=== PATIENT | male | born 1935 | race African-American/Black ===

== ENCOUNTER 2018-12-17 15:20 | Inpatient (IN) | payer MEDICARE, OTHER ==
[2018-12-17 16:21] LABS: Basophils % (Auto) 0.5 % (0.0-1.8); Eosinophils # (Auto) 0.1 K/mm3 (0.0-0.4); Eosinophils % (Auto) 1.6 % (0.0-4.3); Hematocrit 37.9 % (35.5-45.6); Hemoglobin 12.6 gm/dl (11.8-15.2); Lymphocytes # (Auto) 2.3 K/mm3 (1.2-5.4); Lymphocytes % (Auto) 25.6 % (13.4-35.0); Mean Corpuscular HGB Conc 33 % (32-34); Mean Corpuscular Volume 88 fl (84-94); Monocytes # (Auto) 0.6 K/mm3 (0.0-0.8); Monocytes % (Auto) 6.3 % (0.0-7.3); Platelet Count 178 K/mm3 (140-440); Red Cell Distribution Width 17.6 % (13.2-15.2)
[2018-12-17 16:32] LABS: INR 1.04 (0.87-1.13)
--- NOTE | 2018-12-17 16:41 | XRay Report ---
CHEST 1 VIEW INDICATION / CLINICAL INFORMATION: Syncope. COMPARISON: None available. FINDINGS: SUPPORT DEVICES: None. HEART / MEDIASTINUM: Mild cardiomegaly LUNGS / PLEURA: No significant pulmonary or pleural abnormality. No pneumothorax. ADDITIONAL FINDINGS: No significant additional findings. IMPRESSION: No acute pulmonary or pleural abnormality. Signer Name: Rodrigo Fleming MD FACR Signed: 12/17/2018 4:37 PM Workstation Name: [id number]
[2018-12-17 16:46] LABS: Alanine Aminotransferase 16 units/L (7-56); BUN/Creatinine Ratio 7; Blood Urea Nitrogen 11 mg/dL (9-20); Calcium 9.1 mg/dL (8.4-10.2); Hemolysis Index 0
--- NOTE | 2018-12-17 19:20 | Emergency Department Report ---
ED Syncope HPI - General Chief Complaint: Syncope Stated Complaint: SYNCOPAL EPISODE Time Seen by Provider: 12/17/18 16:05 Source: family Exam Limitations: no limitations - History of Present Illness Initial Comments: Patient lives with son and grandson, he has a pasts h/o tobacco abuse and dementia. His son left house around 9 AM, came back around 2pm and found patient on the floor, he states patient had a history of syncopal episodes back in [place], where he would be less responsive after. He should also have a history of hypertension, not controlled. In ER patient is unresponsive to verbal stimuli, unable to participate in H and P. Son and grandson at bedside, provides the history. last known well time 900am. unable to obtain nih d/t patient's condition. - Related Data Allergies/Adverse Reactions: Allergies No Known Allergies Allergy (Verified 12/17/18 19:43) Home Medications: Ambulatory Orders Unobtainable 12/17/18 ED Review of Systems ROS: Stated complaint: SYNCOPAL EPISODE Other details as noted in HPI Comment: Unobtainable due to pts medical conditions ED Past Medical Hx - Past Medical History Previous Medical History?: Yes Hx Dementia: Yes - Surgical History Past Surgical History?: No - Social History Smoking Status: Unknown if ever smoked Substance Use Type: None - Medications Home Medications: Home Medications Medication Instructions Recorded Confirmed Last Taken Type Unobtainable 12/17/18 12/17/18 Unknown History ED Physical Exam - General Limitations: Altered Mental Status General appearance: lethargic - Head Head exam: Present: atraumatic, normocephalic - Eye Eye exam: Present: normal appearance - ENT ENT exam: Present: normal exam, normal orophraynx - Neck Neck exam: Present: normal inspection - Respiratory Respiratory exam: Present: normal lung sounds bilaterally - Cardiovascular Cardiovascular Exam: Present: regular rate, normal rhythm - GI/Abdominal GI/Abdominal exam: Present: soft - Extremities Exam Extremities exam: Present: other (unable to assess, pt not responsive) - Back Exam Back exam: Present: normal inspection - Neurological Exam Neurological exam: Present: altered ED Course Vital Signs 12/17/18 12/17/18 12/17/18 15:30 15:36 15:46 Temperature 98 F Pulse Rate 94 H 96 H Respiratory 16 26 H Rate Blood Pressure 182/105 182/105 Blood Pressure [Left] O2 Sat by Pulse 72 L 95 Oximetry 07/25/19 07/25/19 07/25/19 16:00 16:16 16:30 Temperature Pulse Rate 92 H Respiratory 19 24 23 Rate Blood Pressure 189/111 163/124 187/115 Blood Pressure [Left] O2 Sat by Pulse Oximetry 12/17/18 12/17/18 12/17/18 16:46 17:00 17:16 Temperature Pulse Rate Respiratory 17 24 25 H Rate Blood Pressure 174/105 159/114 172/113 Blood Pressure [Left] O2 Sat by Pulse Oximetry 12/17/18 12/17/18 12/17/18 17:30 17:45 17:48 Temperature Pulse Rate 95 H 98 H Respiratory 24 19 16 Rate Blood Pressure 186/119 181/122 Blood Pressure 176/119 [Left] O2 Sat by Pulse 98 Oximetry 12/17/18 12/17/18 12/17/18 18:00 18:16 18:30 Temperature Pulse Rate 101 H 96 H 104 H Respiratory 16 25 H 26 H Rate Blood Pressure 176/119 166/141 163/104 Blood Pressure [Left] O2 Sat by Pulse 54 L 97 94 Oximetry 12/17/18 12/17/18 12/17/18 18:46 19:22 19:30 Temperature Pulse Rate 101 H 100 H 101 H Respiratory 25 H 16 23 Rate Blood Pressure 159/118 175/111 Blood Pressure [Left] O2 Sat by Pulse 99 Oximetry 12/17/18 12/17/18 12/17/18 19:45 20:01 20:15 Temperature Pulse Rate 97 H 102 H 82 Respiratory 18 20 18 Rate Blood Pressure 175/105 175/105 165/96 Blood Pressure [Left] O2 Sat by Pulse 82 L 97 Oximetry 12/17/18 12/17/18 12/17/18 20:30 20:34 20:41 Temperature Pulse Rate 75 83 77 Respiratory 22 24 Rate Blood Pressure 152/93 152/93 Blood Pressure [Left] O2 Sat by Pulse 97 98 Oximetry 12/17/18 20:50 Temperature Pulse Rate 71 Respiratory 21 Rate Blood Pressure 165/96 Blood Pressure [Left] O2 Sat by Pulse 98 Oximetry ED Medical Decision Making - Lab Data Result diagrams: 12/17/18 16:10 12/17/18 16:10 - Medical Decision Making subacute vs acute cva m.cerebral a territory - Differential Diagnosis seizures, DTs, hypertensive urgency, syncope, CVA Critical care attestation.: If time is entered above; I have spent that time in minutes in the direct care of this critically ill patient, excluding procedure time. ED Disposition Clinical Impression: Acute CVA (cerebrovascular accident) Is pt being admited?: Yes Does the pt Need Aspirin: No Condition: Stable
[2018-12-17] MEDS ORDERED: MILK OF MAGNESIA PO PRN (19:40)
[2018-12-17] MEDS ORDERED: PHENERGAN PR PRN (19:40)
[2018-12-17] MEDS ORDERED: ZOFRAN IV PRN (19:40)
[2018-12-17] MEDS ORDERED: DULCOLAX PR PRN (19:40)
[2018-12-17] MEDS ORDERED: REGLAN PO PRN (19:40)
[2018-12-17] MEDS ORDERED: NORMODYNE IV ONE (19:42)
[2018-12-17] MEDS ORDERED: ASPIRIN PR ONE ×2 (19:49→20:14)
--- NOTE | 2018-12-17 19:53 | Cat Scan Report ---
Nonenhanced CT scan of the brain: INDICATION: syncope, ams TECHNIQUE: Routine CT head without contrast. Sagittal and coronal reformatted images were obtained. A ll CT scans at this location are performed using CT dose reduction for ALARA by means of automated ex posure control. COMPARISON: None. FINDINGS: BRAIN / INTRACRANIAL CONTENTS: Please note these images were obtained in the fourth slice helical sca nner. I am concerned about acute nonhemorrhagic right middle cerebral artery territory infarction. Hyperden se right middle cerebral artery is seen. Increased CT density is also seen in branches of the right m iddle cerebral artery (do not sign) suggesting thrombosis. Infarction is also seen in the right insul ar cortex, putamen and lateral globus pallidus.. I do not see hemorrhage. Mild mass effect is seen ov er the right lateral ventricle. Focal chronic ischemic lesions are seen in both cerebellar hemispheres and christen. Encephalomalacia is seen in the left temporooccipital external border zone with compensatory enlargement of left occipita l horn and atrium of the left lateral ventricle. CRANIOCERVICAL JUNCTION: No significant abnormality. ORBITS: No significant abnormality of visualized orbits. SINUSES / MASTOIDS: Mucosal disease seen in the left maxillary sinus and left anterior ethmoid air ce lls. ADDITIONAL FINDINGS: None. IMPRESSION: CT findings are consistent with acute/subacute nonhemorrhagic right middle cerebral artery territory infarction. Positive critical imaging result; discussed findings with ER physician at [facility] at 6:46 PM CDT Signer Name: Jaylon Rowley MD Signed: 12/17/2018 7:49 PM Workstation Name: [id number]
--- NOTE | 2018-12-17 21:00 | History and Physical Report ---
History of Present Illness Date of admission: 12/17/18 19:40 Chief complaint: Confused History of present illness: 83 YO Male with HTN, Dementia present to ED for evaluation. Pt is stuporous and unable to provide history. Pt history taken from ED staff, and from EMS, as well as patient son. As per son, the patient was in his usual state of health around 0900hrs. The patient son left at that time, and upon his return home around 1400 hrs the patient was found unresponsive and lying in the floor. EMS was notified and upon arrival the patient was found to have a neurologic deficit and tr ansported to [facility]. Pt seen and evaluated in ED and found to have symptoms consistent with CVA, Encephalopathy. Pt initiated on CVA protocol, and admitted to telemetry. No further history obtainable. Pt is lethargic but has a positive gag reflex and is able to protect his airway. No prior admission for review. Past History Past Medical History: hypertension, other (Dementia) Past Surgical History: No surgical history, Other (reviewed) Social history: single. denies: smoking, alcohol abuse, prescription drug abuse Family history: hypertension Medications and Allergies Allergies Allergy/AdvReac Type Severity Reaction Status Date / Time No Known Allergies Allergy Verified 12/17/18 19:43 Home Medications Medication Instructions Recorded Confirmed Last Taken Type Unobtainable 12/17/18 12/17/18 Unknown History Active Meds: Active Medications Acetaminophen (Tylenol) 650 mg PO Q4H PRN PRN Reason: Pain, Mild (1-3) Aspirin (Aspirin) 325 mg PO QDAY [facility] Atorvastatin Calcium (Lipitor) 40 mg PO QHS [facility] Bisacodyl (Dulcolax) 10 mg AR QDAY PRN PRN Reason: Constipation Famotidine (Pepcid) 10 mg IV BID [facility] Magnesium Hydroxide (Milk Of Magnesia) 30 ml PO Q4H PRN PRN Reason: Constipation Metoclopramide HCl (Reglan) 10 mg PO Q6H PRN PRN Reason: Nausea And Vomiting Ondansetron HCl (Zofran) 4 mg IV Q8H PRN PRN Reason: Nausea And Vomiting Promethazine HCl (Phenergan) 25 mg AR Q6H PRN PRN Reason: Nausea And Vomiting Sodium Chloride (Sodium Chloride Flush Syringe 10 Ml) 10 ml IV PRN PRN PRN Reason: LINE FLUSH Review of Systems ROS unobtainable: due to mental status Exam - Constitutional Vitals: Temp Pulse Resp BP Pulse Ox 98 F 75 22 152/93 97 12/17/18 15:36 12/17/18 20:30 12/17/18 20:30 12/17/18 20:30 12/17/18 20:30 General appearance: Present: mild distress - EENT Eyes: Present: miosis - Neck Neck: Present: supple, normal ROM - Respiratory Respiratory effort: normal Respiratory: bilateral: CTA - Cardiovascular Heart Sounds: Present: S1 & S2. Absent: rub, click - Extremities Extremities: pulses symmetrical, No edema Peripheral Pulses: within normal limits - Abdominal General gastrointestinal: Present: soft, non-tender, non-distended, normal bowel sounds Male genitourinary: Present: normal - Integumentary Integumentary: Present: dry, clammy - Musculoskeletal Musculoskeletal: generalized weakness - Psychiatric Psychiatric: no appropriate mood/affect, no intact judgment & insight, no memory intact - Neurologic Neurologic: focal deficits, moves all extremities, no gait normal Results - Labs CBC & Chem 7: 12/17/18 16:10 12/17/18 16:10 Labs: Abnormal lab results 12/17/18 12/17/18 Range/Units 16:08 16:10 RDW 17.6 H (13.2-15.2) % POC Glucose 110 H (70-105) Assessment and Plan - Patient Problems (1) Acute CVA (cerebrovascular accident) Current Visit: Yes Status: Acute Plan to address problem: CVA Protocol: Admit to telemetry,CT head, neuro checks, MRI Brain, MRA brain, Echo, Carotid Doppler, Antiplatelet therapy, lipid panel, statin, PT/OT/Speech therapy, CAse management for D/C Planning placement. (2) Encephalopathy Current Visit: Yes Status: Acute Plan to address problem: CT head, Neuro checks, seizure precautions, aspiration precautions, IVF resuscitation therapy (3) HTN (hypertension) Current Visit: Yes Status: Acute Qualifiers: Hypertension type: essential hypertension Qualified Code(s): I10 - Essential (primary) hypertension Plan to address problem: Monitor BP q shift, (4) Dementia Current Visit: Yes Status: Acute Qualifiers: Dementia behavioral disturbance: without behavioral disturbance Plan to address problem: supportive care, continue current therapy (5) Debility Current Visit: Yes Status: Acute Plan to address problem: PT consulted (6) DVT prophylaxis Current Visit: Yes Status: Acute Plan to address problem: SCD to BLE while in bed. prophylactic lovenox
[2018-12-17] MEDS: PEPCID IV SCH (22:50)
[2018-12-18] MEDS ORDERED: APRESOLINE IV PRN (05:32)
[2018-12-18] MEDS: PEPCID IV SCH ×2 (09:41→21:47)
[2018-12-18] MEDS: APRESOLINE IV PRN ×2 (09:42→10:34)
--- NOTE | 2018-12-18 09:49 | Consultation ---
History of Present Illness Consult date: 12/18/18 Reason for Consult: stroke Chief complaint: stroke History of present illness: pt stuporous, no family hx taken from chart review and talking to attn pt found down yesterday , suspected stroke on arrival Ct head showed a R MCA stroke subacute no tpa or LVO / MET no a.fib BP remain elevated L face arm leg dense weakness no sz no posturing no fever pt not sustaining arousal, spont move on the R no signs of trauma per chart, LTW was 9 am yesterday coag normal FH: unable to obtained / AMS stupor SH ; unable to obtained / AMS stupor all : NKA ROS: unable to obtained / AMS stupor PMH : HTN dementia Past History Past Medical History: hypertension, other (Dementia) Past Surgical History: No surgical history, Other (reviewed) Social history: single. denies: smoking, alcohol abuse, prescription drug abuse Family history: hypertension Medications and Allergies Allergies Allergy/AdvReac Type Severity Reaction Status Date / Time No Known Allergies Allergy Verified 12/17/18 19:43 Home Medications Medication Instructions Recorded Confirmed Last Taken Type Unobtainable 12/17/18 12/17/18 Unknown History Active Meds: Active Medications Acetaminophen (Tylenol) 650 mg PO Q4H PRN PRN Reason: Pain, Mild (1-3) Aspirin (Aspirin) 325 mg PO [facility]DAY [facility] Atorvastatin Calcium (Lipitor) 40 mg PO QHS [facility] Last Admin: 12/17/18 22:59 Dose: Not Given Documented by: Bisacodyl (Dulcolax) 10 mg MA QDAY PRN PRN Reason: Constipation Enoxaparin Sodium (Lovenox) 30 mg SUB-Q QDAY [facility] Famotidine (Pepcid) 10 mg IV BID [facility] Last Admin: 12/18/18 09:41 Dose: 10 mg Documented by: Hydralazine HCl (Apresoline) 10 mg IV Q6H PRN PRN Reason: Hypertension Last Admin: 12/18/18 09:42 Dose: 10 mg Documented by: Hydrochlorothiazide (Hctz) 25 mg PO QDAY [facility] Magnesium Hydroxide (Milk Of Magnesia) 30 ml PO Q4H PRN PRN Reason: Constipation Metoclopramide HCl (Reglan) 10 mg PO Q6H PRN PRN Reason: Nausea And Vomiting Ondansetron HCl (Zofran) 4 mg IV Q8H PRN PRN Reason: Nausea And Vomiting Promethazine HCl (Phenergan) 25 mg MA Q6H PRN PRN Reason: Nausea And Vomiting Sodium Chloride (Sodium Chloride Flush Syringe 10 Ml) 10 ml IV PRN PRN PRN Reason: LINE FLUSH Physical Examination - Vital Signs Vital Signs: Vital Signs Pulse Ox 72 L 12/17/18 15:30 - Physical Exam Narrative exam: stupor no eye opening to verbal tactile stim no W/d to L to nox stim spont moves R UE LE neck supple non verbal not fsc eyes deviated to right pupils reactive face down on left dense weakness on L UE LE, no movements tone down to all limbs no extra movements, no posturing thin no d/c nose ears no asymm edema pulses good x 4 abd soft no joint effusions - Constitutional General appearance: acutely ill - Respiratory Respiratory: Present: no respiratory distress - Integumentary Integumentary: Present: normal Results - Laboratory Findings CBC and BMP: 12/17/18 16:10 12/17/18 16:10 Abnormal Lab Findings: Abnormal Labs 12/17/18 12/17/18 16:08 16:10 RDW 17.6 H POC Glucose 110 H Assessment and Plan stroke acute isch R MCA, embolic, total ant. circulation infarct, large size suspected, unstable BP diastolic is 115 no a.fib no sz no posturing no fever CT head today to w/u concern for cerebral edema, unclear onset time MA asa NPO permissive HTN , though diastolic bp needs correction family/ discussion , next of kin, pt will likely not perhaps show signs of recovery ECHO a1c, lipids follow for signs of elevated ICP no need for MRI b, will not [employer] exchange architect tele. ST PT OT
[2018-12-18] MEDS ORDERED: LOVENOX SUB-Q SCH (10:00)
[2018-12-18] MEDS: ASPIRIN PO SCH (10:05)
[2018-12-18] MEDS: HCTZ PO SCH (10:05)
[2018-12-18] MEDS ORDERED: ATIVAN IV ONE (11:43)
--- NOTE | 2018-12-18 12:45 | Vascular Lab Report ---
Duplex carotid sonography with spectral analysis Indication: stroke Mild carotid atherosclerotic changes are seen. In the right internal carotid artery no significant velocity elevations are seen to suggest a hemodyn amically-significant stenosis. Peak systolic velocity of the right ICA is 106 cm/s. In the left internal carotid artery no significant velocity elevations are seen to suggest a hemodyna mically-significant stenosis. Peak systolic velocity of the left ICA is 68 cm/s. Right ICA/CCA ratio: 2.01 Left ICA/CCA ratio: 1.01 Vertebral flow is antegrade bilaterally. Impression: No evidence of hemodynamically-significant stenosis by NASCET-type criteria Signer Name: Fuentes Abraham MD Signed: 12/18/2018 12:41 PM Workstation Name: [id number]
--- NOTE | 2018-12-18 13:32 | Progress Note ---
Assessment and Plan Assessment and plan: 83 YO Male with HTN, Dementia present to ED for evaluation. Pt is stuporous and unable to provide history. Pt history taken from ED staff, and from EMS, as well as patient son. As per son, the patient was in his usual state of health around 0900hrs. The patient son left at that time, and upon his return home around 1400 hrs the patient was found unresponsive and lying in the floor. EMS was notified and upon arrival the patient was found to have a neurologic deficit and transported to [facility]. Pt seen and evaluated in ED and found to have symptoms consistent with CVA, Encephalopathy. Pt initiated on CVA protocol, and admitted to telemetry. No further history obtainable. Pt is lethargic but has a positive gag reflex and is able to protect his airway. No prior admission for review. Acute CVA (cerebrovascular accident) * CVA Protocol: Admit to telemetry,CT head, neuro checks, MRI Brain, MRA brain, Echo, Carotid Doppler, Antiplatelet therapy, lipid panel, statin, PT/OT/Speech therapy, CAse management for D/C Planning placement. * Discussed case with Neuro, * Change ASA to Rectal till speech eval * Transfer to [facility] Acute Metabolic Encephalopathy Secondary to CVA * CT head, Neuro checks, seizure precautions, aspiration precautions, IVF resuscitation therapy Left Ventricular Thrombus * Awaiting Repeat CT to determine initiation of Heparin without bolus. Patient in a precarious state, calls to family no response. HTN (hypertension) * maintined permisive hypertension and now will begin gradual correction * Monitor BP q shift, Dementia * supportive care, continue current therapy Debility * PT consulted DVT prophylaxis Current Visit: Yes Status: Acute Plan to address problem: SCD to BLE while in bed. prophylactic lovenox Discussed with patients Nephew, Poor prognosis discussed in detail also discussed finding on ECHO and need for anticoagulation with the associated risk. He is agreable with anticaogulation The high probability of a clinically significant, sudden or life threatening deterioration of the [pulmonary, cardiac, Neurolog] system(s) required my full and direct attention, intervention and personal management. The aggregate critical care time was [35] minutes. This time is in addition to time spent performing reported procedures but includes the following: [x] Data Review and interpretation [x] Patient assessment and monitoring of vital signs [x] Documentation [x] Medication orders and management History Interval history: Patient seen and examined, Remains stuporous Hospitalist Physical - Constitutional Vitals: Temp Pulse Resp BP Pulse Ox 98.3 F 117 H 21 170/115 97 12/18/18 08:27 12/18/18 10:34 12/18/18 10:00 12/18/18 10:34 12/18/18 10:00 General appearance: Present: mild distress Results - Labs CBC & Chem 7: 12/18/18 15:07 12/17/18 16:10 Labs: Laboratory Last Values WBC 9.1 K/mm3 (4.5-11.0) 12/17/18 16:10 RBC 4.30 M/mm3 (3.65-5.03) 12/17/18 16:10 Hgb 12.6 gm/dl (11.8-15.2) 12/17/18 16:10 Hct 37.9 % (35.5-45.6) 12/17/18 16:10 MCV 88 fl (84-94) 12/17/18 16:10 MCH 29 pg (28-32) 12/17/18 16:10 MCHC 33 % (32-34) 12/17/18 16:10 RDW 17.6 % (13.2-15.2) H 12/17/18 16:10 Plt Count 178 K/mm3 (140-440) 12/17/18 16:10 Lymph % (Auto) 25.6 % (13.4-35.0) 12/17/18 16:10 Frederick % (Auto) 6.3 % (0.0-7.3) 12/17/18 16:10 Eos % (Auto) 1.6 % (0.0-4.3) 12/17/18 16:10 Baso % (Auto) 0.5 % (0.0-1.8) 12/17/18 16:10 Lymph # 2.3 K/mm3 (1.2-5.4) 12/17/18 16:10 Frederick # 0.6 K/mm3 (0.0-0.8) 12/17/18 16:10 Eos # 0.1 K/mm3 (0.0-0.4) 12/17/18 16:10 Baso # 0.0 K/mm3 (0.0-0.1) 12/17/18 16:10 Seg Neutrophils % 66.0 % (40.0-70.0) 12/17/18 16:10 Seg Neutrophils # 6.0 K/mm3 (1.8-7.7) 12/17/18 16:10 PT 13.3 Sec. (12.2-14.9) 12/17/18 16:10 INR 1.04 (0.87-1.13) 12/17/18 16:10 Sodium 142 mmol/L (137-145) 12/17/18 16:10 Potassium 3.8 mmol/L (3.6-5.0) 12/17/18 16:10 Chloride 104.3 mmol/L (98-107) 12/17/18 16:10 Carbon Dioxide 23 mmol/L (22-30) 12/17/18 16:10 19 mmol/L 12/17/18 16:10 BUN 11 mg/dL (9-20) 12/17/18 16:10 1.5 mg/dL (0.8-1.5) 12/17/18 16:10 Estimated GFR 45 ml/min 12/17/18 16:10 7 % 12/17/18 16:10 Glucose 100 mg/dL (75-100) 12/17/18 16:10 POC Glucose 110 (70-105) H 12/17/18 16:08 Calcium 9.1 mg/dL (8.4-10.2) 12/17/18 16:10 0.30 mg/dL (0.1-1.2) 12/17/18 16:10 AST 21 units/L (5-40) 12/17/18 16:10 ALT 16 units/L (7-56) 12/17/18 16:10 86 units/L (35-129) 12/17/18 16:10 < 0.010 ng/mL (0.00-0.029) 12/17/18 16:10 8.0 g/dL (6.3-8.2) 12/17/18 16:10 4.0 g/dL (3.9-5) 12/17/18 16:10 1.0 % 12/17/18 16:10 Active Medications - Current Medications Current Medications: Generic Name Dose Route Start Last Admin Trade Name Robinq PRN Reason Stop Dose Admin Acetaminophen 650 mg 12/17/18 19:40 Tylenol PO Q4H PRN Pain, Mild (1-3) Aspirin 325 mg 12/18/18 10:00 12/18/18 10:05 Aspirin PO Not Given QDAY [facility] Atorvastatin Calcium 40 mg 12/17/18 22:00 12/17/18 22:59 Lipitor PO Not Given QHS [facility] Bisacodyl 10 mg 12/17/18 19:40 Dulcolax DC QDAY PRN Constipation Enoxaparin Sodium 30 mg 12/18/18 10:00 12/18/18 09:46 Lovenox SUB-Q 30 mg QDAY [facility] Administration Famotidine 10 mg 12/17/18 22:00 12/18/18 09:41 Pepcid IV 10 mg BID [facility] Administration Hydralazine HCl 10 mg 12/18/18 08:46 12/18/18 10:34 Apresoline IV 10 mg Q6H PRN Administration Hypertension Hydrochlorothiazide 25 mg 12/18/18 10:00 12/18/18 10:05 Hctz PO Not Given QDAY [facility] Magnesium Hydroxide 30 ml 12/17/18 19:40 Milk Of Magnesia PO Q4H PRN Constipation Metoclopramide HCl 10 mg 12/17/18 19:40 Reglan PO Q6H PRN Nausea And Vomiting Ondansetron HCl 4 mg 12/17/18 19:40 Zofran IV Q8H PRN Nausea And Vomiting Promethazine HCl 25 mg 12/17/18 19:40 Phenergan DC Q6H PRN Nausea And Vomiting Sodium Chloride 10 ml 12/17/18 19:40 Sodium Chloride Flush Syringe 10 Ml IV PRN PRN LINE FLUSH
--- NOTE | 2018-12-18 13:58 | Cat Scan Report ---
CT head/brain wo con INDICATION / CLINICAL INFORMATION: 83 years Male; eval for cerebral edema, signs of large stroke. TECHNIQUE: Routine CT head without contrast. All CT scans at this location are performed using CT dos e reduction for ALARA by means of automated exposure control. COMPARISON: 12/17/2018 FINDINGS: BRAIN / INTRACRANIAL CONTENTS: Large MCA territorial infarct seen on the right is better delineated o n current study, when compared with prior. There is significant edema and minimal right to left midli ne shift. No evidence of hemorrhagic transformation. Old, branch MCA territorial infarct seen on the left, predominantly involving the parietal and tempor al regions. Old, bilateral branch PICA infarcts noted as well. Mild to moderate cerebral and cerebellar atrophy. Old lacunar type infarcts seen in the christen, as well as the thalamic regions bilaterally. Similar findings seen in the head of the left caudate. There are [id number] areas of decreased attenuation in the white matter of the cerebral hemisph eres. These are nonspecific findings and may be related to microangiopathy (hypertension, diabetes, a therosclerosis), given the patient's age. It might be difficult to evaluate for small areas of ischem ia without diffusion imaging by MRI. CRANIOCERVICAL JUNCTION: No significant abnormality. ORBITS: No significant abnormality of visualized orbits. SINUSES / MASTOIDS: Mucous retention cyst/polyp seen in the left maxillary antrum. There is partial o pacification of the underdeveloped mastoid air cells bilaterally. Mild mucosal thickening seen in the anterior ethmoids on the left. ADDITIONAL FINDINGS: Atherosclerotic disease is seen in the anterior circulation. IMPRESSION: 1. Normal evolutionary change in large right MCA territorial infarct with no evidence of hemorrhagic transformation. There has been slight increase in the amount of edema, when compared with prior exam. Signer Name: Jonathan Granados MD, III Signed: 12/18/2018 1:54 PM Workstation Name: [id number]
[2018-12-18] MEDS ORDERED: LOPRESSOR IV ONE (14:30)
[2018-12-18 15:25] LABS: Hematocrit 37.6 % (35.5-45.6); Hemoglobin 12.6 gm/dl (11.8-15.2)
--- NOTE | 2018-12-18 15:25 | Magnetic Resonance Report ---
MRA HEAD 12/18/2018 INDICATION / CLINICAL INFORMATION: stroke. Left-sided weakness TECHNIQUE: Routine MRA of the head is performed. 3-D/MIP reformats postprocessed. Significant patient motion artifact is present. COMPARISON: None available. FINDINGS: There is absence of flow signal in the right middle cerebral artery, consistent with complete occlusi on. This corresponds to the territory of acute ischemic injury noted on brain MRI and CT scan. There appears to be some intracranial atherosclerotic irregularity along the course of branches of th e left middle cerebral artery and posterior cerebral arteries. Basilar artery itself is intact. The d istal internal carotid arteries are intact bilaterally. IMPRESSION: Findings consistent with right MCA occlusion and intracranial atherosclerotic change. Signer Name: Hiro Clements MD Signed: 12/18/2018 3:21 PM Workstation Name: [id number]
[2018-12-18 15:36] LABS: INR 1.14 (0.87-1.13); Partial Thromboplastin Time 37.1 Sec. (24.2-36.6)
[2018-12-18] MEDS: HEPARIN/ 0.45% NACL-25,000 UNIT/500 ML 25,000 UNIT/500 ML BAG IV SCH (15:54)
--- NOTE | 2018-12-18 18:27 | Magnetic Resonance Report ---
MR brain wo con INDICATION / CLINICAL INFORMATION: 83 years Male; stroke. TECHNIQUE: Multiplanar, multisequence MR images of the brain were obtained. COMPARISON: CT - 12/18/2018 FINDINGS: BRAIN / INTRACRANIAL CONTENTS: Large area of ischemia in the right MCA territory which appears to be acute in age. The entire MCA territories involved. Focal mass effect is seen with minimal right to left midline melissa ft. Old, branch MCA infarct seen in the left parietal temporal region. Gradient echo T2 imaging demonstrates punctate focus of decreased signal in the posterior putamen on the right. A few punctate foci of decreased signal are seen in the old branch MCA infarct on the left . Findings are presumably related to old microhemorrhages. Otherwise, no acute ischemia, acute hemorrhage, or hydrocephalus. Mild to moderate atrophy. There are moderate, confluent areas of increased signal intensity on FLAIR imaging in the white matte r of the cerebral hemispheres. These are nonspecific findings and may be related to microangiopathy ( hypertension, diabetes, atherosclerosis), given the patient's age. CRANIOCERVICAL JUNCTION: No significant abnormality. VASCULAR FLOW-VOIDS: Isointense T2 signal intensity seen in the right MCA vessels, suggesting slow or no flow. ORBITS: No significant abnormality of visualized orbits. SINUSES / MASTOIDS: There is partial opacification of the mastoids on the left and to lesser degree o n the right. There is also significant mucosal thickening in the anterior ethmoids on the left. Mucou s retention cyst suggested in the left maxillary antrum. There may be a polypoid type lesion or cyst in the posterior nasal airway on the left extending into the nasopharynx. ADDITIONAL FINDINGS: None. IMPRESSION: 1. Large area of ischemia in the right MCA territory, as described above. No signs of hemorrhagic tra nsformation. Signer Name: Jonathan Granados MD, III Signed: 12/18/2018 6:22 PM Workstation Name: [id number]
[2018-12-18] MEDS: SODIUM CHLORIDE FLUSH SYRINGE 10 ML IV PRN (21:47)
[2018-12-19] MEDS ORDERED: SODIUM BICARBONATE FEEDTUBE PRN (08:41)
[2018-12-19] MEDS ORDERED: SIMPLE SYRUP FEEDTUBE PRN ×2 (08:41)
[2018-12-19] MEDS ORDERED: PANCREAZE DR 10,500 UNIT FEEDTUBE PRN (08:41)
--- NOTE | 2018-12-19 10:19 | Progress Note ---
Assessment and Plan Assessment and plan: 83 YO Male with HTN, Dementia present to ED for evaluation. Pt is stuporous and unable to provide history. Pt history taken from ED staff, and from EMS, as well as patient son. As per son, the patient was in his usual state of health around 0900hrs. The patient son left at that time, and upon his return home around 1400 hrs the patient was found unresponsive and lying in the floor. EMS was notified and upon arrival the patient was found to have a neurologic deficit and transported to [facility]. Pt seen and evaluated in ED and found to have symptoms consistent with CVA, Encephalopathy. Pt initiated on CVA protocol, and admitted to telemetry. No further history obtainable. Pt is lethargic but has a positive gag reflex and is able to protect his airway. No prior admission for review. Acute CVA (cerebrovascular accident) * CVA Protocol: Admit to telemetry,CT head, neuro checks, MRI Brain, MRA brain, Echo, Carotid Doppler, Antiplatelet therapy, lipid panel, Statin, PT/OT/Speech therapy, Case management for D/C Planning placement. * Change ASA to Rectal till speech eval * Continue IMCU CARE * DISCUSSED WITH FAMILY Acute Metabolic Encephalopathy Secondary to CVA * CT head, Neuro checks, seizure precautions, aspiration precautions, IVF resuscitation therapy Left Ventricular Thrombus * Family advised, started on heparin drip. will plan repeat CT scan of head in 24 hrs if no change in mental status HTN (hypertension) * maintained permissive hypertension and now will begin gradual correction * Monitor BP q shift, Dementia * supportive care, continue current therapy Debility * PT consulted DVT prophylaxis Current Visit: Yes Status: Acute Plan to address problem: SCD to BLE while in bed. prophylactic lovenox Discussed with patients Nephew, Poor prognosis discussed in detail also discussed finding on ECHO and need for anticoagulation with the associated risk. He is agreeable with anticaogulation Spoke again with family. The high probability of a clinically significant, sudden or life threatening deterioration of the [pulmonary, cardiac, Neurology system(s) required my full and direct attention, intervention and personal management. The aggregate critical care time was [35] minutes. This time is in addition to time spent p erforming reported procedures but includes the following: [x] Data Review and interpretation [x] Patient assessment and monitoring of vital signs [x] Documentation [x] Medication orders and management History Interval history: Patient seen and examined, Remains stuporous, family at bedside Hospitalist Physical - Physical exam Narrative exam: physical exam General appearance: Present: mild distress, stuporous - EENT Eyes: Present: miosis - Neck Neck: Present: supple, normal ROM - Respiratory Respiratory effort: normal Respiratory: bilateral: CTA - Cardiovascular Heart Sounds: Present: S1 & S2. Absent: rub, click - Extremities Extremities: pulses symmetrical, No edema Peripheral Pulses: within normal limits - Abdominal General gastrointestinal: Present: soft, non-tender, non-distended, normal bowel sounds Male genitourinary: Present: normal - Integumentary Integumentary: Present: dry, clammy - Musculoskeletal Musculoskeletal: generalized weakness, flaccid left side - Psychiatric Psychiatric: unable to assess - Neurologic Neurologic: focal deficits, moves right upper extremities, no gait normal - Constitutional Vitals: Temp Pulse Resp BP Pulse Ox 98.1 F 105 H 20 139/97 98 12/19/18 04:00 12/19/18 06:40 12/19/18 06:40 12/19/18 06:40 12/19/18 06:40 General appearance: Present: mild distress Results - Labs CBC & Chem 7: 12/20/18 06:53 12/17/18 16:10 Labs: Laboratory Last Values WBC 9.1 K/mm3 (4.5-11.0) 12/17/18 16:10 RBC 4.30 M/mm3 (3.65-5.03) 12/17/18 16:10 Hgb 12.6 gm/dl (11.8-15.2) 12/18/18 15:07 Hct 37.6 % (35.5-45.6) 12/18/18 15:07 MCV 88 fl (84-94) 12/17/18 16:10 MCH 29 pg (28-32) 12/17/18 16:10 MCHC 33 % (32-34) 12/17/18 16:10 RDW 17.6 % (13.2-15.2) H 12/17/18 16:10 Plt Count 198 K/mm3 (140-440) 12/18/18 15:07 Lymph % (Auto) 25.6 % (13.4-35.0) 12/17/18 16:10 [place] % (Auto) 6.3 % (0.0-7.3) 12/17/18 16:10 Eos % (Auto) 1.6 % (0.0-4.3) 12/17/18 16:10 Baso % (Auto) 0.5 % (0.0-1.8) 12/17/18 16:10 Lymph # 2.3 K/mm3 (1.2-5.4) 12/17/18 16:10 [place] # 0.6 K/mm3 (0.0-0.8) 12/17/18 16:10 Eos # 0.1 K/mm3 (0.0-0.4) 12/17/18 16:10 Baso # 0.0 K/mm3 (0.0-0.1) 12/17/18 16:10 Seg Neutrophils % 66.0 % (40.0-70.0) 12/17/18 16:10 Seg Neutrophils # 6.0 K/mm3 (1.8-7.7) 12/17/18 16:10 PT 14.3 Sec. (12.2-14.9) 12/18/18 15:07 INR 1.14 (0.87-1.13) H 12/18/18 15:07 APTT 37.1 Sec. (24.2-36.6) H 12/18/18 15:07 Heparin Anti-Xa Level 0.15 U.I./ml (0.3-0.7) L 12/19/18 05:55 Sodium 142 mmol/L (137-145) 12/17/18 16:10 Potassium 3.8 mmol/L (3.6-5.0) 12/17/18 16:10 Chloride 104.3 mmol/L (98-107) 12/17/18 16:10 Carbon Dioxide 23 mmol/L (22-30) 12/17/18 16:10 19 mmol/L 12/17/18 16:10 BUN 11 mg/dL (9-20) 12/17/18 16:10 1.5 mg/dL (0.8-1.5) 12/17/18 16:10 Estimated GFR 45 ml/min 12/17/18 16:10 7 % 12/17/18 16:10 Glucose 100 mg/dL (75-100) 12/17/18 16:10 POC Glucose 110 (70-105) H 12/17/18 16:08 Calcium 9.1 mg/dL (8.4-10.2) 12/17/18 16:10 0.30 mg/dL (0.1-1.2) 12/17/18 16:10 AST 21 units/L (5-40) 12/17/18 16:10 ALT 16 units/L (7-56) 12/17/18 16:10 86 units/L (35-129) 12/17/18 16:10 < 0.010 ng/mL (0.00-0.029) 12/17/18 16:10 8.0 g/dL (6.3-8.2) 12/17/18 16:10 4.0 g/dL (3.9-5) 12/17/18 16:10 1.0 % 12/17/18 16:10 Active Medications - Current Medications Current Medications: Generic Name Dose Route Start Last Admin Trade Name Freq PRN Reason Stop Dose Admin Acetaminophen 650 mg 12/17/18 19:40 Tylenol PO Q4H PRN Pain, Mild (1-3) Lipase/Protease/Amylase 1 each 12/19/18 08:[address] 10,500 Unit FEEDTUBE PRN PRN For Clogged Feeding Tube Aspirin 325 mg 12/18/18 10:00 12/18/18 10:05 Aspirin PO Not Given QDAY TRINY Atorvastatin Calcium 40 mg 12/17/18 22:00 12/18/18 21:47 Lipitor PO Not Given QHS TRINY Bisacodyl 10 mg 12/17/18 19:40 Dulcolax [place] QDAY PRN Constipation Famotidine 10 mg 12/17/18 22:00 12/18/18 21:47 Pepcid IV 10 mg BID TRINY Administration Hydralazine HCl 10 mg 12/18/18 08:46 12/18/18 10:34 Apresoline IV 10 mg Q6H PRN Administration Hypertension Hydrochlorothiazide 25 mg 12/18/18 10:00 12/18/18 10:05 Hctz PO Not Given QDAY TRINY Heparin Sodium/Sodium Chloride 25,000 unit in 500 mls @ 16 mls/hr 12/18/18 15:00 12/19/18 07:47 Heparin/ 0.45% Nacl-25,000 Unit/500 Ml IV 750 units/hr TITR TRINY 15 mls/hr Titration Protocol 800 UNITS/HR Magnesium Hydroxide 30 ml 12/17/18 19:40 Milk Of Magnesia PO Q4H PRN Constipation Metoclopramide HCl 10 mg 12/17/18 19:40 Reglan PO Q6H PRN Nausea And Vomiting Ondansetron HCl 4 mg 12/17/18 19:40 Zofran IV Q8H PRN Nausea And Vomiting Promethazine HCl 25 mg 12/17/18 19:40 Phenergan [place] Q6H PRN Nausea And Vomiting Simple Syrup 15 ml 12/19/18 08:41 Simple Syrup FEEDTUBE PRN PRN Hypoglycemia Simple Syrup 30 ml 12/19/18 08:41 Simple Syrup FEEDTUBE PRN PRN Hypoglycemia Sodium Bicarbonate 325 mg 12/19/18 08:41 Sodium Bicarbonate FEEDTUBE PRN PRN For Clogged Feeding Tube Sodium Chloride 10 ml 12/17/18 19:40 12/18/18 21:47 Sodium Chloride Flush Syringe 10 Ml IV 10 ml PRN PRN Administration LINE FLUSH Nutrition/Malnutrition Assess - Dietary Evaluation Nutrition/Malnutrition Findings: Nutrition Notes Start: 12/19/18 08:36 Freq: Status: Active Protocol: Document 12/19/18 08:36 LP (Rec: 12/19/18 08:41 LP [id number]) Nutrition Notes Need for Assessment generated from: MD Order Initial or Follow up Assessment Current Diagnosis Hypertension,Stroke Other Pertinent Diagnosis Dementia, Encephalopathy Current Diet NPO Labs/Tests Reviewed Pertinent Medications Reviewed Height 5 ft 3 in Weight 55.1 kg [place] Body Weight (kg) 56.36 BMI 21.5 Weight Status Appropriate Subjective/Other Information Consult for TF. Pt had CVA and unable to consume meals orally. Pt non-verbal. Burn Absent Trauma Absent #1 Nutrition Diagnosis Inadequate oral intake Etiology CVA As Evidenced by Signs and Symptoms Pt unable to consume meals orally Is patient on ventilator? No Is Patient Ambulatory and/or Out of Bed No REE-([facility]-confined to bed) [phone] Calculation [facility] Additional Notes Protein needs are 55-66g (1-1. 2g/kg) Fluid needs are 1ml/kcal Nutrition Intervention Change Diet Order: TF Nutrition Support: Jevity 1.2 at 50ml/hr Flush with 100ml q4h Kcal 1,440 Protein (gm) 67 Fluid (mL) 968 Goal #1 Meet at least 80% of kcal and protein needs Anticipated Discharge Needs: TF Follow-Up By: 12/21/18 Additional Comments Follow for TF start/tolerance
[2018-12-19] MEDS: PEPCID IV SCH ×2 (10:57→22:01)
[2018-12-19 11:59] LABS: Amphetamine Screen,Urine PRESUMPTIVE NEGATIVE; Benzodiazepines Screen,Urine PRESUMPTIVE NEGATIVE; Cannabinoid Screen,Urine PRESUMPTIVE NEGATIVE; Cocaine Screen,Urine PRESUMPTIVE NEGATIVE; Methadone Screen,Urine PRESUMPTIVE NEGATIVE; Opiate Screen,Urine PRESUMPTIVE NEGATIVE
--- NOTE | 2018-12-19 13:53 | XRay Report ---
ABDOMEN 1 VIEW(S) INDICATION: Feeding tube plcmt COMPARISON: None available. FINDINGS: Dobbhoff feeding tube has its tip in the stomach Bowel gas pattern: Within normal limits. No dilated loops of large or small bowel. Free air: None. Calcified gallstones: None seen. Calcified urinary tract calculi: None seen. Additional Findings: None. Skeletal structures: No acute abnormality. IMPRESSION: 1. No acute findings. Signer Name: Good Vargas MD Signed: 12/19/2018 1:49 PM Workstation Name: [id number]
[2018-12-19] MEDS: HCTZ PO SCH (16:24)
[2018-12-19] MEDS: ASPIRIN PO SCH (16:24)
[2018-12-19] MEDS: APRESOLINE IV PRN (16:41)
[2018-12-19] MEDS: TYLENOL PO PRN (22:01)
[2018-12-19] MEDS: HEPARIN/ 0.45% NACL-25,000 UNIT/500 ML 25,000 UNIT/500 ML BAG IV SCH (22:05)
[2018-12-20 07:41] LABS: Hematocrit 35.3 % (35.5-45.6); Hemoglobin 11.9 gm/dl (11.8-15.2)
--- NOTE | 2018-12-20 08:30 | Progress Note ---
Assessment and Plan Assessment and plan: 83 YO Male with HTN, Dementia present to ED for evaluation. Pt is stuporous and unable to provide history. Pt history taken from ED staff, and from EMS, as well as patient son. As per son, the patient was in his usual state of health around 0900hrs. The patient son left at that time, and upon his return home around 1400 hrs the patient was found unresponsive and lying in the floor. EMS was notified and upon arrival the patient was found to have a neurologic deficit and transported to [facility]. Pt seen and evaluated in ED and found to have symptoms consistent with CVA, Encephalopathy. Pt initiated on CVA protocol, and admitted to telemetry. No further history obtainable. Pt is lethargic but has a positive gag reflex and is able to protect his airway. No prior admission for review. MRI head: Large area of ischemia in the right MCA territory, as described above. No signs of hemorrhagic transformation. CT Head: Normal evolutionary change in large right MCA territorial infarct with no evidence of hemorrhagic transformation. There has been slight increase in the amount of edema, when compared with prior exam. KUB. No acute findings. * Patient visiting family here from [facility], was only planned to be stateside for 10days, disposition will be difficult if patient does not improve, I have spoken to the Nephew extensively about the dire nature of patients condition * Noted Nasal bleed 12/20/18 am, likely started overnight, now appears to have hemostats. Hold Heparin and repeat CT head stat, if no Hemorrhagic conversion will restart Acute CVA (cerebrovascular accident) * CVA Protocol: /Speech therapy, Case management for D/C Planning placement. * Change ASA to Rectal * Repeat CT head stat * Continue IMCU CARE * DISCUSSED WITH FAMILY Acute Metabolic Encephalopathy Secondary to CVA * CT head, Neuro checks, seizure precautions, aspiration precautions, IVF resus citation therapy * No clinical improvement noted Left Hemiplegia * Repeat CT Head Left Ventricular Thrombus * Family advised, started on heparin drip. will plan repeat CT scan of head in 24 hrs if no change in mental status * If no hemorrhagic transformation on repeat imaging, will start coumadin HTN (hypertension) * maintained permissive hypertension and now will begin gradual correction * Monitor BP q shift, Dementia * supportive care, continue current therapy Nasal Bleed * As noted above Nutrition * started on tube feed Debility * PT consulted DVT prophylaxis Current Visit: Yes Status: Acute Plan to address problem: SCD to BLE while in bed. prophylactic lovenox Discussed with patients Nephew, Poor prognosis discussed in detail also discussed finding on ECHO and need for anticoagulation with the associated risk. He is agreeable with anticaogulation Spoke again with family. Poor prognosis The high probability of a clinically significant, sudden or life threatening deterioration of the [pulmonary, cardiac, Neurology system(s) required my full and direct attention, intervention and personal management. The aggregate critical care time was [35] minutes. This time is in addition to time spent performing reported procedures but includes the following: [x] Data Review and interpretation [x] Patient assessment and monitoring of vital signs [x] Documentation [x] Medication orders and management History Interval history: Patient seen and examined, Remains stuporous, Not following commands, continues with spontaneous movement of right upper ext Hospitalist Physical - Physical exam Narrative exam: physical exam General appearance: Present: mild distress, stuporous - EENT Eyes: Present: miosis - Neck Neck: Present: supple, normal ROM - Respiratory Respiratory effort: normal Respiratory: bilateral: CTA - Cardiovascular Heart Sounds: Present: S1 & S2. Absent: rub, click - Extremities Extremities: pulses symmetrical, No edema Peripheral Pulses: within normal limits - Abdominal General gastrointestinal: Present: soft, non-tender, non-distended, normal bowel sounds Male genitourinary: Present: normal - Integumentary Integumentary: Present: dry, clammy - Musculoskeletal Musculoskeletal: generalized weakness, flaccid left side - Psychiatric Psychiatric: unable to assess - Neurologic Neurologic: focal deficits, moves right upper extremities, no gait normal, not following commands - Constitutional Vitals: Temp Pulse Resp BP Pulse Ox 98.7 F 106 H 20 159/90 98 12/20/18 08:00 12/20/18 08:00 12/20/18 08:00 12/20/18 08:00 12/20/18 08:00 General appearance: Present: mild distress Results - Labs CBC & Chem 7: 12/20/18 06:53 12/17/18 16:10 Labs: Laboratory Last Values WBC 9.1 K/mm3 (4.5-11.0) 12/17/18 16:10 RBC 4.30 M/mm3 (3.65-5.03) 12/17/18 16:10 Hgb 11.9 gm/dl (11.8-15.2) 12/20/18 06:53 Hct 35.3 % (35.5-45.6) L 12/20/18 06:53 MCV 88 fl (84-94) 12/17/18 16:10 MCH 29 pg (28-32) 12/17/18 16:10 MCHC 33 % (32-34) 12/17/18 16:10 RDW 17.6 % (13.2-15.2) H 12/17/18 16:10 Plt Count 191 K/mm3 (140-440) 12/20/18 06:53 Lymph % (Auto) 25.6 % (13.4-35.0) 12/17/18 16:10 [place] % (Auto) 6.3 % (0.0-7.3) 12/17/18 16:10 Eos % (Auto) 1.6 % (0.0-4.3) 12/17/18 16:10 Baso % (Auto) 0.5 % (0.0-1.8) 12/17/18 16:10 Lymph # 2.3 K/mm3 (1.2-5.4) 12/17/18 16:10 [place] # 0.6 K/mm3 (0.0-0.8) 12/17/18 16:10 Eos # 0.1 K/mm3 (0.0-0.4) 12/17/18 16:10 Baso # 0.0 K/mm3 (0.0-0.1) 12/17/18 16:10 Seg Neutrophils % 66.0 % (40.0-70.0) 12/17/18 16:10 Seg Neutrophils # 6.0 K/mm3 (1.8-7.7) 12/17/18 16:10 PT 14.3 Sec. (12.2-14.9) 12/18/18 15:07 INR 1.14 (0.87-1.13) H 12/18/18 15:07 APTT 37.1 Sec. (24.2-36.6) H 12/18/18 15:07 Heparin Anti-Xa Level 0.15 U.I./ml (0.3-0.7) L 12/19/18 05:55 Sodium 142 mmol/L (137-145) 12/17/18 16:10 Potassium 3.8 mmol/L (3.6-5.0) 12/17/18 16:10 Chloride 104.3 mmol/L (98-107) 12/17/18 16:10 Carbon Dioxide 23 mmol/L (22-30) 12/17/18 16:10 19 mmol/L 12/17/18 16:10 BUN 11 mg/dL (9-20) 12/17/18 16:10 1.5 mg/dL (0.8-1.5) 12/17/18 16:10 Estimated GFR 45 ml/min 12/17/18 16:10 7 % 12/17/18 16:10 Glucose 100 mg/dL (75-100) 12/17/18 16:10 POC Glucose 110 (70-105) H 12/17/18 16:08 Calcium 9.1 mg/dL (8.4-10.2) 12/17/18 16:10 0.30 mg/dL (0.1-1.2) 12/17/18 16:10 AST 21 units/L (5-40) 12/17/18 16:10 ALT 16 units/L (7-56) 12/17/18 16:10 86 units/L (35-129) 12/17/18 16:10 < 0.010 ng/mL (0.00-0.029) 12/17/18 16:10 8.0 g/dL (6.3-8.2) 12/17/18 16:10 4.0 g/dL (3.9-5) 12/17/18 16:10 1.0 % 12/17/18 16:10 Presumptive negative 12/19/18 Unknown Presumptive negative 12/19/18 Unknown Ur Barbiturates Screen Presumptive negative 12/19/18 Unknown Ur Phencyclidine Scrn Presumptive negative 12/19/18 Unknown Ur Amphetamines Screen Presumptive negative 12/19/18 Unknown U Benzodiazepines Scrn Presumptive negative 12/19/18 Unknown Presumptive negative 12/19/18 Unknown U Marijuana (THC) Screen Presumptive negative 12/19/18 Unknown Disclamer 12/19/18 Unknown Active Medications - Current Medications Current Medications: Generic Name Dose Route Start Last Admin Trade Name Freq PRN Reason Stop Dose Admin Acetaminophen 650 mg 12/17/18 19:40 12/19/18 22:01 Tylenol PO 650 mg Q4H PRN Administration Pain, Mild (1-3) Lipase/Protease/Amylase 1 each 12/19/18 08:41 Pancreblack [place] 10,500 Unit FEEDTUBE PRN PRN For Clogged Feeding Tube Aspirin 325 mg 12/18/18 10:00 12/19/18 16:24 Aspirin PO 325 mg QDAY TRINY Administration Atorvastatin Calcium 40 mg 12/17/18 22:00 12/19/18 22:01 Lipitor PO 40 mg QHS TRINY Administration Bisacodyl 10 mg 12/17/18 19:40 Dulcolax [place] QDAY PRN Constipation Famotidine 10 mg 12/17/18 22:00 12/19/18 22:01 Pepcid IV 10 mg BID TRINY Administration Hydralazine HCl 10 mg 12/18/18 08:46 12/19/18 16:41 Apresoline IV 10 mg Q6H PRN Administration Hypertension Hydrochlorothiazide 25 mg 12/18/18 10:00 12/19/18 16:24 Hctz PO 25 mg QDAY TRINY Administration Heparin Sodium/Sodium Chloride 25,000 unit in 500 mls @ 16 mls/hr 12/18/18 15:00 12/19/18 22:05 Heparin/ 0.45% Nacl-25,000 Unit/500 Ml IV 750 units/hr TITR TRINY 15 mls/hr Administration Protocol 800 UNITS/HR Magnesium Hydroxide 30 ml 12/17/18 19:40 Milk Of Magnesia PO Q4H PRN Constipation Metoclopramide HCl 10 mg 12/17/18 19:40 Reglan PO Q6H PRN Nausea And Vomiting Ondansetron HCl 4 mg 12/17/18 19:40 Zofran IV Q8H PRN Nausea And Vomiting Promethazine HCl 25 mg 12/17/18 19:40 Phenergan [place] Q6H PRN Nausea And Vomiting Simple Syrup 15 ml 12/19/18 08:41 Simple Syrup FEEDTUBE PRN PRN Hypoglycemia Simple Syrup 30 ml 12/19/18 08:41 Simple Syrup FEEDTUBE PRN PRN Hypoglycemia Sodium Bicarbonate 325 mg 12/19/18 08:41 Sodium Bicarbonate FEEDTUBE PRN PRN For Clogged Feeding Tube Sodium Chloride 10 ml 12/17/18 19:40 12/18/18 21:47 Sodium Chloride Flush Syringe 10 Ml IV 10 ml PRN PRN Administration LINE FLUSH Nutrition/Malnutrition Assess - Dietary Evaluation Nutrition/Malnutrition Findings: Nutrition Notes Start: 12/19/18 08:36 Freq: Status: Active Protocol: Document 12/19/18 08:36 LP (Rec: 12/19/18 08:41 LP [id number]) Nutrition Notes Need for Assessment generated from: MD Order Initial or Follow up Assessment Current Diagnosis Hypertension,Stroke Other Pertinent Diagnosis Dementia, Encephalopathy Current Diet NPO Labs/Tests Reviewed Pertinent Medications Reviewed Height 5 ft 3 in Weight 55.1 kg [place] Body Weight (kg) 56.36 BMI 21.5 Weight Status Appropriate Subjective/Other Information Consult for TF. Pt had CVA and unable to consume meals orally. Pt non-verbal. Burn Absent Trauma Absent #1 Nutrition Diagnosis Inadequate oral intake Etiology CVA As Evidenced by Signs and Symptoms Pt unable to consume meals orally Is patient on ventilator? No Is Patient Ambulatory and/or Out of Bed No REE-([facility]-confined to bed) 1376.652 Calculation Used for Recommendations [facility] Additional Notes Protein needs are 55-66g (1-1. 2g/kg) Fluid needs are 1ml/kcal Nutrition Intervention Change Diet Order: TF Nutrition Support: Jevity 1.2 at 50ml/hr Flush with 100ml q4h Kcal 1,440 Protein (gm) 67 Fluid (mL) 968 Goal #1 Meet at least 80% of kcal and protein needs Anticipated Discharge Needs: TF Follow-Up By: 12/21/18 Additional Comments Follow for TF start/tolerance
--- NOTE | 2018-12-20 09:45 | Cat Scan Report ---
CT head/brain wo con INDICATION / CLINICAL INFORMATION: 83 years Male; AMS. TECHNIQUE: Thin cut axial images obtained through the head. Sagittal and coronal reconstructions performed. All CT scans at this location are performed using CT dose reduction for ALARA by means of automated expos ure control. COMPARISON: 12/18/2018. FINDINGS: There is more edema associated with the right MCA territorial infarct when compared with prior exam. Slight right to left midline shift is noted. Patient does not appear to be at risk for herniation at this time. There is no signs of hemorrhagic transformation. Basal cisterns remain well-visualized. Otherwise, no significant interval change from prior exam is appreciated. Multiple old infarcts ident ified, including left parietotemporal region, bilateral PICA territories, bilateral thalamic regions, head of the left caudate. NG tube is noted. Mucous retention cyst/polyp is seen in the left maxillary antrum, along with desiccated secretions. T here are also desiccated secretions in the posterior nasal airway. IMPRESSION: 1. Increased edema associated with the large MCA territorial infarct on the right. More mass effect a nd slight right to left midline shift are present; however, patient does not appear to be at risk for herniation at this time. No signs of hemorrhagic transformation. Signer Name: Jonathan Granados MD, III Signed: 12/20/2018 9:41 AM Workstation Name: [id number]
[2018-12-20] MEDS: ASPIRIN PO SCH (11:19)
[2018-12-20] MEDS: PEPCID PO SCH ×2 (11:19→22:06)
[2018-12-20] MEDS: HCTZ PO SCH (11:19)
[2018-12-20] MEDS: APRESOLINE IV PRN (11:23)
[2018-12-21] MEDS: HCTZ PO SCH (11:19)
[2018-12-21] MEDS: PEPCID PO SCH ×2 (11:19→22:27)
[2018-12-21] MEDS: ASPIRIN PO SCH (11:19)
[2018-12-21] MEDS: HEPARIN/ 0.45% NACL-25,000 UNIT/500 ML 25,000 UNIT/500 ML BAG IV SCH (16:53)
--- NOTE | 2018-12-21 17:11 | Progress Note ---
Assessment and Plan Assessment and plan: 83 YO Male with HTN, Dementia present to ED for evaluation. Pt is stuporous and unable to provide history. Pt history taken from ED staff, and from EMS, as well as patient son. As per son, the patient was in his usual state of health around 0900hrs. The patient son left at that time, and upon his return home around 1400 hrs the patient was found unresponsive and lying in the floor. EMS was notified and upon arrival the patient was found to have a neurologic deficit and transported to [facility]. Pt seen and evaluated in ED and found to have symptoms consistent with CVA, Encephalopathy. Pt initiated on CVA protocol, and admitted to telemetry. No further history obtainable. Pt is lethargic but has a positive gag reflex and is able to protect his airway. No prior admission for review. MRI head: Large area of ischemia in the right MCA territory, as described above. No signs of hemorrhagic transformation. CT Head: Normal evolutionary change in large right MCA territorial infarct with no evidence of hemorrhagic transformation. There has been slight increase in the amount of edema, when compared with prior exam. KUB. No acute findings. \ Repeat CT head - Negative for bleed. * Patient visiting family here from [facility], was only planned to be stateside for 10days, disposition will be difficult if patient does not improve, I have spoken to the Nephew extensively about the dire nature of patients condition * Noted Nasal bleed 12/20/18 am, likely started overnight, now appears to have hemostats. Hold Heparin and repeat CT head stat, if no Hemorrhagic conversion will restart Acute CVA (cerebrovascular accident) * CVA Protocol: /Speech therapy, Case management for D/C Planning placement. * Continue ASA * Continue IMCU CARE * DISCUSSED WITH FAMILY Acute Metabolic Encephalopathy Secondary to CVA * CT head, Neuro checks, seizure precautions, aspiration precautions, IVF resuscitation therapy * No clinical improvement noted Left Hemiplegia * Repeat CT Head- NEGATIVE Left Ventricular Thrombus * Family advised, started on heparin drip. will plan repeat CT scan of head in 24 hrs if no change in mental status * If no hemorrhagic transformation on repeat imaging, will start coumadin HTN (hypertension) * maintained permissive hypertension and now will begin gradual correction * Monitor BP q shift, Dementia * supportive care, continue current therapy Nasal Bleed * As noted above Nutrition * started on tube feed Debility * PT consulted DVT prophylaxis Current Visit: Yes Status: Acute Plan to address problem: SCD to BLE while in bed. prophylactic lovenox Discussed with patients Nephew, Poor prognosis discussed in detail also discussed finding on ECHO and need for anticoagulation with the associated risk. He is agreeable with anticaogulation Spoke again with family. Poor prognosis Consult Hospice History Interval history: Patient seen and examined, Remains stuporous, Not following commands Hospitalist Physical - Physical exam Narrative exam: physical exam General appearance: Present: mild distress, stuporous - EENT Eyes: Present: miosis - Neck Neck: Present: supple, normal ROM - Respiratory Respiratory effort: normal Respiratory: bilateral: CTA - Cardiovascular Heart Sounds: Present: S1 & S2. Absent: rub, click - Extremities Extremities: pulses symmetrical, No edema Peripheral Pulses: within normal limits - Abdominal General gastrointestinal: Present: soft, non-tender, non-distended, normal bowel sounds Male genitourinary: Present: normal - Integumentary Integumentary: Present: dry, clammy - Musculoskeletal Musculoskeletal: generalized weakness, flaccid left side - Psychiatric Psychiatric: unable to assess - Neurologic Neurologic: focal deficits, moves right upper extremities, no gait normal, not following commands - Constitutional Vitals: Temp Pulse Resp BP Pulse Ox 99.2 F 110 H 19 134/92 99 12/21/18 12:00 12/21/18 16:00 12/21/18 16:00 12/21/18 16:00 12/21/18 16:00 General appearance: Present: mild distress Results - Labs CBC & Chem 7: 12/20/18 06:53 12/17/18 16:10 Labs: Laboratory Last Values WBC 9.1 K/mm3 (4.5-11.0) 12/17/18 16:10 RBC 4.30 M/mm3 (3.65-5.03) 12/17/18 16:10 Hgb 11.9 gm/dl (11.8-15.2) 12/20/18 06:53 Hct 35.3 % (35.5-45.6) L 12/20/18 06:53 MCV 88 fl (84-94) 12/17/18 16:10 MCH 29 pg (28-32) 12/17/18 16:10 MCHC 33 % (32-34) 12/17/18 16:10 RDW 17.6 % (13.2-15.2) H 12/17/18 16:10 Plt Count 191 K/mm3 (140-440) 12/20/18 06:53 Lymph % (Auto) 25.6 % (13.4-35.0) 12/17/18 16:10 [place] % (Auto) 6.3 % (0.0-7.3) 12/17/18 16:10 Eos % (Auto) 1.6 % (0.0-4.3) 12/17/18 16:10 Baso % (Auto) 0.5 % (0.0-1.8) 12/17/18 16:10 Lymph # 2.3 K/mm3 (1.2-5.4) 12/17/18 16:10 [place] # 0.6 K/mm3 (0.0-0.8) 12/17/18 16:10 Eos # 0.1 K/mm3 (0.0-0.4) 12/17/18 16:10 Baso # 0.0 K/mm3 (0.0-0.1) 12/17/18 16:10 Seg Neutrophils % 66.0 % (40.0-70.0) 12/17/18 16:10 Seg Neutrophils # 6.0 K/mm3 (1.8-7.7) 12/17/18 16:10 PT 14.3 Sec. (12.2-14.9) 12/18/18 15:07 INR 1.14 (0.87-1.13) H 12/18/18 15:07 APTT 37.1 Sec. (24.2-36.6) H 12/18/18 15:07 Heparin Anti-Xa Level < 0.10 U.I./ml (0.3-0.7) L 12/21/18 09:36 Sodium 142 mmol/L (137-145) 12/17/18 16:10 Potassium 3.8 mmol/L (3.6-5.0) 12/17/18 16:10 Chloride 104.3 mmol/L (98-107) 12/17/18 16:10 Carbon Dioxide 23 mmol/L (22-30) 12/17/18 16:10 19 mmol/L 12/17/18 16:10 BUN 11 mg/dL (9-20) 12/17/18 16:10 1.5 mg/dL (0.8-1.5) 12/17/18 16:10 Estimated GFR 45 ml/min 12/17/18 16:10 7 % 12/17/18 16:10 Glucose 100 mg/dL (75-100) 12/17/18 16:10 POC Glucose 105 (70-105) 12/21/18 12:21 Calcium 9.1 mg/dL (8.4-10.2) 12/17/18 16:10 0.30 mg/dL (0.1-1.2) 12/17/18 16:10 AST 21 units/L (5-40) 12/17/18 16:10 ALT 16 units/L (7-56) 12/17/18 16:10 86 units/L (35-129) 12/17/18 16:10 < 0.010 ng/mL (0.00-0.029) 12/17/18 16:10 8.0 g/dL (6.3-8.2) 12/17/18 16:10 4.0 g/dL (3.9-5) 12/17/18 16:10 1.0 % 12/17/18 16:10 Presumptive negative 12/19/18 Unknown Presumptive negative 12/19/18 Unknown Ur Barbiturates Screen Presumptive negative 12/19/18 Unknown Ur Phencyclidine Scrn Presumptive negative 12/19/18 Unknown Ur Amphetamines Screen Presumptive negative 12/19/18 Unknown U Benzodiazepines Scrn Presumptive negative 12/19/18 Unknown Presumptive negative 12/19/18 Unknown U Marijuana (THC) Screen Presumptive negative 12/19/18 Unknown Disclamer 12/19/18 Unknown Active Medications - Current Medications Current Medications: Generic Name Dose Route Start Last Admin Trade Name Freq PRN Reason Stop Dose Admin Acetaminophen 650 mg 12/17/18 19:40 12/19/18 22:01 Tylenol PO 650 mg Q4H PRN Administration Pain, Mild (1-3) Lipase/Protease/Amylase 1 each 12/19/18 08:41 Pancreaze 10,500 Unit FEEDTUBE PRN PRN For Clogged Feeding Tube Aspirin 325 mg 12/18/18 10:00 12/21/18 11:19 Aspirin PO 325 mg QDAY TRINY Administration Atorvastatin Calcium 40 mg 12/17/18 22:00 12/20/18 22:04 Lipitor PO 40 mg QHS TRINY Administration Bisacodyl 10 mg 12/17/18 19:[address] QDAY PRN Constipation Famotidine 10 mg 12/20/18 10:00 12/21/18 11:19 Pepcid PO 10 mg BID TRINY Administration Hydralazine HCl 10 mg 12/18/18 08:46 12/20/18 11:23 Apresoline IV 10 mg Q6H PRN Administration Hypertension Hydrochlorothiazide 25 mg 12/18/18 10:00 12/21/18 11:19 Hctz PO 25 mg QDAY TRINY Administration Heparin Sodium/Sodium Chloride 25,000 unit in 500 mls @ 16 mls/hr 12/18/18 15:00 12/21/18 16:53 Heparin/ 0.45% Nacl-25,000 Unit/500 Ml IV 850 units/hr TITR TRINY 17 mls/hr Administration Protocol 800 UNITS/HR Magnesium Hydroxide 30 ml 12/17/18 19:40 Milk Of Magnesia PO Q4H PRN Constipation Metoclopramide HCl 10 mg 12/17/18 19:40 Reglan PO Q6H PRN Nausea And Vomiting Ondansetron HCl 4 mg 12/17/18 19:40 Zofran IV Q8H PRN Nausea And Vomiting Promethazine HCl 25 mg 12/17/18 19:[address] Q6H PRN Nausea And Vomiting Simple Syrup 15 ml 12/19/18 08:41 Simple Syrup FEEDTUBE PRN PRN Hypoglycemia Simple Syrup 30 ml 12/19/18 08:41 Simple Syrup FEEDTUBE PRN PRN Hypoglycemia Sodium Bicarbonate 325 mg 12/19/18 08:41 Sodium Bicarbonate FEEDTUBE PRN PRN For Clogged Feeding Tube Sodium Chloride 10 ml 12/17/18 19:40 12/18/18 21:47 Sodium Chloride Flush Syringe 10 Ml IV 10 ml PRN PRN Administration LINE FLUSH Warfarin Sodium 10 mg 12/21/18 17:00 Coumadin PO DAILY@1700 [facility] Protocol Nutrition/Malnutrition Assess - Dietary Evaluation Nutrition/Malnutrition Findings: Nutrition Notes Start: 12/19/18 08:36 Freq: Status: Active Protocol: Document 12/21/18 15:47 BRYAN (Rec: 12/21/18 15:54 NHALL SRW- [email or web address]) Nutrition Notes Initial or Follow up Reassessment Current Diagnosis Hypertension,Stroke Other Pertinent Diagnosis Dementia, metabolic encephalopathy, (L) hemiplegia Current Diet TF - Jevity 1.2 at 50ml/hr Labs/Tests Reviewed Pertinent Medications Coumadin Height 5 ft 3 in Weight 50.4 kg [place] Body Weight (kg) 56.36 BMI 19.6 Weight change and time frame Current wt obtained from bed scale Subjective/Other Information Observed TF infusing at goal rate; pt tolerating per RN report. Percent of energy/protein needs met: 100% energy and pro Burn Absent Trauma Absent #1 Nutrition Diagnosis Inadequate oral intake Diagnosis Progress(for reassessment Continues documentation) Is patient on ventilator? No Is Patient Ambulatory and/or Out of Bed No REE-([place]-confined to bed) 1320.312 Kcal/Kg value to use for calculation 30 Approximate Energy Requirements Using 1512 kcal/Kg Calculation Used for Recommendations Kcal/kg Additional Notes Pro needs 1.2-1.5g/k-76g/ day Fluid needs 1ml/kcal Nutrition Intervention Nutrition Support: Jevity 1.2 at 50ml/hr Flush with 100ml q4h Kcal 1,440 Protein (gm) 67 Carbohydrates (gm) 203 Fat (gm) 47 Fluid (mL) 968 Fiber (gm) 22 Goal #1 TF tolerance Goal #2 TF to meet at least 80% of energy and pro needs Goal #3 Wt maintenance and/or gain Follow-Up By: 12/28/18 Additional Comments F/U: stable TF, wt - Attestation Statement I have reviewed and agreed w/ Malnutrition eval & tx plan: Yes
[2018-12-21 23:03] LABS: INR 1.07 (0.87-1.13)
[2018-12-22 04:52] LABS: Hematocrit 35.1 % (35.5-45.6); Hemoglobin 11.7 gm/dl (11.8-15.2)
--- NOTE | 2018-12-22 08:03 | Progress Note ---
Assessment and Plan Assessment and plan: Patient is a 83 yo man with a history of HTN and Dementia who presented to [facility] ED with AMS and found unresponsive, lying on the floor. He was found to have a acute CVA. He was also found to have Left ventricular heart thrombus. He was started on IV heparin drip followed by Coumadin initiation. He did have nose bleeding on 12/20/18 and heparin IV drip held and repeat CT head done, which did not show a bleed, so heparin iv drip resumed. * MRI head: Large area of ischemia in the right MCA territory, as described above. No signs of hemorrhagic transformation. * CT Head: Normal evolutionary change in large right MCA territorial infarct with no evidence of hemorrhagic transformation. There has been slight increase in the amount of edema, when compared with prior exam. * KUB. No acute findings. * Repeat CT head - Negative for bleed. * 12/17/18 TTE Conclusions: The study quality is technically difficult, global left ventricular systolic function is severely decreased, the estimated EF is 20-25%, abnormal LV diastolic function is observed. A thrombus is visulized in the left ventricular apex, no atrial septal defect is demonstrated by agitated saline contrast. -Massive Acute CVA (cerebrovascular accident) with Left Hemiplegia: supportive care -Acute Metabolic Encephalopathy Secondary to CVA -Left Ventricular Thrombus: on iv heparin drip -HTN (hypertension), maintained permissive hypertension and now will begin gr adual correction -History of Dementia, supportive care, continue current therapy -Nasal Bleed, resolved -Severe MalNutrition, bmi 19, poa, started on NGT feed -Debility, PT consulted -DVT prophylaxis: SCD to BLE while in bed. on iv heparin drip Poor prognosis, expect CODE Blue Full code I called indu Gary at [phone] @ 1249pm, no answer Hospice consulted CCT 34 minutes History Interval history: Patient was seen and examined. Follow-up on current diagnosis of massive CVA. No overnight events reported to me. Imaging, nursing note, chart, labs and old chart reviewed. Hospitalist Physical - Physical exam Narrative exam: Gen: critically ill, stupor HEENT: NCAT, abn EOM, Pupils reactive, OP Clear Neck: supple, no adenopathy, no thyromegaly, no JVD CVS/Heart: Regular tachy, normal S1S2, pulses present bilaterally Chest/Lungs: tachypneic, Symmetrical chest expansion, good air entry bilaterally GI/Abdomen: soft, NTND, good bowel sounds, no guarding or rebound /Bladder: no suprapubic tenderness, no CVA or paraspinal tenderness Extermity/Skin: no c/c/e, no obvious rash MSK: no movement left Neuro: CN 2-12 grossly intact, + focal deficits with LHP, aphasic Psych: confused - Constitutional Vitals: Temp Pulse Resp BP Pulse Ox 98.9 F 131 H 25 H 129/84 96 12/22/18 04:00 12/22/18 07:00 12/22/18 07:00 12/22/18 07:00 12/22/18 07:00 General appearance: Absent: mild distress Results - Labs CBC & Chem 7: 12/22/18 03:37 12/17/18 16:10 Labs: Laboratory Last Values WBC 9.1 K/mm3 (4.5-11.0) 12/17/18 16:10 RBC 4.30 M/mm3 (3.65-5.03) 12/17/18 16:10 Hgb 11.7 gm/dl (11.8-15.2) L 12/22/18 03:37 Hct 35.1 % (35.5-45.6) L 12/22/18 03:37 MCV 88 fl (84-94) 12/17/18 16:10 MCH 29 pg (28-32) 12/17/18 16:10 MCHC 33 % (32-34) 12/17/18 16:10 RDW 17.6 % (13.2-15.2) H 12/17/18 16:10 Plt Count 220 K/mm3 (140-440) 12/22/18 03:37 Lymph % (Auto) 25.6 % (13.4-35.0) 12/17/18 16:10 [place] % (Auto) 6.3 % (0.0-7.3) 12/17/18 16:10 Eos % (Auto) 1.6 % (0.0-4.3) 12/17/18 16:10 Baso % (Auto) 0.5 % (0.0-1.8) 12/17/18 16:10 Lymph # 2.3 K/mm3 (1.2-5.4) 12/17/18 16:10 [place] # 0.6 K/mm3 (0.0-0.8) 12/17/18 16:10 Eos # 0.1 K/mm3 (0.0-0.4) 12/17/18 16:10 Baso # 0.0 K/mm3 (0.0-0.1) 12/17/18 16:10 Seg Neutrophils % 66.0 % (40.0-70.0) 12/17/18 16:10 Seg Neutrophils # 6.0 K/mm3 (1.8-7.7) 12/17/18 16:10 PT 13.6 Sec. (12.2-14.9) 12/21/18 21:53 INR 1.07 (0.87-1.13) 12/21/18 21:53 APTT 37.1 Sec. (24.2-36.6) H 12/18/18 15:07 Heparin Anti-Xa Level < 0.10 U.I./ml (0.3-0.7) L 12/22/18 05:20 Sodium 142 mmol/L (137-145) 12/17/18 16:10 Potassium 3.8 mmol/L (3.6-5.0) 12/17/18 16:10 Chloride 104.3 mmol/L (98-107) 12/17/18 16:10 Carbon Dioxide 23 mmol/L (22-30) 12/17/18 16:10 19 mmol/L 12/17/18 16:10 BUN 11 mg/dL (9-20) 12/17/18 16:10 1.5 mg/dL (0.8-1.5) 12/17/18 16:10 Estimated GFR 45 ml/min 12/17/18 16:10 7 % 12/17/18 16:10 Glucose 100 mg/dL (75-100) 12/17/18 16:10 POC Glucose 132 (70-105) H 12/21/18 23:54 Calcium 9.1 mg/dL (8.4-10.2) 12/17/18 16:10 0.30 mg/dL (0.1-1.2) 12/17/18 16:10 AST 21 units/L (5-40) 12/17/18 16:10 ALT 16 units/L (7-56) 12/17/18 16:10 86 units/L (35-129) 12/17/18 16:10 < 0.010 ng/mL (0.00-0.029) 12/17/18 16:10 8.0 g/dL (6.3-8.2) 12/17/18 16:10 4.0 g/dL (3.9-5) 12/17/18 16:10 1.0 % 12/17/18 16:10 Presumptive negative 12/19/18 Unknown Presumptive negative 12/19/18 Unknown Ur Barbiturates Screen Presumptive negative 12/19/18 Unknown Ur Phencyclidine Scrn Presumptive negative 12/19/18 Unknown Ur Amphetamines Screen Presumptive negative 12/19/18 Unknown U Benzodiazepines Scrn Presumptive negative 12/19/18 Unknown Presumptive negative 12/19/18 Unknown U Marijuana (THC) Screen Presumptive negative 12/19/18 Unknown Disclamer 12/19/18 Unknown Active Medications - Current Medications Current Medications: Generic Name Dose Route Start Last Admin Trade Name Freq PRN Reason Stop Dose Admin Acetaminophen 650 mg 12/17/18 19:40 12/19/18 22:01 Tylenol PO 650 mg Q4H PRN Administration Pain, Mild (1-3) Lipase/Protease/Amylase 1 each 12/19/18 08:41 Pancreaze 10,500 Unit FEEDTUBE PRN PRN For Clogged Feeding Tube Aspirin 325 mg 12/18/18 10:00 12/21/18 11:19 Aspirin PO 325 mg QDAY TRINY Administration Atorvastatin Calcium 40 mg 12/17/18 22:00 12/21/18 22:27 Lipitor PO 40 mg QHS TRINY Administration Bisacodyl 10 mg 12/17/18 19:40 Dulcolax MA QDAY PRN Constipation Famotidine 10 mg 12/20/18 10:00 12/21/18 22:27 Pepcid PO 10 mg BID TRINY Administration Hydralazine HCl 10 mg 12/18/18 08:46 12/20/18 11:23 Apresoline IV 10 mg Q6H PRN Administration Hypertension Hydrochlorothiazide 25 mg 12/18/18 10:00 12/21/18 11:19 Hctz PO 25 mg QDAY TRINY Administration Heparin Sodium/Sodium Chloride 25,000 unit in 500 mls @ 16 mls/hr 12/18/18 15:00 12/22/18 06:16 Heparin/ 0.45% Nacl-25,000 Unit/500 Ml IV 1,050 units/hr TITR TRINY 21 mls/hr Titration Protocol 800 UNITS/HR Magnesium Hydroxide 30 ml 12/17/18 19:40 Milk Of Magnesia PO Q4H PRN Constipation Metoclopramide HCl 10 mg 12/17/18 19:40 Reglan PO Q6H PRN Nausea And Vomiting Ondansetron HCl 4 mg 12/17/18 19:40 Zofran IV Q8H PRN Nausea And Vomiting Promethazine HCl 25 mg 12/17/18 19:40 Phenergan MA Q6H PRN Nausea And Vomiting Simple Syrup 15 ml 12/19/18 08:41 Simple Syrup FEEDTUBE PRN PRN Hypoglycemia Simple Syrup 30 ml 12/19/18 08:41 Simple Syrup FEEDTUBE PRN PRN Hypoglycemia Sodium Bicarbonate 325 mg 12/19/18 08:41 Sodium Bicarbonate FEEDTUBE PRN PRN For Clogged Feeding Tube Sodium Chloride 10 ml 12/17/18 19:40 12/18/18 21:47 Sodium Chloride Flush Syringe 10 Ml IV 10 ml PRN PRN Administration LINE FLUSH Warfarin Sodium 5 mg 12/22/18 17:00 Coumadin PO DAILY@1700 [facility] Protocol Nutrition/Malnutrition Assess - Dietary Evaluation Nutrition/Malnutrition Findings: Nutrition Notes Start: 12/19/18 08:36 Freq: Status: Active Protocol: Document 12/21/18 15:47 BRYAN (Rec: 12/21/18 15:54 NCVERONA SRW- [email or web address]) Nutrition Notes Initial or Follow up Reassessment Current Diagnosis Hypertension,Stroke Other Pertinent Diagnosis Dementia, metabolic encephalopathy, (L) hemiplegia Current Diet TF - Jevity 1.2 at 50ml/hr Labs/Tests Reviewed Pertinent Medications Coumadin Height 5 ft 3 in Weight 50.4 kg [place] Body Weight (kg) 56.36 BMI 19.6 Weight change and time frame Current wt obtained from bed scale Subjective/Other Information Observed TF infusing at goal rate; pt tolerating per RN report. Percent of energy/protein needs met: 100% energy and pro Burn Absent Trauma Absent #1 Nutrition Diagnosis Inadequate oral intake Diagnosis Progress(for reassessment Continues documentation) Is patient on ventilator? No Is Patient Ambulatory and/or Out of Bed No REE-([place]-[facility]-confined to bed) 1320.312 Kcal/Kg value to use for calculation 30 Approximate Energy Requirements Using 1512 kcal/Kg Calculation Used for Recommendations Kcal/kg Additional Notes Pro needs 1.2-1.5g/k-76g/ day Fluid needs 1ml/kcal Nutrition Intervention Nutrition Support: Jevity 1.2 at 50ml/hr Flush with 100ml q4h Kcal 1,440 Protein (gm) 67 Carbohydrates (gm) 203 Fat (gm) 47 Fluid (mL) 968 Fiber (gm) 22 Goal #1 TF tolerance Goal #2 TF to meet at least 80% of energy and pro needs Goal #3 Wt maintenance and/or gain Follow-Up By: 12/28/18 Additional Comments F/U: stable TF, wt
[2018-12-22] MEDS: ASPIRIN PO SCH (10:22)
[2018-12-22] MEDS: PEPCID PO SCH ×2 (10:22→21:49)
[2018-12-22] MEDS: TYLENOL PO PRN ×2 (10:22→21:45)
[2018-12-22] MEDS: HCTZ PO SCH (10:23)
[2018-12-22] MEDS: COUMADIN PO SCH (17:17)
[2018-12-22] MEDS: HEPARIN/ 0.45% NACL-25,000 UNIT/500 ML 25,000 UNIT/500 ML BAG IV SCH (17:17)
[2018-12-23 05:48] LABS: INR 1.13 (0.87-1.13)
[2018-12-23] MEDS: HCTZ PO SCH (10:14)
[2018-12-23] MEDS: PEPCID PO SCH ×2 (10:14→22:16)
[2018-12-23] MEDS: ASPIRIN PO SCH (10:14)
--- NOTE | 2018-12-23 14:33 | Progress Note ---
Assessment and Plan Assessment and plan: Patient is a 83 yo man with a history of HTN and Dementia who presented to [facility] ED with AMS and found unresponsive, lying on the floor. He was found to have a acute CVA. He was also found to have Left ventricular heart thrombus. He was started on IV heparin drip followed by Coumadin initiation. He did have nose bleeding on 12/20/18 and heparin IV drip held and repeat CT head done, which did not show a bleed, so heparin iv drip resumed. * MRI head: Large area of ischemia in the right MCA territory, as described above. No signs of hemorrhagic transformation. * CT Head: Normal evolutionary change in large right MCA territorial infarct with no evidence of hemorrhagic transformation. There has been slight increase in the amount of edema, when compared with prior exam. * KUB. No acute findings. * Repeat CT head - Negative for bleed. * 12/17/18 TTE Conclusions: The study quality is technically difficult, global left ventricular systolic function is severely decreased, the estimated EF is 20-25%, abnormal LV diastolic function is observed. A thrombus is visulized in the left ventricular apex, no atrial septal defect is demonstrated by agitated saline contrast. 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 on iv heparin drip Poor prognosis, Full code I called indu Haydenuong at [phone] @ 1430, no answer, Hospice consulted but [facility]tie did not want Disposition: continue inpatient care, placement pending but trouble verifying his primary insurance as medicare is secondary. Also, we will need to get consent from PEG since nettie doesn't want Hospice. OK Transfer out of [facility] CCT 31 minutes History Interval history: Patient was seen and examined. Follow-up on current diagnosis of massive CVA. No overnight events reported to me. Imaging, nursing note, chart, labs and old chart reviewed. Hospitalist Physical - Physical exam Narrative exam: Gen: critically ill, semi-comatose state unchanged HEENT: NCAT, abn EOM, Pupils reactive, OP with ngt in place Neck: supple, no adenopathy, no thyromegaly, no JVD CVS/Heart: Regular tachy, normal S1S2, pulses present bilaterally Chest/Lungs: tachypneic, Symmetrical chest expansion, good air entry bilaterally GI/Abdomen: soft, NTND, good bowel sounds, no guarding or rebound /Bladder: no suprapubic tenderness, no CVA or paraspinal tenderness Extermity/Skin: no c/c/e, no obvious rash MSK: no movement left Neuro: CN 2-12 grossly intact, + focal deficits with LHP, aphasic Psych: confused - Constitutional Vitals: Temp Pulse Resp BP Pulse Ox 98.9 F 99 H 22 127/78 99 12/23/18 12:00 12/23/18 14:00 12/23/18 14:00 12/23/18 14:00 12/23/18 14:00 General appearance: Absent: mild distress Results - Labs CBC & Chem 7: 12/22/18 03:37 12/17/18 16:10 Labs: Laboratory Last Values WBC 9.1 K/mm3 (4.5-11.0) 12/17/18 16:10 RBC 4.30 M/mm3 (3.65-5.03) 12/17/18 16:10 Hgb 11.7 gm/dl (11.8-15.2) L 12/22/18 03:37 Hct 35.1 % (35.5-45.6) L 12/22/18 03:37 MCV 88 fl (84-94) 12/17/18 16:10 MCH 29 pg (28-32) 12/17/18 16:10 MCHC 33 % (32-34) 12/17/18 16:10 RDW 17.6 % (13.2-15.2) H 12/17/18 16:10 Plt Count 220 K/mm3 (140-440) 12/22/18 03:37 Lymph % (Auto) 25.6 % (13.4-35.0) 12/17/18 16:10 [place] % (Auto) 6.3 % (0.0-7.3) 12/17/18 16:10 Eos % (Auto) 1.6 % (0.0-4.3) 12/17/18 16:10 Baso % (Auto) 0.5 % (0.0-1.8) 12/17/18 16:10 Lymph # 2.3 K/mm3 (1.2-5.4) 12/17/18 16:10 [place] # 0.6 K/mm3 (0.0-0.8) 12/17/18 16:10 Eos # 0.1 K/mm3 (0.0-0.4) 12/17/18 16:10 Baso # 0.0 K/mm3 (0.0-0.1) 12/17/18 16:10 Seg Neutrophils % 66.0 % (40.0-70.0) 12/17/18 16:10 Seg Neutrophils # 6.0 K/mm3 (1.8-7.7) 12/17/18 16:10 PT 14.2 Sec. (12.2-14.9) 12/23/18 05:00 INR 1.13 (0.87-1.13) 12/23/18 05:00 APTT 37.1 Sec. (24.2-36.6) H 12/18/18 15:07 Heparin Anti-Xa Level 0.22 U.I./ml (0.3-0.7) L 12/23/18 05:00 Sodium 142 mmol/L (137-145) 12/17/18 16:10 Potassium 3.8 mmol/L (3.6-5.0) 12/17/18 16:10 Chloride 104.3 mmol/L (98-107) 12/17/18 16:10 Carbon Dioxide 23 mmol/L (22-30) 12/17/18 16:10 19 mmol/L 12/17/18 16:10 BUN 11 mg/dL (9-20) 12/17/18 16:10 1.5 mg/dL (0.8-1.5) 12/17/18 16:10 Estimated GFR 45 ml/min 12/17/18 16:10 7 % 12/17/18 16:10 Glucose 100 mg/dL (75-100) 12/17/18 16:10 POC Glucose 126 (70-105) H 12/23/18 12:02 Calcium 9.1 mg/dL (8.4-10.2) 12/17/18 16:10 0.30 mg/dL (0.1-1.2) 12/17/18 16:10 AST 21 units/L (5-40) 12/17/18 16:10 ALT 16 units/L (7-56) 12/17/18 16:10 86 units/L (35-129) 12/17/18 16:10 < 0.010 ng/mL (0.00-0.029) 12/17/18 16:10 8.0 g/dL (6.3-8.2) 12/17/18 16:10 4.0 g/dL (3.9-5) 12/17/18 16:10 1.0 % 12/17/18 16:10 Presumptive negative 12/19/18 Unknown Presumptive negative 12/19/18 Unknown Ur Barbiturates Screen Presumptive negative 12/19/18 Unknown Ur Phencyclidine Scrn Presumptive negative 12/19/18 Unknown Ur Amphetamines Screen Presumptive negative 12/19/18 Unknown U Benzodiazepines Scrn Presumptive negative 12/19/18 Unknown Presumptive negative 12/19/18 Unknown U Marijuana (THC) Screen Presumptive negative 12/19/18 Unknown Disclamer 12/19/18 Unknown Active Medications - Current Medications Current Medications: Generic Name Dose Route Start Last Admin Trade Name Freq PRN Reason Stop Dose Admin Acetaminophen 650 mg 12/17/18 19:40 12/22/18 21:45 Tylenol PO 650 mg Q4H PRN Administration Pain, Mild (1-3) Lipase/Protease/Amylase 1 each 12/19/18 08:[address] 10,500 Unit FEEDTUBE PRN PRN For Clogged Feeding Tube Aspirin 325 mg 12/18/18 10:00 12/23/18 10:14 Aspirin PO 325 mg QDAY TRINY Administration Atorvastatin Calcium 40 mg 12/17/18 22:00 12/22/18 21:45 Lipitor PO 40 mg QHS TRINY Administration Bisacodyl 10 mg 12/17/18 19:40 Dulcolax [place] QDAY PRN Constipation Famotidine 10 mg 12/20/18 10:00 12/23/18 10:14 Pepcid PO 10 mg BID TRINY Administration Hydralazine HCl 10 mg 12/18/18 08:46 12/20/18 11:23 Apresoline IV 10 mg Q6H PRN Administration Hypertension Hydrochlorothiazide 25 mg 12/18/18 10:00 12/23/18 10:14 Hctz PO 25 mg QDAY TRINY Administration Heparin Sodium/Sodium Chloride 25,000 unit in 500 mls @ 16 mls/hr 12/18/18 15:00 12/22/18 17:17 Heparin/ 0.45% Nacl-25,000 Unit/500 Ml IV 1,150 units/hr TITR TRINY 23 mls/hr Administration Protocol 800 UNITS/HR Magnesium Hydroxide 30 ml 12/17/18 19:40 Milk Of Magnesia PO Q4H PRN Constipation Metoclopramide HCl 10 mg 12/17/18 19:40 Reglan PO Q6H PRN Nausea And Vomiting Ondansetron HCl 4 mg 12/17/18 19:40 Zofran IV Q8H PRN Nausea And Vomiting Promethazine HCl 25 mg 12/17/18 19:40 Phenergan [place] Q6H PRN Nausea And Vomiting Simple Syrup 15 ml 12/19/18 08:41 Simple Syrup FEEDTUBE PRN PRN Hypoglycemia Simple Syrup 30 ml 12/19/18 08:41 Simple Syrup FEEDTUBE PRN PRN Hypoglycemia Sodium Bicarbonate 325 mg 12/19/18 08:41 Sodium Bicarbonate FEEDTUBE PRN PRN For Clogged Feeding Tube Sodium Chloride 10 ml 12/17/18 19:40 12/18/18 21:47 Sodium Chloride Flush Syringe 10 Ml IV 10 ml PRN PRN Administration LINE FLUSH Warfarin Sodium 5 mg 12/22/18 17:00 12/22/18 17:17 Coumadin PO 5 mg DAILY@1700 [facility]END[facility] TO [facility] Administration Protocol Nutrition/Malnutrition Assess - Dietary Evaluation Nutrition/Malnutrition Findings: Nutrition Notes Start: 12/19/18 08:36 Freq: Status: Active Protocol: Document 12/22/18 13:18 RM (Rec: 12/22/18 13:20 RM [id number]) Nutrition Notes Initial or Follow up Brief Note Subjective/Other Information Screened for Coumadin/Vit K diet education. Pt not appropriate for diet education. No family present. Nutrition Intervention Follow-Up By: 12/28/18 Additional Comments Follow for stable TF, wt
[2018-12-23] MEDS: HEPARIN/ 0.45% NACL-25,000 UNIT/500 ML 25,000 UNIT/500 ML BAG IV SCH (18:12)
[2018-12-23] MEDS: COUMADIN PO SCH (18:13)
[2018-12-23] MEDS: APRESOLINE IV PRN (21:06)
[2018-12-24 00:17] LABS: Basophils % (Auto) 0.4 % (0.0-1.8); Eosinophils % (Auto) 0.1 % (0.0-4.3); Hematocrit 32.5 % (35.5-45.6); Hemoglobin 10.7 gm/dl (11.8-15.2); Lymphocytes # (Auto) 1.7 K/mm3 (1.2-5.4); Lymphocytes % (Auto) 15.6 % (13.4-35.0); Mean Corpuscular HGB Conc 33 % (32-34); Mean Corpuscular Volume 87 fl (84-94); Monocytes # (Auto) 1.4 K/mm3 (0.0-0.8); Monocytes % (Auto) 13.1 % (0.0-7.3); Platelet Count 258 K/mm3 (140-440); Red Blood Count 3.73 M/mm3 (3.65-5.03); Red Cell Distribution Width 17.3 % (13.2-15.2)
[2018-12-24 00:56] LABS: Albumin 3.2 g/dL (3.9-5); Calcium 8.8 mg/dL (8.4-10.2)
--- NOTE | 2018-12-24 01:22 | Event Note ---
Date: 12/24/18 Pt is tachycardic with heart rate in the 140s. Stat EKG unrevealing for acute ischemic abnormalities. Cardiology consulted. Cardiac enzymes ordered results are pending.There is significant elevation in BUN and creatinine. Today's BUN/Cr 57/2.2 trending up from 03/26.5. Patient is currently receiving tube feeds with 100 mL free water flush every 4 hours. I suspect pseudo-hyponatremia because patient has anasarca. Decrease rate of free water flush 2 50 mL every 4 hours.
[2018-12-24] MEDS: TYLENOL PO PRN ×3 (05:37→21:57)
[2018-12-24 05:39] LABS: Hematocrit 30.2 % (35.5-45.6); Hemoglobin 10.1 gm/dl (11.8-15.2)
[2018-12-24 05:44] LABS: INR 1.41 (0.87-1.13)
--- NOTE | 2018-12-24 06:02 | Event Note ---
Date: 12/24/18 Pt has temp 102.6; CBC, CXR, UA, BC , and Lactic acid ordered. Will start empirically on Rocephin
[2018-12-24 06:16] LABS: Basophils # (Auto) 0.1 K/mm3 (0.0-0.1); Basophils % (Auto) 0.6 % (0.0-1.8); Hematocrit 28.5 % (35.5-45.6); Hemoglobin 9.5 gm/dl (11.8-15.2); Lymphocytes # (Auto) 1.9 K/mm3 (1.2-5.4); Lymphocytes % (Auto) 15.5 % (13.4-35.0); Mean Corpuscular HGB Conc 34 % (32-34); Mean Corpuscular Volume 85 fl (84-94); Monocytes # (Auto) 1.4 K/mm3 (0.0-0.8); Monocytes % (Auto) 11.3 % (0.0-7.3); Platelet Count 271 K/mm3 (140-440); Red Blood Count 3.35 M/mm3 (3.65-5.03); Red Cell Distribution Width 17.1 % (13.2-15.2)
[2018-12-24 08:37] LABS: Bilirubin,Urine NEG (Negative); Blood,Urine NEG (Negative); Color,Urine Yellow (Yellow); Mucus,Urine FEW /HPF; Urobilinogen,Urine < 2.0 mg/dL (<2.0)
--- NOTE | 2018-12-24 09:04 | XRay Report ---
CHEST 1 VIEW INDICATION: Fever of unknown origin. COMPARISON: 12/17/2018 FINDINGS: Support devices: A feeding tube transverses distal esophagus but its distal tip is cut off the field- of-view Heart: Within normal limits. Lungs/Pleura: The lungs are mildly hyperinflated. Pulmonary markings in the left lower lobe are sligh tly prominent and increased since the previous exam. The remainder of the lungs are clear. No pleural effusion or pneumothorax. Additional findings: None. IMPRESSION: Subtle infiltration in the left lower lobe could represent early pneumonia. Signer Name: Devonte Starr Jr, MD Signed: 12/24/2018 8:59 AM Workstation Name: [id number]
[2018-12-24] MEDS ORDERED: ROCEPHIN/NS 1 GM/50 ML 1 GM/50 ML BAG IV SCH (10:00)
--- NOTE | 2018-12-24 10:30 | Consultation ---
History of Present Illness - Reason for Consult acute renal failure - History of Present Illness 83-year-old [place] male frail, elderly, who presented to emergency department found unresponsive in the setting of a large right sided cerebrovascular accident. Patient was also found to have a large left ventricular thrombus and is currently on heparin drip. He was transferred out of the ICU to the [facility]. He remains essentially unresponsive and semicomatose at this time. Review of labs noted progressively worsening kidney function with creatinine up to 2.2 which is the reason nephrology is being consulted at this time. No family at bedside for further history. History was obtained from review of the charts. He has [place] catheter in place with urine output noted. He is also on tube feeds via the NG tube. No previous documented history of renal disease. Past History Past Medical History: hypertension, other (Dementia) Past Surgical History: No surgical history, Other (reviewed) Social history: single. denies: smoking, alcohol abuse, prescription drug abuse Family history: hypertension Medications and Allergies Allergies Allergy/AdvReac Type Severity Reaction Status Date / Time No Known Allergies Allergy Verified 12/17/18 19:43 Home Medications Medication Instructions Recorded Confirmed Last Taken Type Unobtainable 12/17/18 12/17/18 Unknown History Active Meds: Active Medications Acetaminophen (Tylenol) 650 mg PO Q4H PRN PRN Reason: Pain, Mild (1-3) Last Admin: 12/24/18 05:37 Dose: 650 mg Documented by: Lipase/Protease/Amylase (Pancreblack Dr 10,500 Unit) 1 each FEEDTUBE PRN PRN PRN Reason: For Clogged Feeding Tube Aspirin (Aspirin) 325 mg PO QDAY [facility] Last Admin: 12/23/18 10:14 Dose: 325 mg Documented by: Atorvastatin Calcium (Lipitor) 40 mg PO QHS [facility] Last Admin: 12/23/18 22:16 Dose: 40 mg Documented by: Bisacodyl (Dulcolax) 10 mg [place] QDAY PRN PRN Reason: Constipation Famotidine (Pepcid) 10 mg PO BID [facility] Last Admin: 12/23/18 22:16 Dose: 10 mg Documented by: Hydralazine HCl (Apresoline) 10 mg IV Q6H PRN PRN Reason: Hypertension Last Admin: 12/23/18 21:06 Dose: 10 mg Documented by: Hydrochlorothiazide (Hctz) 25 mg PO QDAY [facility] Last Admin: 12/23/18 10:14 Dose: 25 mg Documented by: Heparin Sodium/Sodium Chloride (Heparin/ 0.45% Nacl-25,000 Unit/500 Ml) 25,000 unit in 500 mls @ 16 mls/hr IV TITR [facility]; Protocol Last Titration: 12/24/18 07:29 Dose: 1,250 units/hr, 25 mls/hr Documented by: Ceftriaxone Sodium (Rocephin/Ns 1 Gm/50 Ml) 1 gm in 50 mls @ 100 mls/hr IV Q24HR [facility]; Protocol Magnesium Hydroxide (Milk Of Magnesia) 30 ml PO Q4H PRN PRN Reason: Constipation Metoclopramide HCl (Reglan) 10 mg PO Q6H PRN PRN Reason: Nausea And Vomiting Ondansetron HCl (Zofran) 4 mg IV Q8H PRN PRN Reason: Nausea And Vomiting Promethazine HCl (Phenergan) 25 mg [place] Q6H PRN PRN Reason: Nausea And Vomiting Simple Syrup (Simple Syrup) 15 ml FEEDTUBE PRN PRN PRN Reason: Hypoglycemia Simple Syrup (Simple Syrup) 30 ml FEEDTUBE PRN PRN PRN Reason: Hypoglycemia Sodium Bicarbonate (Sodium Bicarbonate) 325 mg FEEDTUBE PRN PRN PRN Reason: For Clogged Feeding Tube Sodium Chloride (Sodium Chloride Flush Syringe 10 Ml) 10 ml IV PRN PRN PRN Reason: LINE FLUSH Last Admin: 12/18/18 21:47 Dose: 10 ml Documented by: Warfarin Sodium (Coumadin) 5 mg PO DAILY@1700 TRINY; Protocol Last Admin: 12/23/18 18:13 Dose: 5 mg Documented by: Review of Systems ROS unobtainable: due to mental status Exam - Vital Signs Vital signs: Vital Signs Pulse Ox 72 L 12/17/18 15:30 - General Appearance General appearance: cachectic, chronically ill, frail EENT: ATNC Neck: Present: neck supple, trachea midline Respiratory: Decreased Breath Sounds Heart: regular, S1S2 Gastrointestinal: Present: normal, normoactive bowel sounds Integumentary: no rash Neurologic: other (unresponsive at this time) Musculoskeletal: Present: other (-edema) Results - Lab Results 12/24/18 05:57 12/23/18 23:59 Most recent lab results Calcium 8.8 mg/dL (8.4-10.2) 12/23/18 23:59 - Image Kidney/bladder ultrasound: pending Assessment and Plan - Patient Problems (1) Acute renal failure Current Visit: Yes Status: Acute Plan to address problem: The setting of acute cerebrovascular accident and likely significant prerenal injury. He is also developing fevers and lower blood pressures this morning concerning for possible sepsis. We'll gently fluid hydrate with normal saline at 50 mL an hour. Antibiotics per primary attending. Please ensure the antibiotics dosed appropriately for renal function. We'll obtain renal ult rasound as well as urine electrolytes for further evaluation. Avoid nephrotoxins and maintain map above 65 mmHg (2) Acute CVA (cerebrovascular accident) Current Visit: Yes Status: Acute Plan to address problem: The setting of a large left ventricular thrombus. Patient on heparin drip at this time. Further management per primary attending. (3) Encephalopathy Current Visit: Yes Status: Acute Plan to address problem: No changes in overall encephalopathy since admission. He is essentially unresponsive at this time. He is off all sedation. He has been transferred from the [facility] to the telemetry unit. Overall prognosis remains poor at this time. Hospice consult was noted. Per notes from primary attending it seems that family is not agreeable with hospice at this time. (4) HTN (hypertension) Current Visit: Yes Status: Chronic Qualifiers: Hypertension type: essential hypertension Qualified Code(s): I10 - Essential (primary) hypertension Plan to address problem: We'll monitor on current regimen at this time. Hemodynamically he remains sta ble. (5) Hyperkalemia Current Visit: Yes Status: Acute Plan to address problem: Likely in the setting of acute kidney injury. He is also on heparin drip which does have [id number] effects which could also lead to hyperkalemia. We'll need to closely monitor and treat medically as necessary. He has no acute changes on telemetry.
[2018-12-24] MEDS: ASPIRIN PO SCH (11:12)
[2018-12-24] MEDS: HCTZ PO SCH (11:12)
[2018-12-24] MEDS: PEPCID PO SCH ×2 (11:13→21:56)
[2018-12-24] MEDS: NACL 0.9% 1000 ML 1,000 ML IV SCH (11:45)
[2018-12-24] MEDS ORDERED: NACL 0.9% 1000 ML 1,000 ML IV ONE (12:00)
--- NOTE | 2018-12-24 13:38 | Ultrasound Report ---
ULTRASOUND RENAL INDICATION / CLINICAL INFORMATION: Acute kidney injury. COMPARISON: None available. FINDINGS: RIGHT KIDNEY: Length = 8.2 cm. [normal > 9 cm] - Parenchymal Thickness = 1.4 cm. [normal > 1.5 cm] - Echogenicity: Normal. - Hydronephrosis: None. - Cyst or mass: No significant abnormality. - Stones: None seen. LEFT KIDNEY: Length = 9.3 cm. [normal > 9 cm] - Parenchymal Thickness = 1.4 cm. [normal > 1.5 cm] - Echogenicity: Normal. - Hydronephrosis: None. - Cyst or mass: Tiny cyst at the inferior pole of the left kidney measures 8 mm. - Stones: None seen. URINARY BLADDER: No significant abnormality. FREE FLUID: None. ADDITIONAL FINDINGS: None. IMPRESSION: No significant abnormality. 8 mm left renal cyst. Signer Name: Devonte Starr Jr, MD Signed: 12/24/2018 1:33 PM Workstation Name: [id number]
[2018-12-24] MEDS: HEPARIN/ 0.45% NACL-25,000 UNIT/500 ML 25,000 UNIT/500 ML BAG IV SCH (15:08)
--- NOTE | 2018-12-24 16:00 | Progress Note ---
Assessment and Plan Assessment and plan: Patient is a 83 yo man with a history of HTN and Dementia who presented to [facility] ED with AMS and found unresponsive, lying on the floor. He was found to have a acute CVA. He was also found to have Left ventricular heart thrombus. He was started on IV heparin drip followed by Coumadin initiation. He did have nose bleeding on 12/20/18 and heparin IV drip held and repeat CT head done, which did not show a bleed, so heparin iv drip resumed. * MRI head: Large area of ischemia in the right MCA territory, as described above. No signs of hemorrhagic transformation. * CT Head: Normal evolutionary change in large right MCA territorial infarct with no evidence of hemorrhagic transformation. There has been slight increase in the amount of edema, when compared with prior exam. * KUB. No acute findings. * Repeat CT head - Negative for bleed. * 12/17/18 TTE Conclusions: The study quality is technically difficult, global left ventricular systolic function is severely decreased, the estimated EF is 20-25%, abnormal LV diastolic function is observed. A thrombus is visulized in the left ventricular apex, no atrial septal defect is demonstrated by agitated saline contrast. 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 on iv heparin drip Poor prognosis, expect Code blue Full code I called indu Gary at [phone] @ [id number], no answer, Hospice consulted but nettie did not want Disposition: continue inpatient care, placement pending but trouble verifying his primary insurance as medicare is secondary. Also, we will need to get consent from PEG since nettie doesn't want Hospice. New issues: fevers, tachycardic with hypotension most likely due to Aspiration pneumonitis which i discussed with Nettie Gary and Niece Sherlyn at bedside yes terday. I spoke with his nephrew, He is actively dying and family wants everything. Started iv zosyn and iv levaquin, ordered CXR, stat iv nss fluid bolus hold peg Evaulation, too ill CCT 34 minutes History Interval history: Patient was seen and examined. Follow-up on current diagnosis of massive CVA. +fever overnight, +tachycardia. Imaging, nursing note, chart, labs and old chart reviewed. Hospitalist Physical - Physical exam Narrative exam: Gen: critically ill, semi-comatose state unchanged HEENT: NCAT, abn EOM, Pupils reactive, OP with ngt in place Neck: supple, no adenopathy, no thyromegaly, no JVD CVS/Heart: Regular tachy, normal S1S2, pulses present bilaterally Chest/Lungs: tachypneic, Symmetrical chest expansion, good air entry bilaterally GI/Abdomen: soft, NTND, good bowel sounds, no guarding or rebound /Bladder: no suprapubic tenderness, no CVA or paraspinal tenderness Extermity/Skin: no c/c/e, no obvious rash MSK: no movement left Neuro: CN 2-12 grossly intact, + focal deficits with LHP, aphasic Psych: confused - Constitutional Vitals: Temp Pulse Resp BP Pulse Ox 98.0 F 115 H 20 91/58 95 12/24/18 13:04 12/24/18 13:04 12/24/18 13:04 12/24/18 13:04 12/24/18 13:04 General appearance: Absent: mild distress Results - Labs CBC & Chem 7: 12/24/18 05:57 12/23/18 23:59 Labs: Laboratory Last Values WBC 11.9 K/mm3 (4.5-11.0) H 12/24/18 05:57 RBC 3.35 M/mm3 (3.65-5.03) L 12/24/18 05:57 Hgb 9.5 gm/dl (11.8-15.2) L 12/24/18 05:57 Hct 28.5 % (35.5-45.6) L 12/24/18 05:57 MCV 85 fl (84-94) 12/24/18 05:57 MCH 29 pg (28-32) 12/24/18 05:57 MCHC 34 % (32-34) 12/24/18 05:57 RDW 17.1 % (13.2-15.2) H 12/24/18 05:57 Plt Count 271 K/mm3 (140-440) 12/24/18 05:57 Lymph % (Auto) 15.5 % (13.4-35.0) 12/24/18 05:57 [place] % (Auto) 11.3 % (0.0-7.3) H 12/24/18 05:57 Eos % (Auto) 0.0 % (0.0-4.3) 12/24/18 05:57 Baso % (Auto) 0.6 % (0.0-1.8) 12/24/18 05:57 Lymph # 1.9 K/mm3 (1.2-5.4) 12/24/18 05:57 [place] # 1.4 K/mm3 (0.0-0.8) H 12/24/18 05:57 Eos # 0.0 K/mm3 (0.0-0.4) 12/24/18 05:57 Baso # 0.1 K/mm3 (0.0-0.1) 12/24/18 05:57 Seg Neutrophils % 72.6 % (40.0-70.0) H 12/24/18 05:57 Seg Neutrophils # 8.7 K/mm3 (1.8-7.7) H 12/24/18 05:57 PT 16.9 Sec. (12.2-14.9) H 12/24/18 05:00 INR 1.41 (0.87-1.13) H 12/24/18 05:00 APTT 37.1 Sec. (24.2-36.6) H 12/18/18 15:07 Heparin Anti-Xa Level 0.30 U.I./ml (0.3-0.7) 12/24/18 11:52 Sodium 131 mmol/L (137-145) L 12/23/18 23:59 Potassium 5.1 mmol/L (3.6-5.0) H 12/23/18 23:59 Chloride 95.0 mmol/L (98-107) L 12/23/18 23:59 Carbon Dioxide 20 mmol/L (22-30) L 12/23/18 23:59 21 mmol/L 12/23/18 23:59 BUN 57 mg/dL (9-20) H 12/23/18 23:59 2.2 mg/dL (0.8-1.5) H 12/23/18 23:59 Estimated GFR 29 ml/min 12/23/18 23:59 26 % 12/23/18 23:59 Glucose 116 mg/dL (75-100) H 12/23/18 23:59 POC Glucose 154 (70-105) H 12/24/18 11:54 Lactic Acid 1.40 mmol/L (0.7-2.0) 12/24/18 05:57 Calcium 8.8 mg/dL (8.4-10.2) 12/23/18 23:59 0.30 mg/dL (0.1-1.2) 12/23/18 23:59 AST 67 units/L (5-40) H 12/23/18 23:59 ALT 62 units/L (7-56) H 12/23/18 23:59 163 units/L (35-129) H 12/23/18 23:59 0.098 ng/mL (0.00-0.029) H 12/24/18 09:00 7.8 g/dL (6.3-8.2) 12/23/18 23:59 3.2 g/dL (3.9-5) L 12/23/18 23:59 0.7 % 12/23/18 23:59 Yellow (Yellow) 12/24/18 07:05 Clear (Clear) 12/24/18 07:05 6.0 (5.0-7.0) 12/24/18 07:05 Ur Specific [place] 1.015 (1.003-1.030) 12/24/18 07:05 30 mg/dl mg/dL (Negative) 12/24/18 07:05 Neg mg/dL (Negative) 12/24/18 07:05 Neg mg/dL (Negative) 12/24/18 07:05 Neg (Negative) 12/24/18 07:05 Neg (Negative) 12/24/18 07:05 Neg (Negative) 12/24/18 07:05 < 2.0 mg/dL (<2.0) 12/24/18 07:05 Ur Leukocyte Esterase Neg (Negative) 12/24/18 07:05 1.0 /HPF (0.0-6.0) 12/24/18 07:05 2.0 /HPF (0.0-6.0) 12/24/18 07:05 Few /HPF 12/24/18 07:05 Presumptive negative 12/19/18 Unknown Presumptive negative 12/19/18 Unknown Ur Barbiturates Screen Presumptive negative 12/19/18 Unknown Ur Phencyclidine Scrn Presumptive negative 12/19/18 Unknown Ur Amphetamines Screen Presumptive negative 12/19/18 Unknown U Benzodiazepines Scrn Presumptive negative 12/19/18 Unknown Presumptive negative 12/19/18 Unknown U Marijuana (THC) Screen Presumptive negative 12/19/18 Unknown Disclamer 12/19/18 Unknown Active Medications - Current Medications Current Medications: Generic Name Dose Route Start Last Admin Trade Name Freq PRN Reason Stop Dose Admin Acetaminophen 650 mg 12/17/18 19:40 12/24/18 11:54 Tylenol PO 650 mg Q4H PRN Administration Pain, Mild (1-3) Lipase/Protease/Amylase 1 each 12/19/18 08:[address] 10,500 Unit FEEDTUBE PRN PRN For Clogged Feeding Tube Aspirin 325 mg 12/18/18 10:00 12/24/18 11:12 Aspirin PO 325 mg QDAY TRINY Administration Atorvastatin Calcium 40 mg 12/17/18 22:00 12/23/18 22:16 Lipitor PO 40 mg QHS TRINY Administration Bisacodyl 10 mg 12/17/18 19:40 Dulcolax [place] QDAY PRN Constipation Famotidine 10 mg 12/20/18 10:00 12/24/18 11:13 Pepcid PO 10 mg BID TRINY Administration Hydralazine HCl 10 mg 12/18/18 08:46 12/23/18 21:06 Apresoline IV 10 mg Q6H PRN Administration Hypertension Hydrochlorothiazide 25 mg 12/18/18 10:00 12/24/18 11:12 Hctz PO Not Given QDAY TRINY Heparin Sodium/Sodium Chloride 25,000 unit in 500 mls @ 16 mls/hr 12/18/18 15:00 12/24/18 15:08 Heparin/ 0.45% Nacl-25,000 Unit/500 Ml IV 1,250 units/hr TITR TRINY 25 mls/hr Administration Protocol 800 UNITS/HR Ceftriaxone Sodium 1 gm in 50 mls @ 100 mls/hr 12/24/18 10:00 12/24/18 11:11 Rocephin/Ns 1 Gm/50 Ml IV 100 mls/hr Q24HR TRINY Administration Protocol Sodium Chloride 1,000 mls @ 50 mls/hr 12/24/18 11:00 12/24/18 11:45 Nacl 0.9% 1000 Ml IV 50 mls/hr DIRECT TRINY Administration Piperacillin Sod/Tazobactam Sod 2.25 gm in 50 mls @ 100 mls/hr 12/24/18 17:00 Zosyn/Ns 2.25 Gm/50ml IV Q8H [facility] Protocol Levofloxacin/Dextrose 750 mg in 150 mls @ 100 mls/hr 12/24/18 17:28 Levaquin 750mg/150ml IV 12/24/18 18:57 ONCE ONE Protocol Levofloxacin/Dextrose 500 mg in 100 mls @ 100 mls/hr 12/25/18 10:00 Levaquin 500mg/100ml IV Q48H [facility] Protocol Magnesium Hydroxide 30 ml 12/17/18 19:40 Milk Of Magnesia PO Q4H PRN Constipation Metoclopramide HCl 10 mg 12/17/18 19:40 Reglan PO Q6H PRN Nausea And Vomiting Ondansetron HCl 4 mg 12/17/18 19:40 Zofran IV Q8H PRN Nausea And Vomiting Promethazine HCl 25 mg 12/17/18 19:40 Phenergan OR Q6H PRN Nausea And Vomiting Simple Syrup 15 ml 12/19/18 08:41 Simple Syrup FEEDTUBE PRN PRN Hypoglycemia Simple Syrup 30 ml 12/19/18 08:41 Simple Syrup FEEDTUBE PRN PRN Hypoglycemia Sodium Bicarbonate 325 mg 12/19/18 08:41 Sodium Bicarbonate FEEDTUBE PRN PRN For Clogged Feeding Tube Sodium Chloride 10 ml 12/17/18 19:40 12/18/18 21:47 Sodium Chloride Flush Syringe 10 Ml IV 10 ml PRN PRN Administration LINE FLUSH Warfarin Sodium 5 mg 12/22/18 17:00 12/23/18 18:13 Coumadin PO 5 mg DAILY@1700 [facility] Administration Protocol Nutrition/Malnutrition Assess - Dietary Evaluation Nutrition/Malnutrition Findings: Nutrition Notes Start: 12/19/18 08:36 Freq: Status: Active Protocol: Document 12/22/18 13:18 RM (Rec: 12/22/18 13:20 RM [id number]) Nutrition Notes Initial or Follow up Brief Note Subjective/Other Information Screened for Coumadin/Vit K diet education. Pt not appropriate for diet education. No family present. Nutrition Intervention Follow-Up By: 12/28/18 Additional Comments Follow for stable TF, wt
--- NOTE | 2018-12-24 16:56 | XRay Report ---
CHEST 1 VIEW INDICATION / CLINICAL INFORMATION: pneumonia. COMPARISON: Chest radiograph from 8:45 AM today FINDINGS: SUPPORT DEVICES: A feeding tube courses through the [id number], with the tip not visualized. HEART / MEDIASTINUM: No significant abnormality. LUNGS / PLEURA: Increased left retrocardiac opacity obscures the diaphragm and left heart border. Pat terri and linear opacities at the right lung base also have increased in the interval. The left costoph renic sulcus is obscured. No pneumothorax. ADDITIONAL FINDINGS: No significant additional findings. IMPRESSION: 1. Worsening atelectasis at the lung bases. There may be a small left pleural effusion. Underlying pn eumonia is not excluded. Signer Name: Elvis Desai MD Signed: 12/24/2018 4:52 PM Workstation Name: [id number]
[2018-12-24] MEDS: ZOSYN/NS 2.25 GM/50ML 2.25 GM/50 ML BAG IV SCH (16:58)
[2018-12-24] MEDS: COUMADIN PO SCH (16:58)
[2018-12-24] MEDS ORDERED: LEVAQUIN 750MG/150ML 750 MG/150 ML BAG IV ONE (17:28)
[2018-12-24] MEDS ORDERED: NACL 0.9% 1000 ML 1,000 ML IV SCH (18:00)
[2018-12-25] MEDS: ZOSYN/NS 2.25 GM/50ML 2.25 GM/50 ML BAG IV SCH ×3 (01:48→18:48)
[2018-12-25 05:33] LABS: Hematocrit 24.6 % (35.5-45.6); Hemoglobin 7.9 gm/dl (11.8-15.2); Mean Corpuscular HGB Conc 32 % (32-34); Mean Corpuscular Volume 89 fl (84-94); Platelet Count 235 K/mm3 (140-440); Red Blood Count 2.76 M/mm3 (3.65-5.03)
[2018-12-25 05:43] LABS: INR 2.82 (0.87-1.13)
[2018-12-25 05:53] LABS: Calcium 7.6 mg/dL (8.4-10.2)
--- NOTE | 2018-12-25 06:09 | Progress Note ---
Assessment and Plan Assessment and plan: Patient is a 83 yo man with a history of HTN and Dementia who presented to [facility] ED with AMS and found unresponsive, lying on the floor. He was found to have a acute CVA. He was also found to have Left ventricular heart thrombus. He was started on IV heparin drip followed by Coumadin initiation. He did have nose bleeding on 12/20/18 and heparin IV drip held and repeat CT head done, which did not show a bleed, so heparin iv drip resumed. When I took over care on December 22, Hospice was consulted but nephmuriel decided against Hospice and no other family available. 12/23/18, We met at bedside, along with his daughter Sherlyn, he wants everything done, his goal is to get Mr. Corona back to [place]. We d id discuss the patient risk of Aspiration pneumonia and he agreed for PEG evaluation. Then on 12/24/18, patient became severely tachycardic and hypotensive, which did respond to IVF bolus resuscitations. His fevers, tachycardia and hypotension most likely due to Aspiration pneumonitis which i started on IV zosyn and IV levaqiun and moved him to the ICU on 12/24/18 and he was placed on bipap. * MRI head: Large area of ischemia in the right MCA territory, as described above. No signs of hemorrhagic transformation. * CT Head: Normal evolutionary change in large right MCA territorial infarct with no evidence of hemorrhagic transformation. There has been slight increase in the amount of edema, when compared with prior exam. * KUB. No acute findings. * Repeat CT head - Negative for bleed. * 12/17/18 TTE Conclusions: The study quality is technically difficult, global left ventricular systolic function is severely decreased, the estimated EF is 20-25%, abnormal LV diastolic function is observed. A thrombus is visulized in the left ventricular apex, no atrial septal defect is demonstrated by agitated saline contrast. -Sepsis, repeat pCXR can not exclude underlying bibasilar pneumonia: Started iv zosyn and iv levaquin, ordered CXR, stat iv nss fluid bolus, consulted Pulm/CCM -Acute hypoxic respiratory failure: consulted Pulm/CCM, already on heparin drip for the LV thrombus -Severe tachycardia; consulted Parking Attendant, also d/w Dr. Marks regarding past discussion with Parking Attendant once LV thrombus was found. -Massive Acute CVA (cerebrovascular accident) with Left Hemiplegia and semi- comatose state: supportive care, poor prognosis -Dysphagia: still with NGT -Acute Metabolic Encephalopathy Secondary to CVA -Left Ventricular Thrombus: on iv heparin drip and Coumadin via NGT, monitoring INR closely -HTN (hypertension), now hypotensive -History of Dementia, supportive care, continue current therapy -Nasal Bleed, resolved -Severe Malnutrition suspected, poa, bmi 19, poa, started on NGT feed -Debility, PT consulted -DVT prophylaxis: SCD to BLE while in bed. on iv heparin drip Poor prognosis, expect Code blue Full code Disposition: continue inpatient care, placement pending but trouble verifying his primary insurance as medicare is secondary. CCT 35 minutes History Interval history: Patient was seen and examined. Follow-up on current diagnosis of massive CVA in a comatose state. Moved to ICU on due to hemodynamically unstable, hypotensive, tacycardiac, febrile. Placed on Bipap overnight. Imaging, nursing note, chart, labs and old chart reviewed. Hospitalist Physical - Physical exam Narrative exam: Gen: critically ill, semi-comatose state unchanged, moderate increase accessory muscle, on bipap HEENT: NCAT, abn EOM, Pupils reactive, OP with ngt in place Neck: supple, no adenopathy, no thyromegaly, no JVD CVS/Heart: Regular tachy, normal S1S2, pulses present bilaterally Chest/Lungs: tachypneic, coarse bs b, diminished b, Symmetrical chest expansion, good air entry bilaterally GI/Abdomen: soft, NTND, good bowel sounds, no guarding or rebound /Bladder: no suprapubic tenderness, no CVA or paraspinal tenderness Extermity/Skin: no c/c/e, no obvious rash MSK: no movement left Neuro: CN 2-12 grossly intact, + focal deficits with LHP, aphasic Psych: confused - Constitutional Vitals: Temp Pulse Resp BP Pulse Ox 98.2 F 91 H 17 95/59 100 12/25/18 03:19 12/25/18 05:00 12/25/18 05:00 12/25/18 05:00 12/25/18 05:00 General appearance: Absent: mild distress Results - Labs CBC & Chem 7: 12/25/18 04:57 12/25/18 04:57 Labs: Laboratory Last Values WBC 15.8 K/mm3 (4.5-11.0) H 12/25/18 04:57 RBC 2.76 M/mm3 (3.65-5.03) L 12/25/18 04:57 Hgb 7.9 gm/dl (11.8-15.2) L 12/25/18 04:57 Hct 24.6 % (35.5-45.6) L 12/25/18 04:57 MCV 89 fl (84-94) 12/25/18 04:57 MCH 29 pg (28-32) 12/25/18 04:57 MCHC 32 % (32-34) 12/25/18 04:57 RDW 17.0 % (13.2-15.2) H 12/25/18 04:57 Plt Count 235 K/mm3 (140-440) 12/25/18 04:57 Lymph % (Auto) 15.5 % (13.4-35.0) 12/24/18 05:57 [place] % (Auto) 11.3 % (0.0-7.3) H 12/24/18 05:57 Eos % (Auto) 0.0 % (0.0-4.3) 12/24/18 05:57 Baso % (Auto) 0.6 % (0.0-1.8) 12/24/18 05:57 Lymph # 1.9 K/mm3 (1.2-5.4) 12/24/18 05:57 [place] # 1.4 K/mm3 (0.0-0.8) H 12/24/18 05:57 Eos # 0.0 K/mm3 (0.0-0.4) 12/24/18 05:57 Baso # 0.1 K/mm3 (0.0-0.1) 12/24/18 05:57 Seg Neutrophils % 72.6 % (40.0-70.0) H 12/24/18 05:57 Seg Neutrophils # 8.7 K/mm3 (1.8-7.7) H 12/24/18 05:57 PT 29.2 Sec. (12.2-14.9) H 12/25/18 04:15 INR 2.82 (0.87-1.13) H 12/25/18 04:15 APTT 37.1 Sec. (24.2-36.6) H 12/18/18 15:07 Heparin Anti-Xa Level 0.30 U.I./ml (0.3-0.7) 12/24/18 11:52 POC ABG pH 7.484 (7.35-7.45) H 12/24/18 21:52 POC ABG pO2 63 (80-105) L 12/24/18 21:52 POC ABG HCO3 16.0 (22-26 mml/L) 12/24/18 21:52 POC ABG Total CO2 17 (23-27mmol/L) 12/24/18 21:52 POC ABG O2 Sat 94 12/24/18 21:52 POC ABG Base Excess -7 ((-2) - (+3)mmol/L) 12/24/18 21:52 32 % 12/24/18 21:52 Sodium 133 mmol/L (137-145) L 12/25/18 04:57 Potassium 5.1 mmol/L (3.6-5.0) H 12/25/18 04:57 Chloride 102.2 mmol/L (98-107) 12/25/18 04:57 Carbon Dioxide 15 mmol/L (22-30) L 12/25/18 04:57 21 mmol/L 12/25/18 04:57 BUN 71 mg/dL (9-20) H 12/25/18 04:57 2.6 mg/dL (0.8-1.5) H 12/25/18 04:57 Estimated GFR 24 ml/min 12/25/18 04:57 27 % 12/25/18 04:57 Glucose 92 mg/dL (75-100) 12/25/18 04:57 POC Glucose 149 (70-105) H 12/24/18 17:37 Lactic Acid 1.40 mmol/L (0.7-2.0) 12/24/18 05:57 Calcium 7.6 mg/dL (8.4-10.2) L 12/25/18 04:57 0.30 mg/dL (0.1-1.2) 12/23/18 23:59 AST 67 units/L (5-40) H 12/23/18 23:59 ALT 62 units/L (7-56) H 12/23/18 23:59 163 units/L (35-129) H 12/23/18 23:59 0.098 ng/mL (0.00-0.029) H 12/24/18 09:00 7.8 g/dL (6.3-8.2) 12/23/18 23:59 3.2 g/dL (3.9-5) L 12/23/18 23:59 0.7 % 12/23/18 23:59 Yellow (Yellow) 12/24/18 07:05 Clear (Clear) 12/24/18 07:05 6.0 (5.0-7.0) 12/24/18 07:05 Ur Specific [place] 1.015 (1.003-1.030) 12/24/18 07:05 30 mg/dl mg/dL (Negative) 12/24/18 07:05 Neg mg/dL (Negative) 12/24/18 07:05 Neg mg/dL (Negative) 12/24/18 07:05 Neg (Negative) 12/24/18 07:05 Neg (Negative) 12/24/18 07:05 Neg (Negative) 12/24/18 07:05 < 2.0 mg/dL (<2.0) 12/24/18 07:05 Ur Leukocyte Esterase Neg (Negative) 12/24/18 07:05 1.0 /HPF (0.0-6.0) 12/24/18 07:05 2.0 /HPF (0.0-6.0) 12/24/18 07:05 Few /HPF 12/24/18 07:05 Presumptive negative 12/19/18 Unknown Presumptive negative 12/19/18 Unknown Ur Barbiturates Screen Presumptive negative 12/19/18 Unknown Ur Phencyclidine Scrn Presumptive negative 12/19/18 Unknown Ur Amphetamines Screen Presumptive negative 12/19/18 Unknown U Benzodiazepines Scrn Presumptive negative 12/19/18 Unknown Presumptive negative 12/19/18 Unknown U Marijuana (THC) Screen Presumptive negative 12/19/18 Unknown Disclamer 12/19/18 Unknown Active Medications - Current Medications Current Medications: Generic Name Dose Route Start Last Admin Trade Name Freq PRN Reason Stop Dose Admin Acetaminophen 650 mg 12/17/18 19:40 12/24/18 21:57 Tylenol PO 650 mg Q4H PRN Administration Pain, Mild (1-3) Lipase/Protease/Amylase 1 each 12/19/18 08:41 Pancreazmeghna Benitez 10,500 Unit FEEDTUBE PRN PRN For Clogged Feeding Tube Aspirin 325 mg 12/18/18 10:00 12/24/18 11:12 Aspirin PO 325 mg QDAY TRINY Administration Atorvastatin Calcium 40 mg 12/17/18 22:00 12/24/18 21:57 Lipitor PO 40 mg QHS TRINY Administration Bisacodyl 10 mg 12/17/18 19:40 Dulcolax [place] QDAY PRN Constipation Famotidine 10 mg 12/20/18 10:00 12/24/18 21:56 Pepcid PO 10 mg BID TRINY Administration Hydralazine HCl 10 mg 12/18/18 08:46 12/23/18 21:06 Apresoline IV 10 mg Q6H PRN Administration Hypertension Hydrochlorothiazide 25 mg 12/18/18 10:00 12/24/18 11:12 Hctz PO Not Given QDAY TRINY Heparin Sodium/Sodium Chloride 25,000 unit in 500 mls @ 16 mls/hr 12/18/18 15:00 12/24/18 15:08 Heparin/ 0.45% Nacl-25,000 Unit/500 Ml IV 1,250 units/hr TITR TRINY 25 mls/hr Administration Protocol 800 UNITS/HR Ceftriaxone Sodium 1 gm in 50 mls @ 100 mls/hr 12/24/18 10:00 12/24/18 11:11 Rocephin/Ns 1 Gm/50 Ml IV 100 mls/hr Q24HR TRINY Administration Protocol Sodium Chloride 1,000 mls @ 50 mls/hr 12/24/18 11:00 12/24/18 11:45 Nacl 0.9% 1000 Ml IV 50 mls/hr DIRECT TRINY Administration Piperacillin Sod/Tazobactam Sod 2.25 gm in 50 mls @ 100 mls/hr 12/24/18 17:00 12/25/18 01:48 Zosyn/Ns 2.25 Gm/50ml IV 100 mls/hr Q8H TRINY Administration Protocol Levofloxacin/Dextrose 500 mg in 100 mls @ 100 mls/hr 12/26/18 10:00 Levaquin 500mg/100ml IV Q48H [facility] Protocol Sodium Chloride 1,000 mls @ 100 mls/hr 12/24/18 18:00 Nacl 0.9% 1000 Ml IV DIRECT TRINY Magnesium Hydroxide 30 ml 12/17/18 19:40 Milk Of Magnesia PO Q4H PRN Constipation Metoclopramide HCl 10 mg 12/17/18 19:40 Reglan PO Q6H PRN Nausea And Vomiting Ondansetron HCl 4 mg 12/17/18 19:40 Zofran IV Q8H PRN Nausea And Vomiting Promethazine HCl 25 mg 12/17/18 19:40 Phenergan [place] Q6H PRN Nausea And Vomiting Simple Syrup 15 ml 12/19/18 08:41 Simple Syrup FEEDTUBE PRN PRN Hypoglycemia Simple Syrup 30 ml 12/19/18 08:41 Simple Syrup FEEDTUBE PRN PRN Hypoglycemia Sodium Bicarbonate 325 mg 12/19/18 08:41 Sodium Bicarbonate FEEDTUBE PRN PRN For Clogged Feeding Tube Sodium Chloride 10 ml 12/17/18 19:40 12/18/18 21:47 Sodium Chloride Flush Syringe 10 Ml IV 10 ml PRN PRN Administration LINE FLUSH Warfarin Sodium 5 mg 12/22/18 17:00 12/24/18 16:58 Coumadin PO 5 mg DAILY@1700 [facility] Administration Protocol Nutrition/Malnutrition Assess - Dietary Evaluation Nutrition/Malnutrition Findings: Nutrition Notes Start: 12/19/18 08:36 Freq: Status: Active Protocol: Document 12/22/18 13:18 RM (Rec: 12/22/18 13:20 RM [id number]) Nutrition Notes Initial or Follow up Brief Note Subjective/Other Information Screened for Coumadin/Vit K diet education. Pt not appropriate for diet education. No family present. Nutrition Intervention Follow-Up By: 12/28/18 Additional Comments Follow for stable TF, wt
[2018-12-25] MEDS: NACL 0.9% 1000 ML 1,000 ML IV SCH (07:29)
[2018-12-25] MEDS: PEPCID PO SCH ×2 (09:52→23:28)
[2018-12-25] MEDS: ASPIRIN PO SCH (09:52)
[2018-12-25] MEDS: HCTZ PO SCH (09:53)
--- NOTE | 2018-12-25 10:41 | Consultation ---
History of Present Illness Consult date: 12/25/18 Consult reason: tachycardia, other (LV thrombus) History of present illness: Patient is a frail 83 year old male who is admitted 12/17 with acute CVA. Further evaluation with an echocardiogram revealed a severely decreased left ventricular systolic function, EF is 20-25%. There is a thrombus is visualized in the left ventricular apex. No atrial septal defect is demonstrated by agitated saline contrast. The duration of his cardiomyopathy is uncertain. Patient has been initiated on warfarin with intravenous heparin for bridge. Labs today shows an INR at 2.8. He has leukocytosis, a creatinine of 2.6 and anemia. Patient noted febrile overnight. A cardiac consultation has been requested for abnormal echocardiogram findings. History is unobtainable. Review of records reports a history of Hypertension and Dementia. An ECG is sinus tachycardia, LVH with repolarization abnormalities. Past History Past Medical History: hypertension, other (Dementia) Past Surgical History: No surgical history, Other (reviewed) Social history: single. denies: smoking, alcohol abuse, prescription drug abuse Family history: hypertension Medications and Allergies Allergies Allergy/AdvReac Type Severity Reaction Status Date / Time No Known Allergies Allergy Verified 12/17/18 19:43 Home Medications Medication Instructions Recorded Confirmed Last Taken Type Unobtainable 12/17/18 12/17/18 Unknown History Active Meds: Active Medications Acetaminophen (Tylenol) 650 mg PO Q4H PRN PRN Reason: Pain, Mild (1-3) Last Admin: 12/24/18 21:57 Dose: 650 mg Documented by: Lipase/Protease/Amylase (Pancreaze Dr 10,500 Unit) 1 each FEEDTUBE PRN PRN PRN Reason: For Clogged Feeding Tube Aspirin (Aspirin) 325 mg PO QDAY [facility] Last Admin: 12/25/18 09:52 Dose: 325 mg Documented by: Atorvastatin Calcium (Lipitor) 40 mg PO QHS [facility] Last Admin: 12/24/18 21:57 Dose: 40 mg Documented by: Bisacodyl (Dulcolax) 10 mg [place] QDAY PRN PRN Reason: Constipation Famotidine (Pepcid) 10 mg PO BID [facility] Last Admin: 12/25/18 09:52 Dose: 10 mg Documented by: Hydralazine HCl (Apresoline) 10 mg IV Q6H PRN PRN Reason: Hypertension Last Admin: 12/23/18 21:06 Dose: 10 mg Documented by: Hydrochlorothiazide (Hctz) 25 mg PO QDAY [facility] Last Admin: 12/25/18 09:53 Dose: 25 mg Documented by: Heparin Sodium/Sodium Chloride (Heparin/ 0.45% Nacl-25,000 Unit/500 Ml) 25,000 unit in 500 mls @ 16 mls/hr IV TITR [facility]Y; Protocol Last Admin: 12/24/18 15:08 Dose: 1,250 units/hr, 25 mls/hr Documented by: Sodium Chloride (Nacl 0.9% 1000 Ml) 1,000 mls @ 50 mls/hr IV DIRECT [facility] Last Admin: 12/25/18 07:29 Dose: 50 mls/hr Documented by: Piperacillin Sod/Tazobactam Sod (Zosyn/Ns 2.25 Gm/50ml) 2.25 gm in 50 mls @ 100 mls/hr IV Q8H [facility]; Protocol Last Admin: 12/25/18 09:52 Dose: 100 mls/hr Documented by: Levofloxacin/Dextrose (Levaquin 500mg/100ml) 500 mg in 100 mls @ 100 mls/hr IV Q48H [facility]; Protocol Sodium Chloride (Nacl 0.9% 1000 Ml) 1,000 mls @ 100 mls/hr IV DIRECT [facility] Magnesium Hydroxide (Milk Of Magnesia) 30 ml PO Q4H PRN PRN Reason: Constipation Metoclopramide HCl (Reglan) 10 mg PO Q6H PRN PRN Reason: Nausea And Vomiting Ondansetron HCl (Zofran) 4 mg IV Q8H PRN PRN Reason: Nausea And Vomiting Promethazine HCl (Phenergan) 25 mg [place] Q6H PRN PRN Reason: Nausea And Vomiting Simple Syrup (Simple Syrup) 15 ml FEEDTUBE PRN PRN PRN Reason: Hypoglycemia Simple Syrup (Simple Syrup) 30 ml FEEDTUBE PRN PRN PRN Reason: Hypoglycemia Sodium Bicarbonate (Sodium Bicarbonate) 325 mg FEEDTUBE PRN PRN PRN Reason: For Clogged Feeding Tube Sodium Chloride (Sodium Chloride Flush Syringe 10 Ml) 10 ml IV PRN PRN PRN Reason: LINE FLUSH Last Admin: 12/18/18 21:47 Dose: 10 ml Documented by: Physical Examination Vital Signs Pulse Ox 72 L 12/17/18 15:30 General appearance: no acute distress HEENT: Positive: PERRL Cardiac: Positive: Tachycardia Lungs: Positive: Rhonchi Results 12/25/18 04:57 12/25/18 04:57 Coagulation 12/25/18 Range/Units 04:15 PT 29.2 H (12.2-14.9) Sec. INR 2.82 H (0.87-1.13) CBC 12/25/18 Range/Units 04:57 WBC 15.8 H (4.5-11.0) K/mm3 RBC 2.76 L (3.65-5.03) M/mm3 Hgb 7.9 L (11.8-15.2) gm/dl Hct 24.6 L (35.5-45.6) % Plt Count 235 (140-440) K/mm3 Comprehensive Metabolic Panel 12/25/18 Range/Units 04:57 Sodium 133 L (137-145) mmol/L Potassium 5.1 H (3.6-5.0) mmol/L Chloride 102.2 (98-107) mmol/L Carbon Dioxide 15 L (22-30) mmol/L BUN 71 H (9-20) mg/dL Creatinine 2.6 H (0.8-1.5) mg/dL Glucose 92 (75-100) mg/dL Calcium 7.6 L (8.4-10.2) mg/dL Assessment and Plan Acute CVA initiated on warfarin; INR of 2.8 today Hypertension Dementia LV thrombus Dilated cardiomyopathy, uncertain duration echocardiogram revealed a severely decreased left ventricular systolic function, EF is 20-25%. Acute renal failure Sepsis Reflex sinus tachycardia Conservative cardiac management.
--- NOTE | 2018-12-25 11:07 | Progress Note ---
Assessment and Plan - Patient Problems (1) Acute renal failure Current Visit: Yes Status: Acute Plan to address problem: The setting of acute cerebrovascular accident and likely significant prerenal injury. He is also developing fevers and lower blood pressures this morning concerning for possible sepsis secondary to possibly aspiration pneumonia. Remains on gentle IV fluid hydration. Antibiotics per primary attending. Please ensure the antibiotics dosed appropriately for renal function. Renal ultrasound reviewed without any acute abnormalities. Avoid nephrotoxins and maintain map above 65 mmHg (2) Acute CVA (cerebrovascular accident) Current Visit: Yes Status: Acute Plan to address problem: The setting of a large left ventricular thrombus. Patient on heparin drip at this time. Further management per primary attending. (3) Encephalopathy Current Visit: Yes Status: Acute Plan to address problem: No changes in overall encephalopathy since admission. He is essentially unresponsive at this time. He is off all sedation. He has been transferred from the [facility] to the telemetry unit. Overall prognosis remains poor at this time. Hospice consult was noted. Per notes from primary attending it seems that family is not agreeable with hospice at this time. (4) HTN (hypertension) Current Visit: Yes Status: Chronic Qualifiers: Hypertension type: essential hypertension Qualified Code(s): I10 - Essential (primary) hypertension Plan to address problem: We'll monitor on current regimen at this time. Hemodynamically he remains stable. (5) Hyperkalemia Current Visit: Yes Status: Acute Plan to address problem: Likely in the setting of acute kidney injury. He is also on heparin drip which does have [id number] effects which could also lead to hyperkalemia. We'll need to closely monitor and treat medically as necessary. He has no acute changes on telemetry. Subjective Date of service: 12/25/18 Interval history: Patient was transferred to the ICU in the setting of worsening fevers, hypertension, and questionable sepsis in the setting of aspiration pneumonia. No acute events overnight. He is not on pressure support at this time and is map is above 65 mmHg. He is on IV antibiotics. Overall renal function is stable. Objective - Vital Signs Vital signs: Vital Signs - 12hr 12/24/18 12/24/18 12/25/18 23:14 23:25 00:00 Temperature 97.8 F Pulse Rate 110 H Pulse Rate [ 110 H Apical] Pulse Rate [ 110 H From Monitor] Respiratory 20 Rate Blood Pressure O2 Sat by Pulse 100 Oximetry 12/25/18 12/25/18 12/25/18 00:01 01:01 01:29 Temperature 98.7 F Pulse Rate 111 H 100 H Pulse Rate [ Apical] Pulse Rate [ From Monitor] Respiratory 24 20 Rate Blood Pressure 83/53 83/53 O2 Sat by Pulse 99 100 Oximetry 12/25/18 12/25/18 12/25/18 02:01 02:49 03:00 Temperature Pulse Rate 94 H 93 H 94 H Pulse Rate [ Apical] Pulse Rate [ From Monitor] Respiratory 17 19 17 Rate Blood Pressure 83/53 97/61 103/64 O2 Sat by Pulse 100 100 100 Oximetry 12/25/18 12/25/18 12/25/18 03:19 03:25 04:00 Temperature 98.2 F Pulse Rate 91 H Pulse Rate [ 90 Apical] Pulse Rate [ 90 From Monitor] Respiratory 20 17 Rate Blood Pressure 111/64 O2 Sat by Pulse 100 100 Oximetry 12/25/18 12/25/18 12/25/18 05:00 06:00 07:01 Temperature Pulse Rate 91 H 94 H 98 H Pulse Rate [ Apical] Pulse Rate [ From Monitor] Respiratory 17 19 19 Rate Blood Pressure 95/59 105/59 111/65 O2 Sat by Pulse 100 100 100 Oximetry 12/25/18 12/25/18 12/25/18 08:00 08:52 08:58 Temperature 98.5 F Pulse Rate 102 H 106 H Pulse Rate [ Apical] Pulse Rate [ 102 H From Monitor] Respiratory 15 22 Rate Blood Pressure 115/65 117/67 O2 Sat by Pulse 100 100 95 Oximetry 12/25/18 12/25/18 09:00 10:00 Temperature Pulse Rate 107 H 105 H Pulse Rate [ Apical] Pulse Rate [ From Monitor] Respiratory 28 H 24 Rate Blood Pressure 110/57 96/46 O2 Sat by Pulse 94 96 Oximetry - General Appearance General appearance: cachectic, frail EENT: ATNC, PERRL Neck: no JVD, no thyromegaly Respiratory: Present: Decreased Breath Sounds Cardiology: regular, S1S2 Gastrointestinal: normal, normoactive bowel sounds Integumentary: no rash, warm and dry Neurologic: other (noncommunicative, nonverbal) Musculoskeletal: other (negative edema) - Lab 12/25/18 04:57 12/25/18 04:57 Most recent lab results Calcium 7.6 mg/dL (8.4-10.2) L 12/25/18 04:57 - Allied health notes Allied health notes reviewed: nursing Medications & Allergies - Medications Allergies/Adverse Reactions: Allergies No Known Allergies Allergy (Verified 12/17/18 19:43) Home Medications: Home Medications Medication Instructions Recorded Confirmed Last Taken Type Unobtainable 12/17/18 12/17/18 Unknown History Active Medications: Generic Name Dose Route Start Last Admin Trade Name Freq PRN Reason Stop Dose Admin Acetaminophen 650 mg 12/17/18 19:40 12/24/18 21:57 Tylenol PO 650 mg Q4H PRN Administration Pain, Mild (1-3) Lipase/Protease/Amylase 1 each 12/19/18 08:[address] 10,500 Unit FEEDTUBE PRN PRN For Clogged Feeding Tube Aspirin 325 mg 12/18/18 10:00 12/25/18 09:52 Aspirin PO 325 mg QDAY [facility] Administration Atorvastatin Calcium 40 mg 12/17/18 22:00 12/24/18 21:57 Lipitor PO 40 mg QHS [facility] Administration Bisacodyl 10 mg 12/17/18 19:40 Dulcolax MD QDAY PRN Constipation Famotidine 10 mg 12/20/18 10:00 12/25/18 09:52 Pepcid PO 10 mg BID [facility] Administration Hydralazine HCl 10 mg 12/18/18 08:46 12/23/18 21:06 Apresoline IV 10 mg Q6H PRN Administration Hypertension Hydrochlorothiazide 25 mg 12/18/18 10:00 12/25/18 09:53 Hctz PO 25 mg QDAY [facility] Administration Heparin Sodium/Sodium Chloride 25,000 unit in 500 mls @ 16 mls/hr 12/18/18 15:00 12/24/18 15:08 Heparin/ 0.45% Nacl-25,000 Unit/500 Ml IV 1,250 units/hr TITR [facility] 25 mls/hr Administration Protocol 800 UNITS/HR Sodium Chloride 1,000 mls @ 50 mls/hr 12/24/18 11:00 12/25/18 07:29 Nacl 0.9% 1000 Ml IV 50 mls/hr DIRECT [facility] Administration Piperacillin Sod/Tazobactam Sod 2.25 gm in 50 mls @ 100 mls/hr 12/24/18 17:00 12/25/18 09:52 Zosyn/Ns 2.25 Gm/50ml IV 100 mls/hr Q8H [facility] Administration Protocol Levofloxacin/Dextrose 500 mg in 100 mls @ 100 mls/hr 12/26/18 10:00 Levaquin 500mg/100ml IV Q48H [facility] Protocol Sodium Chloride 1,000 mls @ 100 mls/hr 12/24/18 18:00 Nacl 0.9% 1000 Ml IV DIRECT [facility] Magnesium Hydroxide 30 ml 12/17/18 19:40 Milk Of Magnesia PO Q4H PRN Constipation Metoclopramide HCl 10 mg 12/17/18 19:40 Reglan PO Q6H PRN Nausea And Vomiting Ondansetron HCl 4 mg 12/17/18 19:40 Zofran IV Q8H PRN Nausea And Vomiting Promethazine HCl 25 mg 12/17/18 19:40 Phenergan MD Q6H PRN Nausea And Vomiting Simple Syrup 15 ml 12/19/18 08:41 Simple Syrup FEEDTUBE PRN PRN Hypoglycemia Simple Syrup 30 ml 12/19/18 08:41 Simple Syrup FEEDTUBE PRN PRN Hypoglycemia Sodium Bicarbonate 325 mg 12/19/18 08:41 Sodium Bicarbonate FEEDTUBE PRN PRN For Clogged Feeding Tube Sodium Chloride 10 ml 12/17/18 19:40 12/18/18 21:47 Sodium Chloride Flush Syringe 10 Ml IV 10 ml PRN PRN Administration LINE FLUSH
[2018-12-25] MEDS: HEPARIN/ 0.45% NACL-25,000 UNIT/500 ML 25,000 UNIT/500 ML BAG IV SCH (13:46)
--- NOTE | 2018-12-25 14:23 | Consultation ---
History of Present Illness - Reason for Consult Consult date: 12/25/18 Hypotension Requesting physician: PAMELA MARISCAL - History of Present Illness 83 y/o, admitted several days ago to the hospital, who has progressively gotten worse since admission was transferred to the ICU on yesterday secondary to hypotension, tachycardia and increased work of breathing. Patient was placed on bipap, given tylenol for a fever and has sinced been weaned to nasal cannula and rate is now sinus. BP is stable with MAps in the low 60's which is appropriate given he has systolic heart failure. His mental status per chart and speaking with physicians who have seen him several times is unchanged. Remainder of the review is negative. Past History Past Medical History: hypertension, other (Dementia) Past Surgical History: No surgical history, Other (reviewed) Social history: single. denies: smoking, alcohol abuse, prescription drug abuse Family history: hypertension Medications and Allergies Allergies Allergy/AdvReac Type Severity Reaction Status Date / Time No Known Allergies Allergy Verified 12/17/18 19:43 Home Medications Medication Instructions Recorded Confirmed Last Taken Type Unobtainable 12/17/18 12/17/18 Unknown History Active Meds: Active Medications Acetaminophen (Tylenol) 650 mg PO Q4H PRN PRN Reason: Pain, Mild (1-3) Last Admin: 12/24/18 21:57 Dose: 650 mg Documented by: Lipase/Protease/Amylase (Pancreazmeghna Dr 10,500 Unit) 1 each FEEDTUBE PRN PRN PRN Reason: For Clogged Feeding Tube Aspirin (Aspirin) 325 mg PO QDAY [facility] Last Admin: 12/25/18 09:52 Dose: 325 mg Documented by: Atorvastatin Calcium (Lipitor) 40 mg PO QHS [facility] Last Admin: 12/24/18 21:57 Dose: 40 mg Documented by: Bisacodyl (Dulcolax) 10 mg [place] QDAY PRN PRN Reason: Constipation Famotidine (Pepcid) 10 mg PO BID [facility] Last Admin: 12/25/18 09:52 Dose: 10 mg Documented by: Hydralazine HCl (Apresoline) 10 mg IV Q6H PRN PRN Reason: Hypertension Last Admin: 12/23/18 21:06 Dose: 10 mg Documented by: Hydrochlorothiazide (Hctz) 25 mg PO QDAY [facility] Last Admin: 12/25/18 09:53 Dose: 25 mg Documented by: Heparin Sodium/Sodium Chloride (Heparin/ 0.45% Nacl-25,000 Unit/500 Ml) 25,000 unit in 500 mls @ 16 mls/hr IV TITR [facility]; Protocol Last Admin: 12/25/18 13:46 Dose: 1,250 units/hr, 25 mls/hr Documented by: Sodium Chloride (Nacl 0.9% 1000 Ml) 1,000 mls @ 50 mls/hr IV DIRECT [facility] Last Admin: 12/25/18 07:29 Dose: 50 mls/hr Documented by: Piperacillin Sod/Tazobactam Sod (Zosyn/Ns 2.25 Gm/50ml) 2.25 gm in 50 mls @ 100 mls/hr IV Q8H [facility]; Protocol Last Admin: 12/25/18 09:52 Dose: 100 mls/hr Documented by: Levofloxacin/Dextrose (Levaquin 500mg/100ml) 500 mg in 100 mls @ 100 mls/hr IV Q48H [facility]; Protocol Sodium Chloride (Nacl 0.9% 1000 Ml) 1,000 mls @ 100 mls/hr IV DIRECT [facility] Magnesium Hydroxide (Milk Of Magnesia) 30 ml PO Q4H PRN PRN Reason: Constipation Metoclopramide HCl (Reglan) 10 mg PO Q6H PRN PRN Reason: Nausea And Vomiting Ondansetron HCl (Zofran) 4 mg IV Q8H PRN PRN Reason: Nausea And Vomiting Promethazine HCl (Phenergan) 25 mg [place] Q6H PRN PRN Reason: Nausea And Vomiting Simple Syrup (Simple Syrup) 15 ml FEEDTUBE PRN PRN PRN Reason: Hypoglycemia Simple Syrup (Simple Syrup) 30 ml FEEDTUBE PRN PRN PRN Reason: Hypoglycemia Sodium Bicarbonate (Sodium Bicarbonate) 325 mg FEEDTUBE PRN PRN PRN Reason: For Clogged Feeding Tube Sodium Chloride (Sodium Chloride Flush Syringe 10 Ml) 10 ml IV PRN PRN PRN Reason: LINE FLUSH Last Admin: 12/18/18 21:47 Dose: 10 ml Documented by: Warfarin Sodium (Coumadin) 1 mg PO DAILY@1700 [facility] Review of Systems ROS unobtainable: due to mental status Exam - Constitutional Vitals: Temp Pulse Resp BP Pulse Ox 98.7 F 101 H 16 82/54 95 12/25/18 12:00 12/25/18 13:00 12/25/18 13:00 12/25/18 13:00 12/25/18 13:00 General appearance: Present: no acute distress, other (unresponsive but eyes open) - Neck Neck: Present: supple - Respiratory Respiratory effort: normal Respiratory: bilateral: diminished - Cardiovascular Rhythm: regular - Extremities Extremities: no ischemia, pulses intact - Abdominal General gastrointestinal: Present: soft Male genitourinary: Present: deferred - Rectal Rectal Exam: deferred Results - Labs CBC & Chem 7: 12/25/18 04:57 12/25/18 04:57 Labs: Abnormal lab results 12/24/18 12/24/18 12/25/18 Range/Units 17:37 21:52 04:15 WBC (4.5-11.0) K/mm3 RBC (3.65-5.03) M/mm3 Hgb (11.8-15.2) gm/dl Hct (35.5-45.6) % RDW (13.2-15.2) % PT 29.2 H (12.2-14.9) Sec. INR 2.82 H (0.87-1.13) POC ABG pH 7.484 H (7.35-7.45) POC ABG pO2 63 L (80-105) Sodium (137-145) mmol/L Potassium (3.6-5.0) mmol/L Carbon Dioxide (22-30) mmol/L BUN (9-20) mg/dL Creatinine (0.8-1.5) mg/dL POC Glucose 149 H (70-105) Calcium (8.4-10.2) mg/dL 12/25/18 12/25/18 12/25/18 Range/Units 04:57 04:57 07:56 WBC 15.8 H (4.5-11.0) K/mm3 RBC 2.76 L (3.65-5.03) M/mm3 Hgb 7.9 L (11.8-15.2) gm/dl Hct 24.6 L (35.5-45.6) % RDW 17.0 H (13.2-15.2) % PT (12.2-14.9) Sec. INR (0.87-1.13) POC ABG pH (7.35-7.45) POC ABG pO2 (80-105) Sodium 133 L (137-145) mmol/L Potassium 5.1 H (3.6-5.0) mmol/L Carbon Dioxide 15 L (22-30) mmol/L BUN 71 H (9-20) mg/dL Creatinine 2.6 H (0.8-1.5) mg/dL POC Glucose 113 H (70-105) Calcium 7.6 L (8.4-10.2) mg/dL - Imaging and Cardiology Chest x-ray: image reviewed (Hyperinflation questionable left lower lobe infiltrate vs effusion) Assessment and Plan 83 y/o male with multiple medical issues: CVA, Systolic heart failure, Renal failure, electrolyte imbalance and altered mental state 1. From a critical care standpoint, not providing any services that cannot be done in the IMCU. Discussed with [facility] and they are in agreement as well. Will transfer back to stepdown given his severity of illness. I do agree with the primary team that he should be an AND and family should persue hospice but it appears they are not accepting this. No current family at bedside.
[2018-12-25] MEDS ORDERED: COUMADIN PO SCH (17:00)
--- NOTE | 2018-12-26 00:25 | Progress Note ---
Assessment and Plan Acute CVA initiated on warfarin; INR of 2.8 today Hypertension Dementia LV thrombus Dilated cardiomyopathy, uncertain duration echocardiogram revealed a severely decreased left ventricular systolic function, EF is 20-25%. Acute renal failure Sepsis Reflex sinus tachycardia Conservative cardiac management. Subjective Date of service: 12/26/18 Interval history: No acute events. Resting comfortably. No chest pain or SOB. Objective Vital Signs Temp Pulse Pulse Pulse Resp Resp BP 12/25/18 23:30 110 H 20 12/25/18 23:16 12/25/18 23:11 12/25/18 23:03 97.8 F 12/25/18 23:00 110 H 17 105/68 12/25/18 22:00 109 H 20 121/66 12/25/18 21:00 109 H 16 117/67 12/25/18 20:00 109 H 19 112/66 12/25/18 19:35 97.6 F 12/25/18 19:02 98 H 20 12/25/18 19:01 100 H 14 110/64 12/25/18 18:00 98 H 15 117/61 12/25/18 17:01 20 101/55 12/25/18 16:00 98.4 F 91 H 18 98/57 12/25/18 15:00 95 H 18 97/54 12/25/18 14:00 85 16 105/49 12/25/18 13:00 101 H 16 82/54 12/25/18 12:00 98.7 F 90 92 H 17 96/58 12/25/18 11:00 95 H 17 89/44 12/25/18 10:16 110 H 12/25/18 10:00 105 H 24 96/46 12/25/18 09:00 107 H 28 H 110/57 12/25/18 08:58 12/25/18 08:52 106 H 22 117/67 12/25/18 08:00 98.5 F 102 H 102 H 15 115/65 12/25/18 07:01 98 H 19 111/65 12/25/18 06:00 94 H 19 105/59 12/25/18 05:00 91 H 17 95/59 12/25/18 04:00 91 H 17 111/64 12/25/18 03:25 90 90 20 12/25/18 03:19 98.2 F 12/25/18 03:00 94 H 17 103/64 12/25/18 02:49 93 H 19 97/61 12/25/18 02:01 94 H 17 83/53 12/25/18 01:29 98.7 F 12/25/18 01:01 100 H 20 83/53 Pulse Ox 12/25/18 23:30 94 12/25/18 23:16 100 12/25/18 23:11 98 12/25/18 23:03 12/25/18 23:00 96 12/25/18 22:00 97 12/25/18 21:00 96 12/25/18 20:00 98 12/25/18 19:35 12/25/18 19:02 94 12/25/18 19:01 97 12/25/18 18:00 96 12/25/18 17:01 96 12/25/18 16:00 97 12/25/18 15:00 98 12/25/18 14:00 97 12/25/18 13:00 95 12/25/18 12:00 96 12/25/18 11:00 96 12/25/18 10:16 12/25/18 10:00 96 12/25/18 09:00 94 12/25/18 08:58 95 12/25/18 08:52 100 12/25/18 08:00 100 12/25/18 07:01 100 12/25/18 06:00 100 12/25/18 05:00 100 12/25/18 04:00 100 12/25/18 03:25 100 12/25/18 03:19 12/25/18 03:00 100 12/25/18 02:49 100 12/25/18 02:01 100 12/25/18 01:29 12/25/18 01:01 100 - Physical Examination HEENT: Positive: PERRL Neck: Positive: neck supple, trachea midline - Labs and Meds Coagulation 12/25/18 Range/Units 04:15 PT 29.2 H (12.2-14.9) Sec. INR 2.82 H (0.87-1.13) CBC 12/25/18 Range/Units 04:57 WBC 15.8 H (4.5-11.0) K/mm3 RBC 2.76 L (3.65-5.03) M/mm3 Hgb 7.9 L (11.8-15.2) gm/dl Hct 24.6 L (35.5-45.6) % Plt Count 235 (140-440) K/mm3 Comprehensive Metabolic Panel 12/25/18 Range/Units 04:57 Sodium 133 L (137-145) mmol/L Potassium 5.1 H (3.6-5.0) mmol/L Chloride 102.2 (98-107) mmol/L Carbon Dioxide 15 L (22-30) mmol/L BUN 71 H (9-20) mg/dL Creatinine 2.6 H (0.8-1.5) mg/dL Glucose 92 (75-100) mg/dL Calcium 7.6 L (8.4-10.2) mg/dL - Allied health notes Allied health notes reviewed: nursing
[2018-12-26] MEDS: ZOSYN/NS 2.25 GM/50ML 2.25 GM/50 ML BAG IV SCH ×3 (01:36→18:22)
[2018-12-26 05:07] LABS: Hematocrit 21.4 % (35.5-45.6); Hemoglobin 7.1 gm/dl (11.8-15.2); Mean Corpuscular HGB Conc 33 % (32-34); Mean Corpuscular Volume 86 fl (84-94); Platelet Count 286 K/mm3 (140-440); Red Blood Count 2.49 M/mm3 (3.65-5.03); Red Cell Distribution Width 17.1 % (13.2-15.2)
[2018-12-26] MEDS ORDERED: D50W (25GM) Syringe IV PRN (05:14)
[2018-12-26 05:19] LABS: INR 4.25 (0.87-1.13)
[2018-12-26 05:30] LABS: Calcium 8.3 mg/dL (8.4-10.2)
[2018-12-26] MEDS ORDERED: COUMADIN NO DOSE TODAY PO ONE (08:07)
--- NOTE | 2018-12-26 08:11 | Progress Note ---
Assessment and Plan Assessment and plan: Patient is a 83 yo man with a history of HTN and Dementia who presented to [facility] ED with AMS and found unresponsive, lying on the floor. He was found to have a acute CVA. He was also found to have Left ventricular heart thrombus. He was started on IV heparin drip followed by Coumadin initiation. He did have nose bleeding on 12/20/18 and heparin IV drip held and repeat CT head done, which did not show a bleed, so heparin iv drip resumed. When I took over care on December 22, Hospice was consulted but nephmuriel decided against Hospice and no other family available. 12/23/18, We met at bedside, along with his daughter Sherlyn, he wants everything done, his goal is to get Mr. Corona back to [place]. We d id discuss the patient risk of Aspiration pneumonia and he agreed for PEG evaluation. Then on 12/24/18, patient became severely tachycardic and hypotensive, which did respond to IVF bolus resuscitations. His fevers, tachycardia and hypotension most likely due to Aspiration pneumonitis which i started on IV zosyn and IV levaqiun and moved him to the ICU on 12/24/18 and he was placed on bipap. * MRI head: Large area of ischemia in the right MCA territory, as described above. No signs of hemorrhagic transformation. * CT Head: Normal evolutionary change in large right MCA territorial infarct with no evidence of hemorrhagic transformation. There has been slight increase in the amount of edema, when compared with prior exam. * KUB. No acute findings. * Repeat CT head - Negative for bleed. * 12/17/18 TTE Conclusions: The study quality is technically difficult, global left ventricular systolic function is severely decreased, the estimated EF is 20-25%, abnormal LV diastolic function is observed. A thrombus is visulized in the left ventricular apex, no atrial septal defect is demonstrated by agitated saline contrast. -Sepsis, repeat pCXR can not exclude underlying bibasilar pneumonia: Started iv zosyn and iv levaquin, ordered CXR, stat iv nss fluid bolus, consulted Pulm/CCM -Acute hypoxic respiratory failure: consulted Pulm/CCM, already on heparin drip for the LV thrombus -Severe tachycardia; consulted [facility], also d/w Dr. Marks regarding past discussion with [employer] [facility] once LV thrombus was found. -Massive Acute CVA (cerebrovascular accident) with Left Hemiplegia and semi- comatose state: supportive care, poor prognosis -Dysphagia: still with NGT -Acute Metabolic Encephalopathy Secondary to CVA -Left Ventricular Thrombus: on iv heparin drip and Coumadin via NGT, monitoring INR closely -HTN (hypertension), now hypotensive -History of Dementia, supportive care, continue current therapy -Nasal Bleed, resolved -Severe Malnutrition suspected, poa, bmi 19, poa, started on NGT feed -Debility, PT consulted -DVT prophylaxis: SCD to BLE while in bed. on iv heparin drip Poor prognosis, expect Code blue Full code Disposition: continue inpatient care, placement pending but trouble verifying his primary insurance as medicare is secondary. INR 4.25, hold warfarin, stop iv heparin drip patient had to be put in restraints last night History Interval history: Patient was seen and examined. Follow-up on current diagnosis of massive CVA in a comatose state. Moved to ICU on due to hemodynamically unstable, hypotensive, tacycardiac, febrile. Placed on Bipap overnight. Imaging, nursing note, chart, labs and old chart reviewed. Hospitalist Physical - Physical exam Narrative exam: Gen: critically ill, semi-comatose state unchanged, moderate increase accessory muscle, on bipap HEENT: NCAT, abn EOM, Pupils reactive, OP with ngt in place Neck: supple, no adenopathy, no thyromegaly, no JVD CVS/Heart: Regular tachy, normal S1S2, pulses present bilaterally Chest/Lungs: tachypneic, coarse bs b, diminished b, Symmetrical chest expansion, good air entry bilaterally GI/Abdomen: soft, NTND, good bowel sounds, no guarding or rebound /Bladder: no suprapubic tenderness, no CVA or paraspinal tenderness Extermity/Skin: no c/c/e, no obvious rash MSK: no movement left Neuro: CN 2-12 grossly intact, + focal deficits with LHP, aphasic Psych: confused - Constitutional Vitals: Temp Pulse Resp BP Pulse Ox 98.8 F 111 H 17 131/81 98 12/26/18 03:00 12/26/18 04:30 12/26/18 04:53 12/26/18 04:00 12/26/18 08:05 General appearance: Absent: mild distress Results - Labs CBC & Chem 7: 12/26/18 04:29 12/26/18 04:29 Labs: Laboratory Last Values WBC 17.8 K/mm3 (4.5-11.0) H 12/26/18 04:29 RBC 2.49 M/mm3 (3.65-5.03) L 12/26/18 04:29 Hgb 7.1 gm/dl (11.8-15.2) L 12/26/18 04:29 Hct 21.4 % (35.5-45.6) L 12/26/18 04:29 MCV 86 fl (84-94) 12/26/18 04:29 MCH 29 pg (28-32) 12/26/18 04:29 MCHC 33 % (32-34) 12/26/18 04:29 RDW 17.1 % (13.2-15.2) H 12/26/18 04:29 Plt Count 286 K/mm3 (140-440) 12/26/18 04:29 Lymph % (Auto) 15.5 % (13.4-35.0) 12/24/18 05:57 Thayer % (Auto) 11.3 % (0.0-7.3) H 12/24/18 05:57 Eos % (Auto) 0.0 % (0.0-4.3) 12/24/18 05:57 Baso % (Auto) 0.6 % (0.0-1.8) 12/24/18 05:57 Lymph # 1.9 K/mm3 (1.2-5.4) 12/24/18 05:57 Thayer # 1.4 K/mm3 (0.0-0.8) H 12/24/18 05:57 Eos # 0.0 K/mm3 (0.0-0.4) 12/24/18 05:57 Baso # 0.1 K/mm3 (0.0-0.1) 12/24/18 05:57 Seg Neutrophils % 72.6 % (40.0-70.0) H 12/24/18 05:57 Seg Neutrophils # 8.7 K/mm3 (1.8-7.7) H 12/24/18 05:57 PT 40.3 Sec. (12.2-14.9) H 12/26/18 04:29 INR 4.25 (0.87-1.13) H 12/26/18 04:29 APTT 37.1 Sec. (24.2-36.6) H 12/18/18 15:07 Heparin Anti-Xa Level 1.36 U.I./ml (0.3-0.7) H 12/25/18 23:00 POC ABG pH 7.484 (7.35-7.45) H 12/24/18 21:52 POC ABG pO2 63 (80-105) L 12/24/18 21:52 POC ABG HCO3 16.0 (22-26 mml/L) 12/24/18 21:52 POC ABG Total CO2 17 (23-27mmol/L) 12/24/18 21:52 POC ABG O2 Sat 94 12/24/18 21:52 POC ABG Base Excess -7 ((-2) - (+3)mmol/L) 12/24/18 21:52 32 % 12/24/18 21:52 Sodium 136 mmol/L (137-145) L 12/26/18 04:29 Potassium 4.8 mmol/L (3.6-5.0) 12/26/18 04:29 Chloride 103.8 mmol/L (98-107) 12/26/18 04:29 Carbon Dioxide 16 mmol/L (22-30) L 12/26/18 04:29 21 mmol/L 12/26/18 04:29 BUN 62 mg/dL (9-20) H 12/26/18 04:29 2.2 mg/dL (0.8-1.5) H 12/26/18 04:29 Estimated GFR 29 ml/min 12/26/18 04:29 28 % 12/26/18 04:29 Glucose 86 mg/dL (75-100) 12/26/18 04:29 POC Glucose 96 (70-105) 12/25/18 16:26 Lactic Acid 1.40 mmol/L (0.7-2.0) 12/24/18 05:57 Calcium 8.3 mg/dL (8.4-10.2) L 12/26/18 04:29 0.30 mg/dL (0.1-1.2) 12/23/18 23:59 AST 67 units/L (5-40) H 12/23/18 23:59 ALT 62 units/L (7-56) H 12/23/18 23:59 163 units/L (35-129) H 12/23/18 23:59 0.098 ng/mL (0.00-0.029) H 12/24/18 09:00 7.8 g/dL (6.3-8.2) 12/23/18 23:59 3.2 g/dL (3.9-5) L 12/23/18 23:59 0.7 % 12/23/18 23:59 Yellow (Yellow) 12/24/18 07:05 Clear (Clear) 12/24/18 07:05 6.0 (5.0-7.0) 12/24/18 07:05 Ur Specific [place] 1.015 (1.003-1.030) 12/24/18 07:05 30 mg/dl mg/dL (Negative) 12/24/18 07:05 Neg mg/dL (Negative) 12/24/18 07:05 Neg mg/dL (Negative) 12/24/18 07:05 Neg (Negative) 12/24/18 07:05 Neg (Negative) 12/24/18 07:05 Neg (Negative) 12/24/18 07:05 < 2.0 mg/dL (<2.0) 12/24/18 07:05 Ur Leukocyte Esterase Neg (Negative) 12/24/18 07:05 1.0 /HPF (0.0-6.0) 12/24/18 07:05 2.0 /HPF (0.0-6.0) 12/24/18 07:05 Few /HPF 12/24/18 07:05 Presumptive negative 12/19/18 Unknown Presumptive negative 12/19/18 Unknown Ur Barbiturates Screen Presumptive negative 12/19/18 Unknown Ur Phencyclidine Scrn Presumptive negative 12/19/18 Unknown Ur Amphetamines Screen Presumptive negative 12/19/18 Unknown U Benzodiazepines Scrn Presumptive negative 12/19/18 Unknown Presumptive negative 12/19/18 Unknown U Marijuana (THC) Screen Presumptive negative 12/19/18 Unknown Disclamer 12/19/18 Unknown Active Medications - Current Medications Current Medications: Generic Name Dose Route Start Last Admin Trade Name Freq PRN Reason Stop Dose Admin Acetaminophen 650 mg 12/17/18 19:40 12/24/18 21:57 Tylenol PO 650 mg Q4H PRN Administration Pain, Mild (1-3) Lipase/Protease/Amylase 1 each 12/19/18 08:41 Pancreazmeghna Benitez 10,500 Unit FEEDTUBE PRN PRN For Clogged Feeding Tube Aspirin 325 mg 12/18/18 10:00 12/25/18 09:52 Aspirin PO 325 mg QDAY TRINY Administration Atorvastatin Calcium 40 mg 12/17/18 22:00 12/25/18 23:27 Lipitor PO 40 mg QHS TRINY Administration Bisacodyl 10 mg 12/17/18 19:40 Dulcolax [place] QDAY PRN Constipation Dextrose 50 ml 12/26/18 05:14 D50w (25gm) Syringe IV PRN PRN Hypoglycemia Famotidine 10 mg 12/20/18 10:00 12/25/18 23:28 Pepcid PO 10 mg BID TRINY Administration Hydralazine HCl 10 mg 12/18/18 08:46 12/23/18 21:06 Apresoline IV 10 mg Q6H PRN Administration Hypertension Hydrochlorothiazide 25 mg 12/18/18 10:00 12/25/18 09:53 Hctz PO 25 mg QDAY TRINY Administration Sodium Chloride 1,000 mls @ 50 mls/hr 12/24/18 11:00 12/25/18 07:29 Nacl 0.9% 1000 Ml IV 50 mls/hr DIRECT TRINY Administration Piperacillin Sod/Tazobactam Sod 2.25 gm in 50 mls @ 100 mls/hr 12/24/18 17:00 12/26/18 01:36 Zosyn/Ns 2.25 Gm/50ml IV 100 mls/hr Q8H TRINY Administration Protocol Levofloxacin/Dextrose 500 mg in 100 mls @ 100 mls/hr 12/26/18 10:00 Levaquin 500mg/100ml IV Q48H TRINY Protocol Sodium Chloride 1,000 mls @ 100 mls/hr 12/24/18 18:00 12/25/18 23:28 Nacl 0.9% 1000 Ml IV 100 mls/hr DIRECT TRINY Administration Magnesium Hydroxide 30 ml 12/17/18 19:40 Milk Of Magnesia PO Q4H PRN Constipation Metoclopramide HCl 10 mg 12/17/18 19:40 Reglan PO Q6H PRN Nausea And Vomiting Ondansetron HCl 4 mg 12/17/18 19:40 Zofran IV Q8H PRN Nausea And Vomiting Simple Syrup 15 ml 12/19/18 08:41 Simple Syrup FEEDTUBE PRN PRN Hypoglycemia Simple Syrup 30 ml 12/19/18 08:41 Simple Syrup FEEDTUBE PRN PRN Hypoglycemia Sodium Bicarbonate 325 mg 12/19/18 08:41 Sodium Bicarbonate FEEDTUBE PRN PRN For Clogged Feeding Tube Sodium Chloride 10 ml 12/17/18 19:40 12/18/18 21:47 Sodium Chloride Flush Syringe 10 Ml IV 10 ml PRN PRN Administration LINE FLUSH Nutrition/Malnutrition Assess - Dietary Evaluation Nutrition/Malnutrition Findings: Nutrition Notes Start: 12/19/18 08:36 Freq: Status: Active Protocol: Document 12/22/18 13:18 RM (Rec: 12/22/18 13:20 RM [id number]) Nutrition Notes Initial or Follow up Brief Note Subjective/Other Information Screened for Coumadin/Vit K diet education. Pt not appropriate for diet education. No family present. Nutrition Intervention Follow-Up By: 12/28/18 Additional Comments Follow for stable TF, wt
--- NOTE | 2018-12-26 10:08 | Progress Note ---
Assessment and Plan - Patient Problems (1) Acute renal failure Current Visit: Yes Status: Acute Plan to address problem: The setting of acute cerebrovascular accident and likely significant prerenal injury and likely underlying sepsis secondary to aspiration pneumonia. Remains on gentle IV fluid hydration. Antibiotics per primary attending. Please ensure the antibiotics dosed appropriately for renal function. Renal ultrasound reviewed without any acute abnormalities. Avoid nephrotoxins and maintain map above 65 mmHg (2) Acute CVA (cerebrovascular accident) Current Visit: Yes Status: Acute Plan to address problem: The setting of a large left ventricular thrombus. Patient on heparin drip at this time. Further management per primary attending. (3) Encephalopathy Current Visit: Yes Status: Acute Plan to address problem: No changes in overall encephalopathy since admission. He is essentially unresponsive at this time. He is off all sedation. Overall prognosis remains poor at this time. Hospice consult was noted. Per notes from primary attending it seems that family is not agreeable with hospice at this time. (4) HTN (hypertension) Current Visit: Yes Status: Chronic Qualifiers: Hypertension type: essential hypertension Qualified Code(s): I10 - Essential (primary) hypertension Plan to address problem: We'll monitor on current regimen at this time. Hemodynamically he remains stable. (5) Hyperkalemia Current Visit: Yes Status: Acute Plan to address problem: Likely in the setting of acute kidney injury. He is also on heparin drip which does have [id number] effects which could also lead to hyperkalemia. We'll need to closely monitor and treat medically as necessary. He has no acute changes on telemetry. Subjective Date of service: 12/26/18 Interval history: No acute changes overnight. Renal function remains stable. Objective - Vital Signs Vital signs: Vital Signs - 12hr 12/25/18 12/25/18 12/25/18 23:00 23:03 23:11 Temperature 97.8 F Pulse Rate 110 H Respiratory 17 Rate Respiratory Rate [denies] Blood Pressure 105/68 O2 Sat by Pulse 96 98 Oximetry 12/25/18 12/25/18 12/25/18 23:16 23:20 23:30 Temperature Pulse Rate 102 H 110 H Respiratory Rate Respiratory 20 Rate [denies] Blood Pressure O2 Sat by Pulse 100 100 Oximetry 12/25/18 12/25/18 12/26/18 23:31 23:55 00:00 Temperature Pulse Rate 109 H 102 H 108 H Respiratory 15 20 Rate Respiratory Rate [denies] Blood Pressure 125/76 121/72 O2 Sat by Pulse 100 100 100 Oximetry 12/26/18 12/26/18 12/26/18 01:00 02:01 03:00 Temperature 98.8 F Pulse Rate 102 H 97 H Respiratory 18 17 Rate Respiratory Rate [denies] Blood Pressure 122/71 109/60 O2 Sat by Pulse 100 100 100 Oximetry 12/26/18 12/26/18 12/26/18 03:01 04:00 04:30 Temperature Pulse Rate 108 H 111 H 111 H Respiratory 21 19 Rate Respiratory Rate [denies] Blood Pressure 109/60 131/81 O2 Sat by Pulse 100 100 100 Oximetry 12/26/18 12/26/18 12/26/18 04:53 05:01 06:00 Temperature Pulse Rate 108 H 109 H Respiratory 15 17 Rate Respiratory 17 Rate [denies] Blood Pressure 131/81 103/63 O2 Sat by Pulse 100 99 Oximetry 12/26/18 12/26/18 12/26/18 07:01 08:00 08:05 Temperature Pulse Rate 110 H 112 H Respiratory 19 24 Rate Respiratory Rate [denies] Blood Pressure 103/63 110/68 O2 Sat by Pulse 100 99 98 Oximetry 12/26/18 09:01 Temperature Pulse Rate 112 H Respiratory 23 Rate Respiratory Rate [denies] Blood Pressure 110/68 O2 Sat by Pulse Oximetry - General Appearance General appearance: chronically ill, frail, comatose EENT: ATNC, PERRL Neck: no thyromegaly Respiratory: Present: Decreased Breath Sounds Cardiology: regular, S1S2 Gastrointestinal: normal, normoactive bowel sounds Integumentary: no rash Neurologic: other (comatose, unresponsive off sedation ) Musculoskeletal: other (-edema ) - Lab 12/26/18 04:29 12/26/18 04:29 Most recent lab results Calcium 8.3 mg/dL (8.4-10.2) L 12/26/18 04:29 - Allied health notes Allied health notes reviewed: nursing Medications & Allergies - Medications Allergies/Adverse Reactions: Allergies No Known Allergies Allergy (Verified 12/17/18 19:43) Home Medications: Home Medications Medication Instructions Recorded Confirmed Last Taken Type Unobtainable 12/17/18 12/17/18 Unknown History Active Medications: Generic Name Dose Route Start Last Admin Trade Name Freq PRN Reason Stop Dose Admin Acetaminophen 650 mg 12/17/18 19:40 12/24/18 21:57 Tylenol PO 650 mg Q4H PRN Administration Pain, Mild (1-3) Lipase/Protease/Amylase 1 each 12/19/18 08:41 Pancreazmeghna Benitez 10,500 Unit FEEDTUBE PRN PRN For Clogged Feeding Tube Aspirin 325 mg 12/18/18 10:00 12/25/18 09:52 Aspirin PO 325 mg QDAY TRINY Administration Atorvastatin Calcium 40 mg 12/17/18 22:00 12/25/18 23:27 Lipitor PO 40 mg QHS TRINY Administration Bisacodyl 10 mg 12/17/18 19:40 Dulcolax [place] QDAY PRN Constipation Dextrose 50 ml 12/26/18 05:14 D50w (25gm) Syringe IV PRN PRN Hypoglycemia Famotidine 10 mg 12/20/18 10:00 12/25/18 23:28 Pepcid PO 10 mg BID TRINY Administration Hydralazine HCl 10 mg 12/18/18 08:46 12/23/18 21:06 Apresoline IV 10 mg Q6H PRN Administration Hypertension Hydrochlorothiazide 25 mg 12/18/18 10:00 12/25/18 09:53 Hctz PO 25 mg QDAY TRINY Administration Sodium Chloride 1,000 mls @ 50 mls/hr 12/24/18 11:00 12/25/18 07:29 Nacl 0.9% 1000 Ml IV 50 mls/hr DIRECT TRINY Administration Piperacillin Sod/Tazobactam Sod 2.25 gm in 50 mls @ 100 mls/hr 12/24/18 17:00 12/26/18 01:36 Zosyn/Ns 2.25 Gm/50ml IV 100 mls/hr Q8H TRINY Administration Protocol Levofloxacin/Dextrose 500 mg in 100 mls @ 100 mls/hr 12/26/18 10:00 Levaquin 500mg/100ml IV Q48H TRINY Protocol Sodium Chloride 1,000 mls @ 100 mls/hr 12/24/18 18:00 12/25/18 23:28 Nacl 0.9% 1000 Ml IV 100 mls/hr DIRECT TRINY Administration Magnesium Hydroxide 30 ml 12/17/18 19:40 Milk Of Magnesia PO Q4H PRN Constipation Metoclopramide HCl 10 mg 12/17/18 19:40 Reglan PO Q6H PRN Nausea And Vomiting Ondansetron HCl 4 mg 12/17/18 19:40 Zofran IV Q8H PRN Nausea And Vomiting Simple Syrup 15 ml 12/19/18 08:41 Simple Syrup FEEDTUBE PRN PRN Hypoglycemia Simple Syrup 30 ml 12/19/18 08:41 Simple Syrup FEEDTUBE PRN PRN Hypoglycemia Sodium Bicarbonate 325 mg 12/19/18 08:41 Sodium Bicarbonate FEEDTUBE PRN PRN For Clogged Feeding Tube Sodium Chloride 10 ml 12/17/18 19:40 12/18/18 21:47 Sodium Chloride Flush Syringe 10 Ml IV 10 ml PRN PRN Administration LINE FLUSH
[2018-12-26] MEDS: HCTZ PO SCH (10:47)
[2018-12-26] MEDS: PEPCID PO SCH ×2 (11:12→21:39)
[2018-12-26] MEDS: LEVAQUIN 500MG/100ML 500 MG/100 ML BAG IV SCH (11:12)
[2018-12-26] MEDS: ASPIRIN PO SCH (11:12)
[2018-12-26] MEDS: NACL 0.9% 1000 ML 1,000 ML IV SCH ×2 (11:13→18:24)
--- NOTE | 2018-12-26 11:15 | Progress Note ---
Assessment and Plan 83 y/o male with multiple medical issues: CVA, Systolic heart failure, Renal failure, electrolyte imbalance and altered mental state 1. From a critical care standpoint, not providing any services that cannot be done in the IMCU. Discussed with [facility] and they are in agreement as well. Will transfer back to stepdown given his severity of illness. I do agree with the primary team that he should be an AND and family should persue hospice but it appears they are not accepting this. No current family at bedside. Transfer orders placed for IMCU Subjective Date of service: 12/26/18 Interval history: No IMCU beds available yesterday, hence why he is still in the unit. 2 will becoming available today. Clinically stable, no change. Objective - Constitutional Vitals: Vital Signs - 12hr 12/25/18 12/25/18 12/25/18 23:16 23:20 23:30 Temperature Pulse Rate 102 H 110 H Respiratory Rate Respiratory 20 Rate [denies] Blood Pressure O2 Sat by Pulse 100 100 Oximetry 12/25/18 12/25/18 12/26/18 23:31 23:55 00:00 Temperature Pulse Rate 109 H 102 H 108 H Respiratory 15 20 Rate Respiratory Rate [denies] Blood Pressure 125/76 121/72 O2 Sat by Pulse 100 100 100 Oximetry 12/26/18 12/26/18 12/26/18 01:00 02:01 03:00 Temperature 98.8 F Pulse Rate 102 H 97 H Respiratory 18 17 Rate Respiratory Rate [denies] Blood Pressure 122/71 109/60 O2 Sat by Pulse 100 100 100 Oximetry 12/26/18 12/26/18 12/26/18 03:01 04:00 04:30 Temperature Pulse Rate 108 H 111 H 111 H Respiratory 21 19 Rate Respiratory Rate [denies] Blood Pressure 109/60 131/81 O2 Sat by Pulse 100 100 100 Oximetry 12/26/18 12/26/18 12/26/18 04:53 05:01 06:00 Temperature Pulse Rate 108 H 109 H Respiratory 15 17 Rate Respiratory 17 Rate [denies] Blood Pressure 131/81 103/63 O2 Sat by Pulse 100 99 Oximetry 12/26/18 12/26/18 12/26/18 07:01 08:00 08:05 Temperature Pulse Rate 110 H 112 H Respiratory 19 24 Rate Respiratory Rate [denies] Blood Pressure 103/63 110/68 O2 Sat by Pulse 100 99 98 Oximetry 12/26/18 09:01 Temperature Pulse Rate 112 H Respiratory 23 Rate Respiratory Rate [denies] Blood Pressure 110/68 O2 Sat by Pulse Oximetry General appearance: Present: no acute distress, other (not responsive) - Neck Neck: supple - Respiratory Respiratory effort: normal Respiratory: bilateral: diminished - Cardiovascular Rhythm: regular - Labs CBC & Chem 7: 12/26/18 04:29 12/26/18 04:29 Labs: Abnormal lab results 12/25/18 12/25/18 12/26/18 Range/Units 14:01 23:00 04:29 WBC 17.8 H (4.5-11.0) K/mm3 RBC 2.49 L (3.65-5.03) M/mm3 Hgb 7.1 L (11.8-15.2) gm/dl Hct 21.4 L (35.5-45.6) % RDW 17.1 H (13.2-15.2) % PT (12.2-14.9) Sec. INR (0.87-1.13) Heparin Anti-Xa Level > 2.00 H 1.36 H (0.3-0.7) U.I./ml Sodium (137-145) mmol/L Carbon Dioxide (22-30) mmol/L BUN (9-20) mg/dL Creatinine (0.8-1.5) mg/dL Calcium (8.4-10.2) mg/dL 12/26/18 12/26/18 Range/Units 04:29 04:29 WBC (4.5-11.0) K/mm3 RBC (3.65-5.03) M/mm3 Hgb (11.8-15.2) gm/dl Hct (35.5-45.6) % RDW (13.2-15.2) % PT 40.3 H (12.2-14.9) Sec. INR 4.25 H (0.87-1.13) Heparin Anti-Xa Level (0.3-0.7) U.I./ml Sodium 136 L (137-145) mmol/L Carbon Dioxide 16 L (22-30) mmol/L BUN 62 H (9-20) mg/dL Creatinine 2.2 H (0.8-1.5) mg/dL Calcium 8.3 L (8.4-10.2) mg/dL Medications & Allergies - Medications Allergies/Adverse Reactions: Allergies No Known Allergies Allergy (Verified 12/17/18 19:43) Home Medications: Home Medications Medication Instructions Recorded Confirmed Last Taken Type Unobtainable 12/17/18 12/17/18 Unknown History Active Medications: Generic Name Dose Route Start Last Admin Trade Name Freq PRN Reason Stop Dose Admin Acetaminophen 650 mg 12/17/18 19:40 12/24/18 21:57 Tylenol PO 650 mg Q4H PRN Administration Pain, Mild (1-3) Lipase/Protease/Amylase 1 each 12/19/18 08:[address] 10,500 Unit FEEDTUBE PRN PRN For Clogged Feeding Tube Aspirin 325 mg 12/18/18 10:00 12/26/18 11:12 Aspirin PO 325 mg QDAY TRINY Administration Atorvastatin Calcium 40 mg 12/17/18 22:00 12/25/18 23:27 Lipitor PO 40 mg QHS TRINY Administration Bisacodyl 10 mg 12/17/18 19:40 Dulcolax [place] QDAY PRN Constipation Dextrose 50 ml 12/26/18 05:14 D50w (25gm) Syringe IV PRN PRN Hypoglycemia Famotidine 10 mg 12/20/18 10:00 12/26/18 11:12 Pepcid PO 10 mg BID TRINY Administration Hydralazine HCl 10 mg 12/18/18 08:46 12/23/18 21:06 Apresoline IV 10 mg Q6H PRN Administration Hypertension Hydrochlorothiazide 25 mg 12/18/18 10:00 12/26/18 10:47 Hctz PO Not Given QDAY TRINY Sodium Chloride 1,000 mls @ 50 mls/hr 12/24/18 11:00 12/26/18 11:13 Nacl 0.9% 1000 Ml IV 50 mls/hr DIRECT TRINY Administration Piperacillin Sod/Tazobactam Sod 2.25 gm in 50 mls @ 100 mls/hr 12/24/18 17:00 12/26/18 11:12 Zosyn/Ns 2.25 Gm/50ml IV 100 mls/hr Q8H TRINY Administration Protocol Levofloxacin/Dextrose 500 mg in 100 mls @ 100 mls/hr 12/26/18 10:00 12/26/18 11:12 Levaquin 500mg/100ml IV 100 mls/hr Q48H TRINY Administration Protocol Sodium Chloride 1,000 mls @ 100 mls/hr 12/24/18 18:00 12/25/18 23:28 Nacl 0.9% 1000 Ml IV 100 mls/hr DIRECT TRINY Administration Magnesium Hydroxide 30 ml 12/17/18 19:40 Milk Of Magnesia PO Q4H PRN Constipation Metoclopramide HCl 10 mg 12/17/18 19:40 Reglan PO Q6H PRN Nausea And Vomiting Ondansetron HCl 4 mg 12/17/18 19:40 Zofran IV Q8H PRN Nausea And Vomiting Simple Syrup 15 ml 12/19/18 08:41 Simple Syrup FEEDTUBE PRN PRN Hypoglycemia Simple Syrup 30 ml 12/19/18 08:41 Simple Syrup FEEDTUBE PRN PRN Hypoglycemia Sodium Bicarbonate 325 mg 12/19/18 08:41 Sodium Bicarbonate FEEDTUBE PRN PRN For Clogged Feeding Tube Sodium Chloride 10 ml 12/17/18 19:40 12/18/18 21:47 Sodium Chloride Flush Syringe 10 Ml IV 10 ml PRN PRN Administration LINE FLUSH
--- NOTE | 2018-12-26 12:25 | Progress Note ---
Assessment and Plan Assessment and plan: Patient is a 83 yo man with a history of HTN and Dementia who presented to [facility] ED with AMS and found unresponsive, lying on the floor. He was found to have a acute CVA. He was also found to have Left ventricular heart thrombus. He was started on IV heparin drip followed by Coumadin initiation. He did have nose bleeding on 12/20/18 and heparin IV drip held and repeat CT head done, which did not show a bleed, so heparin iv drip resumed. When I took over care on December 22, Hospice was consulted but nephmuriel decided against Hospice and no other family available. 12/23/18, We met at bedside, along with his daughter Sherlyn, he wants everything done, his goal is to get Mr. Corona back to [place]. We d id discuss the patient risk of Aspiration pneumonia and he agreed for PEG evaluation. Then on 12/24/18, patient became severely tachycardic and hypotensive, which did respond to IVF bolus resuscitations. His fevers, tachycardia and hypotension most likely due to Aspiration pneumonitis which i started on IV zosyn and IV levaqiun and moved him to the ICU on 12/24/18 and he was placed on bipap. * MRI head: Large area of ischemia in the right MCA territory, as described above. No signs of hemorrhagic transformation. * CT Head: Normal evolutionary change in large right MCA territorial infarct with no evidence of hemorrhagic transformation. There has been slight increase in the amount of edema, when compared with prior exam. * KUB. No acute findings. * Repeat CT head - Negative for bleed. * 12/17/18 TTE Conclusions: The study quality is technically difficult, global left ventricular systolic function is severely decreased, the estimated EF is 20-25%, abnormal LV diastolic function is observed. A thrombus is visulized in the left ventricular apex, no atrial septal defect is demonstrated by agitated saline contrast. -Sepsis, repeat pCXR can not exclude underlying bibasilar pneumonia: Started iv zosyn and iv levaquin, ordered CXR, stat iv nss fluid bolus, consulted Pulm/CCM -Acute hypoxic respiratory failure: consulted Pulm/CCM, already on heparin drip for the LV thrombus -Severe tachycardia; consulted Appointment Scheduler, also d/w Dr. Marks regarding past discussion with Appointment Scheduler once LV thrombus was found. -Massive Acute CVA (cerebrovascular accident) with Left Hemiplegia and semi- comatose state: supportive care, poor prognosis -Dysphagia: still with NGT -Acute Metabolic Encephalopathy Secondary to CVA -Left Ventricular Thrombus: on iv heparin drip and Coumadin via NGT, monitoring INR closely -HTN (hypertension), now hypotensive -History of Dementia, supportive care, continue current therapy -Nasal Bleed, resolved -Severe Malnutrition suspected, poa, bmi 19, poa, started on NGT feed -Debility, PT consulted -DVT prophylaxis: SCD to BLE while in bed. on iv heparin drip Poor prognosis, expect Code blue Full code Disposition: continue inpatient care, placement pending but trouble verifying his primary insurance as medicare is secondary. INR 4.25, hold warfarin, stop iv heparin drip patient had to be put in restraints last night, to prevent the right hand from removing the lines/ngt History Interval history: Patient was seen and examined. Follow-up on current diagnosis of massive CVA in a comatose state. Moved to ICU on due to hemodynamically unstable, hypotensive, tacycardiac, febrile. Placed on Bipap overnight. Imaging, nursing note, chart, labs and old chart reviewed. Hospitalist Physical - Physical exam Narrative exam: Gen: critically ill, semi-comatose state unchanged, moderate increase accessory muscle, on bipap HEENT: NCAT, abn EOM, Pupils reactive, OP with ngt in place Neck: supple, no adenopathy, no thyromegaly, no JVD CVS/Heart: Regular tachy, normal S1S2, pulses present bilaterally Chest/Lungs: tachypneic, coarse bs b, diminished b, Symmetrical chest expansion, good air entry bilaterally GI/Abdomen: soft, NTND, good bowel sounds, no guarding or rebound /Bladder: no suprapubic tenderness, no CVA or paraspinal tenderness Extermity/Skin: no c/c/e, no obvious rash MSK: no movement left Neuro: CN 2-12 grossly intact, + focal deficits with LHP, aphasic Psych: confused - Constitutional Vitals: Temp Pulse Resp BP Pulse Ox 98.8 F 112 H 23 110/68 98 12/26/18 03:00 12/26/18 09:01 12/26/18 09:01 12/26/18 09:01 12/26/18 08:05 General appearance: Present: no acute distress, other (not responsive) Results - Labs CBC & Chem 7: 12/26/18 04:29 12/26/18 04:29 Labs: Laboratory Last Values WBC 17.8 K/mm3 (4.5-11.0) H 12/26/18 04:29 RBC 2.49 M/mm3 (3.65-5.03) L 12/26/18 04:29 Hgb 7.1 gm/dl (11.8-15.2) L 12/26/18 04:29 Hct 21.4 % (35.5-45.6) L 12/26/18 04:29 MCV 86 fl (84-94) 12/26/18 04:29 MCH 29 pg (28-32) 12/26/18 04:29 MCHC 33 % (32-34) 12/26/18 04:29 RDW 17.1 % (13.2-15.2) H 12/26/18 04:29 Plt Count 286 K/mm3 (140-440) 12/26/18 04:29 Lymph % (Auto) 15.5 % (13.4-35.0) 12/24/18 05:57 [place] % (Auto) 11.3 % (0.0-7.3) H 12/24/18 05:57 Eos % (Auto) 0.0 % (0.0-4.3) 12/24/18 05:57 Baso % (Auto) 0.6 % (0.0-1.8) 12/24/18 05:57 Lymph # 1.9 K/mm3 (1.2-5.4) 12/24/18 05:57 [place] # 1.4 K/mm3 (0.0-0.8) H 12/24/18 05:57 Eos # 0.0 K/mm3 (0.0-0.4) 12/24/18 05:57 Baso # 0.1 K/mm3 (0.0-0.1) 12/24/18 05:57 Seg Neutrophils % 72.6 % (40.0-70.0) H 12/24/18 05:57 Seg Neutrophils # 8.7 K/mm3 (1.8-7.7) H 12/24/18 05:57 PT 40.3 Sec. (12.2-14.9) H 12/26/18 04:29 INR 4.25 (0.87-1.13) H 12/26/18 04:29 APTT 37.1 Sec. (24.2-36.6) H 12/18/18 15:07 Heparin Anti-Xa Level 1.36 U.I./ml (0.3-0.7) H 12/25/18 23:00 POC ABG pH 7.484 (7.35-7.45) H 12/24/18 21:52 POC ABG pO2 63 (80-105) L 12/24/18 21:52 POC ABG HCO3 16.0 (22-26 mml/L) 12/24/18 21:52 POC ABG Total CO2 17 (23-27mmol/L) 12/24/18 21:52 POC ABG O2 Sat 94 12/24/18 21:52 POC ABG Base Excess -7 ((-2) - (+3)mmol/L) 12/24/18 21:52 32 % 12/24/18 21:52 Sodium 136 mmol/L (137-145) L 12/26/18 04:29 Potassium 4.8 mmol/L (3.6-5.0) 12/26/18 04:29 Chloride 103.8 mmol/L (98-107) 12/26/18 04:29 Carbon Dioxide 16 mmol/L (22-30) L 12/26/18 04:29 21 mmol/L 12/26/18 04:29 BUN 62 mg/dL (9-20) H 12/26/18 04:29 2.2 mg/dL (0.8-1.5) H 12/26/18 04:29 Estimated GFR 29 ml/min 12/26/18 04:29 28 % 12/26/18 04:29 Glucose 86 mg/dL (75-100) 12/26/18 04:29 POC Glucose 101 (70-105) 12/26/18 11:42 Lactic Acid 1.40 mmol/L (0.7-2.0) 12/24/18 05:57 Calcium 8.3 mg/dL (8.4-10.2) L 12/26/18 04:29 0.30 mg/dL (0.1-1.2) 12/23/18 23:59 AST 67 units/L (5-40) H 12/23/18 23:59 ALT 62 units/L (7-56) H 12/23/18 23:59 163 units/L (35-129) H 12/23/18 23:59 0.098 ng/mL (0.00-0.029) H 12/24/18 09:00 7.8 g/dL (6.3-8.2) 12/23/18 23:59 3.2 g/dL (3.9-5) L 12/23/18 23:59 0.7 % 12/23/18 23:59 Yellow (Yellow) 12/24/18 07:05 Clear (Clear) 12/24/18 07:05 6.0 (5.0-7.0) 12/24/18 07:05 Ur Specific [place] 1.015 (1.003-1.030) 12/24/18 07:05 30 mg/dl mg/dL (Negative) 12/24/18 07:05 Neg mg/dL (Negative) 12/24/18 07:05 Neg mg/dL (Negative) 12/24/18 07:05 Neg (Negative) 12/24/18 07:05 Neg (Negative) 12/24/18 07:05 Neg (Negative) 12/24/18 07:05 < 2.0 mg/dL (<2.0) 12/24/18 07:05 Ur Leukocyte Esterase Neg (Negative) 12/24/18 07:05 1.0 /HPF (0.0-6.0) 12/24/18 07:05 2.0 /HPF (0.0-6.0) 12/24/18 07:05 Few /HPF 12/24/18 07:05 Presumptive negative 12/19/18 Unknown Presumptive negative 12/19/18 Unknown Ur Barbiturates Screen Presumptive negative 12/19/18 Unknown Ur Phencyclidine Scrn Presumptive negative 12/19/18 Unknown Ur Amphetamines Screen Presumptive negative 12/19/18 Unknown U Benzodiazepines Scrn Presumptive negative 12/19/18 Unknown Presumptive negative 12/19/18 Unknown U Marijuana (THC) Screen Presumptive negative 12/19/18 Unknown Disclamer 12/19/18 Unknown Active Medications - Current Medications Current Medications: Generic Name Dose Route Start Last Admin Trade Name Freq PRN Reason Stop Dose Admin Acetaminophen 650 mg 12/17/18 19:40 12/24/18 21:57 Tylenol PO 650 mg Q4H PRN Administration Pain, Mild (1-3) Lipase/Protease/Amylase 1 each 12/19/18 08:[address] 10,500 Unit FEEDTUBE PRN PRN For Clogged Feeding Tube Aspirin 325 mg 12/18/18 10:00 12/26/18 11:12 Aspirin PO 325 mg QDAY TRINY Administration Atorvastatin Calcium 40 mg 12/17/18 22:00 12/25/18 23:27 Lipitor PO 40 mg QHS TRINY Administration Bisacodyl 10 mg 12/17/18 19:40 Dulcolax VA QDAY PRN Constipation Dextrose 50 ml 12/26/18 05:14 D50w (25gm) Syringe IV PRN PRN Hypoglycemia Famotidine 10 mg 12/20/18 10:00 12/26/18 11:12 Pepcid PO 10 mg BID TRINY Administration Hydralazine HCl 10 mg 12/18/18 08:46 12/23/18 21:06 Apresoline IV 10 mg Q6H PRN Administration Hypertension Hydrochlorothiazide 25 mg 12/18/18 10:00 12/26/18 10:47 Hctz PO Not Given QDAY TRINY Sodium Chloride 1,000 mls @ 50 mls/hr 12/24/18 11:00 12/26/18 11:13 Nacl 0.9% 1000 Ml IV 50 mls/hr DIRECT TRINY Administration Piperacillin Sod/Tazobactam Sod 2.25 gm in 50 mls @ 100 mls/hr 12/24/18 17:00 12/26/18 11:12 Zosyn/Ns 2.25 Gm/50ml IV 100 mls/hr Q8H TRINY Administration Protocol Levofloxacin/Dextrose 500 mg in 100 mls @ 100 mls/hr 12/26/18 10:00 12/26/18 11:12 Levaquin 500mg/100ml IV 100 mls/hr Q48H TRINY Administration Protocol Sodium Chloride 1,000 mls @ 100 mls/hr 12/24/18 18:00 12/25/18 23:28 Nacl 0.9% 1000 Ml IV 100 mls/hr DIRECT TRINY Administration Magnesium Hydroxide 30 ml 12/17/18 19:40 Milk Of Magnesia PO Q4H PRN Constipation Metoclopramide HCl 10 mg 12/17/18 19:40 Reglan PO Q6H PRN Nausea And Vomiting Ondansetron HCl 4 mg 12/17/18 19:40 Zofran IV Q8H PRN Nausea And Vomiting Simple Syrup 15 ml 12/19/18 08:41 Simple Syrup FEEDTUBE PRN PRN Hypoglycemia Simple Syrup 30 ml 12/19/18 08:41 Simple Syrup FEEDTUBE PRN PRN Hypoglycemia Sodium Bicarbonate 325 mg 12/19/18 08:41 Sodium Bicarbonate FEEDTUBE PRN PRN For Clogged Feeding Tube Sodium Chloride 10 ml 12/17/18 19:40 12/18/18 21:47 Sodium Chloride Flush Syringe 10 Ml IV 10 ml PRN PRN Administration LINE FLUSH Nutrition/Malnutrition Assess - Dietary Evaluation Nutrition/Malnutrition Findings: Nutrition Notes Start: 12/19/18 08:36 Freq: Status: Active Protocol: Document 12/22/18 13:18 RM (Rec: 12/22/18 13:20 RM [id number]) Nutrition Notes Initial or Follow up Brief Note Subjective/Other Information Screened for Coumadin/Vit K diet education. Pt not appropriate for diet education. No family present. Nutrition Intervention Follow-Up By: 12/28/18 Additional Comments Follow for stable TF, wt
--- NOTE | 2018-12-26 22:19 | Progress Note ---
Assessment and Plan Acute CVA on warfarin Hypertension Dementia LV thrombus Dilated cardiomyopathy, uncertain duration echocardiogram revealed a severely decreased left ventricular systolic function, EF is 20-25%. Acute renal failure Sepsis Reflex sinus tachycardia Conservative cardiac management. INR of 5.11 today - hold coumadin Subjective Date of service: 12/27/18 Interval history: No acute events. Resting comfortably. No chest pain or SOB. Objective Vital Signs Temp Pulse Resp Resp BP Pulse Ox 12/26/18 21:00 118 H 22 113/71 100 12/26/18 20:53 100 12/26/18 20:00 117 H 18 130/74 100 12/26/18 19:00 97.9 F 114 H 14 112/68 100 12/26/18 18:00 114 H 17 124/68 100 12/26/18 17:00 117 H 21 120/75 100 12/26/18 16:00 112 H 22 113/77 100 12/26/18 15:00 98.1 F 114 H 28 H 115/62 100 12/26/18 14:00 105 H 20 109/51 100 12/26/18 13:01 184 H 20 114/67 100 12/26/18 12:00 114 H 21 122/70 100 12/26/18 11:00 98.8 F 110 H 22 119/69 100 12/26/18 10:00 108 H 20 122/69 100 12/26/18 09:01 112 H 23 110/68 12/26/18 08:05 98 12/26/18 08:00 110 H 24 110/68 99 12/26/18 07:01 110 H 19 103/63 100 12/26/18 07:00 97.9 F 12/26/18 06:00 109 H 17 103/63 99 12/26/18 05:01 108 H 15 131/81 100 12/26/18 04:53 17 12/26/18 04:30 111 H 100 12/26/18 04:00 111 H 19 131/81 100 12/26/18 03:01 108 H 21 109/60 100 12/26/18 03:00 98.8 F 100 12/26/18 02:01 97 H 17 109/60 100 12/26/18 01:00 102 H 18 122/71 100 12/26/18 00:00 108 H 20 121/72 100 12/25/18 23:55 102 H 100 08/02/19 23:31 109 H 15 125/76 100 12/25/18 23:30 110 H 20 100 12/25/18 23:20 102 H 12/25/18 23:16 100 12/25/18 23:11 98 12/25/18 23:03 97.8 F 12/25/18 23:00 110 H 17 105/68 96 - Physical Examination HEENT: Positive: PERRL Neck: Positive: neck supple, trachea midline - Labs and Meds Coagulation 12/26/18 Range/Units 04:29 PT 40.3 H (12.2-14.9) Sec. INR 4.25 H (0.87-1.13) CBC 12/26/18 Range/Units 04:29 WBC 17.8 H (4.5-11.0) K/mm3 RBC 2.49 L (3.65-5.03) M/mm3 Hgb 7.1 L (11.8-15.2) gm/dl Hct 21.4 L (35.5-45.6) % Plt Count 286 (140-440) K/mm3 Comprehensive Metabolic Panel 12/26/18 Range/Units 04:29 Sodium 136 L (137-145) mmol/L Potassium 4.8 (3.6-5.0) mmol/L Chloride 103.8 (98-107) mmol/L Carbon Dioxide 16 L (22-30) mmol/L BUN 62 H (9-20) mg/dL Creatinine 2.2 H (0.8-1.5) mg/dL Glucose 86 (75-100) mg/dL Calcium 8.3 L (8.4-10.2) mg/dL - Allied health notes Allied health notes reviewed: nursing
[2018-12-27] MEDS: ZOSYN/NS 2.25 GM/50ML 2.25 GM/50 ML BAG IV SCH ×3 (01:07→18:18)
[2018-12-27] MEDS: TYLENOL PO PRN (03:41)
[2018-12-27 05:20] LABS: INR 5.11 (0.87-1.13)
--- NOTE | 2018-12-27 09:02 | Progress Note ---
Assessment and Plan - Patient Problems (1) Acute renal failure Current Visit: Yes Status: Acute Plan to address problem: The setting of acute cerebrovascular accident and likely significant prerenal injury and likely underlying sepsis secondary to aspiration pneumonia. Remains on gentle IV fluid hydration. Antibiotics per primary attending. Please ensure the antibiotics dosed appropriately for renal function. Renal ultrasound reviewed without any acute abnormalities. Avoid nephrotoxins and maintain map above 65 mmHg Overall renal function is stable. (2) Acute CVA (cerebrovascular accident) Current Visit: Yes Status: Acute Plan to address problem: The setting of a large left ventricular thrombus. Patient on heparin drip at this time. Further management per primary attending. (3) Encephalopathy Current Visit: Yes Status: Acute Plan to address problem: No changes in overall encephalopathy since admission. He is essentially unresponsive at this time. He is off all sedation. Overall prognosis remains poor at this time. Hospice consult was noted. Per notes from primary attending it seems that family is not agreeable with hospice at this time. (4) HTN (hypertension) Current Visit: Yes Status: Chronic Qualifiers: Hypertension type: essential hypertension Qualified Code(s): I10 - Essential (primary) hypertension Plan to address problem: We'll monitor on current regimen at this time. Hemodynamically he remains stable. (5) Hyperkalemia Current Visit: Yes Status: Acute Plan to address problem: Likely in the setting of acute kidney injury. He is also on heparin drip which does have [id number] effects which could also lead to hyperkalemia. We'll need to closely monitor and treat medically as necessary. He has no acute changes on telemetry. Subjective Date of service: 12/27/18 Interval history: No acute changes overnight from a renal standpoint. No new renal function labs this am. Objective - Vital Signs Vital signs: Vital Signs - 12hr 12/26/18 12/26/18 12/26/18 22:00 23:00 23:13 Temperature Pulse Rate 121 H 124 H 123 H Respiratory 23 13 17 Rate Blood Pressure 123/68 139/111 123/68 O2 Sat by Pulse 100 99 99 Oximetry 12/27/18 12/27/18 12/27/18 00:00 01:00 01:05 Temperature Pulse Rate 126 H 118 H 119 H Respiratory 18 16 19 Rate Blood Pressure 127/72 113/69 O2 Sat by Pulse 100 100 100 Oximetry 12/27/18 12/27/1819 02:00 03:00 04:00 Temperature 98.0 F Pulse Rate 123 H 131 H 125 H Respiratory 22 17 28 H Rate Blood Pressure 123/68 125/74 115/74 O2 Sat by Pulse 100 100 Oximetry 12/27/18 12/27/18 12/27/18 04:08 05:01 06:00 Temperature Pulse Rate 125 H 125 H 117 H Respiratory 17 23 19 Rate Blood Pressure 104/64 104/68 O2 Sat by Pulse 100 99 100 Oximetry - General Appearance General appearance: cachectic, chronically ill, frail EENT: ATNC, PERRL Neck: no JVD, no thyromegaly Respiratory: Present: Wheezes Cardiology: regular, S1S2 Gastrointestinal: normal Integumentary: no rash Neurologic: other (non-verbal, non-communicative ) Psychiatric: cooperative - Lab 12/26/18 04:29 12/26/18 04:29 Most recent lab results Calcium 8.3 mg/dL (8.4-10.2) L 12/26/18 04:29 - Allied health notes Allied health notes reviewed: nursing Medications & Allergies - Medications Allergies/Adverse Reactions: Allergies No Known Allergies Allergy (Verified 12/17/18 19:43) Home Medications: Home Medications Medication Instructions Recorded Confirmed Last Taken Type Unobtainable 12/17/18 12/17/18 Unknown History Active Medications: Generic Name Dose Route Start Last Admin Trade Name Freq PRN Reason Stop Dose Admin Acetaminophen 650 mg 12/17/18 19:40 12/27/18 03:41 Tylenol PO 650 mg Q4H PRN Administration Pain, Mild (1-3) Lipase/Protease/Amylase 1 each 12/19/18 08:[address] 10,500 Unit FEEDTUBE PRN PRN For Clogged Feeding Tube Aspirin 325 mg 12/18/18 10:00 12/26/18 11:12 Aspirin PO 325 mg QDAY TRINY Administration Atorvastatin Calcium 40 mg 12/17/18 22:00 12/26/18 21:39 Lipitor PO 40 mg QHS TRINY Administration Bisacodyl 10 mg 12/17/18 19:40 Dulcolax OR QDAY PRN Constipation Dextrose 50 ml 12/26/18 05:14 D50w (25gm) Syringe IV PRN PRN Hypoglycemia Famotidine 10 mg 12/20/18 10:00 12/26/18 21:39 Pepcid PO 10 mg BID TRINY Administration Hydralazine HCl 10 mg 12/18/18 08:46 12/23/18 21:06 Apresoline IV 10 mg Q6H PRN Administration Hypertension Hydrochlorothiazide 25 mg 12/18/18 10:00 12/26/18 10:47 Hctz PO Not Given QDAY TRINY Sodium Chloride 1,000 mls @ 50 mls/hr 12/24/18 11:00 12/26/18 18:24 Nacl 0.9% 1000 Ml IV 50 mls/hr DIRECT TRINY Administration Piperacillin Sod/Tazobactam Sod 2.25 gm in 50 mls @ 100 mls/hr 12/24/18 17:00 12/27/18 01:07 Zosyn/Ns 2.25 Gm/50ml IV 100 mls/hr Q8H TRINY Administration Protocol Levofloxacin/Dextrose 500 mg in 100 mls @ 100 mls/hr 12/26/18 10:00 12/26/18 11:12 Levaquin 500mg/100ml IV 100 mls/hr Q48H TRINY Administration Protocol Sodium Chloride 1,000 mls @ 100 mls/hr 12/24/18 18:00 12/25/18 23:28 Nacl 0.9% 1000 Ml IV 100 mls/hr DIRECT TRINY Administration Magnesium Hydroxide 30 ml 12/17/18 19:40 Milk Of Magnesia PO Q4H PRN Constipation Metoclopramide HCl 10 mg 12/17/18 19:40 Reglan PO Q6H PRN Nausea And Vomiting Ondansetron HCl 4 mg 12/17/18 19:40 Zofran IV Q8H PRN Nausea And Vomiting Simple Syrup 15 ml 12/19/18 08:41 Simple Syrup FEEDTUBE PRN PRN Hypoglycemia Simple Syrup 30 ml 12/19/18 08:41 Simple Syrup FEEDTUBE PRN PRN Hypoglycemia Sodium Bicarbonate 325 mg 12/19/18 08:41 Sodium Bicarbonate FEEDTUBE PRN PRN For Clogged Feeding Tube Sodium Chloride 10 ml 12/17/18 19:40 12/18/18 21:47 Sodium Chloride Flush Syringe 10 Ml IV 10 ml PRN PRN Administration LINE FLUSH
[2018-12-27] MEDS: NACL 0.9% 1000 ML 1,000 ML IV SCH (10:36)
[2018-12-27] MEDS: ASPIRIN PO SCH (10:36)
[2018-12-27] MEDS: HCTZ PO SCH (10:37)
[2018-12-27] MEDS: PEPCID PO SCH ×2 (10:37→22:43)
--- NOTE | 2018-12-27 12:40 | Progress Note ---
Assessment and Plan Assessment and plan: Patient is a 83 yo man with a history of HTN and Dementia who presented to [facility] ED with AMS and found unresponsive, lying on the floor. He was found to have a acute CVA. He was also found to have Left ventricular heart thrombus. He was started on IV heparin drip followed by Coumadin initiation. He did have nose bleeding on 12/20/18 and heparin IV drip held and repeat CT head done, which did not show a bleed, so heparin iv drip resumed. When I took over care on December 22, Hospice was consulted but nephmuriel decided against Hospice and no other family available. 12/23/18, We met at bedside, along with his daughter Sherlyn, he wants everything done, his goal is to get Mr. Corona back to [place]. We d id discuss the patient risk of Aspiration pneumonia and he agreed for PEG evaluation. Then on 12/24/18, patient became severely tachycardic and hypotensive, which did respond to IVF bolus resuscitations. His fevers, tachycardia and hypotension most likely due to Aspiration pneumonitis which i started on IV zosyn and IV levaqiun and moved him to the ICU on 12/24/18 and he was placed on bipap. * MRI head: Large area of ischemia in the right MCA territory, as described above. No signs of hemorrhagic transformation. * CT Head: Normal evolutionary change in large right MCA territorial infarct with no evidence of hemorrhagic transformation. There has been slight increase in the amount of edema, when compared with prior exam. * KUB. No acute findings. * Repeat CT head - Negative for bleed. * 12/17/18 TTE Conclusions: The study quality is technically difficult, global left ventricular systolic function is severely decreased, the estimated EF is 20-25%, abnormal LV diastolic function is observed. A thrombus is visulized in the left ventricular apex, no atrial septal defect is demonstrated by agitated saline contrast. -Sepsis, repeat pCXR can not exclude underlying bibasilar pneumonia: Started iv zosyn and iv levaquin, ordered CXR, stat iv nss fluid bolus used, consulted Pulm/CCM -Acute hypoxic respiratory failure: consulted Pulm/CCM, already on heparin drip for the LV thrombus -Supratherapeutic INR with hematoma on left arm: consult Wound care, hold warfarin, stopped iv heparin drip -Severe tachycardia; consulted Corporate Strategy Analyst, also d/w Dr. Marks regarding past discussion with Corporate Strategy Analyst once LV thrombus was found. -Massive Acute CVA (cerebrovascular accident) with Left Hemiplegia and semi- comatose state: supportive care, poor prognosis -Dysphagia: still with NGT, once stable GI evaluation -Acute Metabolic Encephalopathy Secondary to CVA -Left Ventricular Thrombus, supratherapeutic INR, hold Warfarin -HTN (hypertension), now hypotensive resolved -History of Dementia, supportive care, continue current therapy -Nasal Bleed, resolved -Severe Malnutrition suspected, poa, bmi 19, poa, started on NGT feed -Debility, PT consulted -DVT prophylaxis: SCD to BLE while in bed. on iv heparin drip Poor prognosis, expect Code blue Full code Disposition: continue inpatient care, placement pending but trouble verifying his primary insurance as medicare is secondary. LTACH is looking at patient. Patient was put in restraints/mitten, to prevent the right hand from removing the lines/ngt History Interval history: Patient was seen and examined. Follow-up on current diagnosis of massive CVA in a comatose state. Moved to ICU on due to hemodynamically unstable, hypotensive, tacycardiac, febrile. Placed on Bipap overnight. Imaging, nursing note, chart, labs and old chart reviewed. Hospitalist Physical - Physical exam Narrative exam: Gen: critically ill, semi-comatose state unchanged, moderate increase accessory muscle, on bipap HEENT: NCAT, abn EOM, Pupils reactive, OP with ngt in place Neck: supple, no adenopathy, no thyromegaly, no JVD CVS/Heart: Regular tachy, normal S1S2, pulses present bilaterally Chest/Lungs: tachypneic, coarse bs b, diminished b, Symmetrical chest expansion, good air entry bilaterally GI/Abdomen: soft, NTND, good bowel sounds, no guarding or rebound /Bladder: no suprapubic tenderness, no CVA or paraspinal tenderness Extermity/Skin: no c/c/e, no obvious rash MSK: no movement left Neuro: CN 2-12 grossly intact, + focal deficits with LHP, aphasic Psych: confused - Constitutional Vitals: Temp Pulse Resp BP Pulse Ox 98.0 F 115 H 20 123/83 100 12/27/18 12:00 12/27/18 12:00 12/27/18 11:00 12/27/18 11:00 12/27/18 11:00 General appearance: Present: no acute distress, other (not responsive) Results - Labs CBC & Chem 7: 12/26/18 04:29 12/26/18 04:29 Labs: Laboratory Last Values WBC 17.8 K/mm3 (4.5-11.0) H 12/26/18 04:29 RBC 2.49 M/mm3 (3.65-5.03) L 12/26/18 04:29 Hgb 7.1 gm/dl (11.8-15.2) L 12/26/18 04:29 Hct 21.4 % (35.5-45.6) L 12/26/18 04:29 MCV 86 fl (84-94) 12/26/18 04:29 MCH 29 pg (28-32) 12/26/18 04:29 MCHC 33 % (32-34) 12/26/18 04:29 RDW 17.1 % (13.2-15.2) H 12/26/18 04:29 Plt Count 286 K/mm3 (140-440) 12/26/18 04:29 Lymph % (Auto) 15.5 % (13.4-35.0) 12/24/18 05:57 [place] % (Auto) 11.3 % (0.0-7.3) H 12/24/18 05:57 Eos % (Auto) 0.0 % (0.0-4.3) 12/24/18 05:57 Baso % (Auto) 0.6 % (0.0-1.8) 12/24/18 05:57 Lymph # 1.9 K/mm3 (1.2-5.4) 12/24/18 05:57 [place] # 1.4 K/mm3 (0.0-0.8) H 12/24/18 05:57 Eos # 0.0 K/mm3 (0.0-0.4) 12/24/18 05:57 Baso # 0.1 K/mm3 (0.0-0.1) 12/24/18 05:57 Seg Neutrophils % 72.6 % (40.0-70.0) H 12/24/18 05:57 Seg Neutrophils # 8.7 K/mm3 (1.8-7.7) H 12/24/18 05:57 PT 46.6 Sec. (12.2-14.9) H 12/27/18 04:45 INR 5.11 (0.87-1.13) H* 12/27/18 04:45 APTT 37.1 Sec. (24.2-36.6) H 12/18/18 15:07 Heparin Anti-Xa Level 1.36 U.I./ml (0.3-0.7) H 12/25/18 23:00 POC ABG pH 7.484 (7.35-7.45) H 12/24/18 21:52 POC ABG pO2 63 (80-105) L 12/24/18 21:52 POC ABG HCO3 16.0 (22-26 mml/L) 12/24/18 21:52 POC ABG Total CO2 17 (23-27mmol/L) 12/24/18 21:52 POC ABG O2 Sat 94 12/24/18 21:52 POC ABG Base Excess -7 ((-2) - (+3)mmol/L) 12/24/18 21:52 32 % 12/24/18 21:52 Sodium 136 mmol/L (137-145) L 12/26/18 04:29 Potassium 4.8 mmol/L (3.6-5.0) 12/26/18 04:29 Chloride 103.8 mmol/L (98-107) 12/26/18 04:29 Carbon Dioxide 16 mmol/L (22-30) L 12/26/18 04:29 21 mmol/L 12/26/18 04:29 BUN 62 mg/dL (9-20) H 12/26/18 04:29 2.2 mg/dL (0.8-1.5) H 12/26/18 04:29 Estimated GFR 29 ml/min 12/26/18 04:29 28 % 12/26/18 04:29 Glucose 86 mg/dL (75-100) 12/26/18 04:29 POC Glucose 124 (70-105) H 12/27/18 11:57 Lactic Acid 1.40 mmol/L (0.7-2.0) 12/24/18 05:57 Calcium 8.3 mg/dL (8.4-10.2) L 12/26/18 04:29 0.30 mg/dL (0.1-1.2) 12/23/18 23:59 AST 67 units/L (5-40) H 12/23/18 23:59 ALT 62 units/L (7-56) H 12/23/18 23:59 163 units/L (35-129) H 12/23/18 23:59 0.098 ng/mL (0.00-0.029) H 12/24/18 09:00 7.8 g/dL (6.3-8.2) 12/23/18 23:59 3.2 g/dL (3.9-5) L 12/23/18 23:59 0.7 % 12/23/18 23:59 Yellow (Yellow) 12/24/18 07:05 Clear (Clear) 12/24/18 07:05 6.0 (5.0-7.0) 12/24/18 07:05 Ur Specific [place] 1.015 (1.003-1.030) 12/24/18 07:05 30 mg/dl mg/dL (Negative) 12/24/18 07:05 Neg mg/dL (Negative) 12/24/18 07:05 Neg mg/dL (Negative) 12/24/18 07:05 Neg (Negative) 12/24/18 07:05 Neg (Negative) 12/24/18 07:05 Neg (Negative) 12/24/18 07:05 < 2.0 mg/dL (<2.0) 12/24/18 07:05 Ur Leukocyte Esterase Neg (Negative) 12/24/18 07:05 1.0 /HPF (0.0-6.0) 12/24/18 07:05 2.0 /HPF (0.0-6.0) 12/24/18 07:05 Few /HPF 12/24/18 07:05 Presumptive negative 12/19/18 Unknown Presumptive negative 12/19/18 Unknown Ur Barbiturates Screen Presumptive negative 12/19/18 Unknown Ur Phencyclidine Scrn Presumptive negative 12/19/18 Unknown Ur Amphetamines Screen Presumptive negative 12/19/18 Unknown U Benzodiazepines Scrn Presumptive negative 12/19/18 Unknown Presumptive negative 12/19/18 Unknown U Marijuana (THC) Screen Presumptive negative 12/19/18 Unknown Disclamer 12/19/18 Unknown Active Medications - Current Medications Current Medications: Generic Name Dose Route Start Last Admin Trade Name Freq PRN Reason Stop Dose Admin Acetaminophen 650 mg 12/17/18 19:40 12/27/18 03:41 Tylenol PO 650 mg Q4H PRN Administration Pain, Mild (1-3) Lipase/Protease/Amylase 1 each 12/19/18 08:41 Pancreaze 10,500 Unit FEEDTUBE PRN PRN For Clogged Feeding Tube Aspirin 325 mg 12/18/18 10:00 12/27/18 10:36 Aspirin PO 325 mg QDAY TRINY Administration Atorvastatin Calcium 40 mg 12/17/18 22:00 12/26/18 21:39 Lipitor PO 40 mg QHS TRINY Administration Bisacodyl 10 mg 12/17/18 19:40 Dulcolax SD QDAY PRN Constipation Dextrose 50 ml 12/26/18 05:14 D50w (25gm) Syringe IV PRN PRN Hypoglycemia Famotidine 10 mg 12/20/18 10:00 12/27/18 10:37 Pepcid PO 10 mg BID TRINY Administration Hydralazine HCl 10 mg 12/18/18 08:46 12/23/18 21:06 Apresoline IV 10 mg Q6H PRN Administration Hypertension Hydrochlorothiazide 25 mg 12/18/18 10:00 12/27/18 10:37 Hctz PO 25 mg QDAY TRINY Administration Sodium Chloride 1,000 mls @ 50 mls/hr 12/24/18 11:00 12/27/18 10:36 Nacl 0.9% 1000 Ml IV 50 mls/hr DIRECT TRINY Administration Piperacillin Sod/Tazobactam Sod 2.25 gm in 50 mls @ 100 mls/hr 12/24/18 17:00 12/27/18 10:36 Zosyn/Ns 2.25 Gm/50ml IV 100 mls/hr Q8H TRINY Administration Protocol Levofloxacin/Dextrose 500 mg in 100 mls @ 100 mls/hr 12/26/18 10:00 12/26/18 11:12 Levaquin 500mg/100ml IV 100 mls/hr Q48H TRINY Administration Protocol Sodium Chloride 1,000 mls @ 100 mls/hr 12/24/18 18:00 12/25/18 23:28 Nacl 0.9% 1000 Ml IV 100 mls/hr DIRECT TRINY Administration Magnesium Hydroxide 30 ml 12/17/18 19:40 Milk Of Magnesia PO Q4H PRN Constipation Metoclopramide HCl 10 mg 12/17/18 19:40 Reglan PO Q6H PRN Nausea And Vomiting Ondansetron HCl 4 mg 12/17/18 19:40 Zofran IV Q8H PRN Nausea And Vomiting Simple Syrup 15 ml 12/19/18 08:41 Simple Syrup FEEDTUBE PRN PRN Hypoglycemia Simple Syrup 30 ml 12/19/18 08:41 Simple Syrup FEEDTUBE PRN PRN Hypoglycemia Sodium Bicarbonate 325 mg 12/19/18 08:41 Sodium Bicarbonate FEEDTUBE PRN PRN For Clogged Feeding Tube Sodium Chloride 10 ml 12/17/18 19:40 12/18/18 21:47 Sodium Chloride Flush Syringe 10 Ml IV 10 ml PRN PRN Administration LINE FLUSH Nutrition/Malnutrition Assess - Dietary Evaluation Nutrition/Malnutrition Findings: Nutrition Notes Start: 12/19/18 08:36 Freq: Status: Active Protocol: Document 12/22/18 13:18 RM (Rec: 12/22/18 13:20 RM [email or web address]) Nutrition Notes Initial or Follow up Brief Note Subjective/Other Information Screened for Coumadin/Vit K diet education. Pt not appropriate for diet education. No family present. Nutrition Intervention Follow-Up By: 12/28/18 Additional Comments Follow for stable TF, wt
[2018-12-28] MEDS: ZOSYN/NS 2.25 GM/50ML 2.25 GM/50 ML BAG IV SCH ×2 (00:19→09:50)
[2018-12-28 04:39] LABS: INR 3.37 (0.87-1.13)
--- NOTE | 2018-12-28 08:05 | Progress Note ---
Assessment and Plan - Patient Problems (1) Acute renal failure Current Visit: Yes Status: Acute Plan to address problem: The setting of acute cerebrovascular accident and likely significant prerenal injury and likely underlying sepsis secondary to aspiration pneumonia. Remains on gentle IV fluid hydration. Antibiotics per primary attending. Please ensure the antibiotics dosed appropriately for renal function. Renal ultrasound reviewed without any acute abnormalities. Avoid nephrotoxins and maintain map above 65 mmHg Overall renal function is stable. (2) Acute CVA (cerebrovascular accident) Current Visit: Yes Status: Acute Plan to address problem: The setting of a large left ventricular thrombus. Patient on heparin drip at this time. Further management per primary attending. (3) Encephalopathy Current Visit: Yes Status: Acute Plan to address problem: No changes in overall encephalopathy since admission. He is essentially unresponsive at this time. He is off all sedation. Overall prognosis remains poor at this time. Hospice consult was noted. Per notes from primary attending it seems that family is not agreeable with hospice at this time. (4) HTN (hypertension) Current Visit: Yes Status: Chronic Qualifiers: Hypertension type: essential hypertension Qualified Code(s): I10 - Essential (primary) hypertension Plan to address problem: We'll monitor on current regimen at this time. Hemodynamically he remains stable. (5) Hyperkalemia Current Visit: Yes Status: Acute Plan to address problem: Likely in the setting of acute kidney injury. He is also on heparin drip which does have [id number] effects which could also lead to hyperkalemia. We'll need to closely monitor and treat medically as necessary. He has no acute changes on telemetry. Subjective Date of service: 12/28/18 Interval history: No acute changes overnight from a renal standpoint. No new labs to review this morning. Objective - Vital Signs Vital signs: Vital Signs - 12hr 12/27/18 12/27/18 12/27/18 20:33 21:00 22:00 Temperature Pulse Rate 123 H 119 H Pulse Rate [ From Monitor] Respiratory 22 24 Rate Blood Pressure 92/33 105/63 O2 Sat by Pulse 99 100 100 Oximetry 12/27/18 12/27/18 12/28/18 23:00 23:30 00:00 Temperature 101.8 F H Pulse Rate 121 H 125 H Pulse Rate [ 126 H From Monitor] Respiratory 19 17 Rate Blood Pressure 112/71 106/72 O2 Sat by Pulse 98 Oximetry 12/28/18 12/28/18 12/28/18 01:00 02:00 03:01 Temperature Pulse Rate 125 H 123 H 124 H Pulse Rate [ From Monitor] Respiratory 25 H 25 H 21 Rate Blood Pressure 121/67 116/74 116/74 O2 Sat by Pulse Oximetry 12/28/18 12/28/18 12/28/18 03:48 04:00 05:00 Temperature 101.2 F H Pulse Rate 123 H 125 H Pulse Rate [ 119 H From Monitor] Respiratory 18 23 Rate Blood Pressure 116/80 122/69 O2 Sat by Pulse 98 Oximetry 12/28/18 06:00 Temperature Pulse Rate 127 H Pulse Rate [ From Monitor] Respiratory 21 Rate Blood Pressure 126/75 O2 Sat by Pulse Oximetry - General Appearance General appearance: cachectic, chronically ill, frail EENT: ATNC, PERRL Neck: no JVD Respiratory: Present: Clear to Ascultation Cardiology: regular, S1S2 Gastrointestinal: normal Integumentary: warm and dry Neurologic: other (noncommunicative, nonverbal) Musculoskeletal: other (negative edema) - Lab 12/26/18 04:29 12/26/18 04:29 Most recent lab results Calcium 8.3 mg/dL (8.4-10.2) L 12/26/18 04:29 - Imaging Chest x-ray: report reviewed Medications & Allergies - Medications Allergies/Adverse Reactions: Allergies No Known Allergies Allergy (Verified 12/17/18 19:43) Home Medications: Home Medications Medication Instructions Recorded Confirmed Last Taken Type Unobtainable 12/17/18 12/17/18 Unknown History Active Medications: Generic Name Dose Route Start Last Admin Trade Name Freq PRN Reason Stop Dose Admin Acetaminophen 650 mg 12/17/18 19:40 12/27/18 03:41 Tylenol PO 650 mg Q4H PRN Administration Pain, Mild (1-3) Lipase/Protease/Amylase 1 each 12/19/18 08:41 Pancreaze 10,500 Unit FEEDTUBE PRN PRN For Clogged Feeding Tube Aspirin 325 mg 12/18/18 10:00 12/27/18 10:36 Aspirin PO 325 mg QDAY TRINY Administration Atorvastatin Calcium 40 mg 12/17/18 22:00 12/27/18 22:43 Lipitor PO 40 mg QHS TRINY Administration Bisacodyl 10 mg 12/17/18 19:40 Dulcolax AL QDAY PRN Constipation Dextrose 50 ml 12/26/18 05:14 D50w (25gm) Syringe IV PRN PRN Hypoglycemia Famotidine 10 mg 12/20/18 10:00 12/27/18 22:43 Pepcid PO 10 mg BID TRINY Administration Hydralazine HCl 10 mg 12/18/18 08:46 12/23/18 21:06 Apresoline IV 10 mg Q6H PRN Administration Hypertension Hydrochlorothiazide 25 mg 12/18/18 10:00 12/27/18 10:37 Hctz PO 25 mg QDAY TRINY Administration Sodium Chloride 1,000 mls @ 50 mls/hr 12/24/18 11:00 12/27/18 10:36 Nacl 0.9% 1000 Ml IV 50 mls/hr DIRECT TRINY Administration Piperacillin Sod/Tazobactam Sod 2.25 gm in 50 mls @ 100 mls/hr 12/24/18 17:00 12/28/18 00:19 Zosyn/Ns 2.25 Gm/50ml IV 100 mls/hr Q8H TRINY Administration Protocol Levofloxacin/Dextrose 500 mg in 100 mls @ 100 mls/hr 12/26/18 10:00 12/26/18 11:12 Levaquin 500mg/100ml IV 100 mls/hr Q48H TRINY Administration Protocol Sodium Chloride 1,000 mls @ 100 mls/hr 12/24/18 18:00 12/25/18 23:28 Nacl 0.9% 1000 Ml IV 100 mls/hr DIRECT TRINY Administration Magnesium Hydroxide 30 ml 12/17/18 19:40 Milk Of Magnesia PO Q4H PRN Constipation Metoclopramide HCl 10 mg 12/17/18 19:40 Reglan PO Q6H PRN Nausea And Vomiting Ondansetron HCl 4 mg 12/17/18 19:40 Zofran IV Q8H PRN Nausea And Vomiting Simple Syrup 15 ml 12/19/18 08:41 Simple Syrup FEEDTUBE PRN PRN Hypoglycemia Simple Syrup 30 ml 12/19/18 08:41 Simple Syrup FEEDTUBE PRN PRN Hypoglycemia Sodium Bicarbonate 325 mg 12/19/18 08:41 Sodium Bicarbonate FEEDTUBE PRN PRN For Clogged Feeding Tube Sodium Chloride 10 ml 12/17/18 19:40 12/18/18 21:47 Sodium Chloride Flush Syringe 10 Ml IV 10 ml PRN PRN Administration LINE FLUSH
[2018-12-28] MEDS: NACL 0.9% 1000 ML 1,000 ML IV SCH (09:57)
[2018-12-28] MEDS: PEPCID PO SCH ×2 (10:08→22:33)
[2018-12-28] MEDS: ASPIRIN PO SCH (10:08)
[2018-12-28] MEDS: HCTZ PO SCH (10:09)
[2018-12-28] MEDS: LEVAQUIN 500MG/100ML 500 MG/100 ML BAG IV SCH (10:09)
--- NOTE | 2018-12-28 10:26 | Progress Note ---
Assessment and Plan Assessment and plan: Patient is a 83 yo man with a history of HTN and Dementia who presented to [facility] ED with AMS and found unresponsive, lying on the floor. He was found to have a acute CVA. He was also found to have Left ventricular heart thrombus. He was started on IV heparin drip followed by Coumadin initiation. He did have nose bleeding on 12/20/18 and heparin IV drip held and repeat CT head done, which did not show a bleed, so heparin iv drip resumed. When I took over care on December 22, Hospice was consulted but nephmuriel decided against Hospice and no other family available. 12/23/18, We met at bedside, along with his daughter Sherlyn, he wants everything done, his goal is to get Mr. Corona back to [place]. We d id discuss the patient risk of Aspiration pneumonia and he agreed for PEG evaluation. Then on 12/24/18, patient became severely tachycardic and hypotensive, which did respond to IVF bolus resuscitations. His fevers, tachycardia and hypotension most likely due to Aspiration pneumonitis which i started on IV zosyn and IV levaqiun and moved him to the ICU on 12/24/18 and he was placed on bipap. GI consulted was cancelled. * MRI head: Large area of ischemia in the right MCA territory, as described abo ve. No signs of hemorrhagic transformation. * CT Head: Normal evolutionary change in large right MCA territorial infarct with no evidence of hemorrhagic transformation. There has been slight increase in the amount of edema, when compared with prior exam. * KUB. No acute findings. * Repeat CT head - Negative for bleed. * 12/17/18 TTE Conclusions: The study quality is technically difficult, global le ft ventricular systolic function is severely decreased, the estimated EF is 20-25%, abnormal LV diastolic function is observed. A thrombus is visulized in the left ventricular apex, no atrial septal defect is demonstrated by agitated saline contrast. -Massive Acute CVA (cerebrovascular accident) with Left Hemiplegia and semi- comatose state: supportive care, poor prognosis -Dysphagia, still with NGT -Sepsis, repeat pCXR can not exclude underlying bibasilar pneumonia: Started iv zosyn and iv levaquin, ordered CXR, stat iv nss fluid bolus used, consulted Pulm/CCM -Acute hypoxic respiratory failure: consulted Pulm/CCM, already on heparin drip for the LV thrombus -Supratherapeutic INR with hematoma on left arm: consult Wound care, hold warfarin, stopped iv heparin drip -Severe tachycardia; consulted Intelligence Group Supervisor, also d/w Dr. Marks regarding past discussion with Intelligence Group Supervisor once LV thrombus was found. -Dysphagia: still with NGT, once stable GI evaluation -Acute Metabolic Encephalopathy Secondary to CVA -Left Ventricular Thrombus, supratherapeutic INR, hold Warfarin -HTN (hypertension), now hypotensive resolved -History of Dementia, supportive care, continue current therapy -Nasal Bleed, resolved -Severe Malnutrition suspected, poa, bmi 19, poa, started on NGT feed -Debility, PT consulted -DVT prophylaxis: SCD to BLE while in bed. off iv heparin drip Poor prognosis, Full code Disposition: continue inpatient care, placement pending but trouble verifying h is primary insurance as medicare is secondary. [facility] is looking at patient and has accepted but Medicare is saying that patient has another primary insurance and will not pay. So, I met with Abilio and his daughter Sherlyn at nursing with Janis and they should call Medicare to looking into this. Janis called Medicare and they told her that the name of the primary insurance was called Group insurance and they had no other information regarding that insurance. We are not sure if that is a valid health insurance and Medicare is stalling and don't want to pay, our financial office is trying to find the primary Insurance known a "Group Insurance" This weeks: he needs to be GI evaluation for PEG once INR under 2 or he can go to [facility] and they can place the NGT Patient was put in restraints/mitten, to prevent the right hand from removing the lines/ngt History Interval history: Patient was seen and examined. Follow-up on current diagnosis of massive CVA in a comatose state. Moved to ICU on due to hemodynamically unstable, hypotensive, tacycardiac, febrile. Placed on Bipap overnight. Imaging, nursing note, chart, labs and old chart reviewed. Hospitalist Physical - Physical exam Narrative exam: Gen: critically ill, semi-comatose state unchanged, moderate increase accessory muscle, on bipap HEENT: NCAT, abn EOM, Pupils reactive, OP with ngt in place Neck: supple, no adenopathy, no thyromegaly, no JVD CVS/Heart: Regular tachy, normal S1S2, pulses present bilaterally Chest/Lungs: tachypneic, coarse bs b, diminished b, Symmetrical chest expansion, good air entry bilaterally GI/Abdomen: soft, NTND, good bowel sounds, no guarding or rebound /Bladder: no suprapubic tenderness, no CVA or paraspinal tenderness Extermity/Skin: no c/c/e, no obvious rash MSK: no movement left Neuro: CN 2-12 grossly intact, + focal deficits with LHP, aphasic Psych: confused - Constitutional Vitals: Temp Pulse Resp BP Pulse Ox 101.2 F H 127 H 21 126/75 99 12/28/18 03:48 12/28/18 06:00 12/28/18 06:00 12/28/18 06:00 12/28/18 09:11 General appearance: Present: no acute distress, other (not responsive) Results - Labs CBC & Chem 7: 12/26/18 04:29 12/26/18 04:29 Labs: Laboratory Last Values WBC 17.8 K/mm3 (4.5-11.0) H 12/26/18 04:29 RBC 2.49 M/mm3 (3.65-5.03) L 12/26/18 04:29 Hgb 7.1 gm/dl (11.8-15.2) L 12/26/18 04:29 Hct 21.4 % (35.5-45.6) L 12/26/18 04:29 MCV 86 fl (84-94) 12/26/18 04:29 MCH 29 pg (28-32) 12/26/18 04:29 MCHC 33 % (32-34) 12/26/18 04:29 RDW 17.1 % (13.2-15.2) H 12/26/18 04:29 Plt Count 286 K/mm3 (140-440) 12/26/18 04:29 Lymph % (Auto) 15.5 % (13.4-35.0) 12/24/18 05:57 [place] % (Auto) 11.3 % (0.0-7.3) H 12/24/18 05:57 Eos % (Auto) 0.0 % (0.0-4.3) 12/24/18 05:57 Baso % (Auto) 0.6 % (0.0-1.8) 12/24/18 05:57 Lymph # 1.9 K/mm3 (1.2-5.4) 12/24/18 05:57 [place] # 1.4 K/mm3 (0.0-0.8) H 12/24/18 05:57 Eos # 0.0 K/mm3 (0.0-0.4) 12/24/18 05:57 Baso # 0.1 K/mm3 (0.0-0.1) 12/24/18 05:57 Seg Neutrophils % 72.6 % (40.0-70.0) H 12/24/18 05:57 Seg Neutrophils # 8.7 K/mm3 (1.8-7.7) H 12/24/18 05:57 PT 33.6 Sec. (12.2-14.9) H 12/28/18 04:08 INR 3.37 (0.87-1.13) H 12/28/18 04:08 APTT 37.1 Sec. (24.2-36.6) H 12/18/18 15:07 Heparin Anti-Xa Level 1.36 U.I./ml (0.3-0.7) H 12/25/18 23:00 POC ABG pH 7.484 (7.35-7.45) H 12/24/18 21:52 POC ABG pO2 63 (80-105) L 12/24/18 21:52 POC ABG HCO3 16.0 (22-26 mml/L) 12/24/18 21:52 POC ABG Total CO2 17 (23-27mmol/L) 12/24/18 21:52 POC ABG O2 Sat 94 12/24/18 21:52 POC ABG Base Excess -7 ((-2) - (+3)mmol/L) 12/24/18 21:52 32 % 12/24/18 21:52 Sodium 136 mmol/L (137-145) L 12/26/18 04:29 Potassium 4.8 mmol/L (3.6-5.0) 12/26/18 04:29 Chloride 103.8 mmol/L (98-107) 12/26/18 04:29 Carbon Dioxide 16 mmol/L (22-30) L 12/26/18 04:29 21 mmol/L 12/26/18 04:29 BUN 62 mg/dL (9-20) H 12/26/18 04:29 2.2 mg/dL (0.8-1.5) H 12/26/18 04:29 Estimated GFR 29 ml/min 12/26/18 04:29 28 % 12/26/18 04:29 Glucose 86 mg/dL (75-100) 12/26/18 04:29 POC Glucose 128 (70-105) H 12/28/18 05:15 Lactic Acid 1.40 mmol/L (0.7-2.0) 12/24/18 05:57 Calcium 8.3 mg/dL (8.4-10.2) L 12/26/18 04:29 0.30 mg/dL (0.1-1.2) 12/23/18 23:59 AST 67 units/L (5-40) H 12/23/18 23:59 ALT 62 units/L (7-56) H 12/23/18 23:59 163 units/L (35-129) H 12/23/18 23:59 0.098 ng/mL (0.00-0.029) H 12/24/18 09:00 7.8 g/dL (6.3-8.2) 12/23/18 23:59 3.2 g/dL (3.9-5) L 12/23/18 23:59 0.7 % 12/23/18 23:59 Yellow (Yellow) 12/24/18 07:05 Clear (Clear) 12/24/18 07:05 6.0 (5.0-7.0) 12/24/18 07:05 Ur Specific Malcolm 1.015 (1.003-1.030) 12/24/18 07:05 30 mg/dl mg/dL (Negative) 12/24/18 07:05 Neg mg/dL (Negative) 12/24/18 07:05 Neg mg/dL (Negative) 12/24/18 07:05 Neg (Negative) 12/24/18 07:05 Neg (Negative) 12/24/18 07:05 Neg (Negative) 12/24/18 07:05 < 2.0 mg/dL (<2.0) 12/24/18 07:05 Ur Leukocyte Esterase Neg (Negative) 12/24/18 07:05 1.0 /HPF (0.0-6.0) 12/24/18 07:05 2.0 /HPF (0.0-6.0) 12/24/18 07:05 Few /HPF 12/24/18 07:05 Presumptive negative 12/19/18 Unknown Presumptive negative 12/19/18 Unknown Ur Barbiturates Screen Presumptive negative 12/19/18 Unknown Ur Phencyclidine Scrn Presumptive negative 12/19/18 Unknown Ur Amphetamines Screen Presumptive negative 12/19/18 Unknown U Benzodiazepines Scrn Presumptive negative 12/19/18 Unknown Presumptive negative 12/19/18 Unknown U Marijuana (THC) Screen Presumptive negative 12/19/18 Unknown Disclamer 12/19/18 Unknown Active Medications - Current Medications Current Medications: Generic Name Dose Route Start Last Admin Trade Name Freq PRN Reason Stop Dose Admin Acetaminophen 650 mg 12/17/18 19:40 12/27/18 03:41 Tylenol PO 650 mg Q4H PRN Administration Pain, Mild (1-3) Lipase/Protease/Amylase 1 each 12/19/18 08:[address] 10,500 Unit FEEDTUBE PRN PRN For Clogged Feeding Tube Aspirin 325 mg 12/18/18 10:00 12/28/18 10:08 Aspirin PO 325 mg QDAY TRINY Administration Atorvastatin Calcium 40 mg 12/17/18 22:00 12/27/18 22:43 Lipitor PO 40 mg QHS TRINY Administration Bisacodyl 10 mg 12/17/18 19:40 Dulcolax NV QDAY PRN Constipation Dextrose 50 ml 12/26/18 05:14 D50w (25gm) Syringe IV PRN PRN Hypoglycemia Famotidine 10 mg 12/20/18 10:00 12/28/18 10:08 Pepcid PO 10 mg BID TRINY Administration Hydralazine HCl 10 mg 12/18/18 08:46 12/23/18 21:06 Apresoline IV 10 mg Q6H PRN Administration Hypertension Hydrochlorothiazide 25 mg 12/18/18 10:00 12/28/18 10:09 Hctz PO 25 mg QDAY TRINY Administration Sodium Chloride 1,000 mls @ 50 mls/hr 12/24/18 11:00 12/28/18 09:57 Nacl 0.9% 1000 Ml IV 50 mls/hr DIRECT TRINY Administration Piperacillin Sod/Tazobactam Sod 2.25 gm in 50 mls @ 100 mls/hr 12/24/18 17:00 12/28/18 09:50 Zosyn/Ns 2.25 Gm/50ml IV 100 mls/hr Q8H TRINY Administration Protocol Levofloxacin/Dextrose 500 mg in 100 mls @ 100 mls/hr 12/26/18 10:00 12/28/18 10:09 Levaquin 500mg/100ml IV 100 mls/hr Q48H TRINY Administration Protocol Magnesium Hydroxide 30 ml 12/17/18 19:40 Milk Of Magnesia PO Q4H PRN Constipation Metoclopramide HCl 10 mg 12/17/18 19:40 Reglan PO Q6H PRN Nausea And Vomiting Ondansetron HCl 4 mg 12/17/18 19:40 Zofran IV Q8H PRN Nausea And Vomiting Simple Syrup 15 ml 12/19/18 08:41 Simple Syrup FEEDTUBE PRN PRN Hypoglycemia Simple Syrup 30 ml 12/19/18 08:41 Simple Syrup FEEDTUBE PRN PRN Hypoglycemia Sodium Bicarbonate 325 mg 12/19/18 08:41 Sodium Bicarbonate FEEDTUBE PRN PRN For Clogged Feeding Tube Sodium Chloride 10 ml 12/17/18 19:40 12/18/18 21:47 Sodium Chloride Flush Syringe 10 Ml IV 10 ml PRN PRN Administration LINE FLUSH Nutrition/Malnutrition Assess - Dietary Evaluation Nutrition/Malnutrition Findings: Nutrition Notes Start: 12/19/18 08:36 Freq: Status: Active Protocol: Document 12/22/18 13:18 RM (Rec: 12/22/18 13:20 RM [id number]) Nutrition Notes Initial or Follow up Brief Note Subjective/Other Information Screened for Coumadin/Vit K diet education. Pt not appropriate for diet education. No family present. Nutrition Intervention Follow-Up By: 12/28/18 Additional Comments Follow for stable TF, wt
--- NOTE | 2018-12-28 11:36 | Progress Note ---
Assessment and Plan Acute CVA initiated on warfarin Hypertension Dementia LV thrombus Dilated cardiomyopathy, uncertain duration echocardiogram revealed a severely decreased left ventricular systolic function, EF is 20-25%. Acute renal failure Sepsis Reflex sinus tachycardia Conservative cardiac management. Subjective Date of service: 12/28/18 Interval history: No distress noted. Febrile overnight. Sinus tachycardia on telemetry. Objective Vital Signs Temp Pulse Pulse Resp BP Pulse Ox 12/28/18 09:11 99 12/28/18 06:00 127 H 21 126/75 12/28/18 05:00 125 H 23 122/69 12/28/18 04:00 123 H 119 H 18 116/80 98 12/28/18 03:48 101.2 F H 12/28/18 03:01 124 H 21 116/74 12/28/18 02:00 123 H 25 H 116/74 12/28/18 01:00 125 H 25 H 121/67 12/28/18 00:00 125 H 126 H 17 106/72 98 12/27/18 23:30 101.8 F H 12/27/18 23:00 121 H 19 112/71 12/27/18 22:00 119 H 24 105/63 100 12/27/18 21:00 123 H 22 92/33 100 12/27/18 20:33 99 12/27/18 20:01 126 H 17 106/51 100 12/27/18 20:00 101.5 F H 122 H 119 H 20 98 12/27/18 19:01 119 H 22 113/74 100 12/27/18 18:09 119 H 23 113/74 100 12/27/18 18:00 131 H 27 H 119/72 99 12/27/18 17:56 97.9 F 12/27/18 17:00 122 H 20 113/74 99 12/27/18 16:01 122 H 20 119/88 100 12/27/18 16:00 97.9 F 94 H 119 H 24 98 12/27/18 15:00 117 H 28 H 128/80 100 12/27/18 14:00 114 H 18 113/76 100 12/27/18 13:00 119 H 19 117/76 100 12/27/18 12:00 98.0 F 116 H 115 H 21 106/66 99 - Physical Examination General: No Apparent Distress, Cachectic Neck: Positive: trachea midline Cardiac: Positive: Tachycardia Lungs: Positive: Decreased Breath Sounds - Labs and Meds Coagulation 12/28/18 Range/Units 04:08 PT 33.6 H (12.2-14.9) Sec. INR 3.37 H (0.87-1.13) - Allied health notes Allied health notes reviewed: nursing
[2018-12-29] MEDS: TYLENOL PO PRN ×4 (01:23→18:03)
[2018-12-29] MEDS: ZOSYN/NS 2.25 GM/50ML 2.25 GM/50 ML BAG IV SCH ×3 (01:24→18:08)
[2018-12-29 05:19] LABS: INR 2.74 (0.87-1.13)
[2018-12-29] MEDS: NACL 0.9% 1000 ML 1,000 ML IV SCH (06:54)
[2018-12-29] MEDS: ASPIRIN PO SCH (10:29)
[2018-12-29] MEDS: PEPCID PO SCH ×2 (10:29→21:45)
[2018-12-29] MEDS: HCTZ PO SCH (10:30)
[2018-12-29] MEDS ORDERED: COUMADIN PO SCH (17:00)
--- NOTE | 2018-12-29 18:18 | Progress Note ---
Assessment and Plan Assessment and plan: Patient is a 83 yo man with a history of HTN and Dementia who presented to [facility] ED with AMS and found unresponsive, lying on the floor. He was found to have a acute CVA. He was also found to have Left ventricular heart thrombus. He was started on IV heparin drip followed by Coumadin initiation. He did have nose bleeding on 12/20/18 and heparin IV drip held and repeat CT head done, which did not show a bleed, so heparin iv drip resumed. When I took over care on December 22, Hospice was consulted but nephmuriel decided against Hospice and no other family available. 12/23/18, We met at bedside, along with his daughter Sherlyn, he wants everything done, his goal is to get Mr. Corona back to [place]. We d id discuss the patient risk of Aspiration pneumonia and he agreed for PEG evaluation. Then on 12/24/18, patient became severely tachycardic and hypotensive, which did respond to IVF bolus resuscitations. His fevers, tachycardia and hypotension most likely due to Aspiration pneumonitis which i started on IV zosyn and IV levaqiun and moved him to the ICU on 12/24/18 and he was placed on bipap. GI consulted was cancelled. * MRI head: Large area of ischemia in the right MCA territory, as described abo ve. No signs of hemorrhagic transformation. * CT Head: Normal evolutionary change in large right MCA territorial infarct with no evidence of hemorrhagic transformation. There has been slight increase in the amount of edema, when compared with prior exam. * KUB. No acute findings. * Repeat CT head - Negative for bleed. * 12/17/18 TTE Conclusions: The study quality is technically difficult, global le ft ventricular systolic function is severely decreased, the estimated EF is 20-25%, abnormal LV diastolic function is observed. A thrombus is visulized in the left ventricular apex, no atrial septal defect is demonstrated by agitated saline contrast. -Massive Acute CVA (cerebrovascular accident) with Left Hemiplegia and semi- comatose state: supportive care, poor prognosis -Dysphagia, still with NGT -Sepsis, repeat pCXR can not exclude underlying bibasilar pneumonia: Started iv zosyn and iv levaquin, ordered CXR, stat iv nss fluid bolus used, consulted Pulm/CCM -Acute hypoxic respiratory failure: consulted Pulm/CCM, already on heparin drip for the LV thrombus -Supratherapeutic INR with hematoma on left arm: consult Wound care, hold warfarin, stopped iv heparin drip -Severe tachycardia; consulted Sales And Marketing Analyst, also d/w Dr. Marks regarding past discussion with Sales And Marketing Analyst once LV thrombus was found. -Dysphagia: still with NGT, once stable GI evaluation -Acute Metabolic Encephalopathy Secondary to CVA -Left Ventricular Thrombus, supratherapeutic INR, hold Warfarin -HTN (hypertension), now hypotensive resolved -History of Dementia, supportive care, continue current therapy -Nasal Bleed, resolved -Severe Malnutrition suspected, poa, bmi 19, poa, started on NGT feed -Debility, PT consulted -DVT prophylaxis: SCD to BLE while in bed. off iv heparin drip Poor prognosis, Full code Disposition: continue inpatient care, placement pending but trouble verifying h is primary insurance as medicare is secondary. [facility] is looking at patient and has accepted but Medicare is saying that patient has another primary insurance and will not pay. So, I met with Abilio and his daughter Sherlyn at nursing with Janis and they should call Medicare to looking into this. Janis called Medicare and they told her that the name of the primary insurance was called Group insurance and they had no other information regarding that insurance. We are not sure if that is a valid health insurance and Medicare is stalling and don't want to pay, our financial office is trying to find the primary Insurance known a "Group Insurance" This weeks: he needs to be GI evaluation for PEG once INR under 2 or he can go to [facility] and they can place the NGT trying o speak with Medicare to see what can be done. patient does not have anyother insurance Patient was put in restraints/mitten, to prevent the right hand from removing the lines/ngt History Interval history: Patient seen and examined, family at bedside. stable with no new changes. Hospitalist Physical - Physical exam Narrative exam: Gen: critically ill, semi-comatose state unchanged, moderate increase accessory muscle, on bipap HEENT: NCAT, abn EOM, Pupils reactive, OP with ngt in place Neck: supple, no adenopathy, no thyromegaly, no JVD CVS/Heart: Regular tachy, normal S1S2, pulses present bilaterally Chest/Lungs: tachypneic, coarse bs b, diminished b, Symmetrical chest expansion, good air entry bilaterally GI/Abdomen: soft, NTND, good bowel sounds, no guarding or rebound /Bladder: no suprapubic tenderness, no CVA or paraspinal tenderness Extermity/Skin: no c/c/e, no obvious rash MSK: no movement left Neuro: CN 2-12 grossly intact, + focal deficits with LHP, aphasic Psych: confused - Constitutional Vitals: Temp Pulse Resp BP Pulse Ox 98.9 F 110 H 18 96/66 96 12/29/18 16:00 12/29/18 08:00 12/29/18 08:00 12/29/18 07:00 12/29/18 10:31 General appearance: Present: no acute distress, other (not responsive) Results - Labs CBC & Chem 7: 12/26/18 04:29 12/26/18 04:29 Labs: Laboratory Last Values WBC 17.8 K/mm3 (4.5-11.0) H 12/26/18 04:29 RBC 2.49 M/mm3 (3.65-5.03) L 12/26/18 04:29 Hgb 7.1 gm/dl (11.8-15.2) L 12/26/18 04:29 Hct 21.4 % (35.5-45.6) L 12/26/18 04:29 MCV 86 fl (84-94) 12/26/18 04:29 MCH 29 pg (28-32) 12/26/18 04:29 MCHC 33 % (32-34) 12/26/18 04:29 RDW 17.1 % (13.2-15.2) H 12/26/18 04:29 Plt Count 286 K/mm3 (140-440) 12/26/18 04:29 Lymph % (Auto) 15.5 % (13.4-35.0) 12/24/18 05:57 Howell % (Auto) 11.3 % (0.0-7.3) H 12/24/18 05:57 Eos % (Auto) 0.0 % (0.0-4.3) 12/24/18 05:57 Baso % (Auto) 0.6 % (0.0-1.8) 12/24/18 05:57 Lymph # 1.9 K/mm3 (1.2-5.4) 12/24/18 05:57 Howell # 1.4 K/mm3 (0.0-0.8) H 12/24/18 05:57 Eos # 0.0 K/mm3 (0.0-0.4) 12/24/18 05:57 Baso # 0.1 K/mm3 (0.0-0.1) 12/24/18 05:57 Seg Neutrophils % 72.6 % (40.0-70.0) H 12/24/18 05:57 Seg Neutrophils # 8.7 K/mm3 (1.8-7.7) H 12/24/18 05:57 PT 28.5 Sec. (12.2-14.9) H 12/29/18 04:28 INR 2.74 (0.87-1.13) H 12/29/18 04:28 APTT 37.1 Sec. (24.2-36.6) H 12/18/18 15:07 Heparin Anti-Xa Level 1.36 U.I./ml (0.3-0.7) H 12/25/18 23:00 POC ABG pH 7.484 (7.35-7.45) H 12/24/18 21:52 POC ABG pO2 63 (80-105) L 12/24/18 21:52 POC ABG HCO3 16.0 (22-26 mml/L) 12/24/18 21:52 POC ABG Total CO2 17 (23-27mmol/L) 12/24/18 21:52 POC ABG O2 Sat 94 12/24/18 21:52 POC ABG Base Excess -7 ((-2) - (+3)mmol/L) 12/24/18 21:52 32 % 12/24/18 21:52 Sodium 136 mmol/L (137-145) L 12/26/18 04:29 Potassium 4.8 mmol/L (3.6-5.0) 12/26/18 04:29 Chloride 103.8 mmol/L (98-107) 12/26/18 04:29 Carbon Dioxide 16 mmol/L (22-30) L 12/26/18 04:29 21 mmol/L 12/26/18 04:29 BUN 62 mg/dL (9-20) H 12/26/18 04:29 2.2 mg/dL (0.8-1.5) H 12/26/18 04:29 Estimated GFR 29 ml/min 12/26/18 04:29 28 % 12/26/18 04:29 Glucose 86 mg/dL (75-100) 12/26/18 04:29 POC Glucose 134 (70-105) H 12/29/18 11:59 Lactic Acid 1.40 mmol/L (0.7-2.0) 12/24/18 05:57 Calcium 8.3 mg/dL (8.4-10.2) L 12/26/18 04:29 0.30 mg/dL (0.1-1.2) 12/23/18 23:59 AST 67 units/L (5-40) H 12/23/18 23:59 ALT 62 units/L (7-56) H 12/23/18 23:59 163 units/L (35-129) H 12/23/18 23:59 0.098 ng/mL (0.00-0.029) H 12/24/18 09:00 7.8 g/dL (6.3-8.2) 12/23/18 23:59 3.2 g/dL (3.9-5) L 12/23/18 23:59 0.7 % 12/23/18 23:59 Yellow (Yellow) 12/24/18 07:05 Clear (Clear) 12/24/18 07:05 6.0 (5.0-7.0) 12/24/18 07:05 Ur Specific [place] 1.015 (1.003-1.030) 12/24/18 07:05 30 mg/dl mg/dL (Negative) 12/24/18 07:05 Neg mg/dL (Negative) 12/24/18 07:05 Neg mg/dL (Negative) 12/24/18 07:05 Neg (Negative) 12/24/18 07:05 Neg (Negative) 12/24/18 07:05 Neg (Negative) 12/24/18 07:05 < 2.0 mg/dL (<2.0) 12/24/18 07:05 Ur Leukocyte Esterase Neg (Negative) 12/24/18 07:05 1.0 /HPF (0.0-6.0) 12/24/18 07:05 2.0 /HPF (0.0-6.0) 12/24/18 07:05 Few /HPF 12/24/18 07:05 Presumptive negative 12/19/18 Unknown Presumptive negative 12/19/18 Unknown Ur Barbiturates Screen Presumptive negative 12/19/18 Unknown Ur Phencyclidine Scrn Presumptive negative 12/19/18 Unknown Ur Amphetamines Screen Presumptive negative 12/19/18 Unknown U Benzodiazepines Scrn Presumptive negative 12/19/18 Unknown Presumptive negative 12/19/18 Unknown U Marijuana (THC) Screen Presumptive negative 12/19/18 Unknown Disclamer 12/19/18 Unknown Active Medications - Current Medications Current Medications: Generic Name Dose Route Start Last Admin Trade Name Freq PRN Reason Stop Dose Admin Acetaminophen 650 mg 12/17/18 19:40 12/29/18 18:03 Tylenol PO 650 mg Q4H PRN Administration Pain, Mild (1-3) Lipase/Protease/Amylase 1 each 12/19/18 08:[address] 10,500 Unit FEEDTUBE PRN PRN For Clogged Feeding Tube Aspirin 325 mg 12/18/18 10:00 12/29/18 10:29 Aspirin PO 325 mg QDAY TRINY Administration Atorvastatin Calcium 40 mg 12/17/18 22:00 12/28/18 22:33 Lipitor PO 40 mg QHS TRINY Administration Bisacodyl 10 mg 12/17/18 19:40 Dulcolax [place] QDAY PRN Constipation Dextrose 50 ml 12/26/18 05:14 D50w (25gm) Syringe IV PRN PRN Hypoglycemia Famotidine 10 mg 12/20/18 10:00 12/29/18 10:29 Pepcid PO 10 mg BID TRINY Administration Hydralazine HCl 10 mg 12/18/18 08:46 12/23/18 21:06 Apresoline IV 10 mg Q6H PRN Administration Hypertension Hydrochlorothiazide 25 mg 12/18/18 10:00 12/29/18 10:30 Hctz PO 25 mg QDAY TRINY Administration Sodium Chloride 1,000 mls @ 50 mls/hr 12/24/18 11:00 12/29/18 06:54 Nacl 0.9% 1000 Ml IV 50 mls/hr DIRECT TRINY Administration Piperacillin Sod/Tazobactam Sod 2.25 gm in 50 mls @ 100 mls/hr 12/24/18 17:00 12/29/18 18:08 Zosyn/Ns 2.25 Gm/50ml IV 100 mls/hr Q8H TRINY Administration Protocol Levofloxacin/Dextrose 500 mg in 100 mls @ 100 mls/hr 12/26/18 10:00 12/28/18 10:09 Levaquin 500mg/100ml IV 100 mls/hr Q48H TRINY Administration Protocol Magnesium Hydroxide 30 ml 12/17/18 19:40 Milk Of Magnesia PO Q4H PRN Constipation Metoclopramide HCl 10 mg 12/17/18 19:40 Reglan PO Q6H PRN Nausea And Vomiting Ondansetron HCl 4 mg 12/17/18 19:40 Zofran IV Q8H PRN Nausea And Vomiting Simple Syrup 15 ml 12/19/18 08:41 Simple Syrup FEEDTUBE PRN PRN Hypoglycemia Simple Syrup 30 ml 12/19/18 08:41 Simple Syrup FEEDTUBE PRN PRN Hypoglycemia Sodium Bicarbonate 325 mg 12/19/18 08:41 Sodium Bicarbonate FEEDTUBE PRN PRN For Clogged Feeding Tube Sodium Chloride 10 ml 12/17/18 19:40 12/18/18 21:47 Sodium Chloride Flush Syringe 10 Ml IV 10 ml PRN PRN Administration LINE FLUSH Nutrition/Malnutrition Assess - Dietary Evaluation Nutrition/Malnutrition Findings: Nutrition Notes Start: 12/19/18 08:36 Freq: Status: Active Protocol: Document 12/28/18 17:25 OH (Rec: 12/28/18 17:29 OH [id number]) Nutrition Notes Initial or Follow up Brief Note Labs/Tests Reviewed Pertinent Medications Reviewed Height 5 ft 3 in Weight 50.4 kg [place] Body Weight (kg) 56.36 BMI 19.6 Subjective/Other Information Pt lying in bed w/TF insuging @ 50 ml/hr. Per RN no issues w /residual/n-v. Pt. to have a swallow evaluation to determine if advancement of diet appropriate. Percent of energy/protein needs met: 100% energy and pro Burn Absent Trauma Absent Is patient on ventilator? No Is Patient Ambulatory and/or Out of Bed No REE-([facility]-confined to bed) 1320.312 Kcal/Kg value to use for calculation 30 Approximate Energy Requirements Using 1512 kcal/Kg Calculation Used for Recommendations Kcal/kg Additional Notes Pro needs 1.2-1.5g/k-76g/ day Fluid needs 1ml/kcal Nutrition Intervention Nutrition Support: Jevity 1.2 at 50ml/hr Flush with 100ml q4h Kcal 1,440 Protein (gm) 67 Carbohydrates (gm) 203 Fat (gm) 47 Fluid (mL) 968 Fiber (gm) 22 Goal #1 TF TOLERANCE Goal #2 TF to meet at least 80% of energy and pro needs Goal #3 Wt maintenance and/or gain Goal #4 DIET ADVANCEMENT Follow-Up By: 12/31/18 Additional Comments Follow for stable TF, wt
--- NOTE | 2018-12-29 18:36 | Progress Note ---
Assessment and Plan - Patient Problems (1) Acute renal failure Current Visit: Yes Status: Acute Plan to address problem: The setting of acute cerebrovascular accident and likely significant prerenal injury and likely underlying sepsis secondary to aspiration pneumonia. Remains on gentle IV fluid hydration. Antibiotics per primary attending. Please ensure the antibiotics dosed appropriately for renal function. Renal ultrasound reviewed without any acute abnormalities. Avoid nephrotoxins and maintain map above 65 mmHg Overall renal function is stable. (2) Acute CVA (cerebrovascular accident) Current Visit: Yes Status: Acute Plan to address problem: The setting of a large left ventricular thrombus. Patient on heparin drip at this time. Further management per primary attending. (3) Encephalopathy Current Visit: Yes Status: Acute Plan to address problem: No changes in overall encephalopathy since admission. He is essentially unresponsive at this time. He is off all sedation. Overall prognosis remains poor at this time. Hospice consult was noted. Per notes from primary attending it seems that family is not agreeable with hospice at this time. (4) HTN (hypertension) Current Visit: Yes Status: Chronic Qualifiers: Hypertension type: essential hypertension Qualified Code(s): I10 - Essential (primary) hypertension Plan to address problem: We'll monitor on current regimen at this time. Hemodynamically he remains stable. (5) Hyperkalemia Current Visit: Yes Status: Acute Plan to address problem: Likely in the setting of acute kidney injury. He is also on heparin drip which does have [id number]-[id number] effects which could also lead to hyperkalemia. We'll need to closely monitor and treat medically as necessary. He has no acute changes on telemetry. Subjective Date of service: 12/29/18 Interval history: No acute issues from a renal standpoint. Objective - Vital Signs Vital signs: Vital Signs - 12hr 12/29/18 12/29/18 12/29/18 07:00 08:00 09:00 Temperature 98.3 F Pulse Rate 107 H 96 H 107 H Pulse Rate [ 110 H Apical] Pulse Rate [ 110 H From Monitor] Pulse Rate [ 110 H Left Dorsalis Pedis] Pulse Rate [ 110 H Right Dorsalis Pedis] Respiratory 22 15 37 H Rate Blood Pressure 96/66 114/72 124/79 O2 Sat by Pulse 99 100 99 Oximetry 12/29/18 12/29/18 12/29/18 10:00 10:31 10:32 Temperature Pulse Rate 111 H 125 H Pulse Rate [ Apical] Pulse Rate [ From Monitor] Pulse Rate [ Left Dorsalis Pedis] Pulse Rate [ Right Dorsalis Pedis] Respiratory 48 H 17 Rate Blood Pressure 129/79 O2 Sat by Pulse 100 96 100 Oximetry 12/29/18 12/29/18 12/29/18 11:00 12:00 13:00 Temperature 98.6 F Pulse Rate 115 H 114 H 98 H Pulse Rate [ 110 H Apical] Pulse Rate [ 110 H From Monitor] Pulse Rate [ 110 H Left Dorsalis Pedis] Pulse Rate [ 110 H Right Dorsalis Pedis] Respiratory 19 18 17 Rate Blood Pressure 129/79 99/62 90/62 O2 Sat by Pulse 100 99 100 Oximetry 12/29/18 12/29/18 12/29/18 14:00 15:00 16:00 Temperature 98.9 F Pulse Rate 97 H 108 H 113 H Pulse Rate [ Apical] Pulse Rate [ From Monitor] Pulse Rate [ Left Dorsalis Pedis] Pulse Rate [ Right Dorsalis Pedis] Respiratory 30 H 26 H 28 H Rate Blood Pressure 95/61 104/68 121/67 O2 Sat by Pulse 100 100 100 Oximetry 12/29/18 12/29/18 17:00 18:00 Temperature Pulse Rate 119 H 124 H Pulse Rate [ Apical] Pulse Rate [ From Monitor] Pulse Rate [ Left Dorsalis Pedis] Pulse Rate [ Right Dorsalis Pedis] Respiratory 42 H 17 Rate Blood Pressure 127/75 125/75 O2 Sat by Pulse 100 Oximetry - General Appearance General appearance: cachectic, chronically ill EENT: ATNC Neck: no JVD, no thyromegaly Respiratory: Present: Decreased Breath Sounds Cardiology: regular, tachycardia Gastrointestinal: normal, normoactive bowel sounds Integumentary: no rash, warm and dry Neurologic: other (non verbal, non-communicative ) Musculoskeletal: other (-edema ) - Lab 12/26/18 04:29 12/26/18 04:29 Most recent lab results Calcium 8.3 mg/dL (8.4-10.2) L 12/26/18 04:29 - Imaging Chest x-ray: report reviewed - Allied health notes Allied health notes reviewed: nursing Medications & Allergies - Medications Allergies/Adverse Reactions: Allergies No Known Allergies Allergy (Verified 12/17/18 19:43) Home Medications: Home Medications Medication Instructions Recorded Confirmed Last Taken Type Unobtainable 12/17/18 12/17/18 Unknown History Active Medications: Generic Name Dose Route Start Last Admin Trade Name Freq PRN Reason Stop Dose Admin Acetaminophen 650 mg 12/17/18 19:40 12/29/18 18:03 Tylenol PO 650 mg Q4H PRN Administration Pain, Mild (1-3) Lipase/Protease/Amylase 1 each 12/19/18 08:[address] 10,500 Unit FEEDTUBE PRN PRN For Clogged Feeding Tube Aspirin 325 mg 12/18/18 10:00 12/29/18 10:29 Aspirin PO 325 mg QDAY TRINY Administration Atorvastatin Calcium 40 mg 12/17/18 22:00 12/28/18 22:33 Lipitor PO 40 mg QHS TRINY Administration Bisacodyl 10 mg 12/17/18 19:40 Dulcolax DC QDAY PRN Constipation Dextrose 50 ml 12/26/18 05:14 D50w (25gm) Syringe IV PRN PRN Hypoglycemia Famotidine 10 mg 12/20/18 10:00 12/29/18 10:29 Pepcid PO 10 mg BID TRINY Administration Hydralazine HCl 10 mg 12/18/18 08:46 12/23/18 21:06 Apresoline IV 10 mg Q6H PRN Administration Hypertension Hydrochlorothiazide 25 mg 12/18/18 10:00 12/29/18 10:30 Hctz PO 25 mg QDAY TRINY Administration Sodium Chloride 1,000 mls @ 50 mls/hr 12/24/18 11:00 12/29/18 06:54 Nacl 0.9% 1000 Ml IV 50 mls/hr DIRECT TRINY Administration Piperacillin Sod/Tazobactam Sod 2.25 gm in 50 mls @ 100 mls/hr 12/24/18 17:00 12/29/18 18:08 Zosyn/Ns 2.25 Gm/50ml IV 100 mls/hr Q8H TRINY Administration Protocol Levofloxacin/Dextrose 500 mg in 100 mls @ 100 mls/hr 12/26/18 10:00 12/28/18 10:09 Levaquin 500mg/100ml IV 100 mls/hr Q48H TRINY Administration Protocol Magnesium Hydroxide 30 ml 12/17/18 19:40 Milk Of Magnesia PO Q4H PRN Constipation Metoclopramide HCl 10 mg 12/17/18 19:40 Reglan PO Q6H PRN Nausea And Vomiting Ondansetron HCl 4 mg 12/17/18 19:40 Zofran IV Q8H PRN Nausea And Vomiting Simple Syrup 15 ml 12/19/18 08:41 Simple Syrup FEEDTUBE PRN PRN Hypoglycemia Simple Syrup 30 ml 12/19/18 08:41 Simple Syrup FEEDTUBE PRN PRN Hypoglycemia Sodium Bicarbonate 325 mg 12/19/18 08:41 Sodium Bicarbonate FEEDTUBE PRN PRN For Clogged Feeding Tube Sodium Chloride 10 ml 12/17/18 19:40 12/18/18 21:47 Sodium Chloride Flush Syringe 10 Ml IV 10 ml PRN PRN Administration LINE FLUSH
[2018-12-30] MEDS: ZOSYN/NS 2.25 GM/50ML 2.25 GM/50 ML BAG IV SCH ×3 (01:07→18:24)
[2018-12-30] MEDS: TYLENOL PO PRN ×3 (01:57→19:48)
[2018-12-30 05:37] LABS: INR 2.42 (0.87-1.13)
--- NOTE | 2018-12-30 09:39 | Progress Note ---
Assessment and Plan - Patient Problems (1) Acute renal failure Current Visit: Yes Status: Acute Plan to address problem: The setting of acute cerebrovascular accident and likely significant prerenal injury and likely underlying sepsis secondary to aspiration pneumonia. Remains on gentle IV fluid hydration. Antibiotics per primary attending. Please ensure the antibiotics dosed appropriately for renal function. Renal ultrasound reviewed without any acute abnormalities. Avoid nephrotoxins and maintain map above 65 mmHg Overall renal function is stable. (2) Acute CVA (cerebrovascular accident) Current Visit: Yes Status: Acute Plan to address problem: The setting of a large left ventricular thrombus. Patient on heparin drip at this time. Further management per primary attending. (3) Encephalopathy Current Visit: Yes Status: Acute Plan to address problem: No changes in overall encephalopathy since admission. He is essentially unresponsive at this time. He is off all sedation. Overall prognosis remains poor at this time. Hospice consult was noted. Per notes from primary attending it seems that family is not agreeable with hospice at this time. (4) HTN (hypertension) Current Visit: Yes Status: Chronic Qualifiers: Hypertension type: essential hypertension Qualified Code(s): I10 - Essential (primary) hypertension Plan to address problem: We'll monitor on current regimen at this time. Hemodynamically he remains stable. (5) Hyperkalemia Current Visit: Yes Status: Acute Plan to address problem: Likely in the setting of acute kidney injury. He is also on heparin drip which does have [id number]-nxic effects which could also lead to hyperkalemia. We'll need to closely monitor and treat medically as necessary. He has no acute changes on telemetry. Subjective Date of service: 12/30/18 Interval history: No new labs this am. No changes from a renal standpoint. Objective - Vital Signs Vital signs: Vital Signs - 12hr 12/29/18 12/29/18 12/29/18 22:00 23:00 23:44 Temperature Pulse Rate 115 H 112 H 125 H Pulse Rate [ From Monitor] Respiratory 15 23 18 Rate Blood Pressure 119/76 105/70 105/70 O2 Sat by Pulse 100 100 Oximetry 12/30/18 12/30/18 12/30/18 00:00 01:00 02:00 Temperature 97.4 F L Pulse Rate 136 H 138 H 140 H Pulse Rate [ 135 H From Monitor] Respiratory 21 25 H 19 Rate Blood Pressure 128/89 124/89 124/78 O2 Sat by Pulse 99 100 100 Oximetry 12/30/18 12/30/18 12/30/18 03:00 04:00 05:00 Temperature 100.0 F H Pulse Rate 130 H 118 H 112 H Pulse Rate [ 135 H From Monitor] Respiratory 18 17 21 Rate Blood Pressure 124/78 103/70 99/75 O2 Sat by Pulse 100 100 96 Oximetry 12/30/18 12/30/18 06:00 08:52 Temperature Pulse Rate 109 H Pulse Rate [ From Monitor] Respiratory 15 Rate Blood Pressure 99/75 O2 Sat by Pulse 99 100 Oximetry - General Appearance General appearance: cachectic, chronically ill, frail EENT: ATNC Neck: no JVD, no thyromegaly Respiratory: Present: Decreased Breath Sounds Cardiology: regular, S1S2 Gastrointestinal: normal, normoactive bowel sounds Integumentary: no rash, warm and dry Musculoskeletal: other (-edema ) Psychiatric: agitated - Lab 12/26/18 04:29 12/26/18 04:29 Most recent lab results Calcium 8.3 mg/dL (8.4-10.2) L 12/26/18 04:29 - Allied health notes Allied health notes reviewed: nursing Medications & Allergies - Medications Allergies/Adverse Reactions: Allergies No Known Allergies Allergy (Verified 12/17/18 19:43) Home Medications: Home Medications Medication Instructions Recorded Confirmed Last Taken Type Unobtainable 12/17/18 12/17/18 Unknown History Active Medications: Generic Name Dose Route Start Last Admin Trade Name Freq PRN Reason Stop Dose Admin Acetaminophen 650 mg 12/17/18 19:40 12/30/18 05:34 Tylenol PO 650 mg Q4H PRN Administration Pain, Mild (1-3) Lipase/Protease/Amylase 1 each 12/19/18 08:41 Pancreblack Benitez 10,500 Unit FEEDTUBE PRN PRN For Clogged Feeding Tube Aspirin 325 mg 12/18/18 10:00 12/29/18 10:29 Aspirin PO 325 mg QDAY TRINY Administration Atorvastatin Calcium 40 mg 12/17/18 22:00 12/29/18 21:45 Lipitor PO 40 mg QHS TRINY Administration Bisacodyl 10 mg 12/17/18 19:40 Dulcolax [place] QDAY PRN Constipation Dextrose 50 ml 12/26/18 05:14 D50w (25gm) Syringe IV PRN PRN Hypoglycemia Famotidine 10 mg 12/20/18 10:00 12/29/18 21:45 Pepcid PO 10 mg BID TRINY Administration Hydralazine HCl 10 mg 12/18/18 08:46 12/23/18 21:06 Apresoline IV 10 mg Q6H PRN Administration Hypertension Hydrochlorothiazide 25 mg 12/18/18 10:00 12/29/18 10:30 Hctz PO 25 mg QDAY TRINY Administration Sodium Chloride 1,000 mls @ 50 mls/hr 12/24/18 11:00 12/29/18 06:54 Nacl 0.9% 1000 Ml IV 50 mls/hr DIRECT TRINY Administration Piperacillin Sod/Tazobactam Sod 2.25 gm in 50 mls @ 100 mls/hr 12/24/18 17:00 12/30/18 01:07 Zosyn/Ns 2.25 Gm/50ml IV 12/31/18 23:59 100 mls/hr Q8H TRINY Administration Protocol Levofloxacin/Dextrose 500 mg in 100 mls @ 100 mls/hr 12/26/18 10:00 12/28/18 10:09 Levaquin 500mg/100ml IV 12/31/18 23:59 100 mls/hr Q48H TRINY Administration Protocol Magnesium Hydroxide 30 ml 12/17/18 19:40 Milk Of Magnesia PO Q4H PRN Constipation Metoclopramide HCl 10 mg 12/17/18 19:40 Reglan PO Q6H PRN Nausea And Vomiting Ondansetron HCl 4 mg 12/17/18 19:40 Zofran IV Q8H PRN Nausea And Vomiting Simple Syrup 15 ml 12/19/18 08:41 Simple Syrup FEEDTUBE PRN PRN Hypoglycemia Simple Syrup 30 ml 12/19/18 08:41 Simple Syrup FEEDTUBE PRN PRN Hypoglycemia Sodium Bicarbonate 325 mg 12/19/18 08:41 Sodium Bicarbonate FEEDTUBE PRN PRN For Clogged Feeding Tube Sodium Chloride 10 ml 12/17/18 19:40 12/18/18 21:47 Sodium Chloride Flush Syringe 10 Ml IV 10 ml PRN PRN Administration LINE FLUSH
[2018-12-30] MEDS: LEVAQUIN 500MG/100ML 500 MG/100 ML BAG IV SCH (10:02)
[2018-12-30] MEDS: ASPIRIN PO SCH (10:02)
[2018-12-30] MEDS: HCTZ PO SCH (10:02)
[2018-12-30] MEDS: PEPCID PO SCH ×2 (10:02→21:52)
--- NOTE | 2018-12-30 17:55 | Progress Note ---
Assessment and Plan Assessment and plan: Patient is a 83 yo man with a history of HTN and Dementia who presented to [facility] ED with AMS and found unresponsive, lying on the floor. He was found to have a acute CVA. He was also found to have Left ventricular heart thrombus. He was started on IV heparin drip followed by Coumadin initiation. He did have nose bleeding on 12/20/18 and heparin IV drip held and repeat CT head done, which did not show a bleed, so heparin iv drip resumed. When I took over care on December 22, Hospice was consulted but nephmuriel decided against Hospice and no other family available. 12/23/18, We met at bedside, along with his daughter Sherlyn, he wants everything done, his goal is to get Mr. Corona back to [place]. We d id discuss the patient risk of Aspiration pneumonia and he agreed for PEG evaluation. Then on 12/24/18, patient became severely tachycardic and hypotensive, which did respond to IVF bolus resuscitations. His fevers, tachycardia and hypotension most likely due to Aspiration pneumonitis which i started on IV zosyn and IV levaqiun and moved him to the ICU on 12/24/18 and he was placed on bipap. GI consulted was cancelled. * MRI head: Large area of ischemia in the right MCA territory, as described abo ve. No signs of hemorrhagic transformation. * CT Head: Normal evolutionary change in large right MCA territorial infarct with no evidence of hemorrhagic transformation. There has been slight increase in the amount of edema, when compared with prior exam. * KUB. No acute findings. * Repeat CT head - Negative for bleed. * 12/17/18 TTE Conclusions: The study quality is technically difficult, global le ft ventricular systolic function is severely decreased, the estimated EF is 20-25%, abnormal LV diastolic function is observed. A thrombus is visulized in the left ventricular apex, no atrial septal defect is demonstrated by agitated saline contrast. 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 Marks regarding past discussion with Finishing Pan Operator once LV thrombus was found. -Dysphagia: still with NGT, once stable GI evaluation -Acute Metabolic Encephalopathy Secondary to CVA -Left Ventricular Thrombus, supratherapeutic INR, hold Warfarin -HTN (hypertension), now hypotensive resolved -History of Dementia, supportive care, continue current therapy -Nasal Bleed, resolved -Severe Malnutrition suspected, poa, bmi 19, poa, started on NGT feed -Debility, PT consulted -DVT prophylaxis: SCD to BLE while in bed. off iv heparin drip Poor prognosis, Full code Disposition: continue inpatient care, placement pending but trouble verifying h is primary insurance as medicare is secondary. [facility] is looking at patient and has accepted but Medicare is saying that patient has another primary insurance and will not pay. So, I met with Abilio and his daughter Sherlyn at nursing with Janis and they should call Medicare to looking into this. Janis called Medicare and they told her that the name of the primary insurance was called Group insurance and they had no other information regarding that insurance. We are not sure if that is a valid health insurance and Medicare is stalling and don't want to pay, our financial office is trying to find the primary Insurance known a "Group Insurance" This weeks: he needs to be GI evaluation for PEG once INR under 2 or he can go to [facility] and they can place the NGT trying o speak with Medicare to see what can be done. patient does not have anyother insurance Patient was put in restraints/mitten, to prevent the right hand from removing the lines/ngt GI consult for PEG placement History Interval history: Patient seen and examined, awake but not following commands. Hospitalist Physical - Physical exam Narrative exam: Gen: awake but not following commands, opens eyes spontaneously HEENT: NCAT, abn EOM, Pupils reactive, OP with ngt in place Neck: supple, no adenopathy, no thyromegaly, no JVD CVS/Heart: Regular tachy, normal S1S2, pulses present bilaterally Chest/Lungs: coarse bs b, diminished b, Symmetrical chest expansion, good air entry bilaterally GI/Abdomen: soft, NTND, good bowel sounds, no guarding or rebound /Bladder: no suprapubic tenderness, no CVA or paraspinal tenderness Extermity/Skin: no c/c/e, no obvious rash MSK: no movement left Neuro: CN 2-12 grossly intact, + focal deficits with LHP, aphasic Psych: confused - Constitutional Vitals: Temp Pulse Resp BP Pulse Ox 98.4 F 111 H 18 116/67 100 12/30/18 12:00 12/30/18 13:00 12/30/18 13:00 12/30/18 13:00 12/30/18 13:00 General appearance: Present: no acute distress, other (not responsive) Results - Labs CBC & Chem 7: 12/26/18 04:29 12/26/18 04:29 Labs: Laboratory Last Values WBC 17.8 K/mm3 (4.5-11.0) H 12/26/18 04:29 RBC 2.49 M/mm3 (3.65-5.03) L 12/26/18 04:29 Hgb 7.1 gm/dl (11.8-15.2) L 12/26/18 04:29 Hct 21.4 % (35.5-45.6) L 12/26/18 04:29 MCV 86 fl (84-94) 12/26/18 04:29 MCH 29 pg (28-32) 12/26/18 04:29 MCHC 33 % (32-34) 12/26/18 04:29 RDW 17.1 % (13.2-15.2) H 12/26/18 04:29 Plt Count 286 K/mm3 (140-440) 12/26/18 04:29 Lymph % (Auto) 15.5 % (13.4-35.0) 12/24/18 05:57 [place] % (Auto) 11.3 % (0.0-7.3) H 12/24/18 05:57 Eos % (Auto) 0.0 % (0.0-4.3) 12/24/18 05:57 Baso % (Auto) 0.6 % (0.0-1.8) 12/24/18 05:57 Lymph # 1.9 K/mm3 (1.2-5.4) 12/24/18 05:57 [place] # 1.4 K/mm3 (0.0-0.8) H 12/24/18 05:57 Eos # 0.0 K/mm3 (0.0-0.4) 12/24/18 05:57 Baso # 0.1 K/mm3 (0.0-0.1) 12/24/18 05:57 Seg Neutrophils % 72.6 % (40.0-70.0) H 12/24/18 05:57 Seg Neutrophils # 8.7 K/mm3 (1.8-7.7) H 12/24/18 05:57 PT 25.9 Sec. (12.2-14.9) H 12/30/18 04:52 INR 2.42 (0.87-1.13) H 12/30/18 04:52 APTT 37.1 Sec. (24.2-36.6) H 12/18/18 15:07 Heparin Anti-Xa Level 1.36 U.I./ml (0.3-0.7) H 12/25/18 23:00 POC ABG pH 7.484 (7.35-7.45) H 12/24/18 21:52 POC ABG pO2 63 (80-105) L 12/24/18 21:52 POC ABG HCO3 16.0 (22-26 mml/L) 12/24/18 21:52 POC ABG Total CO2 17 (23-27mmol/L) 12/24/18 21:52 POC ABG O2 Sat 94 12/24/18 21:52 POC ABG Base Excess -7 ((-2) - (+3)mmol/L) 12/24/18 21:52 32 % 12/24/18 21:52 Sodium 136 mmol/L (137-145) L 12/26/18 04:29 Potassium 4.8 mmol/L (3.6-5.0) 12/26/18 04:29 Chloride 103.8 mmol/L (98-107) 12/26/18 04:29 Carbon Dioxide 16 mmol/L (22-30) L 12/26/18 04:29 21 mmol/L 12/26/18 04:29 BUN 62 mg/dL (9-20) H 12/26/18 04:29 2.2 mg/dL (0.8-1.5) H 12/26/18 04:29 Estimated GFR 29 ml/min 12/26/18 04:29 28 % 12/26/18 04:29 Glucose 86 mg/dL (75-100) 12/26/18 04:29 POC Glucose 111 (70-105) H 12/30/18 12:07 Lactic Acid 1.40 mmol/L (0.7-2.0) 12/24/18 05:57 Calcium 8.3 mg/dL (8.4-10.2) L 12/26/18 04:29 0.30 mg/dL (0.1-1.2) 12/23/18 23:59 AST 67 units/L (5-40) H 12/23/18 23:59 ALT 62 units/L (7-56) H 12/23/18 23:59 163 units/L (35-129) H 12/23/18 23:59 0.098 ng/mL (0.00-0.029) H 12/24/18 09:00 7.8 g/dL (6.3-8.2) 12/23/18 23:59 3.2 g/dL (3.9-5) L 12/23/18 23:59 0.7 % 12/23/18 23:59 Yellow (Yellow) 12/24/18 07:05 Clear (Clear) 12/24/18 07:05 6.0 (5.0-7.0) 12/24/18 07:05 Ur Specific [place] 1.015 (1.003-1.030) 12/24/18 07:05 30 mg/dl mg/dL (Negative) 12/24/18 07:05 Neg mg/dL (Negative) 12/24/18 07:05 Neg mg/dL (Negative) 12/24/18 07:05 Neg (Negative) 12/24/18 07:05 Neg (Negative) 12/24/18 07:05 Neg (Negative) 12/24/18 07:05 < 2.0 mg/dL (<2.0) 12/24/18 07:05 Ur Leukocyte Esterase Neg (Negative) 12/24/18 07:05 1.0 /HPF (0.0-6.0) 12/24/18 07:05 2.0 /HPF (0.0-6.0) 12/24/18 07:05 Few /HPF 12/24/18 07:05 Presumptive negative 12/19/18 Unknown Presumptive negative 12/19/18 Unknown Ur Barbiturates Screen Presumptive negative 12/19/18 Unknown Ur Phencyclidine Scrn Presumptive negative 12/19/18 Unknown Ur Amphetamines Screen Presumptive negative 12/19/18 Unknown U Benzodiazepines Scrn Presumptive negative 12/19/18 Unknown Presumptive negative 12/19/18 Unknown U Marijuana (THC) Screen Presumptive negative 12/19/18 Unknown Disclamer 12/19/18 Unknown Active Medications - Current Medications Current Medications: Generic Name Dose Route Start Last Admin Trade Name Freq PRN Reason Stop Dose Admin Acetaminophen 650 mg 12/17/18 19:40 12/30/18 05:34 Tylenol PO 650 mg Q4H PRN Administration Pain, Mild (1-3) Lipase/Protease/Amylase 1 each 12/19/18 08:41 Pancreazmeghna Benitez 10,500 Unit FEEDTUBE PRN PRN For Clogged Feeding Tube Aspirin 325 mg 12/18/18 10:00 12/30/18 10:02 Aspirin PO 325 mg QDAY TRINY Administration Atorvastatin Calcium 40 mg 12/17/18 22:00 12/29/18 21:45 Lipitor PO 40 mg QHS TRINY Administration Bisacodyl 10 mg 12/17/18 19:40 Dulcolax [place] QDAY PRN Constipation Dextrose 50 ml 12/26/18 05:14 D50w (25gm) Syringe IV PRN PRN Hypoglycemia Famotidine 10 mg 12/20/18 10:00 12/30/18 10:02 Pepcid PO 10 mg BID TRINY Administration Hydralazine HCl 10 mg 12/18/18 08:46 12/23/18 21:06 Apresoline IV 10 mg Q6H PRN Administration Hypertension Hydrochlorothiazide 25 mg 12/18/18 10:00 12/30/18 10:02 Hctz PO 25 mg QDAY TRINY Administration Sodium Chloride 1,000 mls @ 50 mls/hr 12/24/18 11:00 12/29/18 06:54 Nacl 0.9% 1000 Ml IV 50 mls/hr DIRECT TRINY Administration Piperacillin Sod/Tazobactam Sod 2.25 gm in 50 mls @ 100 mls/hr 12/24/18 17:00 12/30/18 10:01 Zosyn/Ns 2.25 Gm/50ml IV 12/31/18 23:59 100 mls/hr Q8H TRINY Administration Protocol Levofloxacin/Dextrose 500 mg in 100 mls @ 100 mls/hr 12/26/18 10:00 12/30/18 10:02 Levaquin 500mg/100ml IV 12/31/18 23:59 100 mls/hr Q48H TRINY Administration Protocol Magnesium Hydroxide 30 ml 12/17/18 19:40 Milk Of Magnesia PO Q4H PRN Constipation Metoclopramide HCl 10 mg 12/17/18 19:40 Reglan PO Q6H PRN Nausea And Vomiting Ondansetron HCl 4 mg 12/17/18 19:40 Zofran IV Q8H PRN Nausea And Vomiting Simple Syrup 15 ml 12/19/18 08:41 Simple Syrup FEEDTUBE PRN PRN Hypoglycemia Simple Syrup 30 ml 12/19/18 08:41 Simple Syrup FEEDTUBE PRN PRN Hypoglycemia Sodium Bicarbonate 325 mg 12/19/18 08:41 Sodium Bicarbonate FEEDTUBE PRN PRN For Clogged Feeding Tube Sodium Chloride 10 ml 12/17/18 19:40 12/18/18 21:47 Sodium Chloride Flush Syringe 10 Ml IV 10 ml PRN PRN Administration LINE FLUSH Nutrition/Malnutrition Assess - Dietary Evaluation Nutrition/Malnutrition Findings: Nutrition Notes Start: 12/19/18 08:36 Freq: Status: Active Protocol: Document 12/28/18 17:25 OH (Rec: 12/28/18 17:29 OH [id number]) Nutrition Notes Initial or Follow up Brief Note Labs/Tests Reviewed Pertinent Medications Reviewed Height 5 ft 3 in Weight 50.4 kg [place] Body Weight (kg) 56.36 BMI 19.6 Subjective/Other Information Pt lying in bed w/TF insuging @ 50 ml/hr. Per RN no issues w /residual/n-v. Pt. to have a swallow evaluation to determine if advancement of diet appropriate. Percent of energy/protein needs met: 100% energy and pro Burn Absent Trauma Absent Is patient on ventilator? No Is Patient Ambulatory and/or Out of Bed No REE-([facility]-confined to bed) 1320.312 Kcal/Kg value to use for calculation 30 Approximate Energy Requirements Using 1512 kcal/Kg Calculation Used for Recommendations Kcal/kg Additional Notes Pro needs 1.2-1.5g/k-76g/ day Fluid needs 1ml/kcal Nutrition Intervention Nutrition Support: Jevity 1.2 at 50ml/hr Flush with 100ml q4h Kcal 1,440 Protein (gm) 67 Carbohydrates (gm) 203 Fat (gm) 47 Fluid (mL) 968 Fiber (gm) 22 Goal #1 TF TOLERANCE Goal #2 TF to meet at least 80% of energy and pro needs Goal #3 Wt maintenance and/or gain Goal #4 DIET ADVANCEMENT Follow-Up By: 12/31/18 Additional Comments Follow for stable TF, wt
[2018-12-30] MEDS: NACL 0.9% 1000 ML 1,000 ML IV SCH (18:25)
[2018-12-31] MEDS: ZOSYN/NS 2.25 GM/50ML 2.25 GM/50 ML BAG IV SCH ×3 (01:00→18:24)
[2018-12-31 08:33] LABS: INR 12.39 (0.87-1.13)
--- NOTE | 2018-12-31 08:35 | Progress Note ---
Assessment and Plan Assessment and plan: Patient is a 83 yo man with a history of HTN and Dementia who presented to [facility] ED with AMS and found unresponsive, lying on the floor. He was found to have a acute CVA. He was also found to have Left ventricular heart thrombus. He was started on IV heparin drip followed by Coumadin initiation. He did have nose bleeding on 12/20/18 and heparin IV drip held and repeat CT head done, which did not show a bleed, so heparin iv drip resumed. When I took over care on December 22, Hospice was consulted but nephmuriel decided against Hospice and no other family available. 12/23/18, We met at bedside, along with his daughter Sherlyn, he wants everything done, his goal is to get Mr. Corona back to [facility]. We d id discuss the patient risk of Aspiration pneumonia and he agreed for PEG evaluation. Then on 12/24/18, patient became severely tachycardic and hypotensive, which did respond to IVF bolus resuscitations. His fevers, tachycardia and hypotension most likely due to Aspiration pneumonitis which i started on IV zosyn and IV levaqiun and moved him to the ICU on 12/24/18 and he was placed on bipap. GI consulted was cancelled. * MRI head: Large area of ischemia in the right MCA territory, as described abo ve. No signs of hemorrhagic transformation. * CT Head: Normal evolutionary change in large right MCA territorial infarct with no evidence of hemorrhagic transformation. There has been slight increase in the amount of edema, when compared with prior exam. * KUB. No acute findings. * Repeat CT head - Negative for bleed. * 12/17/18 TTE Conclusions: The study quality is technically difficult, global le ft ventricular systolic function is severely decreased, the estimated EF is 20-25%, abnormal LV diastolic function is observed. A thrombus is visulized in the left ventricular apex, no atrial septal defect is demonstrated by agitated saline contrast. 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 -Sepsis, repeat pCXR can not exclude underlying bibasilar pneumonia: Started iv zosyn and iv levaquin, ordered CXR, stat iv nss fluid bolus used, consulted Pulm/CCM -Acute hypoxic respiratory failure: consulted Pulm/CCM, already on heparin drip for the LV thrombus -Supratherapeutic INR with hematoma on left arm: worse this morning despite discontinuation of warfarin. Give Vitamin K and FFP consult Wound care, hold warfarin, stopped iv heparin drip -Severe tachycardia; consulted Photogravure Press Operator, also d/w Dr. Marks regarding past discussion with Photogravure Press Operator once LV thrombus was found. -Dysphagia: still with NGT, once stable GI evaluation -Acute Metabolic Encephalopathy Secondary to CVA -Left Ventricular Thrombus, supratherapeutic INR, hold Warfarin -HTN (hypertension), now hypotensive resolved -History of Dementia, supportive care, continue current therapy -Nasal Bleed, resolved -Severe Malnutrition suspected, poa, bmi 19, poa, started on NGT feed -Debility, PT consulted -DVT prophylaxis: SCD to BLE while in bed. off iv heparin drip Poor prognosis, Full code Disposition: continue inpatient care, placement pending but trouble verifying his primary insurance as medicare is secondary. [facility] is looking at patient and has accepted but Medicare is saying that patient has another primary insurance and will not pay. So, I met with Abilio and his daughter Sherlyn at nursing with Janis and they should call Medicare to looking into this. Janis called Medicare and they told her that the name of the primary insurance was called Group insurance and they had no other information regarding that insurance. We are not sure if that is a valid health insurance and Medicare is stalling and don't want to pay, our financial office is trying to find the primary Insurance known a "Group Insurance" This weeks: he needs to be GI evaluation for PEG once INR under 2 or he can go to [facility] and they can place the NGT trying o speak with Medicare to see what can be done. patient does not have anyother insurance Patient was put in restraints/mitten, to prevent the right hand from removing the lines/ngt History Interval history: Patient seen and examined, awake but not following commands. Hospitalist Physical - Physical exam Narrative exam: Gen: awake but not following commands, opens eyes spontaneously HEENT: NCAT, abn EOM, Pupils reactive, OP with ngt in place Neck: supple, no adenopathy, no thyromegaly, no JVD CVS/Heart: Regular tachy, normal S1S2, pulses present bilaterally Chest/Lungs: coarse bs b, diminished b, Symmetrical chest expansion, good air entry bilaterally GI/Abdomen: soft, NTND, good bowel sounds, no guarding or rebound /Bladder: no suprapubic tenderness, no CVA or paraspinal tenderness Extermity/Skin: no c/c/e, no obvious rash MSK: no movement left Neuro: CN 2-12 grossly intact, + focal deficits with LHP, aphasic Psych: confused - Constitutional Vitals: Temp Pulse Resp BP Pulse Ox 97.7 F 125 H 22 120/71 98 12/31/18 08:00 12/31/18 06:00 12/31/18 06:00 12/31/18 06:00 12/31/18 06:00 General appearance: Present: no acute distress, other (not responsive) Results - Labs CBC & Chem 7: 12/26/18 04:29 01/01/19 05:15 Labs: Laboratory Last Values WBC 17.8 K/mm3 (4.5-11.0) H 12/26/18 04:29 RBC 2.49 M/mm3 (3.65-5.03) L 12/26/18 04:29 Hgb 7.1 gm/dl (11.8-15.2) L 12/26/18 04:29 Hct 21.4 % (35.5-45.6) L 12/26/18 04:29 MCV 86 fl (84-94) 12/26/18 04:29 MCH 29 pg (28-32) 12/26/18 04:29 MCHC 33 % (32-34) 12/26/18 04:29 RDW 17.1 % (13.2-15.2) H 12/26/18 04:29 Plt Count 286 K/mm3 (140-440) 12/26/18 04:29 Lymph % (Auto) 15.5 % (13.4-35.0) 12/24/18 05:57 [place] % (Auto) 11.3 % (0.0-7.3) H 12/24/18 05:57 Eos % (Auto) 0.0 % (0.0-4.3) 12/24/18 05:57 Baso % (Auto) 0.6 % (0.0-1.8) 12/24/18 05:57 Lymph # 1.9 K/mm3 (1.2-5.4) 12/24/18 05:57 [place] # 1.4 K/mm3 (0.0-0.8) H 12/24/18 05:57 Eos # 0.0 K/mm3 (0.0-0.4) 12/24/18 05:57 Baso # 0.1 K/mm3 (0.0-0.1) 12/24/18 05:57 Seg Neutrophils % 72.6 % (40.0-70.0) H 12/24/18 05:57 Seg Neutrophils # 8.7 K/mm3 (1.8-7.7) H 12/24/18 05:57 PT 93.6 Sec. (12.2-14.9) H 12/31/18 07:08 INR 2.42 (0.87-1.13) H 12/30/18 04:52 APTT 37.1 Sec. (24.2-36.6) H 12/18/18 15:07 Heparin Anti-Xa Level 1.36 U.I./ml (0.3-0.7) H 12/25/18 23:00 POC ABG pH 7.484 (7.35-7.45) H 12/24/18 21:52 POC ABG pO2 63 (80-105) L 12/24/18 21:52 POC ABG HCO3 16.0 (22-26 mml/L) 12/24/18 21:52 POC ABG Total CO2 17 (23-27mmol/L) 12/24/18 21:52 POC ABG O2 Sat 94 12/24/18 21:52 POC ABG Base Excess -7 ((-2) - (+3)mmol/L) 12/24/18 21:52 32 % 12/24/18 21:52 Sodium 136 mmol/L (137-145) L 12/26/18 04:29 Potassium 4.8 mmol/L (3.6-5.0) 12/26/18 04:29 Chloride 103.8 mmol/L (98-107) 12/26/18 04:29 Carbon Dioxide 16 mmol/L (22-30) L 12/26/18 04:29 21 mmol/L 12/26/18 04:29 BUN 62 mg/dL (9-20) H 12/26/18 04:29 2.2 mg/dL (0.8-1.5) H 12/26/18 04:29 Estimated GFR 29 ml/min 12/26/18 04:29 28 % 12/26/18 04:29 Glucose 86 mg/dL (75-100) 12/26/18 04:29 POC Glucose 144 (70-105) H 12/31/18 04:42 Lactic Acid 1.40 mmol/L (0.7-2.0) 12/24/18 05:57 Calcium 8.3 mg/dL (8.4-10.2) L 12/26/18 04:29 0.30 mg/dL (0.1-1.2) 12/23/18 23:59 AST 67 units/L (5-40) H 12/23/18 23:59 ALT 62 units/L (7-56) H 12/23/18 23:59 163 units/L (35-129) H 12/23/18 23:59 0.098 ng/mL (0.00-0.029) H 12/24/18 09:00 7.8 g/dL (6.3-8.2) 12/23/18 23:59 3.2 g/dL (3.9-5) L 12/23/18 23:59 0.7 % 12/23/18 23:59 Yellow (Yellow) 12/24/18 07:05 Clear (Clear) 12/24/18 07:05 6.0 (5.0-7.0) 12/24/18 07:05 Ur Specific [place] 1.015 (1.003-1.030) 12/24/18 07:05 30 mg/dl mg/dL (Negative) 12/24/18 07:05 Neg mg/dL (Negative) 12/24/18 07:05 Neg mg/dL (Negative) 12/24/18 07:05 Neg (Negative) 12/24/18 07:05 Neg (Negative) 12/24/18 07:05 Neg (Negative) 12/24/18 07:05 < 2.0 mg/dL (<2.0) 12/24/18 07:05 Ur Leukocyte Esterase Neg (Negative) 12/24/18 07:05 1.0 /HPF (0.0-6.0) 12/24/18 07:05 2.0 /HPF (0.0-6.0) 12/24/18 07:05 Few /HPF 12/24/18 07:05 Presumptive negative 12/19/18 Unknown Presumptive negative 12/19/18 Unknown Ur Barbiturates Screen Presumptive negative 12/19/18 Unknown Ur Phencyclidine Scrn Presumptive negative 12/19/18 Unknown Ur Amphetamines Screen Presumptive negative 12/19/18 Unknown U Benzodiazepines Scrn Presumptive negative 12/19/18 Unknown Presumptive negative 12/19/18 Unknown U Marijuana (THC) Screen Presumptive negative 12/19/18 Unknown Disclamer 12/19/18 Unknown Active Medications - Current Medications Current Medications: Generic Name Dose Route Start Last Admin Trade Name Freq PRN Reason Stop Dose Admin Acetaminophen 650 mg 12/17/18 19:40 12/30/18 19:48 Tylenol PO 650 mg Q4H PRN Administration Pain, Mild (1-3) Lipase/Protease/Amylase 1 each 12/19/18 08:[address] 10,500 Unit FEEDTUBE PRN PRN For Clogged Feeding Tube Aspirin 325 mg 12/18/18 10:00 12/30/18 10:02 Aspirin PO 325 mg QDAY TRINY Administration Atorvastatin Calcium 40 mg 12/17/18 22:00 12/30/18 21:53 Lipitor PO 40 mg QHS TRINY Administration Bisacodyl 10 mg 12/17/18 19:40 Dulcolax [place] QDAY PRN Constipation Dextrose 50 ml 12/26/18 05:14 D50w (25gm) Syringe IV PRN PRN Hypoglycemia Famotidine 10 mg 12/20/18 10:00 12/30/18 21:52 Pepcid PO 10 mg BID TRINY Administration Hydralazine HCl 10 mg 12/18/18 08:46 12/23/18 21:06 Apresoline IV 10 mg Q6H PRN Administration Hypertension Hydrochlorothiazide 25 mg 12/18/18 10:00 12/30/18 10:02 Hctz PO 25 mg QDAY TRINY Administration Sodium Chloride 1,000 mls @ 50 mls/hr 12/24/18 11:00 12/30/18 18:25 Nacl 0.9% 1000 Ml IV 50 mls/hr DIRECT TRINY Administration Piperacillin Sod/Tazobactam Sod 2.25 gm in 50 mls @ 100 mls/hr 12/24/18 17:00 12/31/18 01:00 Zosyn/Ns 2.25 Gm/50ml IV 12/31/18 23:59 100 mls/hr Q8H TRINY Administration Protocol Levofloxacin/Dextrose 500 mg in 100 mls @ 100 mls/hr 12/26/18 10:00 12/30/18 10:02 Levaquin 500mg/100ml IV 12/31/18 23:59 100 mls/hr Q48H TRINY Administration Protocol Magnesium Hydroxide 30 ml 12/17/18 19:40 Milk Of Magnesia PO Q4H PRN Constipation Metoclopramide HCl 10 mg 12/17/18 19:40 Reglan PO Q6H PRN Nausea And Vomiting Ondansetron HCl 4 mg 12/17/18 19:40 Zofran IV Q8H PRN Nausea And Vomiting Simple Syrup 15 ml 12/19/18 08:41 Simple Syrup FEEDTUBE PRN PRN Hypoglycemia Simple Syrup 30 ml 12/19/18 08:41 Simple Syrup FEEDTUBE PRN PRN Hypoglycemia Sodium Bicarbonate 325 mg 12/19/18 08:41 Sodium Bicarbonate FEEDTUBE PRN PRN For Clogged Feeding Tube Sodium Chloride 10 ml 12/17/18 19:40 12/18/18 21:47 Sodium Chloride Flush Syringe 10 Ml IV 10 ml PRN PRN Administration LINE FLUSH Nutrition/Malnutrition Assess - Dietary Evaluation Nutrition/Malnutrition Findings: Nutrition Notes Start: 12/19/18 08:36 Freq: Status: Active Protocol: Document 12/28/18 17:25 OH (Rec: 12/28/18 17:29 OH [id number]) Nutrition Notes Initial or Follow up Brief Note Labs/Tests Reviewed Pertinent Medications Reviewed Height 5 ft 3 in Weight 50.4 kg [place] Body Weight (kg) 56.36 BMI 19.6 Subjective/Other Information Pt lying in bed w/TF insuging @ 50 ml/hr. Per RN no issues w /residual/n-v. Pt. to have a swallow evaluation to determine if advancement of diet appropriate. Percent of energy/protein needs met: 100% energy and pro Burn Absent Trauma Absent Is patient on ventilator? No Is Patient Ambulatory and/or Out of Bed No REE-([place]-confined to bed) 1320.312 Kcal/Kg value to use for calculation 30 Approximate Energy Requirements Using 1512 kcal/Kg Calculation Used for Recommendations Kcal/kg Additional Notes Pro needs 1.2-1.5g/k-76g/ day Fluid needs 1ml/kcal Nutrition Intervention Nutrition Support: Jevity 1.2 at 50ml/hr Flush with 100ml q4h Kcal 1,440 Protein (gm) 67 Carbohydrates (gm) 203 Fat (gm) 47 Fluid (mL) 968 Fiber (gm) 22 Goal #1 TF TOLERANCE Goal #2 TF to meet at least 80% of energy and pro needs Goal #3 Wt maintenance and/or gain Goal #4 DIET ADVANCEMENT Follow-Up By: 12/31/18 Additional Comments Follow for stable TF, wt
[2018-12-31] MEDS: ASPIRIN PO SCH (10:18)
[2018-12-31] MEDS: PEPCID PO SCH ×2 (10:18→22:26)
[2018-12-31] MEDS: HCTZ PO SCH (10:18)
--- NOTE | 2018-12-31 12:03 | Gastroenterology Consultation ---
History of Present Illness - Reason for Consult Consult date: 12/31/18 PEG placement Requesting physician: LARRY PETERSON - History of Present Illness Patient is a 83 y/o male with PMH of HTN and dementia who presented to ED with AMS after being found lying on the floor unresponsive. 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 Current being treated for above and sepsis 2/2 possible bibasilar pneumonia, acute hypoxic respiratory failure, tachycardia, acute metabolic thrombus, and acute metabolic encephalopathy. GI has been consulted for PEG placement due to dysphagia (family refused hospice and wants everything done). This morning patient was resting in bed w/o acute distress but unresponsive. No family at bedside (history obtained via chart review). Upon exam, abdomen benign. No evidence of abd pain or N/V. Tolerating TFs via NGT. Past History Past Medical History: hypertension, other (Dementia) Past Surgical History: No surgical history, Other (reviewed) Social history: single. denies: smoking, alcohol abuse, prescription drug abuse Family history: hypertension Medications and Allergies Allergies Allergy/AdvReac Type Severity Reaction Status Date / Time No Known Allergies Allergy Verified 12/17/18 19:43 Home Medications Medication Instructions Recorded Confirmed Last Taken Type Unobtainable 12/17/18 12/17/18 Unknown History Active Meds: Active Medications Acetaminophen (Tylenol) 650 mg PO Q4H PRN PRN Reason: Pain, Mild (1-3) Last Admin: 12/30/18 19:48 Dose: 650 mg Documented by: Lipase/Protease/Amylase (Pancreninae Dr 10,500 Unit) 1 each FEEDTUBE PRN PRN PRN Reason: For Clogged Feeding Tube Aspirin (Aspirin) 325 mg PO QDAY [facility] Last Admin: 12/31/18 10:18 Dose: 325 mg Documented by: Atorvastatin Calcium (Lipitor) 40 mg PO QHS [facility] Last Admin: 12/30/18 21:53 Dose: 40 mg Documented by: Bisacodyl (Dulcolax) 10 mg [place] QDAY PRN PRN Reason: Constipation Dextrose (D50w (25gm) Syringe) 50 ml IV PRN PRN PRN Reason: Hypoglycemia Famotidine (Pepcid) 10 mg PO BID [facility] Last Admin: 12/31/18 10:18 Dose: 10 mg Documented by: Hydralazine HCl (Apresoline) 10 mg IV Q6H PRN PRN Reason: Hypertension Last Admin: 12/23/18 21:06 Dose: 10 mg Documented by: Hydrochlorothiazide (Hctz) 25 mg PO QDAY [facility] Last Admin: 12/31/18 10:18 Dose: 25 mg Documented by: Sodium Chloride (Nacl 0.9% 1000 Ml) 1,000 mls @ 50 mls/hr IV DIRECT TRINY Last Admin: 12/30/18 18:25 Dose: 50 mls/hr Documented by: Piperacillin Sod/Tazobactam Sod (Zosyn/Ns 2.25 Gm/50ml) 2.25 gm in 50 mls @ 100 mls/hr IV Q8H [facility]; Protocol Stop: 12/31/18 23:59 Last Admin: 12/31/18 10:17 Dose: 100 mls/hr Documented by: Levofloxacin/Dextrose (Levaquin 500mg/100ml) 500 mg in 100 mls @ 100 mls/hr IV Q48H [facility]; Protocol Stop: 12/31/18 23:59 Last Admin: 12/30/18 10:02 Dose: 100 mls/hr Documented by: Magnesium Hydroxide (Milk Of Magnesia) 30 ml PO Q4H PRN PRN Reason: Constipation Metoclopramide HCl (Reglan) 10 mg PO Q6H PRN PRN Reason: Nausea And Vomiting Ondansetron HCl (Zofran) 4 mg IV Q8H PRN PRN Reason: Nausea And Vomiting Simple Syrup (Simple Syrup) 15 ml FEEDTUBE PRN PRN PRN Reason: Hypoglycemia Simple Syrup (Simple Syrup) 30 ml FEEDTUBE PRN PRN PRN Reason: Hypoglycemia Sodium Bicarbonate (Sodium Bicarbonate) 325 mg FEEDTUBE PRN PRN PRN Reason: For Clogged Feeding Tube Sodium Chloride (Sodium Chloride Flush Syringe 10 Ml) 10 ml IV PRN PRN PRN Reason: LINE FLUSH Last Admin: 12/18/18 21:47 Dose: 10 ml Documented by: medications reviewed/updated as required Review of Systems - Review of Systems ROS unobtainable: due to mental status Exam - Constitutional Vital Signs: Temp Pulse Resp BP Pulse Ox 97.7 F 125 H 22 120/71 98 12/31/18 08:00 12/31/18 06:00 12/31/18 06:00 12/31/18 06:00 12/31/18 06:00 General appearance: no acute distress, other (nonresponsive) - EENT ENT: other (+NGT) - Respiratory Respiratory: bilateral: diminished - Cardiovascular Rhythm: other (tachycardia) - Gastrointestinal General gastrointestinal: Present: soft, non-distended, normal bowel sounds - Labs CBC & Chem 7: 12/26/18 04:29 12/26/18 04:29 Lab Results: Laboratory Results - last 24 hr 12/30/18 12/30/18 12/31/18 12:07 18:45 00:56 PT INR POC Glucose 111 H 119 H 156 H 12/31/18 12/31/18 04:42 07:08 PT 93.6 H INR 12.39 H* POC Glucose 144 H Assessment and Plan 1.PEG placement -patient s/p massive CVA now with dysphagia -INR 12.39 today, however was 2.42 yesterday with coumadin on hold?-repeat INR pending to check accuracy -currently tolerating TFs via NGT -will consider EGD/PEG once INR <2 pending cardiac clearance -NPO after MN -continue supportive care -will follow 2.acute CVA with left hemiplegia and semi-comatose state- poor prognosis 3.sepsis (possible bibasilar pneumonia) 4.acute hypoxic respiratory failure 5.acute metabolic encephalopathy 6.left ventricular thrombus 7.tachycardia
[2018-12-31 13:33] LABS: INR 14.01 (0.87-1.13)
--- NOTE | 2018-12-31 13:54 | Progress Note ---
Assessment and Plan - Patient Problems (1) Acute renal failure Current Visit: Yes Status: Acute Plan to address problem: The setting of acute cerebrovascular accident and likely significant prerenal injury and likely underlying sepsis secondary to aspiration pneumonia. Remains on gentle IV fluid hydration. Antibiotics per primary attending. Please ensure the antibiotics dosed appropriately for renal function. Renal ultrasound reviewed without any acute abnormalities. Avoid nephrotoxins and maintain map above 65 mmHg Will order renal labs for tomorrow. (2) Acute CVA (cerebrovascular accident) Current Visit: Yes Status: Acute Plan to address problem: The setting of a large left ventricular thrombus. Patient on heparin drip at this time. Further management per primary attending. (3) Encephalopathy Current Visit: Yes Status: Acute Plan to address problem: No changes in overall encephalopathy since admission. He is essentially unresponsive at this time. He is off all sedation. Overall prognosis remains poor at this time. Hospice consult was noted. Per notes from primary attending it seems that family is not agreeable with hospice at this time. (4) HTN (hypertension) Current Visit: Yes Status: Chronic Qualifiers: Hypertension type: essential hypertension Qualified Code(s): I10 - Essential (primary) hypertension Plan to address problem: We'll monitor on current regimen at this time. Hemodynamically he remains stable. (5) Hyperkalemia Current Visit: Yes Status: Acute Plan to address problem: Likely in the setting of acute kidney injury. He is also on heparin drip which does have ulxc-[id number]-nadn effects which could also lead to hyperkalemia. We'll need to closely monitor and treat medically as necessary. He has no acute changes on telemetry. Subjective Date of service: 12/31/18 Interval history: No acute changes from renal standpoint. GI consulted for PEG tube placement. Objective - Vital Signs Vital signs: Vital Signs - 12hr 12/31/18 12/31/18 12/31/18 02:00 03:00 04:00 Temperature 97 F L Pulse Rate 114 H 124 H 127 H Pulse Rate [ 128 H From Monitor] Respiratory 19 18 18 Rate Blood Pressure 112/67 121/77 131/72 O2 Sat by Pulse 100 99 100 Oximetry 12/31/18 12/31/18 12/31/18 05:00 05:43 06:00 Temperature 97.4 F L Pulse Rate 130 H 125 H Pulse Rate [ From Monitor] Respiratory 19 22 Rate Blood Pressure 123/75 120/71 O2 Sat by Pulse 99 98 Oximetry 12/31/18 12/31/18 12/31/18 07:00 08:00 09:00 Temperature 97.7 F Pulse Rate 129 H 128 H 123 H Pulse Rate [ 117 H From Monitor] Respiratory 20 19 22 Rate Blood Pressure 120/77 123/76 121/70 O2 Sat by Pulse 98 98 98 Oximetry 12/31/18 12/31/18 12/31/18 10:00 11:00 12:00 Temperature 98.2 F Pulse Rate 129 H 128 H 111 H Pulse Rate [ 124 H From Monitor] Respiratory 27 H 26 H 22 Rate Blood Pressure 129/70 122/76 92/55 O2 Sat by Pulse 97 97 97 Oximetry 12/31/18 13:00 Temperature Pulse Rate 118 H Pulse Rate [ From Monitor] Respiratory 19 Rate Blood Pressure 106/65 O2 Sat by Pulse 99 Oximetry - General Appearance General appearance: cachectic, chronically ill, frail EENT: ATNC, PERRL Neck: no JVD, no thyromegaly Respiratory: Present: Decreased Breath Sounds Cardiology: regular, tachycardia, S1S2 Gastrointestinal: normal Integumentary: no rash Neurologic: other (non-verbal,non communicative ) Musculoskeletal: other (-edema ) - Lab 12/26/18 04:29 12/26/18 04:29 Most recent lab results Calcium 8.3 mg/dL (8.4-10.2) L 12/26/18 04:29 - Allied health notes Allied health notes reviewed: nursing Medications & Allergies - Medications Allergies/Adverse Reactions: Allergies No Known Allergies Allergy (Verified 12/17/18 19:43) Home Medications: Home Medications Medication Instructions Recorded Confirmed Last Taken Type Unobtainable 12/17/18 12/17/18 Unknown History Active Medications: Generic Name Dose Route Start Last Admin Trade Name Freq PRN Reason Stop Dose Admin Acetaminophen 650 mg 12/17/18 19:40 12/30/18 19:48 Tylenol PO 650 mg Q4H PRN Administration Pain, Mild (1-3) Lipase/Protease/Amylase 1 each 12/19/18 08:41 Pancreblack Benitez 10,500 Unit FEEDTUBE PRN PRN For Clogged Feeding Tube Aspirin 325 mg 12/18/18 10:00 12/31/18 10:18 Aspirin PO 325 mg QDAY TRINY Administration Atorvastatin Calcium 40 mg 12/17/18 22:00 12/30/18 21:53 Lipitor PO 40 mg QHS TRINY Administration Bisacodyl 10 mg 12/17/18 19:40 Dulcolax [place] QDAY PRN Constipation Dextrose 50 ml 12/26/18 05:14 D50w (25gm) Syringe IV PRN PRN Hypoglycemia Famotidine 10 mg 12/20/18 10:00 12/31/18 10:18 Pepcid PO 10 mg BID TRINY Administration Hydralazine HCl 10 mg 12/18/18 08:46 12/23/18 21:06 Apresoline IV 10 mg Q6H PRN Administration Hypertension Hydrochlorothiazide 25 mg 12/18/18 10:00 12/31/18 10:18 Hctz PO 25 mg QDAY TRINY Administration Sodium Chloride 1,000 mls @ 50 mls/hr 12/24/18 11:00 12/30/18 18:25 Nacl 0.9% 1000 Ml IV 50 mls/hr DIRECT TRINY Administration Piperacillin Sod/Tazobactam Sod 2.25 gm in 50 mls @ 100 mls/hr 12/24/18 17:00 12/31/18 10:17 Zosyn/Ns 2.25 Gm/50ml IV 12/31/18 23:59 100 mls/hr Q8H TRINY Administration Protocol Levofloxacin/Dextrose 500 mg in 100 mls @ 100 mls/hr 12/26/18 10:00 12/30/18 10:02 Levaquin 500mg/100ml IV 12/31/18 23:59 100 mls/hr Q48H TRINY Administration Protocol Magnesium Hydroxide 30 ml 12/17/18 19:40 Milk Of Magnesia PO Q4H PRN Constipation Metoclopramide HCl 10 mg 12/17/18 19:40 Reglan PO Q6H PRN Nausea And Vomiting Ondansetron HCl 4 mg 12/17/18 19:40 Zofran IV Q8H PRN Nausea And Vomiting Simple Syrup 15 ml 12/19/18 08:41 Simple Syrup FEEDTUBE PRN PRN Hypoglycemia Simple Syrup 30 ml 12/19/18 08:41 Simple Syrup FEEDTUBE PRN PRN Hypoglycemia Sodium Bicarbonate 325 mg 12/19/18 08:41 Sodium Bicarbonate FEEDTUBE PRN PRN For Clogged Feeding Tube Sodium Chloride 10 ml 12/17/18 19:40 12/18/18 21:47 Sodium Chloride Flush Syringe 10 Ml IV 10 ml PRN PRN Administration LINE FLUSH
[2018-12-31] MEDS ORDERED: VITAMIN K (ADULT ONLY) SUB-Q ONE ×2 (14:23→17:00)
--- NOTE | 2018-12-31 14:27 | Progress Note ---
Assessment and Plan Acute CVA warfarin held due to supra-therapeutic INR Severe coagulopathy Pre-op cardiac assessment Hypertension Dementia LV thrombus Dilated cardiomyopathy, uncertain duration echocardiogram revealed a severely decreased left ventricular systolic function, EF is 20-25%. Acute renal failure Sepsis Reflex sinus tachycardia Subjective Date of service: 12/31/18 Interval history: Cardiology recalled for risk assessment for PEG placement. Labs today revealed severe coagulopathy, INR 14.01 however was 2.42 yesterday. Warfarin has been on hold since 12/26. Objective Vital Signs Temp Pulse Pulse Resp BP Pulse Ox 12/31/18 13:00 118 H 19 106/65 99 12/31/18 12:00 98.2 F 111 H 124 H 22 92/55 97 12/31/18 11:00 128 H 26 H 122/76 97 12/31/18 10:00 129 H 27 H 129/70 97 12/31/18 09:00 123 H 22 121/70 98 12/31/18 08:00 97.7 F 128 H 117 H 19 123/76 98 12/31/18 07:00 129 H 20 120/77 98 12/31/18 06:00 125 H 22 120/71 98 12/31/18 05:43 97.4 F L 12/31/18 05:00 130 H 19 123/75 99 12/31/18 04:00 97 F L 127 H 128 H 18 131/72 100 12/31/18 03:00 124 H 18 121/77 99 12/31/18 02:00 114 H 19 112/67 100 12/31/18 01:00 103 H 16 116/62 100 12/31/18 00:00 98.0 F 106 H 114 H 19 111/64 100 12/30/18 23:03 115 H 20 96/58 99 12/30/18 23:00 103 H 20 96/58 99 12/30/18 22:00 114 H 23 105/56 98 12/30/18 21:00 117 H 22 95/50 98 12/30/18 20:53 99.5 F 12/30/18 20:00 97.0 F L 132 H 117 H 19 119/81 100 12/30/18 19:00 131 H 28 H 125/83 100 12/30/18 18:00 128 H 23 118/76 100 12/30/18 17:00 124 H 21 109/76 100 12/30/18 16:00 98.6 F 122 H 122 H 19 111/72 100 12/30/18 15:01 120 H 16 117/71 100 - Physical Examination General: No Apparent Distress, Cachectic Neck: Positive: trachea midline Cardiac: Positive: Tachycardia - Labs and Meds Coagulation 12/31/18 12/31/18 Range/Units 07:08 12:55 PT 93.6 H 103.1 H (12.2-14.9) Sec. INR 12.39 H* 14.01 H* (0.87-1.13) - Allied health notes Allied health notes reviewed: nursing
[2018-12-31] MEDS: TYLENOL PO PRN (22:26)
[2019-01-01] MEDS ORDERED: LANOXIN IV NR (01:45)
[2019-01-01 03:20] LABS: INR 1.66 (0.87-1.13)
[2019-01-01 05:57] LABS: Calcium 8.2 mg/dL (8.4-10.2)
--- NOTE | 2019-01-01 07:45 | Progress Note ---
Assessment and Plan - Patient Problems (1) Acute renal failure Current Visit: Yes Status: Acute Plan to address problem: The setting of acute cerebrovascular accident and likely significant prerenal injury and likely underlying sepsis secondary to aspiration pneumonia. Remains on gentle IV fluid hydration. Antibiotics per primary attending. Please ensure the antibiotics dosed appropriately for renal function. Renal ultrasound reviewed without any acute abnormalities. Avoid nephrotoxins and maintain map above 65 mmHg Overall renal function is stable. (2) Acute CVA (cerebrovascular accident) Current Visit: Yes Status: Acute Plan to address problem: The setting of a large left ventricular thrombus. Patient on heparin drip at this time. Further management per primary attending. (3) Encephalopathy Current Visit: Yes Status: Acute Plan to address problem: No changes in overall encephalopathy since admission. He is essentially unresponsive at this time. He is off all sedation. Overall prognosis remains poor at this time. Hospice consult was noted. Per notes from primary attending it seems that family is not agreeable with hospice at this time. (4) HTN (hypertension) Current Visit: Yes Status: Chronic Qualifiers: Hypertension type: essential hypertension Qualified Code(s): I10 - Essential (primary) hypertension Plan to address problem: We'll monitor on current regimen at this time. Hemodynamically he remains stable. (5) Hyperkalemia Current Visit: Yes Status: Acute Plan to address problem: Likely in the setting of acute kidney injury. He is also on heparin drip which does have mkbd-unpcrxsptmo-oryz effects which could also lead to hyperkalemia. We'll need to closely monitor and treat medically as necessary. He has no acute changes on telemetry. Subjective Date of service: 01/01/19 Interval history: No acute issues from renal standpoint. Patient is pending PEG placement. Objective - Vital Signs Vital signs: Vital Signs - 12hr 12/31/18 12/31/18 12/31/18 20:00 21:00 22:00 Temperature 100.3 F H Pulse Rate 129 H 127 H 138 H Pulse Rate [ 128 H From Monitor] Respiratory 22 20 23 Rate Blood Pressure 114/70 104/62 106/70 O2 Sat by Pulse 100 100 Oximetry 12/31/18 12/31/18 12/31/18 23:00 23:31 23:46 Temperature 99.3 F Pulse Rate 140 H 141 H Pulse Rate [ From Monitor] Respiratory 34 H 35 H Rate Blood Pressure 103/67 103/67 O2 Sat by Pulse 98 99 Oximetry 01/01/19 01/01/19 01/01/19 00:00 00:01 01:00 Temperature Pulse Rate 140 H 140 H 137 H Pulse Rate [ 134 H From Monitor] Respiratory 24 27 H 24 Rate Blood Pressure 103/67 106/67 O2 Sat by Pulse 99 97 Oximetry 01/01/19 01/01/19 01/01/19 02:00 02:56 03:00 Temperature Pulse Rate 132 H 127 H 125 H Pulse Rate [ From Monitor] Respiratory 34 H 29 H Rate Blood Pressure 94/64 91/50 O2 Sat by Pulse 97 99 Oximetry 01/01/19 01/01/19 01/01/19 03:37 04:00 05:00 Temperature 97.9 F Pulse Rate 122 H 119 H Pulse Rate [ From Monitor] Respiratory 27 H 22 Rate Blood Pressure 91/50 93/62 O2 Sat by Pulse 99 Oximetry 01/01/19 06:01 Temperature Pulse Rate 129 H Pulse Rate [ From Monitor] Respiratory 22 Rate Blood Pressure 93/62 O2 Sat by Pulse 100 Oximetry - General Appearance General appearance: cachectic, chronically ill, frail EENT: ATNC Neck: no JVD, no thyromegaly Respiratory: Present: Clear to Ascultation Cardiology: regular, S1S2 Gastrointestinal: normal, normoactive bowel sounds Integumentary: warm and dry Musculoskeletal: other (-edema ) - Lab 12/26/18 04:29 01/01/19 05:15 Most recent lab results Calcium 8.2 mg/dL (8.4-10.2) L 01/01/19 05:15 - Allied health notes Allied health notes reviewed: nursing Medications & Allergies - Medications Allergies/Adverse Reactions: Allergies No Known Allergies Allergy (Verified 12/17/18 19:43) Home Medications: Home Medications Medication Instructions Recorded Confirmed Last Taken Type Unobtainable 12/17/18 12/17/18 Unknown History Active Medications: Generic Name Dose Route Start Last Admin Trade Name Freq PRN Reason Stop Dose Admin Acetaminophen 650 mg 12/17/18 19:40 12/31/18 22:26 Tylenol PO 650 mg Q4H PRN Administration Pain, Mild (1-3) Lipase/Protease/Amylase 1 each 12/19/18 08:41 Pancreblack Benitez 10,500 Unit FEEDTUBE PRN PRN For Clogged Feeding Tube Aspirin 325 mg 12/18/18 10:00 12/31/18 10:18 Aspirin PO 325 mg QDAY TRINY Administration Atorvastatin Calcium 40 mg 12/17/18 22:00 12/31/18 22:26 Lipitor PO 40 mg QHS TRINY Administration Bisacodyl 10 mg 12/17/18 19:40 Dulcolax [place] QDAY PRN Constipation Dextrose 50 ml 12/26/18 05:14 D50w (25gm) Syringe IV PRN PRN Hypoglycemia Famotidine 10 mg 12/20/18 10:00 12/31/18 22:26 Pepcid PO 10 mg BID TRINY Administration Hydralazine HCl 10 mg 12/18/18 08:46 12/23/18 21:06 Apresoline IV 10 mg Q6H PRN Administration Hypertension Hydrochlorothiazide 25 mg 12/18/18 10:00 12/31/18 10:18 Hctz PO 25 mg QDAY TRINY Administration Sodium Chloride 1,000 mls @ 50 mls/hr 12/24/18 11:00 12/30/18 18:25 Nacl 0.9% 1000 Ml IV 50 mls/hr DIRECT TRINY Administration Magnesium Hydroxide 30 ml 12/17/18 19:40 Milk Of Magnesia PO Q4H PRN Constipation Metoclopramide HCl 10 mg 12/17/18 19:40 12/31/18 22:26 Reglan PO 10 mg Q6H PRN Administration Nausea And Vomiting Ondansetron HCl 4 mg 12/17/18 19:40 Zofran IV Q8H PRN Nausea And Vomiting Simple Syrup 15 ml 12/19/18 08:41 Simple Syrup FEEDTUBE PRN PRN Hypoglycemia Simple Syrup 30 ml 12/19/18 08:41 Simple Syrup FEEDTUBE PRN PRN Hypoglycemia Sodium Bicarbonate 325 mg 12/19/18 08:41 Sodium Bicarbonate FEEDTUBE PRN PRN For Clogged Feeding Tube Sodium Chloride 10 ml 12/17/18 19:40 12/18/18 21:47 Sodium Chloride Flush Syringe 10 Ml IV 10 ml PRN PRN Administration LINE FLUSH
[2019-01-01] MEDS ORDERED: CARDIZEM IV ONE (09:00)
--- NOTE | 2019-01-01 09:53 | XRay Report ---
CHEST 1 VIEW INDICATION: shortness of breath. COMPARISON: 12/24/2018 FINDINGS: Support devices: A feeding tube transverses the esophagus but its distal tip is cut off the field-of- view. Heart: Within normal limits. Lungs/Pleura: Ill-defined left lower lobe opacity is unchanged since the comparison exam. This could represent infiltrate, atelectasis or both. The remainder the lungs are clear. No large pleural effusi on or pneumothorax. Additional findings: None. IMPRESSION: No change in the ill-defined left lower lobe opacity since 12/24/2018. No new acute process. Signer Name: Devonte Starr Jr, MD Signed: 01/01/2019 9:49 AM Workstation Name: [id number]
[2019-01-01] MEDS: PEPCID PO SCH ×3 (10:11→22:43)
[2019-01-01] MEDS: HCTZ PO SCH ×2 (10:14→10:48)
[2019-01-01] MEDS: ASPIRIN PO SCH ×2 (10:25→10:48)
[2019-01-01 10:37] LABS: INR 1.46 (0.87-1.13)
--- NOTE | 2019-01-01 12:32 | Anesthesia Consultation ---
Anesthesia Consult and Med Hx - Pulmonary Hx Smoking: Yes Hx Asthma: No COPD: No Hx Pneumonia: No - Cardiovascular System Hx Hypertension: Yes - Endocrine Hx End Stage Renal Disease: No - Other Systems Hx Alcohol Use: Yes
--- NOTE | 2019-01-01 12:41 | Progress Note ---
Subjective Date of service: 01/01/19 (Explained at length to patient's Son in Law and [facility] that patient is at increased risk during anesthesia secondary to his comorbidities , they indicated that they understood and elected to proceed. ) Objective - Constitutional Vitals: Vital Signs - 12hr 01/01/19 01/01/19 01/01/19 01:00 02:00 02:56 Temperature Pulse Rate 137 H 132 H 127 H Respiratory 24 34 H Rate Blood Pressure 106/67 94/64 O2 Sat by Pulse 97 97 Oximetry 01/01/19 01/01/19 01/01/19 03:00 03:37 04:00 Temperature 97.9 F Pulse Rate 125 H 122 H Respiratory 29 H 27 H Rate Blood Pressure 91/50 91/50 O2 Sat by Pulse 99 Oximetry 01/01/19 01/01/19 01/01/19 05:00 06:01 08:00 Temperature 98.6 F Pulse Rate 119 H 129 H Respiratory 22 22 Rate Blood Pressure 93/62 93/62 O2 Sat by Pulse 99 100 Oximetry 01/01/19 01/01/19 01/01/19 08:55 09:09 12:00 Temperature 101.1 F H Pulse Rate 138 H Respiratory Rate Blood Pressure 96/76 O2 Sat by Pulse 100 Oximetry - Labs CBC & Chem 7: 12/26/18 04:29 01/01/19 05:15 Labs: Abnormal lab results 12/31/18 12/31/18 01/01/19 Range/Units 12:55 17:54 00:16 PT 103.1 H (12.2-14.9) Sec. INR 14.01 H* (0.87-1.13) Sodium (137-145) mmol/L Potassium (3.6-5.0) mmol/L Chloride (98-107) mmol/L Carbon Dioxide (22-30) mmol/L BUN (9-20) mg/dL Creatinine (0.8-1.5) mg/dL Glucose (75-100) mg/dL POC Glucose 133 H 132 H (70-105) Calcium (8.4-10.2) mg/dL 01/01/19 01/01/19 01/01/19 Range/Units 02:55 05:15 05:29 PT 19.2 H (12.2-14.9) Sec. INR 1.66 H (0.87-1.13) Sodium 148 H (137-145) mmol/L Potassium 5.2 H (3.6-5.0) mmol/L Chloride 112.6 H (98-107) mmol/L Carbon Dioxide 17 L (22-30) mmol/L BUN 46 H (9-20) mg/dL Creatinine 1.7 H (0.8-1.5) mg/dL Glucose 116 H (75-100) mg/dL POC Glucose 126 H (70-105) Calcium 8.2 L (8.4-10.2) mg/dL 01/01/19 Range/Units 10:04 PT 17.4 H (12.2-14.9) Sec. INR 1.46 H (0.87-1.13) Sodium (137-145) mmol/L Potassium (3.6-5.0) mmol/L Chloride (98-107) mmol/L Carbon Dioxide (22-30) mmol/L BUN (9-20) mg/dL Creatinine (0.8-1.5) mg/dL Glucose (75-100) mg/dL POC Glucose (70-105) Calcium (8.4-10.2) mg/dL
[2019-01-01] MEDS ORDERED: DIPRIVAN 10 MG/ML IV ONE (15:19)
[2019-01-01] MEDS ORDERED: ANCEF/STERILE WATER 2 GM/20 ML 2 GM/20 ML SYRINGE IV ONE (15:35)
[2019-01-01] MEDS ORDERED: SUBLIMAZE ONE (15:55)
--- NOTE | 2019-01-01 16:25 | Post Operative Note ---
Pre-op diagnosis: Neurogenic Dysphagia Post-op diagnosis: other (Same, S/P PEG) Findings: 1. Dobhoff tube present (removed) 2. Otherwise normal upper GI tract 3. Successful 20Fr PEG tube 3cm below L midclav line - External bumper at 3cm on the skin Procedure: EGD with PEG placement Anesthesia: MAC Surgeon: ALLA RASMUSSEN Estimated blood loss: minimal Pathology: none Specimen disposition: other (N/A) Condition: critical Disposition: ICU (Recs: 1. OK to use tube in 4 hours. 2. OK to resume IV heparin 01/02/2019 (or other anticoagulants). 3. We will loosen bumper on 01/02.)
--- NOTE | 2019-01-01 16:33 | Progress Note ---
Assessment and Plan Assessment and plan: Patient is a 83 yo man with a history of HTN and Dementia who presented to [facility] ED with AMS and found unresponsive, lying on the floor. He was found to have a acute CVA. He was also found to have Left ventricular heart thrombus. He was started on IV heparin drip followed by Coumadin initiation. He did have nose bleeding on 12/20/18 and heparin IV drip held and repeat CT head done, which did not show a bleed, so heparin iv drip resumed. When I took over care on December 22, Hospice was consulted but nephmuriel decided against Hospice and no other family available. 12/23/18, We met at bedside, along with his daughter Sherlyn, he wants everything done, his goal is to get Mr. Corona back to [facility]. We d id discuss the patient risk of Aspiration pneumonia and he agreed for PEG evaluation. Then on 12/24/18, patient became severely tachycardic and hypotensive, which did respond to IVF bolus resuscitations. His fevers, tachycardia and hypotension most likely due to Aspiration pneumonitis which i started on IV zosyn and IV levaqiun and moved him to the ICU on 12/24/18 and he was placed on bipap. GI consulted was cancelled. * MRI head: Large area of ischemia in the right MCA territory, as described abo ve. No signs of hemorrhagic transformation. * CT Head: Normal evolutionary change in large right MCA territorial infarct with no evidence of hemorrhagic transformation. There has been slight increase in the amount of edema, when compared with prior exam. * KUB. No acute findings. * Repeat CT head - Negative for bleed. * 12/17/18 TTE Conclusions: The study quality is technically difficult, global le ft ventricular systolic function is severely decreased, the estimated EF is 20-25%, abnormal LV diastolic function is observed. A thrombus is visulized in the left ventricular apex, no atrial septal defect is demonstrated by agitated saline contrast. 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 PEG Placed with much appreciation to GI team and anesthesia. -Sepsis, repeat pCXR can not exclude underlying bibasilar pneumonia: Started iv zosyn and iv levaquin, ordered CXR, stat iv nss fluid bolus used, consulted Pulm/CCM -Acute hypoxic respiratory failure: consulted Pulm/CCM, already on heparin drip for the LV thrombus -Supratherapeutic INR with hematoma on left arm: worse this morning despite discontinuation of warfarin. Give Vitamin K and FFP consult Wound care, hold warfarin, stopped iv heparin drip -Fever. ?central fever- monitor off abx, send culture -Severe tachycardia; consulted Chemical Process Equipment Operator, also d/w Dr. Marks regarding past discussion with Chemical Process Equipment Operator once LV thrombus was found. -Dysphagia: still with NGT, once stable GI evaluation -Acute Metabolic Encephalopathy Secondary to CVA -Left Ventricular Thrombus, supratherapeutic INR, hold Warfarin -HTN (hypertension), now hypotensive resolved -History of Dementia, supportive care, continue current therapy -Nasal Bleed, resolved -Severe Malnutrition suspected, poa, bmi 19, poa, started on NGT feed -Debility, PT consulted -DVT prophylaxis: SCD to BLE while in bed. off iv heparin drip Poor prognosis, Full code Disposition: continue inpatient care, placement pending but trouble verifying his primary insurance as medicare is secondary. [facility] but Medicare is saying that patient has another primary insurance and will not pay. So, I met with Abilio and his daughter Sherlyn at nursing with Janis and they should call Medicare to looking into this. Janis called Medicare and they told her that the name of the primary insurance was called Group insurance and they had no other information regarding that insurance. We are not sure if that is a valid health insurance and Medicare is stalling and don't want to pay, our financial office is trying to find the primary Insurance known a "Group Insurance" This weeks: he needs to be GI evaluation for PEG once INR under 2 or he can go to [facility] and they can place the NGT trying o speak with Medicare to see what can be done. patient does not have anyother insurance Patient was put in restraints/mitten, to prevent the right hand from removing the lines/ngt History Interval history: Patient seen and examined, awake but not following commands. Hospitalist Physical - Physical exam Narrative exam: Gen: awake but not following commands, opens eyes spontaneously HEENT: NCAT, abn EOM, Pupils reactive, OP with ngt in place Neck: supple, no adenopathy, no thyromegaly, no JVD CVS/Heart: Regular tachy, normal S1S2, pulses present bilaterally Chest/Lungs: coarse bs b, diminished b, Symmetrical chest expansion, good air entry bilaterally GI/Abdomen: soft, NTND, good bowel sounds, no guarding or rebound /Bladder: no suprapubic tenderness, no CVA or paraspinal tenderness Extermity/Skin: no c/c/e, no obvious rash MSK: no movement left Neuro: CN 2-12 grossly intact, + focal deficits with LHP, aphasic Psych: confused - Constitutional Vitals: Temp Pulse Resp BP Pulse Ox 101.1 F H 138 H 24 96/76 100 01/01/19 12:00 01/01/19 08:55 01/01/19 08:00 01/01/19 08:55 01/01/19 09:09 General appearance: Present: no acute distress, other (not responsive) Results - Labs CBC & Chem 7: 12/26/18 04:29 01/01/19 05:15 Labs: Laboratory Last Values WBC 17.8 K/mm3 (4.5-11.0) H 12/26/18 04:29 RBC 2.49 M/mm3 (3.65-5.03) L 12/26/18 04:29 Hgb 7.1 gm/dl (11.8-15.2) L 12/26/18 04:29 Hct 21.4 % (35.5-45.6) L 12/26/18 04:29 MCV 86 fl (84-94) 12/26/18 04:29 MCH 29 pg (28-32) 12/26/18 04:29 MCHC 33 % (32-34) 12/26/18 04:29 RDW 17.1 % (13.2-15.2) H 12/26/18 04:29 Plt Count 286 K/mm3 (140-440) 12/26/18 04:29 Lymph % (Auto) 15.5 % (13.4-35.0) 12/24/18 05:57 Arroyo % (Auto) 11.3 % (0.0-7.3) H 12/24/18 05:57 Eos % (Auto) 0.0 % (0.0-4.3) 12/24/18 05:57 Baso % (Auto) 0.6 % (0.0-1.8) 12/24/18 05:57 Lymph # 1.9 K/mm3 (1.2-5.4) 12/24/18 05:57 Arroyo # 1.4 K/mm3 (0.0-0.8) H 12/24/18 05:57 Eos # 0.0 K/mm3 (0.0-0.4) 12/24/18 05:57 Baso # 0.1 K/mm3 (0.0-0.1) 12/24/18 05:57 Seg Neutrophils % 72.6 % (40.0-70.0) H 12/24/18 05:57 Seg Neutrophils # 8.7 K/mm3 (1.8-7.7) H 12/24/18 05:57 PT 17.4 Sec. (12.2-14.9) H 01/01/19 10:04 INR 1.46 (0.87-1.13) H 01/01/19 10:04 APTT 37.1 Sec. (24.2-36.6) H 12/18/18 15:07 Heparin Anti-Xa Level 1.36 U.I./ml (0.3-0.7) H 12/25/18 23:00 POC ABG pH 7.484 (7.35-7.45) H 12/24/18 21:52 POC ABG pO2 63 (80-105) L 12/24/18 21:52 POC ABG HCO3 16.0 (22-26 mml/L) 12/24/18 21:52 POC ABG Total CO2 17 (23-27mmol/L) 12/24/18 21:52 POC ABG O2 Sat 94 12/24/18 21:52 POC ABG Base Excess -7 ((-2) - (+3)mmol/L) 12/24/18 21:52 32 % 12/24/18 21:52 Sodium 148 mmol/L (137-145) H 01/01/19 05:15 Potassium 5.2 mmol/L (3.6-5.0) H 01/01/19 05:15 Chloride 112.6 mmol/L (98-107) H 01/01/19 05:15 Carbon Dioxide 17 mmol/L (22-30) L 01/01/19 05:15 24 mmol/L 01/01/19 05:15 BUN 46 mg/dL (9-20) H 01/01/19 05:15 1.7 mg/dL (0.8-1.5) H 01/01/19 05:15 Estimated GFR 39 ml/min 01/01/19 05:15 27 % 01/01/19 05:15 Glucose 116 mg/dL (75-100) H 01/01/19 05:15 POC Glucose 101 (70-105) 01/01/19 11:54 Lactic Acid 1.40 mmol/L (0.7-2.0) 12/24/18 05:57 Calcium 8.2 mg/dL (8.4-10.2) L 01/01/19 05:15 0.30 mg/dL (0.1-1.2) 12/23/18 23:59 AST 67 units/L (5-40) H 12/23/18 23:59 ALT 62 units/L (7-56) H 12/23/18 23:59 163 units/L (35-129) H 12/23/18 23:59 0.098 ng/mL (0.00-0.029) H 12/24/18 09:00 7.8 g/dL (6.3-8.2) 12/23/18 23:59 3.2 g/dL (3.9-5) L 12/23/18 23:59 0.7 % 12/23/18 23:59 Yellow (Yellow) 12/24/18 07:05 Clear (Clear) 12/24/18 07:05 6.0 (5.0-7.0) 12/24/18 07:05 Ur Specific [place] 1.015 (1.003-1.030) 12/24/18 07:05 30 mg/dl mg/dL (Negative) 12/24/18 07:05 Neg mg/dL (Negative) 12/24/18 07:05 Neg mg/dL (Negative) 12/24/18 07:05 Neg (Negative) 12/24/18 07:05 Neg (Negative) 12/24/18 07:05 Neg (Negative) 12/24/18 07:05 < 2.0 mg/dL (<2.0) 12/24/18 07:05 Ur Leukocyte Esterase Neg (Negative) 12/24/18 07:05 1.0 /HPF (0.0-6.0) 12/24/18 07:05 2.0 /HPF (0.0-6.0) 12/24/18 07:05 Few /HPF 12/24/18 07:05 Presumptive negative 12/19/18 Unknown Presumptive negative 12/19/18 Unknown Ur Barbiturates Screen Presumptive negative 12/19/18 Unknown Ur Phencyclidine Scrn Presumptive negative 12/19/18 Unknown Ur Amphetamines Screen Presumptive negative 12/19/18 Unknown U Benzodiazepines Scrn Presumptive negative 12/19/18 Unknown Presumptive negative 12/19/18 Unknown U Marijuana (THC) Screen Presumptive negative 12/19/18 Unknown Disclamer 12/19/18 Unknown Blood Type B POSITIVE 12/31/18 23:55 Active Medications - Current Medications Current Medications: Generic Name Dose Route Start Last Admin Trade Name Freq PRN Reason Stop Dose Admin Acetaminophen 650 mg 12/17/18 19:40 12/31/18 22:26 Tylenol PO 650 mg Q4H PRN Administration Pain, Mild (1-3) Lipase/Protease/Amylase 1 each 12/19/18 08:[address] 10,500 Unit FEEDTUBE PRN PRN For Clogged Feeding Tube Aspirin 325 mg 12/18/18 10:00 01/01/19 10:48 Aspirin PO 325 mg QDAY TRINY Administration Atorvastatin Calcium 40 mg 12/17/18 22:00 12/31/18 22:26 Lipitor PO 40 mg QHS TRINY Administration Bisacodyl 10 mg 12/17/18 19:40 Dulcolax IN QDAY PRN Constipation Dextrose 50 ml 12/26/18 05:14 D50w (25gm) Syringe IV PRN PRN Hypoglycemia Famotidine 10 mg 12/20/18 10:00 01/01/19 10:48 Pepcid PO 10 mg BID TRINY Administration Hydralazine HCl 10 mg 12/18/18 08:46 12/23/18 21:06 Apresoline IV 10 mg Q6H PRN Administration Hypertension Hydrochlorothiazide 25 mg 12/18/18 10:00 01/01/19 10:48 Hctz PO 25 mg QDAY TRINY Administration Sodium Chloride 1,000 mls @ 50 mls/hr 12/24/18 11:00 12/30/18 18:25 Nacl 0.9% 1000 Ml IV 50 mls/hr DIRECT TRINY Administration Magnesium Hydroxide 30 ml 12/17/18 19:40 Milk Of Magnesia PO Q4H PRN Constipation Metoclopramide HCl 10 mg 12/17/18 19:40 12/31/18 22:26 Reglan PO 10 mg Q6H PRN Administration Nausea And Vomiting Ondansetron HCl 4 mg 12/17/18 19:40 Zofran IV Q8H PRN Nausea And Vomiting Simple Syrup 15 ml 12/19/18 08:41 Simple Syrup FEEDTUBE PRN PRN Hypoglycemia Simple Syrup 30 ml 12/19/18 08:41 Simple Syrup FEEDTUBE PRN PRN Hypoglycemia Sodium Bicarbonate 325 mg 12/19/18 08:41 Sodium Bicarbonate FEEDTUBE PRN PRN For Clogged Feeding Tube Sodium Chloride 10 ml 12/17/18 19:40 12/18/18 21:47 Sodium Chloride Flush Syringe 10 Ml IV 10 ml PRN PRN Administration LINE FLUSH Nutrition/Malnutrition Assess - Dietary Evaluation Nutrition/Malnutrition Findings: Nutrition Notes Start: 12/19/18 08:36 Freq: Status: Active Protocol: Document 12/31/18 14:29 RM (Rec: 12/31/18 14:38 RM [id number]) Nutrition Notes Initial or Follow up Reassessment Current Diagnosis Hypertension,Stroke Other Pertinent Diagnosis Dementia, metabolic encephalopathy, (L) hemiplegia Current Diet TF - Jevity 1.2 at 50ml/hr Labs/Tests Reviewed Pertinent Medications Hydrochlorothiazide Height 5 ft 3 in Weight 50.4 kg [place] Body Weight (kg) 56.36 BMI 19.6 Subjective/Other Information PEG planned per progress note. Observed Jevity 1.2 infusing at goal rate. Per nurse pt is tolerating TF. Percent of energy/protein needs met: 95%/100% Burn Absent Trauma Absent Is patient on ventilator? No Is Patient Ambulatory and/or Out of Bed No [facility] 1320.312 Kcal/Kg value to use for calculation 30 Approximate Energy Requirements Using 1512 kcal/Kg Calculation Used for Recommendations Kcal/kg Additional Notes Pro needs 1.2-1.5g/k-76g/ day Fluid needs 1ml/kcal Nutrition Intervention Nutrition Support: Jevity 1.2 at 50ml/hr Flush with 100ml q4h Kcal 1,440 Protein (gm) 67 Carbohydrates (gm) 203 Fat (gm) 47 Fluid (mL) 968 Fiber (gm) 22 Goal #1 TF tolerance Goal #2 Continue to meet at least 80% of calorie and protein needs via TF Goal #3 Wt maintenance and/or gain Follow-Up By: 01/08/19 Additional Comments Follow for TF tolerance
--- NOTE | 2019-01-01 16:40 | Operative Report ---
PROCEDURE PERFORMED: Esophagogastroduodenoscopy with percutaneous gastrostomy tube placement. PREOPERATIVE DIAGNOSIS: Neurogenic dysphagia. POSTOPERATIVE DIAGNOSIS: Neurogenic dysphagia, status post Dobbhoff tube placement. ENDOSCOPIST: Kristopher Raza MD INSTRUMENT: Olympus video endoscope. MEDICATIONS: MAC anesthesia by Anesthesia Services as well as Ancef 2 grams intravenous prior to the start of the procedure. ESTIMATED BLOOD LOSS: Minimal. SPECIMENS: None. IMPLANTS: A 20-Tongan pull type gastrostomy tube placed in the anterior wall of the body of the stomach. HOUSEKEEPER NANNY: None. CONDITION AT COMPLETION: Critical but stable. TECHNIQUE: The family members were consulted for consent due to the patient's recent stroke and inability to provide consent. After that was obtained, the patient was placed in the supine position. The above sedative medications as well as antibiotics were given. The vital signs remained stable throughout the procedure. The endoscope was advanced from the mouth to the second portion of the duodenum under direct visualization. At that point, the bowel was insufflated and the endoscope was withdrawn into the stomach. There was a good red light reflex and indentation seen in an area 3 cm below the ribcage in the midclavicular line. The area was sterilely draped and prepped and anesthetized using local lidocaine. There was no evidence of bubbles in the syringe with either insertion or removal. We then placed a 20-Tongan pull type gastrostomy tube over a guidewire in the usual fashion. The procedure was terminated. FINDINGS: 1. Dobbhoff tube present in the antrum of the stomach prior to the start of the procedure; this was removed during the procedure. 2. Otherwise, normal upper gastrointestinal tract. 3. Successful 20-Tongan pull type gastrostomy tube placed 3 cm below the ribcage in the left midclavicular line. a. The external bumper was fixed at 3 cm on the skin. RECOMMENDATIONS: 1. The gastrostomy tube may be used within 4 hours. 2. Resume heparin at usual dose on 01/02/2019. 3. Protonix daily therapy. 4. We will loosen the gastrostomy tube bumper on 01/02/2019. JOB# [id number] MICHAEL/NTS
[2019-01-02 06:27] LABS: INR 1.29 (0.87-1.13)
[2019-01-02] MEDS ORDERED: SODIUM BICARBONATE FEEDTUBE PRN (07:56)
[2019-01-02] MEDS ORDERED: PANCREAZE DR 10,500 UNIT FEEDTUBE PRN (07:56)
[2019-01-02] MEDS ORDERED: SIMPLE SYRUP FEEDTUBE PRN ×2 (07:56)
--- NOTE | 2019-01-02 09:02 | Progress Note ---
Assessment and Plan Assessment and plan: Patient is a 83 yo man with a history of HTN and Dementia who presented to [facility] ED with AMS and found unresponsive, lying on the floor. He was found to have a acute CVA. He was also found to have Left ventricular heart thrombus. He was started on IV heparin drip followed by Coumadin initiation. He did have nose bleeding on 12/20/18 and heparin IV drip held and repeat CT head done, which did not show a bleed, so heparin iv drip resumed. When I took over care on December 22, Hospice was consulted but nephmuriel decided against Hospice and no other family available. 12/23/18, We met at bedside, along with his daughter Sherlyn, he wants everything done, his goal is to get Mr. Corona back to [facility]. We d id discuss the patient risk of Aspiration pneumonia and he agreed for PEG evaluation. Then on 12/24/18, patient became severely tachycardic and hypotensive, which did respond to IVF bolus resuscitations. His fevers, tachycardia and hypotension most likely due to Aspiration pneumonitis which i started on IV zosyn and IV levaqiun and moved him to the ICU on 12/24/18 and he was placed on bipap. GI consulted was cancelled. * MRI head: Large area of ischemia in the right MCA territory, as described abo ve. No signs of hemorrhagic transformation. * CT Head: Normal evolutionary change in large right MCA territorial infarct with no evidence of hemorrhagic transformation. There has been slight increase in the amount of edema, when compared with prior exam. * KUB. No acute findings. * Repeat CT head - Negative for bleed. * 12/17/18 TTE Conclusions: The study quality is technically difficult, global le ft ventricular systolic function is severely decreased, the estimated EF is 20-25%, abnormal LV diastolic function is observed. A thrombus is visulized in the left ventricular apex, no atrial septal defect is demonstrated by agitated saline contrast. 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 -Sepsis, repeat pCXR can not exclude underlying bibasilar pneumonia: treated with zosyn and iv levaquin, cultures were negative -Acute hypoxic respiratory failure: already on heparin drip for the LV thrombus, restart warfarin -Supratherapeutic INR with hematoma on left arm: resolved Given Vitamin K and FFP consult Wound care, hold warfarin, -Fever. ?central fever- monitor off abx, send culture: negative -Severe tachycardia; consulted Police Guard, also d/w Dr. Marks regarding past discussion with Police Guard once LV thrombus was found. Input nted -Dysphagia: still with NGT, once stable GI evaluation -Acute Metabolic Encephalopathy Secondary to CVA -Left Ventricular Thrombus, supratherapeutic INR, Resolved, warfarin restarted -HTN (hypertension), now hypotensive resolved -History of Dementia, supportive care, continue current therapy -Nasal Bleed, resolved -Severe Malnutrition suspected, poa, bmi 19, poa, started on NGT feed -Debility, PT consulted -DVT prophylaxis: SCD to BLE while in bed. off iv heparin drip GRIM prognosis, Full code Disposition: continue inpatient care, placement pending but trouble verifying his primary insurance as medicare is secondary. [facility] is looking at patient and has accepted but Medicare is saying that patient has another primary insurance and will not pay. So, I met with Abilio and his daughter Sherlyn at nursing with Janis and they should call Medicare to looking into this. Janis called Medicare and they told her that the name of the primary insurance was called Group insurance and they had no other information regarding that insurance. We are not sure if that is a valid health insurance and Medicare is stalling and don't want to pay, our financial office is trying to find the primary Insurance known a "Group Insurance" Medicare still denies patient, SNF with hospice being discussed with family Patient was put in restraints/mitten, to prevent the right hand from removing the lines/ngt History Interval history: Patient seen and examined, awake but not following commands. Pegtube placed yes terday. Patient remains tachycardic Hospitalist Physical - Physical exam Narrative exam: Gen: awake but not following commands, opens eyes spontaneously HEENT: NCAT, abn EOM, Pupils reactive, OP with ngt in place Neck: supple, no adenopathy, no thyromegaly, no JVD CVS/Heart: Regular tachy, normal S1S2, pulses present bilaterally Chest/Lungs: coarse bs b, diminished b, tachypenia Symmetrical chest expansion, good air entry bilaterally GI/Abdomen: soft, NTND, peg placed. good bowel sounds, no guarding or rebound /Bladder: no suprapubic tenderness, no CVA or paraspinal tenderness Extermity/Skin: no c/c/e, no obvious rash MSK: no movement left Neuro: CN 2-12 grossly intact, + focal deficits with LHP, aphasic Psych: confused - Constitutional Vitals: Temp Pulse Resp BP Pulse Ox 98.0 F 127 H 22 128/107 100 01/02/19 07:00 01/02/19 08:01 01/02/19 08:01 01/02/19 08:01 01/02/19 08:01 General appearance: Present: no acute distress, other (not responsive) Results - Labs CBC & Chem 7: 12/26/18 04:29 01/01/19 05:15 Labs: Laboratory Last Values WBC 17.8 K/mm3 (4.5-11.0) H 12/26/18 04:29 RBC 2.49 M/mm3 (3.65-5.03) L 12/26/18 04:29 Hgb 7.1 gm/dl (11.8-15.2) L 12/26/18 04:29 Hct 21.4 % (35.5-45.6) L 12/26/18 04:29 MCV 86 fl (84-94) 12/26/18 04:29 MCH 29 pg (28-32) 12/26/18 04:29 MCHC 33 % (32-34) 12/26/18 04:29 RDW 17.1 % (13.2-15.2) H 12/26/18 04:29 Plt Count 286 K/mm3 (140-440) 12/26/18 04:29 Lymph % (Auto) 15.5 % (13.4-35.0) 12/24/18 05:57 [place] % (Auto) 11.3 % (0.0-7.3) H 12/24/18 05:57 Eos % (Auto) 0.0 % (0.0-4.3) 12/24/18 05:57 Baso % (Auto) 0.6 % (0.0-1.8) 12/24/18 05:57 Lymph # 1.9 K/mm3 (1.2-5.4) 12/24/18 05:57 [place] # 1.4 K/mm3 (0.0-0.8) H 12/24/18 05:57 Eos # 0.0 K/mm3 (0.0-0.4) 12/24/18 05:57 Baso # 0.1 K/mm3 (0.0-0.1) 12/24/18 05:57 Seg Neutrophils % 72.6 % (40.0-70.0) H 12/24/18 05:57 Seg Neutrophils # 8.7 K/mm3 (1.8-7.7) H 12/24/18 05:57 PT 15.8 Sec. (12.2-14.9) H 01/02/19 05:20 INR 1.29 (0.87-1.13) H 01/02/19 05:20 APTT 37.1 Sec. (24.2-36.6) H 12/18/18 15:07 Heparin Anti-Xa Level 1.36 U.I./ml (0.3-0.7) H 12/25/18 23:00 POC ABG pH 7.484 (7.35-7.45) H 12/24/18 21:52 POC ABG pO2 63 (80-105) L 12/24/18 21:52 POC ABG HCO3 16.0 (22-26 mml/L) 12/24/18 21:52 POC ABG Total CO2 17 (23-27mmol/L) 12/24/18 21:52 POC ABG O2 Sat 94 12/24/18 21:52 POC ABG Base Excess -7 ((-2) - (+3)mmol/L) 12/24/18 21:52 32 % 12/24/18 21:52 Sodium 148 mmol/L (137-145) H 01/01/19 05:15 Potassium 5.2 mmol/L (3.6-5.0) H 01/01/19 05:15 Chloride 112.6 mmol/L (98-107) H 01/01/19 05:15 Carbon Dioxide 17 mmol/L (22-30) L 01/01/19 05:15 24 mmol/L 01/01/19 05:15 BUN 46 mg/dL (9-20) H 01/01/19 05:15 1.7 mg/dL (0.8-1.5) H 01/01/19 05:15 Estimated GFR 39 ml/min 01/01/19 05:15 27 % 01/01/19 05:15 Glucose 116 mg/dL (75-100) H 01/01/19 05:15 POC Glucose 132 (70-105) H 01/02/19 05:57 Lactic Acid 1.40 mmol/L (0.7-2.0) 12/24/18 05:57 Calcium 8.2 mg/dL (8.4-10.2) L 01/01/19 05:15 0.30 mg/dL (0.1-1.2) 12/23/18 23:59 AST 67 units/L (5-40) H 12/23/18 23:59 ALT 62 units/L (7-56) H 12/23/18 23:59 163 units/L (35-129) H 12/23/18 23:59 0.098 ng/mL (0.00-0.029) H 12/24/18 09:00 7.8 g/dL (6.3-8.2) 12/23/18 23:59 3.2 g/dL (3.9-5) L 12/23/18 23:59 0.7 % 12/23/18 23:59 Yellow (Yellow) 12/24/18 07:05 Clear (Clear) 12/24/18 07:05 6.0 (5.0-7.0) 12/24/18 07:05 Ur Specific [place] 1.015 (1.003-1.030) 12/24/18 07:05 30 mg/dl mg/dL (Negative) 12/24/18 07:05 Neg mg/dL (Negative) 12/24/18 07:05 Neg mg/dL (Negative) 12/24/18 07:05 Neg (Negative) 12/24/18 07:05 Neg (Negative) 12/24/18 07:05 Neg (Negative) 12/24/18 07:05 < 2.0 mg/dL (<2.0) 12/24/18 07:05 Ur Leukocyte Esterase Neg (Negative) 12/24/18 07:05 1.0 /HPF (0.0-6.0) 12/24/18 07:05 2.0 /HPF (0.0-6.0) 12/24/18 07:05 Few /HPF 12/24/18 07:05 Presumptive negative 12/19/18 Unknown Presumptive negative 12/19/18 Unknown Ur Barbiturates Screen Presumptive negative 12/19/18 Unknown Ur Phencyclidine Scrn Presumptive negative 12/19/18 Unknown Ur Amphetamines Screen Presumptive negative 12/19/18 Unknown U Benzodiazepines Scrn Presumptive negative 12/19/18 Unknown Presumptive negative 12/19/18 Unknown U Marijuana (THC) Screen Presumptive negative 12/19/18 Unknown Disclamer 12/19/18 Unknown Blood Type B POSITIVE 12/31/18 23:55 Active Medications - Current Medications Current Medications: Generic Name Dose Route Start Last Admin Trade Name Freq PRN Reason Stop Dose Admin Acetaminophen 650 mg 12/17/18 19:40 12/31/18 22:26 Tylenol PO 650 mg Q4H PRN Administration Pain, Mild (1-3) Lipase/Protease/Amylase 1 each 01/02/19 07:[address] 10,500 Unit FEEDTUBE PRN PRN For Clogged Feeding Tube Aspirin 325 mg 12/18/18 10:00 01/01/19 10:25 Aspirin PO Not Given QDAY TRINY Atorvastatin Calcium 40 mg 12/17/18 22:00 01/01/19 22:43 Lipitor PO 40 mg QHS TRINY Administration Bisacodyl 10 mg 12/17/18 19:40 Dulcolax [place] QDAY PRN Constipation Dextrose 50 ml 12/26/18 05:14 D50w (25gm) Syringe IV PRN PRN Hypoglycemia Famotidine 10 mg 12/20/18 10:00 01/01/19 22:43 Pepcid PO 10 mg BID TRINY Administration Hydralazine HCl 10 mg 12/18/18 08:46 12/23/18 21:06 Apresoline IV 10 mg Q6H PRN Administration Hypertension Hydrochlorothiazide 25 mg 12/18/18 10:00 01/01/19 10:14 Hctz PO Not Given QDAY TRINY Sodium Chloride 1,000 mls @ 50 mls/hr 12/24/18 11:00 12/30/18 18:25 Nacl 0.9% 1000 Ml IV 50 mls/hr DIRECT TRINY Administration Magnesium Hydroxide 30 ml 12/17/18 19:40 Milk Of Magnesia PO Q4H PRN Constipation Metoclopramide HCl 10 mg 12/17/18 19:40 12/31/18 22:26 Reglan PO 10 mg Q6H PRN Administration Nausea And Vomiting Ondansetron HCl 4 mg 12/17/18 19:40 Zofran IV Q8H PRN Nausea And Vomiting Simple Syrup 15 ml 01/02/19 07:56 Simple Syrup FEEDTUBE PRN PRN Hypoglycemia Simple Syrup 30 ml 01/02/19 07:56 Simple Syrup FEEDTUBE PRN PRN Hypoglycemia Sodium Bicarbonate 325 mg 01/02/19 07:56 Sodium Bicarbonate FEEDTUBE PRN PRN For Clogged Feeding Tube Sodium Chloride 10 ml 12/17/18 19:40 12/18/18 21:47 Sodium Chloride Flush Syringe 10 Ml IV 10 ml PRN PRN Administration LINE FLUSH Nutrition/Malnutrition Assess - Dietary Evaluation Nutrition/Malnutrition Findings: Nutrition Notes Start: 12/19/18 08:36 Freq: Status: Active Protocol: Document 12/31/18 14:29 RM (Rec: 12/31/18 14:38 RM [email or web address]) Nutrition Notes Initial or Follow up Reassessment Current Diagnosis Hypertension,Stroke Other Pertinent Diagnosis Dementia, metabolic encephalopathy, (L) hemiplegia Current Diet TF - Jevity 1.2 at 50ml/hr Labs/Tests Reviewed Pertinent Medications Hydrochlorothiazide Height 5 ft 3 in Weight 50.4 kg [place] Body Weight (kg) 56.36 BMI 19.6 Subjective/Other Information PEG planned per progress note. Observed Jevity 1.2 infusing at goal rate. Per nurse pt is tolerating TF. Percent of energy/protein needs met: 95%/100% Burn Absent Trauma Absent Is patient on ventilator? No Is Patient Ambulatory and/or Out of Bed No REE-([facility]-confined to bed) 1320.312 Kcal/Kg value to use for calculation 30 Approximate Energy Requirements Using 1512 kcal/Kg Calculation Used for Recommendations Kcal/kg Additional Notes Pro needs 1.2-1.5g/k-76g/ day Fluid needs 1ml/kcal Nutrition Intervention Nutrition Support: Jevity 1.2 at 50ml/hr Flush with 100ml q4h Kcal 1,440 Protein (gm) 67 Carbohydrates (gm) 203 Fat (gm) 47 Fluid (mL) 968 Fiber (gm) 22 Goal #1 TF tolerance Goal #2 Continue to meet at least 80% of calorie and protein needs via TF Goal #3 Wt maintenance and/or gain Follow-Up By: 01/08/19 Additional Comments Follow for TF tolerance
[2019-01-02] MEDS: ASPIRIN PO SCH (09:30)
[2019-01-02] MEDS: HCTZ PO SCH (09:30)
[2019-01-02] MEDS: PEPCID PO SCH ×2 (09:30→21:09)
--- NOTE | 2019-01-02 12:10 | Progress Note ---
Assessment and Plan 1. Acute CVA 2. Dilated cardiomyopathy left ventricular ejection fraction 20-25% 3. Acute renal failure 4. Sepsis 5. Dementia 6. Status post supratherapeutic therapeutic INR Plan. Patient is stable. Not a candidate for invasive management. continue conservative mangement. Subjective Date of service: 01/02/19 Interval history: Patient is demented Objective Vital Signs Temp Pulse Pulse Pulse Pulse Pulse Pulse 01/02/19 11:01 127 H 01/02/19 10:00 133 H 01/02/19 09:01 133 H 01/02/19 08:01 127 H 01/02/19 08:00 97.8 F 127 H 121 H 127 H 01/02/19 07:01 132 H 01/02/19 07:00 98.0 F 01/02/19 06:01 127 H 01/02/19 05:01 124 H 01/02/19 04:01 123 H 01/02/19 04:00 123 H 121 H 121 H 121 H 121 H 121 H 01/02/19 03:00 98.2 F 122 H 01/02/19 02:01 121 H 01/02/19 01:01 118 H 01/02/19 00:01 114 H 01/02/19 00:00 114 H 114 H 114 H 114 H 114 H 114 H 01/01/19 23:45 115 H 01/01/19 23:01 119 H 01/01/19 23:00 98.2 F 01/01/19 22:01 117 H 01/01/19 21:01 120 H 01/01/19 20:30 01/01/19 20:25 122 H 01/01/19 20:01 125 H 01/01/19 20:00 126 H 126 H 126 H 124 H 126 H 126 H 01/01/19 19:01 120 H 01/01/19 18:01 127 H 01/01/19 17:01 120 H 01/01/19 17:00 99.0 F 01/01/19 16:45 98.4 F 01/01/19 16:35 117 H 01/01/19 16:30 99.4 F 01/01/19 16:28 117 H 01/01/19 16:23 114 H 01/01/19 16:18 99 F 124 H 01/01/19 16:01 119 H 01/01/19 16:00 99 F 01/01/19 15:45 99 F 120 H 01/01/19 15:00 118 H 01/01/19 14:00 119 H 01/01/19 13:00 123 H Pulse Resp BP Pulse Ox 01/02/19 11:01 24 125/67 100 01/02/19 10:00 25 H 119/70 100 01/02/19 09:01 20 100 01/02/19 08:01 22 128/107 100 01/02/19 08:00 20 100 01/02/19 07:01 25 H 128/107 100 01/02/19 07:00 01/02/19 06:01 23 140/30 100 01/02/19 05:01 25 H 140/30 100 01/02/19 04:01 23 95/59 100 01/02/19 04:00 121 H 16 140/30 100 01/02/19 03:00 18 110/50 100 01/02/19 02:01 19 110/50 100 01/02/19 01:01 17 85/67 100 01/02/19 00:01 20 107/51 100 01/02/19 00:00 114 H 21 100 01/01/19 23:45 22 100 01/01/19 23:01 19 88/70 100 01/01/19 23:00 01/01/19 22:01 23 143/58 100 01/01/19 21:01 24 136/61 100 01/01/19 20:30 98 01/01/19 20:25 24 142/70 99 01/01/19 20:01 23 147/62 99 01/01/19 20:00 126 H 16 100 01/01/19 19:01 21 135/60 99 01/01/19 18:01 26 H 134/72 99 01/01/19 17:01 22 146/65 98 01/01/19 17:00 22 164/60 94 01/01/19 16:45 20 148/78 97 01/01/19 16:35 24 152/59 98 01/01/19 16:30 22 146/64 96 01/01/19 16:28 21 126/64 97 01/01/19 16:23 22 154/72 97 01/01/19 16:18 23 145/58 100 01/01/19 16:01 15 123/66 100 01/01/19 16:00 01/01/19 15:45 22 146/65 98 01/01/19 15:00 22 145/58 100 01/01/19 14:00 20 133/68 100 01/01/19 13:00 25 H 138/51 100 - Physical Examination General: No Apparent Distress, Cachectic HEENT: Positive: PERRL Neck: Positive: trachea midline. Negative: JVD/HJR Cardiac: Positive: Reg Rate and Rhythm, S1/S2, S3, S4, PMI, Laterally Displaced Lungs: Positive: clear to auscultation, No Wheeze, Rales, Rhonchi Extremities: Absent: edema - Labs and Meds Coagulation 01/02/19 Range/Units 05:20 PT 15.8 H (12.2-14.9) Sec. INR 1.29 H (0.87-1.13) - Allied health notes Allied health notes reviewed: nursing
--- NOTE | 2019-01-02 12:55 | Gastroenterology Progress Note ---
Assessment and Plan Dysphagia Malnutrition - s/p PEG placement on 01/01/2019. - exam today appeared without any signs of complication. outer bumper loosened. - tube feeding going well. rec - ok to resume anticoagulation today as indicated. - continue with tube feeds per nutrition - keep head of bed elevated. - clean the outer area daily. - will sign off. Subjective Date of service: 01/02/19 Interval history: Patient underwent EGD with PEG placement on 01/01/2019. No other overnight issues. Objective - Constitutional Vitals: Temp Pulse Resp BP Pulse Ox 98 F 123 H 22 125/67 100 01/02/19 12:00 01/02/19 12:01 01/02/19 12:01 01/02/19 12:01 01/02/19 12:01 - EENT Eyes: EOM intact - Respiratory Respiratory effort: normal - Cardiovascular Rhythm: regular Heart Sounds: Present: S1 & S2 - Extremities Extremities: No edema - Gastrointestinal General gastrointestinal: Present: soft, non-tender, non-distended, other (PEG tube in place, outer bumper loosened) - Neurologic Neurological: other (nonverbal) - Labs CBC & Chem 7: 12/26/18 04:29 01/01/19 05:15 Labs: Laboratory Results - last 24 hr 12/31/18 01/01/19 01/02/19 23:55 18:31 00:06 PT INR POC Glucose 99 124 H Blood Type B POSITIVE 01/02/19 01/02/19 05:20 05:57 PT 15.8 H INR 1.29 H POC Glucose 132 H Blood Type
--- NOTE | 2019-01-02 15:53 | Progress Note ---
Assessment and Plan - Patient Problems (1) Acute kidney injury Current Visit: Yes Status: Acute Plan to address problem: Labs not drawn today. Follow-up electrolytes and renal function in the morning. (2) Hypernatremia Current Visit: Yes Status: Acute Plan to address problem: Sodium was not checked today. Continue free water replacement. Follow-up sod ium (3) Acute CVA (cerebrovascular accident) Current Visit: Yes Status: Acute Plan to address problem: Continue management by primary attending. (4) Encephalopathy Current Visit: Yes Status: Acute Plan to address problem: Monitor mental status (5) Hyperkalemia Current Visit: Yes Status: Acute Plan to address problem: Potassium was high normal. Follow potassium in the morning (6) HTN (hypertension) Current Visit: Yes Status: Chronic Qualifiers: Hypertension type: essential hypertension Qualified Code(s): I10 - Essential (primary) hypertension Plan to address problem: Blood pressure is low normal. Decrease the dose of thiazide diuretic and follow-up blood pressure Subjective Date of service: 01/02/19 Principal diagnosis: acute kidney injury Interval history: Patient seen lying in bed. He is not communicating verbally. No family at the bedside. Objective - Exam Narrative Exam: Elderly male lying in bed in no acute distress, mouth opem on oxygen via nasal cannula HEENT: NCAT, pink oral mucous membrane Neck: Supple, no venous distention CVS: S1S2 RRR with no murmur, rub or gallop Chest: Clear to auscultation Abdomen: Protuberant, soft, nontender, no organomegaly, bowel sounds are present Extremities: Left upper soft tissue swelling, dressing intact left forearm Neuro: Awake, moaning, not following commands, - Vital Signs Vital signs: Vital Signs - 12hr 01/02/19 01/02/19 01/02/19 04:00 04:01 05:01 Temperature Pulse Rate 123 H 123 H 124 H Pulse Rate [ 121 H Apical] Pulse Rate [ 121 H From Monitor] Pulse Rate [ 121 H Left Dorsalis Pedis] Pulse Rate [ 121 H Left Radial] Pulse Rate [ 121 H Right Dorsalis Pedis] Pulse Rate [ 121 H Right Radial] Respiratory 16 23 25 H Rate Blood Pressure 140/30 95/59 140/30 O2 Sat by Pulse 100 100 100 Oximetry 01/02/19 01/02/19 01/02/19 06:01 07:00 07:01 Temperature 98.0 F Pulse Rate 127 H 132 H Pulse Rate [ Apical] Pulse Rate [ From Monitor] Pulse Rate [ Left Dorsalis Pedis] Pulse Rate [ Left Radial] Pulse Rate [ Right Dorsalis Pedis] Pulse Rate [ Right Radial] Respiratory 23 25 H Rate Blood Pressure 140/30 128/107 O2 Sat by Pulse 100 100 Oximetry 01/02/19 01/02/19 01/02/19 08:00 08:01 09:01 Temperature 97.8 F Pulse Rate 127 H 127 H 133 H Pulse Rate [ Apical] Pulse Rate [ From Monitor] Pulse Rate [ Left Dorsalis Pedis] Pulse Rate [ Left Radial] Pulse Rate [ 127 H Right Dorsalis Pedis] Pulse Rate [ Right Radial] Respiratory 20 22 20 Rate Blood Pressure 128/107 O2 Sat by Pulse 100 100 100 Oximetry 01/02/19 01/02/19 01/02/19 10:00 11:01 12:00 Temperature 98 F Pulse Rate 133 H 127 H Pulse Rate [ Apical] Pulse Rate [ From Monitor] Pulse Rate [ Left Dorsalis Pedis] Pulse Rate [ Left Radial] Pulse Rate [ 128 H Right Dorsalis Pedis] Pulse Rate [ Right Radial] Respiratory 25 H 24 20 Rate Blood Pressure 119/70 125/67 O2 Sat by Pulse 100 100 100 Oximetry 01/02/19 01/02/19 01/02/19 12:01 13:06 14:41 Temperature 99.7 F H Pulse Rate 123 H 126 H Pulse Rate [ Apical] Pulse Rate [ From Monitor] Pulse Rate [ Left Dorsalis Pedis] Pulse Rate [ Left Radial] Pulse Rate [ Right Dorsalis Pedis] Pulse Rate [ Right Radial] Respiratory 22 22 Rate Blood Pressure 125/67 116/64 O2 Sat by Pulse 100 99 96 Oximetry - Lab 12/26/18 04:29 01/01/19 05:15 Most recent lab results Calcium 8.2 mg/dL (8.4-10.2) L 01/01/19 05:15 Medications & Allergies - Medications Allergies/Adverse Reactions: Allergies No Known Allergies Allergy (Verified 12/17/18 19:43) Home Medications: Home Medications Medication Instructions Recorded Confirmed Last Taken Type Unobtainable 12/17/18 12/17/18 Unknown History Active Medications: Generic Name Dose Route Start Last Admin Trade Name Freq PRN Reason Stop Dose Admin Acetaminophen 650 mg 12/17/18 19:40 12/31/18 22:26 Tylenol PO 650 mg Q4H PRN Administration Pain, Mild (1-3) Lipase/Protease/Amylase 1 each 01/02/19 07:56 Pancreblack Benitez 10,500 Unit FEEDTUBE PRN PRN For Clogged Feeding Tube Aspirin 325 mg 12/18/18 10:00 01/02/19 09:30 Aspirin PO 325 mg QDAY TRINY Administration Atorvastatin Calcium 40 mg 12/17/18 22:00 01/01/19 22:43 Lipitor PO 40 mg QHS TRINY Administration Bisacodyl 10 mg 12/17/18 19:40 Dulcolax ID QDAY PRN Constipation Dextrose 50 ml 12/26/18 05:14 D50w (25gm) Syringe IV PRN PRN Hypoglycemia Famotidine 10 mg 12/20/18 10:00 01/02/19 09:30 Pepcid PO 10 mg BID TRINY Administration Hydralazine HCl 10 mg 12/18/18 08:46 12/23/18 21:06 Apresoline IV 10 mg Q6H PRN Administration Hypertension Hydrochlorothiazide 25 mg 12/18/18 10:00 01/02/19 09:30 Hctz PO 25 mg QDAY TRINY Administration Sodium Chloride 1,000 mls @ 50 mls/hr 12/24/18 11:00 12/30/18 18:25 Nacl 0.9% 1000 Ml IV 50 mls/hr DIRECT TRINY Administration Magnesium Hydroxide 30 ml 12/17/18 19:40 Milk Of Magnesia PO Q4H PRN Constipation Metoclopramide HCl 10 mg 12/17/18 19:40 12/31/18 22:26 Reglan PO 10 mg Q6H PRN Administration Nausea And Vomiting Ondansetron HCl 4 mg 12/17/18 19:40 Zofran IV Q8H PRN Nausea And Vomiting Simple Syrup 15 ml 01/02/19 07:56 Simple Syrup FEEDTUBE PRN PRN Hypoglycemia Simple Syrup 30 ml 01/02/19 07:56 Simple Syrup FEEDTUBE PRN PRN Hypoglycemia Sodium Bicarbonate 325 mg 01/02/19 07:56 Sodium Bicarbonate FEEDTUBE PRN PRN For Clogged Feeding Tube Sodium Chloride 10 ml 12/17/18 19:40 12/18/18 21:47 Sodium Chloride Flush Syringe 10 Ml IV 10 ml PRN PRN Administration LINE FLUSH
[2019-01-02] MEDS: NACL 0.9% 1000 ML 1,000 ML IV SCH (19:53)
[2019-01-02] MEDS: SODIUM CHLORIDE FLUSH SYRINGE 10 ML IV PRN (21:09)
[2019-01-03 04:47] LABS: INR 1.29 (0.87-1.13)
[2019-01-03 04:53] LABS: Hematocrit 21.4 % (35.5-45.6); Hemoglobin 6.6 gm/dl (11.8-15.2); Mean Corpuscular HGB Conc 31 % (32-34); Mean Corpuscular Volume 90 fl (84-94); Platelet Count 579 K/mm3 (140-440); Red Blood Count 2.37 M/mm3 (3.65-5.03); Red Cell Distribution Width 18.3 % (13.2-15.2)
[2019-01-03 05:00] LABS: Calcium 8.8 mg/dL (8.4-10.2)
[2019-01-03] MEDS: TYLENOL PO PRN (09:43)
[2019-01-03] MEDS: HCTZ PO SCH (09:45)
[2019-01-03] MEDS: PEPCID PO SCH ×2 (09:45→22:29)
[2019-01-03] MEDS: ASPIRIN PO SCH (09:45)
--- NOTE | 2019-01-03 09:48 | Progress Note ---
Assessment and Plan Assessment and plan: Patient is a 83 yo man with a history of HTN and Dementia who presented to [facility] ED with AMS and found unresponsive, lying on the floor. He was found to have a acute CVA. He was also found to have Left ventricular heart thrombus. He was started on IV heparin drip followed by Coumadin initiation. He did have nose bleeding on 12/20/18 and heparin IV drip held and repeat CT head done, which did not show a bleed, so heparin iv drip resumed. When I took over care on December 22, Hospice was consulted but nephmuriel decided against Hospice and no other family available. 12/23/18, We met at bedside, along with his daughter Sherlyn, he wants everything done, his goal is to get Mr. Corona back to [facility]. We d id discuss the patient risk of Aspiration pneumonia and he agreed for PEG evaluation. Then on 12/24/18, patient became severely tachycardic and hypotensive, which did respond to IVF bolus resuscitations. His fevers, tachycardia and hypotension most likely due to Aspiration pneumonitis which i started on IV zosyn and IV levaqiun and moved him to the ICU on 12/24/18 and he was placed on bipap. GI consulted was cancelled. * MRI head: Large area of ischemia in the right MCA territory, as described abo ve. No signs of hemorrhagic transformation. * CT Head: Normal evolutionary change in large right MCA territorial infarct with no evidence of hemorrhagic transformation. There has been slight increase in the amount of edema, when compared with prior exam. * KUB. No acute findings. * Repeat CT head - Negative for bleed. * 12/17/18 TTE Conclusions: The study quality is technically difficult, global le ft ventricular systolic function is severely decreased, the estimated EF is 20-25%, abnormal LV diastolic function is observed. A thrombus is visulized in the left ventricular apex, no atrial septal defect is demonstrated by agitated saline contrast. * conservative management per cardiology * Risk of continued anticoagulation being re-evaluated in setting of worsening anemia. 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 -Fever. ?central fever- monitor off abx, send culture: negative. START ON CEFEPIME DUE TO WORSENING LEUKOCYTOSIS, OBTAIN REPEAT CULTURES -Severe tachycardia; consulted [employer], also d/w Dr. Marks regarding past discussion with [employer] once LV thrombus was found. Input nted -Sepsis, repeat pCXR can not exclude underlying bibasilar pneumonia: treated with zosyn and iv levaquin, cultures were negative -Severe ANEMIA- ? bleed.. obtain ct A/P. hold warfarin. Transfuse. continue PPI -Acute hypoxic respiratory failure: already on heparin drip for the LV thrombus, Hold in the setting of severe anemia -Supratherapeutic INR with hematoma on left arm: resolved Given Vitamin K and FFP consult Wound care, hold warfarin, -Dysphagia: still with NGT, once stable GI evaluation -Acute Metabolic Encephalopathy Secondary to CVA -Left Ventricular Thrombus, supratherapeutic INR, Resolved, warfarin HELD IN THE SETTING OF SEVERE ANEMIA -HTN (hypertension), now hypotensive resolved -History of Dementia, supportive care, continue current therapy -Nasal Bleed, resolved -Severe Malnutrition suspected, poa, bmi 19, poa, started on NGT feed -Debility, PT consulted -DVT prophylaxis: SCD to BLE while in bed. off iv heparin drip GRIM prognosis, Full code Disposition: continue inpatient care, placement pending but trouble verifying his primary insurance as medicare is secondary. [facility] is looking at patient and has accepted but Medicare is saying that patient has another primary insurance and will not pay. So, I met with Abilio and his daughter Sherlyn at nursing with Janis and they should call Medicare to looking into this. Janis called Medicare and they told her that the name of the primary insurance was called Group insurance and they had no other information regarding that insurance. We are not sure if that is a valid health insurance and Medicare is stalling and don't want to pay, our financial office is trying to find the primary Insurance known a "Group Insurance" Medicare still denies patient, SNF with hospice being discussed with family Patient was put in restraints/mitten, to prevent the right hand from removing the lines/ngt History Interval history: Patient seen and examined, awake but not following commands. Pegtube and tolerating tube fed Patient remains tachycardic Hospitalist Physical - Physical exam Narrative exam: Gen: awake but not following commands, opens eyes spontaneously HEENT: NCAT, abn EOM, Pupils reactive, Neck: supple, no adenopathy, no thyromegaly, no JVD CVS/Heart: Regular tachy, normal S1S2, pulses present bilaterally Chest/Lungs: coarse bs b, diminished , tachypenia Symmetrical chest expansion, good air entry bilaterally GI/Abdomen: soft, NTND, peg placed. good bowel sounds, no guarding or rebound /Bladder: no suprapubic tenderness, no CVA or paraspinal tenderness Extermity/Skin: no c/c/e, no obvious rash MSK: no movement left Neuro: CN 2-12 grossly intact, + focal deficits with LHP, aphasic Psych: confused - Constitutional Vitals: Temp Pulse Resp BP Pulse Ox 100.1 F H 135 H 22 124/81 98 01/03/19 07:11 01/03/19 07:11 01/03/19 07:11 01/03/19 07:11 01/03/19 09:36 General appearance: Present: no acute distress, other (not responsive) Results - Labs CBC & Chem 7: 01/03/19 04:04 01/03/19 04:04 Labs: Laboratory Last Values WBC 20.9 K/mm3 (4.5-11.0) H 01/03/19 04:04 RBC 2.37 M/mm3 (3.65-5.03) L 01/03/19 04:04 Hgb 6.6 gm/dl (11.8-15.2) L 01/03/19 04:04 Hct 21.4 % (35.5-45.6) L 01/03/19 04:04 MCV 90 fl (84-94) 01/03/19 04:04 MCH 28 pg (28-32) 01/03/19 04:04 MCHC 31 % (32-34) L 01/03/19 04:04 RDW 18.3 % (13.2-15.2) H 01/03/19 04:04 Plt Count 579 K/mm3 (140-440) H 01/03/19 04:04 Lymph % (Auto) 15.5 % (13.4-35.0) 12/24/18 05:57 Miner % (Auto) 11.3 % (0.0-7.3) H 12/24/18 05:57 Eos % (Auto) 0.0 % (0.0-4.3) 12/24/18 05:57 Baso % (Auto) 0.6 % (0.0-1.8) 12/24/18 05:57 Lymph # 1.9 K/mm3 (1.2-5.4) 12/24/18 05:57 Miner # 1.4 K/mm3 (0.0-0.8) H 12/24/18 05:57 Eos # 0.0 K/mm3 (0.0-0.4) 12/24/18 05:57 Baso # 0.1 K/mm3 (0.0-0.1) 12/24/18 05:57 Seg Neutrophils % 72.6 % (40.0-70.0) H 12/24/18 05:57 Seg Neutrophils # 8.7 K/mm3 (1.8-7.7) H 12/24/18 05:57 PT 15.8 Sec. (12.2-14.9) H 01/03/19 04:04 INR 1.29 (0.87-1.13) H 01/03/19 04:04 APTT 37.1 Sec. (24.2-36.6) H 12/18/18 15:07 Heparin Anti-Xa Level 1.36 U.I./ml (0.3-0.7) H 12/25/18 23:00 POC ABG pH 7.484 (7.35-7.45) H 12/24/18 21:52 POC ABG pO2 63 (80-105) L 12/24/18 21:52 POC ABG HCO3 16.0 (22-26 mml/L) 12/24/18 21:52 POC ABG Total CO2 17 (23-27mmol/L) 12/24/18 21:52 POC ABG O2 Sat 94 12/24/18 21:52 POC ABG Base Excess -7 ((-2) - (+3)mmol/L) 12/24/18 21:52 32 % 12/24/18 21:52 Sodium 149 mmol/L (137-145) H 01/03/19 04:04 Potassium 5.0 mmol/L (3.6-5.0) 01/03/19 04:04 Chloride 116.5 mmol/L (98-107) H 01/03/19 04:04 Carbon Dioxide 17 mmol/L (22-30) L 01/03/19 04:04 21 mmol/L 01/03/19 04:04 BUN 58 mg/dL (9-20) H 01/03/19 04:04 1.9 mg/dL (0.8-1.5) H 01/03/19 04:04 Estimated GFR 34 ml/min 01/03/19 04:04 31 % 01/03/19 04:04 Glucose 125 mg/dL (75-100) H 01/03/19 04:04 POC Glucose 130 (70-105) H 01/03/19 07:12 Lactic Acid 1.40 mmol/L (0.7-2.0) 12/24/18 05:57 Calcium 8.8 mg/dL (8.4-10.2) 01/03/19 04:04 0.30 mg/dL (0.1-1.2) 12/23/18 23:59 AST 67 units/L (5-40) H 12/23/18 23:59 ALT 62 units/L (7-56) H 12/23/18 23:59 163 units/L (35-129) H 12/23/18 23:59 0.098 ng/mL (0.00-0.029) H 12/24/18 09:00 7.8 g/dL (6.3-8.2) 12/23/18 23:59 3.2 g/dL (3.9-5) L 12/23/18 23:59 0.7 % 12/23/18 23:59 Yellow (Yellow) 12/24/18 07:05 Clear (Clear) 12/24/18 07:05 6.0 (5.0-7.0) 12/24/18 07:05 Ur Specific [place] 1.015 (1.003-1.030) 12/24/18 07:05 30 mg/dl mg/dL (Negative) 12/24/18 07:05 Neg mg/dL (Negative) 12/24/18 07:05 Neg mg/dL (Negative) 12/24/18 07:05 Neg (Negative) 12/24/18 07:05 Neg (Negative) 12/24/18 07:05 Neg (Negative) 12/24/18 07:05 < 2.0 mg/dL (<2.0) 12/24/18 07:05 Ur Leukocyte Esterase Neg (Negative) 12/24/18 07:05 1.0 /HPF (0.0-6.0) 12/24/18 07:05 2.0 /HPF (0.0-6.0) 12/24/18 07:05 Few /HPF 12/24/18 07:05 Presumptive negative 12/19/18 Unknown Presumptive negative 12/19/18 Unknown Ur Barbiturates Screen Presumptive negative 12/19/18 Unknown Ur Phencyclidine Scrn Presumptive negative 12/19/18 Unknown Ur Amphetamines Screen Presumptive negative 12/19/18 Unknown U Benzodiazepines Scrn Presumptive negative 12/19/18 Unknown Presumptive negative 12/19/18 Unknown U Marijuana (THC) Screen Presumptive negative 12/19/18 Unknown Disclamer 12/19/18 Unknown Blood Type B POSITIVE 12/31/18 23:55 Active Medications - Current Medications Current Medications: Generic Name Dose Route Start Last Admin Trade Name Freq PRN Reason Stop Dose Admin Acetaminophen 650 mg 12/17/18 19:40 12/31/18 22:26 Tylenol PO 650 mg Q4H PRN Administration Pain, Mild (1-3) Lipase/Protease/Amylase 1 each 01/02/19 07:[address] 10,500 Unit FEEDTUBE PRN PRN For Clogged Feeding Tube Aspirin 325 mg 12/18/18 10:00 01/02/19 09:30 Aspirin PO 325 mg QDAY TRINY Administration Atorvastatin Calcium 40 mg 12/17/18 22:00 01/02/19 21:09 Lipitor PO 40 mg QHS TRINY Administration Bisacodyl 10 mg 12/17/18 19:40 Dulcolax [place] QDAY PRN Constipation Dextrose 50 ml 12/26/18 05:14 D50w (25gm) Syringe IV PRN PRN Hypoglycemia Famotidine 10 mg 12/20/18 10:00 01/02/19 21:09 Pepcid PO 10 mg BID TRINY Administration Hydralazine HCl 10 mg 12/18/18 08:46 12/23/18 21:06 Apresoline IV 10 mg Q6H PRN Administration Hypertension Hydrochlorothiazide 12.5 mg 01/03/19 10:00 Hctz PO QDAY TRINY Sodium Chloride 1,000 mls @ 50 mls/hr 12/24/18 11:00 01/02/19 19:53 Nacl 0.9% 1000 Ml IV 50 mls/hr DIRECT TRINY Administration Magnesium Hydroxide 30 ml 12/17/18 19:40 Milk Of Magnesia PO Q4H PRN Constipation Metoclopramide HCl 10 mg 12/17/18 19:40 12/31/18 22:26 Reglan PO 10 mg Q6H PRN Administration Nausea And Vomiting Ondansetron HCl 4 mg 12/17/18 19:40 Zofran IV Q8H PRN Nausea And Vomiting Simple Syrup 15 ml 01/02/19 07:56 Simple Syrup FEEDTUBE PRN PRN Hypoglycemia Simple Syrup 30 ml 01/02/19 07:56 Simple Syrup FEEDTUBE PRN PRN Hypoglycemia Sodium Bicarbonate 325 mg 01/02/19 07:56 Sodium Bicarbonate FEEDTUBE PRN PRN For Clogged Feeding Tube Sodium Chloride 10 ml 12/17/18 19:40 01/02/19 21:09 Sodium Chloride Flush Syringe 10 Ml IV 10 ml PRN PRN Administration LINE FLUSH Nutrition/Malnutrition Assess - Dietary Evaluation Nutrition/Malnutrition Findings: Nutrition Notes Start: 12/19/18 08:36 Freq: Status: Active Protocol: Document 01/02/19 09:57 LP (Rec: 01/02/19 10:11 LP [id number]) Nutrition Notes Initial or Follow up Reassessment Current Diagnosis Hypertension,Stroke Other Pertinent Diagnosis Dementia, metabolic encephalopathy, (L) hemiplegia Current Diet Jevity 1.2 at 50ml/hr Labs/Tests 01/01- Na 148 K 5.2 BUN 46 Cr 1.7 Pertinent Medications Reviewed Height 5 ft 3 in Weight 50.45 kg Fletcher Body Weight (kg) 56.36 BMI 19.7 Subjective/Other Information Consult for TF. Pt tolerating Jevity 1.2 at 50ml/hr but renal function has worsened since admission and TF needing to be changed. PEG placed. Percent of energy/protein needs met: 95%/100% Burn Absent Trauma Absent Minimum of two criteria Yes Body Fat Depletion Mild depletion (non-severe) Muscle Mass Mild Depletion (non-severe) Reduced Casting Cleaner Strength Measurably Reduced (severe) #2 Nutrition Diagnosis Malnutrition Etiology dementia As Evidenced by Signs and Symptoms Pt with noticable muscle and fat loss, reduced cisco network architect strength and PEG placement #1 Nutrition Diagnosis Inadequate oral intake Diagnosis Progress(for reassessment Continues documentation) Is patient on ventilator? No Is Patient Ambulatory and/or Out of Bed No REE-([place]-confined to bed) 1320.912 Kcal/Kg value to use for calculation 30 Approximate Energy Requirements Using 1514 kcal/Kg Calculation Used for Recommendations Kcal/kg Additional Notes Pro needs 1.2-1.5g/k-76g/ day Fluid needs 1ml/kcal Nutrition Intervention Change Diet Order: TF Nutrition Support: Change to Nepro at 35ml/hr Flush with 200ml q4h for hypernatremia and 150ml q4h once resolved Kcal 1,512 Protein (gm) 68 Fluid (mL) 611 Goal #1 TF tolerance Goal #2 Continue to meet at least 80% of calorie and protein needs via TF Goal #3 Wt maintenance and/or gain Goal #4 Improve K labs Anticipated Discharge Needs: TF Follow-Up By: 01/04/19 Additional Comments Follow for TF change/tolerance , renal labs
[2019-01-03] MEDS ORDERED: MAXIPIME/NS 2 GM/100 ML 2 GM/100 ML BAG IV SCH (10:00)
[2019-01-03] MEDS ORDERED: NACL 0.9% 500 ML 500 ML IV ONE (11:00)
--- NOTE | 2019-01-03 11:24 | Progress Note ---
Assessment and Plan 1. Acute CVA 2. Dilated cardiomyopathy left ventricular ejection fraction 20-25% 3. Acute renal failure 4. Sepsis 5. Dementia 6. Status post supratherapeutic therapeutic INR Plan. Patient is stable. Not a candidate for invasive management. continue conservative mangement. Subjective Date of service: 01/03/19 Principal diagnosis: acute kidney injury Interval history: Patient is demented Objective Vital Signs Temp Pulse Pulse Resp BP BP Pulse Ox 01/03/19 09:36 98 01/03/19 07:11 100.1 F H 135 H 22 124/81 100 01/03/19 02:35 99.5 F 57 L 18 114/75 97 01/03/19 00:14 143 H 22 98 01/02/19 20:52 99 01/02/19 19:22 98.1 F 135 H 22 139/73 100 01/02/19 14:41 96 01/02/19 14:31 125/67 01/02/19 14:23 97 H 125/67 01/02/19 13:06 99.7 F H 126 H 22 116/64 116/64 99 01/02/19 12:01 123 H 22 125/67 100 01/02/19 12:00 98 F 128 H 20 100 - Physical Examination General: No Apparent Distress, Cachectic HEENT: Positive: PERRL Neck: Positive: trachea midline. Negative: JVD/HJR Cardiac: Positive: Regular Rate, S1/S2, PMI, Dilated, Laterally Displaced. Negative: S4 Lungs: Positive: clear to auscultation, No Wheeze, Rales, Rhonchi Neuro: Positive: Other (demented) Extremities: Absent: edema - Labs and Meds Coagulation 01/03/19 Range/Units 04:04 PT 15.8 H (12.2-14.9) Sec. INR 1.29 H (0.87-1.13) CBC 01/03/19 Range/Units 04:04 WBC 20.9 H (4.5-11.0) K/mm3 RBC 2.37 L (3.65-5.03) M/mm3 Hgb 6.6 L (11.8-15.2) gm/dl Hct 21.4 L (35.5-45.6) % Plt Count 579 H (140-440) K/mm3 Comprehensive Metabolic Panel 01/03/19 Range/Units 04:04 Sodium 149 H (137-145) mmol/L Potassium 5.0 (3.6-5.0) mmol/L Chloride 116.5 H (98-107) mmol/L Carbon Dioxide 17 L (22-30) mmol/L BUN 58 H (9-20) mg/dL Creatinine 1.9 H (0.8-1.5) mg/dL Glucose 125 H (75-100) mg/dL Calcium 8.8 (8.4-10.2) mg/dL - Allied health notes Allied health notes reviewed: nursing
[2019-01-03] MEDS: MAXIPIME/NS 1 GM/100 ML 1 GM/100 ML BAG IV SCH (12:00)
--- NOTE | 2019-01-03 13:41 | Cat Scan Report ---
CT ABDOMEN AND PELVIS WITHOUT IV CONTRAST INDICATION: EVAL FOR OCCULT BLEEDING. COMPARISON: None available. TECHNIQUE: All CT scans at this facility use dose modulation, automated exposure control, iterative reconstructi on or weight based dosing, when appropriate, to reduce radiation dose to as low as reasonably achieva ble. FINDINGS: Lung Bases: There is consolidation in the dependent left lower lobe. Distal thoracic aortic is aneury smal, measuring 4.5 x 4.2 cm on axial image 29. Skeletal System: No acute abnormality. There is chronic L2 compression deformity. ABDOMEN: Liver: Normal. Gallbladder: Not well visualized. Bile Ducts: Normal. Pancreas: Normal. Spleen: Normal. Adrenals: Normal. Right Kidney: Normal. Left Kidney: Normal. Stomach and Bowel: Gastrostomy is noted. Small bowel is diffusely dilated with air-fluid levels. Lymph Nodes: No significant adenopathy. Aorta: No significant abnormality. Additional Findings: There are punctate foci of free air in the anterior upper abdomen. PELVIS: Colon: Colon is distended. No colonic inflammation is seen. Urinary Bladder and Distal Ureters: Normal. Appendix: Normal. Lymph Nodes: No significant adenopathy. 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 IMPRESSION: 1. There are couple punctate foci of free air in the upper abdomen. This may be related to gastrosto my, given the small foci of subcutaneous gas along the gastrostomy tract. Correlate clinically. 2. 4.5 cm distal thoracic aortic aneurysm. 3. 3.1 cm left common iliac artery aneurysm. 4. Diffuse distention of small bowel and colon may be due to adynamic ileus. 5. Left lower lobe pneumonia. 6. Left hip effusion. COMMUNICATION: Time of Communication: 1237 central p.m. Licensed Practitioner Receiving Report: POLO Braga confirmed the percutaneous gastrostomy was placed Friday. Signer Name: Jony Delgado MD Signed: 01/03/2019 1:37 PM Workstation Name: [id number]
[2019-01-03 14:18] LABS: Hematocrit 20.1 % (35.5-45.6); Hemoglobin 6.3 gm/dl (11.8-15.2)
--- NOTE | 2019-01-03 14:38 | Progress Note ---
Assessment and Plan - Patient Problems (1) Acute kidney injury Current Visit: Yes Status: Acute Plan to address problem: Acute kidney injury/acute tubular necrosis. Kidney function is a bit worse. Resume Volume repletion with hypotonic saline given the hypernatremia. Follow- up electrolytes and renal function in the morning. (2) Hypernatremia Current Visit: Yes Status: Acute Plan to address problem: Sodium is still high. Increase free water replacement. Follow-up sodium (3) Acute CVA (cerebrovascular accident) Current Visit: Yes Status: Acute Plan to address problem: Continue management by primary attending. (4) Encephalopathy Current Visit: Yes Status: Acute Plan to address problem: Monitor mental status (5) Hyperkalemia Current Visit: Yes Status: Acute Plan to address problem: Potassium was high normal. Follow potassium in the morning (6) HTN (hypertension) Current Visit: Yes Status: Chronic Qualifiers: Hypertension type: essential hypertension Qualified Code(s): I10 - Essential (primary) hypertension Plan to address problem: Blood pressure is low normal. Decrease the dose of thiazide diuretic and follow-up blood pressure (7) Sepsis Status: Acute Plan to address problem: worsening leukocytosis is concerning. Patient is on cefepime. Follow up cultures Subjective Date of service: 01/03/19 Principal diagnosis: acute kidney injury Interval history: Patient seen lying in bed. He is not communicating verbally. No family at the bedside. Objective - Exam Narrative Exam: Elderly male lying in bed in no acute distress, mouth opem on oxygen via nasal cannula HEENT: NCAT, pink oral mucous membrane Neck: Supple, no venous distention CVS: S1S2 RRR with no murmur, rub or gallop Chest: Clear to auscultation Abdomen: Protuberant, soft, nontender, no organomegaly, bowel sounds are present Extremities: Left upper soft tissue swelling, dressing intact left forearm Neuro: Awake, moaning, not following commands, - Vital Signs Vital signs: Vital Signs - 12hr 01/03/19 01/03/19 01/03/19 02:35 07:11 09:36 Temperature 99.5 F 100.1 F H Pulse Rate 57 L 135 H Respiratory 18 22 Rate Blood Pressure 114/75 124/81 O2 Sat by Pulse 97 100 98 Oximetry 01/03/19 13:46 Temperature 98.8 F Pulse Rate 108 H Respiratory 20 Rate Blood Pressure 90/61 O2 Sat by Pulse 100 Oximetry - Lab 01/03/19 13:28 01/03/19 04:04 Most recent lab results Calcium 8.8 mg/dL (8.4-10.2) 01/03/19 04:04 Medications & Allergies - Medications Allergies/Adverse Reactions: Allergies No Known Allergies Allergy (Verified 12/17/18 19:43) Home Medications: Home Medications Medication Instructions Recorded Confirmed Last Taken Type Unobtainable 12/17/18 12/17/18 Unknown History Active Medications: Generic Name Dose Route Start Last Admin Trade Name Freq PRN Reason Stop Dose Admin Acetaminophen 650 mg 12/17/18 19:40 01/03/19 09:43 Tylenol PO 650 mg Q4H PRN Administration Pain, Mild (1-3) Lipase/Protease/Amylase 1 each 01/02/19 07:[address] 10,500 Unit FEEDTUBE PRN PRN For Clogged Feeding Tube Aspirin 325 mg 12/18/18 10:00 01/03/19 09:45 Aspirin PO 325 mg QDAY TRINY Administration Atorvastatin Calcium 40 mg 12/17/18 22:00 01/02/19 21:09 Lipitor PO 40 mg QHS TRINY Administration Bisacodyl 10 mg 12/17/18 19:40 Dulcolax [place] QDAY PRN Constipation Dextrose 50 ml 12/26/18 05:14 D50w (25gm) Syringe IV PRN PRN Hypoglycemia Famotidine 10 mg 12/20/18 10:00 01/03/19 09:45 Pepcid PO 10 mg BID TRINY Administration Hydralazine HCl 10 mg 12/18/18 08:46 12/23/18 21:06 Apresoline IV 10 mg Q6H PRN Administration Hypertension Hydrochlorothiazide 12.5 mg 01/03/19 10:00 01/03/19 09:45 Hctz PO 12.5 mg QDAY TRINY Administration Sodium Chloride 1,000 mls @ 50 mls/hr 12/24/18 11:00 01/02/19 19:53 Nacl 0.9% 1000 Ml IV 50 mls/hr DIRECT TRINY Administration Cefepime HCl 1 gm in 100 mls @ 200 mls/hr 01/03/19 11:00 01/03/19 12:00 Maxipime/Ns 1 Gm/100 Ml IV 200 mls/hr Q12HR TRINY Administration Magnesium Hydroxide 30 ml 12/17/18 19:40 Milk Of Magnesia PO Q4H PRN Constipation Metoclopramide HCl 10 mg 12/17/18 19:40 12/31/18 22:26 Reglan PO 10 mg Q6H PRN Administration Nausea And Vomiting Ondansetron HCl 4 mg 12/17/18 19:40 Zofran IV Q8H PRN Nausea And Vomiting Simple Syrup 15 ml 01/02/19 07:56 Simple Syrup FEEDTUBE PRN PRN Hypoglycemia Simple Syrup 30 ml 01/02/19 07:56 Simple Syrup FEEDTUBE PRN PRN Hypoglycemia Sodium Bicarbonate 325 mg 01/02/19 07:56 Sodium Bicarbonate FEEDTUBE PRN PRN For Clogged Feeding Tube Sodium Chloride 10 ml 12/17/18 19:40 01/02/19 21:09 Sodium Chloride Flush Syringe 10 Ml IV 10 ml PRN PRN Administration LINE FLUSH
[2019-01-04] MEDS: MAXIPIME/NS 1 GM/100 ML 1 GM/100 ML BAG IV SCH ×3 (00:25→21:30)
[2019-01-04] MEDS ORDERED: LOPRESSOR PO ONE (03:00)
[2019-01-04] MEDS: TYLENOL PO PRN ×2 (03:16→18:34)
[2019-01-04 05:19] LABS: Hematocrit 22.2 % (35.5-45.6); Hemoglobin 7.3 gm/dl (11.8-15.2); Mean Corpuscular HGB Conc 33 % (32-34); Mean Corpuscular Volume 87 fl (84-94); Platelet Count 632 K/mm3 (140-440); Red Blood Count 2.55 M/mm3 (3.65-5.03); Red Cell Distribution Width 17.3 % (13.2-15.2)
[2019-01-04 05:27] LABS: INR 1.25 (0.87-1.13)
[2019-01-04 05:35] LABS: Calcium 8.3 mg/dL (8.4-10.2)
[2019-01-04] MEDS ORDERED: NACL 0.9% 1000 ML 1,000 ML IV ONE (08:58)
[2019-01-04] MEDS ORDERED: VANCOMYCIN PHARMACY TO DOSE IV SCH (09:00)
[2019-01-04] MEDS: ASPIRIN PO SCH (10:25)
[2019-01-04] MEDS: PEPCID PO SCH ×2 (10:25→21:30)
[2019-01-04] MEDS: HCTZ PO SCH (10:32)
--- NOTE | 2019-01-04 10:59 | Progress Note ---
Assessment and Plan - Patient Problems (1) Acute kidney injury Current Visit: Yes Status: Acute Plan to address problem: Acute kidney injury/acute tubular necrosis. Kidney function is a bit worse. Resume Volume repletion with hypotonic saline given the hypernatremia. Follow- up electrolytes and renal function in the morning. (2) Hypernatremia Current Visit: Yes Status: Acute Plan to address problem: Sodium is still high. Increase free water replacement. IVF changed to D5 1/2 NS (3) Acute CVA (cerebrovascular accident) Current Visit: Yes Status: Acute Plan to address problem: Continue management by primary attending. (4) Encephalopathy Current Visit: Yes Status: Acute Plan to address problem: Monitor mental status (5) Hyperkalemia Current Visit: Yes Status: Acute Plan to address problem: Potassium was high normal. Follow potassium in the morning (6) HTN (hypertension) Current Visit: Yes Status: Chronic Qualifiers: Hypertension type: essential hypertension Qualified Code(s): I10 - Essential (primary) hypertension Plan to address problem: Blood pressure is low normal. D/C HCTZ. (7) Sepsis Current Visit: Yes Status: Acute Plan to address problem: worsening leukocytosis is concerning. Patient is on cefepime. Follow up cultures Subjective Date of service: 01/04/19 Principal diagnosis: acute kidney injury Interval history: Pt is awake, not communicating verbally Objective - Vital Signs Vital signs: Vital Signs - 12hr 01/03/19 01/03/19 01/03/19 23:00 23:28 23:58 Temperature 97.2 F L 98 F Pulse Rate 121 H 92 H 75 Respiratory 24 Rate Blood Pressure 122/77 118/54 Blood Pressure [Left] O2 Sat by Pulse 95 Oximetry 01/04/19 01/04/19 01/04/19 02:00 02:30 03:03 Temperature 102.5 F H 102.5 F H Pulse Rate 128 H 143 H 128 H Respiratory 20 20 Rate Blood Pressure 126/75 112/73 Blood Pressure 112/78 [Left] O2 Sat by Pulse 98 75 L Oximetry 01/04/19 01/04/19 01/04/19 06:03 07:54 08:45 Temperature 100.5 F H Pulse Rate 103 H 103 H Respiratory 20 Rate Blood Pressure 95/52 84/48 Blood Pressure [Left] O2 Sat by Pulse 96 94 100 Oximetry - General Appearance General appearance: appears stated age, chronically ill, frail EENT: ATNC, PERRL, mucous membranes dry Neck: no JVD Respiratory: Present: Clear to Ascultation Cardiology: regular, S1S2 Gastrointestinal: normoactive bowel sounds Integumentary: no rash - Lab 01/04/19 04:58 01/04/19 04:58 Most recent lab results Calcium 8.3 mg/dL (8.4-10.2) L 01/04/19 04:58 Medications & Allergies - Medications Allergies/Adverse Reactions: Allergies No Known Allergies Allergy (Verified 12/17/18 19:43) Home Medications: Home Medications Medication Instructions Recorded Confirmed Last Taken Type Unobtainable 12/17/18 12/17/18 Unknown History Active Medications: Generic Name Dose Route Start Last Admin Trade Name Freq PRN Reason Stop Dose Admin Acetaminophen 650 mg 12/17/18 19:40 01/04/19 03:16 Tylenol PO 650 mg Q4H PRN Administration Pain, Mild (1-3) Lipase/Protease/Amylase 1 each 01/02/19 07:[address] 10,500 Unit FEEDTUBE PRN PRN For Clogged Feeding Tube Aspirin 325 mg 12/18/18 10:00 01/04/19 10:25 Aspirin PO 325 mg QDAY TRINY Administration Atorvastatin Calcium 40 mg 12/17/18 22:00 01/03/19 22:28 Lipitor PO Not Given QHS TRINY Bisacodyl 10 mg 12/17/18 19:40 Dulcolax [place] QDAY PRN Constipation Dextrose 50 ml 12/26/18 05:14 D50w (25gm) Syringe IV PRN PRN Hypoglycemia Famotidine 10 mg 12/20/18 10:00 01/04/19 10:25 Pepcid PO 10 mg BID TRINY Administration Hydralazine HCl 10 mg 12/18/18 08:46 12/23/18 21:06 Apresoline IV 10 mg Q6H PRN Administration Hypertension Hydrochlorothiazide 12.5 mg 01/03/19 10:00 01/04/19 10:32 Hctz PO Not Given QDAY TRINY Cefepime HCl 1 gm in 100 mls @ 200 mls/hr 01/03/19 11:00 01/04/19 10:24 Maxipime/Ns 1 Gm/100 Ml IV 200 mls/hr Q12HR TRINY Administration Vancomycin HCl 1 gm in 250 mls @ 166.667 mls/hr 01/04/19 12:00 Vancomycin/Ns 1 Gm/250 Ml IV 01/04/19 13:29 ONCE ONE Dextrose/Sodium Chloride 1,000 mls @ 75 mls/hr 01/04/19 11:00 D5ns 0.2% IV DIRECT TRINY Magnesium Hydroxide 30 ml 12/17/18 19:40 Milk Of Magnesia PO Q4H PRN Constipation Metoclopramide HCl 10 mg 12/17/18 19:40 12/31/18 22:26 Reglan PO 10 mg Q6H PRN Administration Nausea And Vomiting Ondansetron HCl 4 mg 12/17/18 19:40 Zofran IV Q8H PRN Nausea And Vomiting Simple Syrup 15 ml 01/02/19 07:56 Simple Syrup FEEDTUBE PRN PRN Hypoglycemia Simple Syrup 30 ml 01/02/19 07:56 Simple Syrup FEEDTUBE PRN PRN Hypoglycemia Sodium Bicarbonate 325 mg 01/02/19 07:56 Sodium Bicarbonate FEEDTUBE PRN PRN For Clogged Feeding Tube Sodium Chloride 10 ml 12/17/18 19:40 01/02/19 21:09 Sodium Chloride Flush Syringe 10 Ml IV 10 ml PRN PRN Administration LINE FLUSH
--- NOTE | 2019-01-04 11:17 | Consultation ---
History of Present Illness - Reason for Consult Consult date: 01/04/19 - History of Present Illness 83 yo M PMHx HTN, dementia. He was initially admitted due to altered mental status. He was found by his son unresponsive on the floor, and was previously seen in his normal state of health earlier that same morning. When EMS arrived they found the patient to have a neurological deficit and he was transferred to hospital. 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 During the course of his hospitalization he was found to be febrile on 12/22 with a presumptive cause of aspiration pneumonia. He was started on pip-tazo at that time. During his time he continued to fever on and off, and was recently restarted on vanc and c efepime. The family is considering hospice at this time. He continues to be febrile to 102.5 with a worsening white count to 28. Blood cultures have been recurrently negative. Urinalysis negative. 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 Past History Past Medical History: hypertension, other (Dementia) Past Surgical History: No surgical history, Other (reviewed) Social history: single. denies: smoking, alcohol abuse, prescription drug abuse Family history: hypertension Medications and Allergies Allergies Allergy/AdvReac Type Severity Reaction Status Date / Time No Known Allergies Allergy Verified 12/17/18 19:43 Home Medications Medication Instructions Recorded Confirmed Last Taken Type Unobtainable 12/17/18 12/17/18 Unknown History Active Meds: Active Medications Acetaminophen (Tylenol) 650 mg PO Q4H PRN PRN Reason: Pain, Mild (1-3) Last Admin: 01/04/19 03:16 Dose: 650 mg Documented by: Lipase/Protease/Amylase (José Miguel Benitez 10,500 Unit) 1 each FEEDTUBE PRN PRN PRN Reason: For Clogged Feeding Tube Aspirin (Aspirin) 325 mg PO QDAY [facility] Last Admin: 01/04/19 10:25 Dose: 325 mg Documented by: Atorvastatin Calcium (Lipitor) 40 mg PO QHS [facility] Last Admin: 01/03/19 22:28 Dose: Not Given Documented by: Bisacodyl (Dulcolax) 10 mg [place] QDAY PRN PRN Reason: Constipation Dextrose (D50w (25gm) Syringe) 50 ml IV PRN PRN PRN Reason: Hypoglycemia Famotidine (Pepcid) 10 mg PO BID TRINY Last Admin: 01/04/19 10:25 Dose: 10 mg Documented by: Hydralazine HCl (Apresoline) 10 mg IV Q6H PRN PRN Reason: Hypertension Last Admin: 12/23/18 21:06 Dose: 10 mg Documented by: Cefepime HCl (Maxipime/Ns 1 Gm/100 Ml) 1 gm in 100 mls @ 200 mls/hr IV Q12HR TRINY Last Admin: 01/04/19 10:24 Dose: 200 mls/hr Documented by: Vancomycin HCl (Vancomycin/Ns 1 Gm/250 Ml) 1 gm in 250 mls @ 166.667 mls/hr IV ONCE ONE Stop: 01/04/19 13:29 Dextrose/Sodium Chloride (D5ns 0.2%) 1,000 mls @ 75 mls/hr IV DIRECT TRINY Magnesium Hydroxide (Milk Of Magnesia) 30 ml PO Q4H PRN PRN Reason: Constipation Metoclopramide HCl (Reglan) 10 mg PO Q6H PRN PRN Reason: Nausea And Vomiting Last Admin: 12/31/18 22:26 Dose: 10 mg Documented by: Ondansetron HCl (Zofran) 4 mg IV Q8H PRN PRN Reason: Nausea And Vomiting Simple Syrup (Simple Syrup) 15 ml FEEDTUBE PRN PRN PRN Reason: Hypoglycemia Simple Syrup (Simple Syrup) 30 ml FEEDTUBE PRN PRN PRN Reason: Hypoglycemia Sodium Bicarbonate (Sodium Bicarbonate) 325 mg FEEDTUBE PRN PRN PRN Reason: For Clogged Feeding Tube Sodium Chloride (Sodium Chloride Flush Syringe 10 Ml) 10 ml IV PRN PRN PRN Reason: LINE FLUSH Last Admin: 01/02/19 21:09 Dose: 10 ml Documented by: Review of Systems ROS unobtainable: due to mental status Physical Examination - Physical Exam Narrative exam: Constitutional: awake, no distress, following commands Head, Ears, Nose: Normocephalic, atraumatic. External ears, nose normal Eyes: Conjunctivae/corneas clear. No icterus. No ptosis. Neck: Supple, no meningeal signs Oral: fair dentition, moist mucous membranes Cardiovascular: S1, S2 normal. Normal rhythm Respiratory: decreased breath sounds, clear to auscultation bilaterally GI: Soft, non-tender; bowel sounds normal. No peritoneal signs. PEG in place. Musculoskeletal: No pedal edema, Skin: No rash or abscess Hem/Lymphatic: No palpable cervical or supraclavicular nodes. No lymphangitis Psych: no agitation Neurological: Moves all extremities, L sided hemiplegia - Constitutional Vitals: Vital Signs Temp Pulse Resp BP Pulse Ox 100.5 F H 103 H 20 84/48 100 01/04/19 07:54 01/04/19 07:54 01/04/19 07:54 01/04/19 07:54 01/04/19 08:45 Temperature -Last 24 Hours Temperature 100.5 F Temperature 102.5 F Temperature 102.5 F Temperature 98 F Temperature 97.2 F Temperature 97.5 F Temperature 97.6 F Temperature 97.4 F Temperature 97.5 F Temperature 97.3 F Temperature 98.8 F Results - Labs CBC & Chem 7: 01/04/19 04:58 01/04/19 04:58 Labs: Abnormal lab results 01/03/19 01/03/19 01/03/19 Range/Units 10:47 11:34 13:28 WBC (4.5-11.0) K/mm3 RBC (3.65-5.03) M/mm3 Hgb 6.3 L (11.8-15.2) gm/dl Hct 20.1 L (35.5-45.6) % RDW (13.2-15.2) % Plt Count (140-440) K/mm3 PT (12.2-14.9) Sec. INR (0.87-1.13) Sodium (137-145) mmol/L Chloride (98-107) mmol/L Carbon Dioxide (22-30) mmol/L BUN (9-20) mg/dL Creatinine (0.8-1.5) mg/dL POC Glucose 157 H (70-105) Calcium (8.4-10.2) mg/dL Crossmatch See Detail 01/03/19 01/04/19 01/04/19 Range/Units 19:00 00:31 04:58 WBC (4.5-11.0) K/mm3 RBC (3.65-5.03) M/mm3 Hgb (11.8-15.2) gm/dl Hct (35.5-45.6) % RDW (13.2-15.2) % Plt Count (140-440) K/mm3 PT 15.4 H (12.2-14.9) Sec. INR 1.25 H (0.87-1.13) Sodium (137-145) mmol/L Chloride (98-107) mmol/L Carbon Dioxide (22-30) mmol/L BUN (9-20) mg/dL Creatinine (0.8-1.5) mg/dL POC Glucose 108 H 112 H (70-105) Calcium (8.4-10.2) mg/dL Crossmatch 01/04/19 01/04/19 01/04/19 Range/Units 04:58 04:58 06:50 WBC 27.5 H (4.5-11.0) K/mm3 RBC 2.55 L (3.65-5.03) M/mm3 Hgb 7.3 L (11.8-15.2) gm/dl Hct 22.2 L (35.5-45.6) % RDW 17.3 H (13.2-15.2) % Plt Count 632 H (140-440) K/mm3 PT (12.2-14.9) Sec. INR (0.87-1.13) Sodium 152 H (137-145) mmol/L Chloride 118.5 H (98-107) mmol/L Carbon Dioxide 18 L (22-30) mmol/L BUN 70 H (9-20) mg/dL Creatinine 2.1 H (0.8-1.5) mg/dL POC Glucose 108 H (70-105) Calcium 8.3 L (8.4-10.2) mg/dL Crossmatch - Imaging and Cardiology Chest x-ray: image reviewed CT scan - abdomen: image reviewed Assessment and Plan Cultures: 12/24 BCx - no growth 12/30 BCx - no growth 01/03 BCx - NGTD 01/04 BCx - NGTD A/P: 83 yo M PMHx HTN, dementia admitted with CVA, now persistently febrile with LLL pneumonia. 1. Sepsis secondary to LLL pneumonia - would continue cefepime at this time and add metronidazole to cover for anaerobes. Would avoid vancomycin for now given his renal function. 2. EMILY - renally dose cefepime 3. Hypernatremia 4. CVA 5. Dementia 6. HTN Recs: - continue cefepime 1g q12h - start metronidazole 500mg q8h - follow up family decision on hospice. Thank you for the consult. We will continue to follow with you. Apurva Lucas MD [facility] ([facility]) C: [phone] O: [phone] F: [phone]
[2019-01-04] MEDS ORDERED: VANCOMYCIN/NS 1 GM/250 ML 1 GM/250 ML BAG IV ONE (12:00)
--- NOTE | 2019-01-04 15:42 | Progress Note ---
Assessment and Plan Assessment and plan: Patient is a 83 yo man with a history of HTN and Dementia who presented to [facility] ED with AMS and found unresponsive, lying on the floor. He was found to have a acute CVA. He was also found to have Left ventricular heart thrombus. He was started on IV heparin drip followed by Coumadin initiation. He did have nose bleeding on 12/20/18 and heparin IV drip held and repeat CT head done, which did not show a bleed, so heparin iv drip resumed. When I took over care on December 22, Hospice was consulted but nephmuriel decided against Hospice and no other family available. 12/23/18, We met at bedside, along with his daughter Sherlyn, he wants everything done, his goal is to get Mr. Corona back to [facility]. We d id discuss the patient risk of Aspiration pneumonia and he agreed for PEG evaluation. Then on 12/24/18, patient became severely tachycardic and hypotensive, which did respond to IVF bolus resuscitations. His fevers, tachycardia and hypotension most likely due to Aspiration pneumonitis which i started on IV zosyn and IV levaqiun and moved him to the ICU on 12/24/18 and he was placed on bipap. GI consulted was cancelled. * MRI head: Large area of ischemia in the right MCA territory, as described abo ve. No signs of hemorrhagic transformation. * CT Head: Normal evolutionary change in large right MCA territorial infarct with no evidence of hemorrhagic transformation. There has been slight increase in the amount of edema, when compared with prior exam. * KUB. No acute findings. * Repeat CT head - Negative for bleed. * 12/17/18 TTE Conclusions: The study quality is technically difficult, global le ft ventricular systolic function is severely decreased, the estimated EF is 20-25%, abnormal LV diastolic function is observed. A thrombus is visulized in the left ventricular apex, no atrial septal defect is demonstrated by agitated saline contrast. * conservative management per cardiology * Risk of continued anticoagulation being re-evaluated in setting of worsening anemia. 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 -Fever. ?central fever- monitor off abx, send culture: negative. STARTED ON CEFEPIME DUE TO WORSENING LEUKOCYTOSIS, OBTAIN REPEAT CULTURES WITH NO GROWTH SO FAR. ID consulted. Flagyl added -Severe tachycardia; consulted Retail Aide, also d/w Dr. Marks regarding past discussion with Retail Aide once LV thrombus was found. Input nted -Sepsis, repeat pCXR can not exclude underlying bibasilar pneumonia: treated with zosyn and iv levaquin, cultures were negative -Severe ANEMIA- ? bleed... hold warfarin. Transfuse. continue PPI -Acute on Chronic Kidney Injury: continue fluids. -Acute hypoxic respiratory failure: already on heparin drip for the LV thrombus, Held due to anemia. Hold in the setting of severe anemia -Supratherapeutic INR with hematoma on left arm: resolved Given Vitamin K and FFP consult Wound care, hold warfarin, -Dysphagia: still with NGT, once stable GI evaluation -Acute Metabolic Encephalopathy Secondary to CVA -Left Ventricular Thrombus, supratherapeutic INR, Resolved, warfarin HELD IN THE SETTING OF SEVERE ANEMIA -HTN (hypertension), now hypotensive resolved -History of Dementia, supportive care, continue current therapy -Nasal Bleed, resolved -Severe Malnutrition suspected, poa, bmi 19, poa, started on NGT feed -Debility, PT consulted -DVT prophylaxis: SCD to BLE while in bed. off iv heparin drip GRIM prognosis, Full code Disposition: continue inpatient care, placement pending but trouble verifying his primary insurance as medicare is secondary. [facility] is looking at patient and has accepted but Medicare is saying that patient has another primary insurance and will not pay. So, I met with Abilio and his daughter Sherlyn at nursing with Janis and they should call Medicare to looking into this. Janis called Medicare and they told her that the name of the primary insurance was called Group insurance and they had no other information regarding that insurance. We are not sure if that is a valid health insurance and Medicare is stalling and don't want to pay, our financial office is trying to find the primary Insurance known a "Group Insurance" Medicare still denies patient, SNF with hospice being discussed with family Fmaily agreeable for palliative care but still discussing about hospice. Placement work up started. Patient was put in restraints/mitten, to prevent the right hand from removing th e lines/ngt History Interval history: Patient seen and examined, awake but not following commands. Pegtube and tolerating tube fed Patient remains tachycardic, WITH INTERMITTENT FEVER Hospitalist Physical - Physical exam Narrative exam: Gen: awake but not following commands, opens eyes spontaneously HEENT: NCAT, abn EOM, Pupils reactive, Neck: supple, no adenopathy, no thyromegaly, no JVD CVS/Heart: Regular tachy, normal S1S2, pulses present bilaterally Chest/Lungs: coarse bs b, diminished , tachypenia Symmetrical chest expansion, good air entry bilaterally GI/Abdomen: soft, NTND, peg placed. good bowel sounds, no guarding or rebound /Bladder: no suprapubic tenderness, no CVA or paraspinal tenderness Extermity/Skin: no c/c/e, no obvious rash MSK: no movement left Neuro: CN 2-12 grossly intact, + focal deficits with LHP, aphasic Psych: confused - Constitutional Vitals: Temp Pulse Resp BP Pulse Ox 100.5 F H 94 H 24 87/57 99 01/04/19 07:54 01/04/19 13:00 01/04/19 13:02 01/04/19 13:02 01/04/19 10:00 General appearance: Present: no acute distress, other (not responsive) Results - Labs CBC & Chem 7: 01/04/19 04:58 01/04/19 04:58 Labs: Laboratory Last Values WBC 27.5 K/mm3 (4.5-11.0) H 01/04/19 04:58 RBC 2.55 M/mm3 (3.65-5.03) L 01/04/19 04:58 Hgb 7.3 gm/dl (11.8-15.2) L 01/04/19 04:58 Hct 22.2 % (35.5-45.6) L 01/04/19 04:58 MCV 87 fl (84-94) 01/04/19 04:58 MCH 28 pg (28-32) 01/04/19 04:58 MCHC 33 % (32-34) 01/04/19 04:58 RDW 17.3 % (13.2-15.2) H 01/04/19 04:58 Plt Count 632 K/mm3 (140-440) H 01/04/19 04:58 Lymph % (Auto) 15.5 % (13.4-35.0) 12/24/18 05:57 [place] % (Auto) 11.3 % (0.0-7.3) H 12/24/18 05:57 Eos % (Auto) 0.0 % (0.0-4.3) 12/24/18 05:57 Baso % (Auto) 0.6 % (0.0-1.8) 12/24/18 05:57 Lymph # 1.9 K/mm3 (1.2-5.4) 12/24/18 05:57 Barber # 1.4 K/mm3 (0.0-0.8) H 12/24/18 05:57 Eos # 0.0 K/mm3 (0.0-0.4) 12/24/18 05:57 Baso # 0.1 K/mm3 (0.0-0.1) 12/24/18 05:57 Seg Neutrophils % 72.6 % (40.0-70.0) H 12/24/18 05:57 Seg Neutrophils # 8.7 K/mm3 (1.8-7.7) H 12/24/18 05:57 PT 15.4 Sec. (12.2-14.9) H 01/04/19 04:58 INR 1.25 (0.87-1.13) H 01/04/19 04:58 APTT 37.1 Sec. (24.2-36.6) H 12/18/18 15:07 Heparin Anti-Xa Level 1.36 U.I./ml (0.3-0.7) H 12/25/18 23:00 POC ABG pH 7.422 (7.35-7.45) 01/04/19 02:41 POC ABG pO2 97 (80-105) 01/04/19 02:41 POC ABG HCO3 15.8 (22-26 mml/L) 01/04/19 02:41 POC ABG Total CO2 16 (23-27mmol/L) 01/04/19 02:41 POC ABG O2 Sat 98 01/04/19 02:41 POC ABG Base Excess -9 ((-2) - (+3)mmol/L) 01/04/19 02:41 30 % 01/04/19 02:41 Sodium 152 mmol/L (137-145) H 01/04/19 04:58 Potassium 4.9 mmol/L (3.6-5.0) 01/04/19 04:58 Chloride 118.5 mmol/L (98-107) H 01/04/19 04:58 Carbon Dioxide 18 mmol/L (22-30) L 01/04/19 04:58 20 mmol/L 01/04/19 04:58 BUN 70 mg/dL (9-20) H 01/04/19 04:58 2.1 mg/dL (0.8-1.5) H 01/04/19 04:58 Estimated GFR 30 ml/min 01/04/19 04:58 33 % 01/04/19 04:58 Glucose 94 mg/dL (75-100) 01/04/19 04:58 POC Glucose 90 (70-105) 01/04/19 11:38 Lactic Acid 1.40 mmol/L (0.7-2.0) 12/24/18 05:57 Calcium 8.3 mg/dL (8.4-10.2) L 01/04/19 04:58 0.30 mg/dL (0.1-1.2) 12/23/18 23:59 AST 67 units/L (5-40) H 12/23/18 23:59 ALT 62 units/L (7-56) H 12/23/18 23:59 163 units/L (35-129) H 12/23/18 23:59 0.098 ng/mL (0.00-0.029) H 12/24/18 09:00 7.8 g/dL (6.3-8.2) 12/23/18 23:59 3.2 g/dL (3.9-5) L 12/23/18 23:59 0.7 % 12/23/18 23:59 Yellow (Yellow) 12/24/18 07:05 Clear (Clear) 12/24/18 07:05 6.0 (5.0-7.0) 12/24/18 07:05 Ur Specific [place] 1.015 (1.003-1.030) 12/24/18 07:05 30 mg/dl mg/dL (Negative) 12/24/18 07:05 Neg mg/dL (Negative) 12/24/18 07:05 Neg mg/dL (Negative) 12/24/18 07:05 Neg (Negative) 12/24/18 07:05 Neg (Negative) 12/24/18 07:05 Neg (Negative) 12/24/18 07:05 < 2.0 mg/dL (<2.0) 12/24/18 07:05 Ur Leukocyte Esterase Neg (Negative) 12/24/18 07:05 1.0 /HPF (0.0-6.0) 12/24/18 07:05 2.0 /HPF (0.0-6.0) 12/24/18 07:05 Few /HPF 12/24/18 07:05 Presumptive negative 12/19/18 Unknown Presumptive negative 12/19/18 Unknown Ur Barbiturates Screen Presumptive negative 12/19/18 Unknown Ur Phencyclidine Scrn Presumptive negative 12/19/18 Unknown Ur Amphetamines Screen Presumptive negative 12/19/18 Unknown U Benzodiazepines Scrn Presumptive negative 12/19/18 Unknown Presumptive negative 12/19/18 Unknown U Marijuana (THC) Screen Presumptive negative 12/19/18 Unknown Disclamer 12/19/18 Unknown Blood Type B POSITIVE 01/03/19 10:47 Antibody Screen Negative 01/03/19 10:47 Crossmatch See Detail 01/03/19 10:47 Active Medications - Current Medications Current Medications: Generic Name Dose Route Start Last Admin Trade Name Freq PRN Reason Stop Dose Admin Acetaminophen 650 mg 12/17/18 19:40 01/04/19 03:16 Tylenol PO 650 mg Q4H PRN Administration Pain, Mild (1-3) Lipase/Protease/Amylase 1 each 01/02/19 07:56 Pancreaze 10,500 Unit FEEDTUBE PRN PRN For Clogged Feeding Tube Aspirin 325 mg 12/18/18 10:00 01/04/19 10:25 Aspirin PO 325 mg QDAY TRINY Administration Atorvastatin Calcium 40 mg 12/17/18 22:00 01/03/19 22:28 Lipitor PO Not Given QHS TRINY Bisacodyl 10 mg 12/17/18 19:40 Dulcolax [place] QDAY PRN Constipation Dextrose 50 ml 12/26/18 05:14 D50w (25gm) Syringe IV PRN PRN Hypoglycemia Famotidine 10 mg 12/20/18 10:00 01/04/19 10:25 Pepcid PO 10 mg BID TRINY Administration Hydralazine HCl 10 mg 12/18/18 08:46 12/23/18 21:06 Apresoline IV 10 mg Q6H PRN Administration Hypertension Cefepime HCl 1 gm in 100 mls @ 200 mls/hr 01/03/19 11:00 01/04/19 10:24 Maxipime/Ns 1 Gm/100 Ml IV 200 mls/hr Q12HR TRINY Administration Dextrose/Sodium Chloride 1,000 mls @ 75 mls/hr 01/04/19 11:00 D5ns 0.2% IV DIRECT TRINY Metronidazole 500 mg in 100 mls @ 100 mls/hr 01/04/19 18:00 Flagyl 500 Mg/100 Ml IV Q6HR TRINY Protocol Magnesium Hydroxide 30 ml 12/17/18 19:40 Milk Of Magnesia PO Q4H PRN Constipation Metoclopramide HCl 10 mg 12/17/18 19:40 12/31/18 22:26 Reglan PO 10 mg Q6H PRN Administration Nausea And Vomiting Ondansetron HCl 4 mg 12/17/18 19:40 Zofran IV Q8H PRN Nausea And Vomiting Simple Syrup 15 ml 01/02/19 07:56 Simple Syrup FEEDTUBE PRN PRN Hypoglycemia Simple Syrup 30 ml 01/02/19 07:56 Simple Syrup FEEDTUBE PRN PRN Hypoglycemia Sodium Bicarbonate 325 mg 01/02/19 07:56 Sodium Bicarbonate FEEDTUBE PRN PRN For Clogged Feeding Tube Sodium Chloride 10 ml 12/17/18 19:40 01/02/19 21:09 Sodium Chloride Flush Syringe 10 Ml IV 10 ml PRN PRN Administration LINE FLUSH Nutrition/Malnutrition Assess - Dietary Evaluation Nutrition/Malnutrition Findings: Nutrition Notes Start: 12/19/18 08:36 Freq: Status: Active Protocol: Document 01/02/19 09:57 LP (Rec: 01/02/19 10:11 LP [id number]) Nutrition Notes Initial or Follow up Reassessment Current Diagnosis Hypertension,Stroke Other Pertinent Diagnosis Dementia, metabolic encephalopathy, (L) hemiplegia Current Diet Jevity 1.2 at 50ml/hr Labs/Tests 01/01- Na 148 K 5.2 BUN 46 Cr 1.7 Pertinent Medications Reviewed Height 5 ft 3 in Weight 50.45 kg [place] Body Weight (kg) 56.36 BMI 19.7 Subjective/Other Information Consult for TF. Pt tolerating Jevity 1.2 at 50ml/hr but renal function has worsened since admission and TF needing to be changed. PEG placed. Percent of energy/protein needs met: 95%/100% Burn Absent Trauma Absent Minimum of two criteria Yes Body Fat Depletion Mild depletion (non-severe) Muscle Mass Mild Depletion (non-severe) Reduced [employer] Strength Measurably Reduced (severe) #2 Nutrition Diagnosis Malnutrition Etiology dementia As Evidenced by Signs and Symptoms Pt with noticable muscle and fat loss, reduced director of accreditation strength and PEG placement #1 Nutrition Diagnosis Inadequate oral intake Diagnosis Progress(for reassessment Continues documentation) Is patient on ventilator? No Is Patient Ambulatory and/or Out of Bed No REE-([facility]-confined to bed) 1320.912 Kcal/Kg value to use for calculation 30 Approximate Energy Requirements Using 1514 kcal/Kg Calculation Used for Recommendations Kcal/kg Additional Notes Pro needs 1.2-1.5g/k-76g/ day Fluid needs 1ml/kcal Nutrition Intervention Change Diet Order: TF Nutrition Support: Change to Nepro at 35ml/hr Flush with 200ml q4h for hypernatremia and 150ml q4h once resolved Kcal 1,512 Protein (gm) 68 Fluid (mL) 611 Goal #1 TF tolerance Goal #2 Continue to meet at least 80% of calorie and protein needs via TF Goal #3 Wt maintenance and/or gain Goal #4 Improve K labs Anticipated Discharge Needs: TF Follow-Up By: 01/04/19 Additional Comments Follow for TF change/tolerance , renal labs
[2019-01-04] MEDS: FLAGYL 500 MG/100 ML 500 MG/100 ML BAG IV SCH (18:35)
[2019-01-04] MEDS: D5NS 0.2% 1,000 ML IV SCH (21:30)
[2019-01-04] MEDS: SODIUM CHLORIDE FLUSH SYRINGE 10 ML IV PRN (21:32)
[2019-01-05] MEDS: TYLENOL PO PRN ×2 (01:59→21:09)
[2019-01-05] MEDS: FLAGYL 500 MG/100 ML 500 MG/100 ML BAG IV SCH ×4 (01:59→18:27)
[2019-01-05 07:43] LABS: Hematocrit 24.5 % (35.5-45.6); Hemoglobin 7.6 gm/dl (11.8-15.2); Mean Corpuscular HGB Conc 31 % (32-34); Mean Corpuscular Volume 91 fl (84-94); Platelet Count 527 K/mm3 (140-440)
[2019-01-05 07:55] LABS: Calcium 8.6 mg/dL (8.4-10.2)
[2019-01-05 08:23] LABS: INR 1.25 (0.87-1.13)
--- NOTE | 2019-01-05 08:56 | Progress Note ---
Assessment and Plan Cultures: 12/24 BCx - no growth 12/30 BCx - no growth 01/03 BCx - NGTD 01/04 BCx - NGTD A/P: 83 yo M PMHx HTN, dementia admitted with CVA, now persistently febrile with LLL pneumonia. 1. Sepsis secondary to LLL pneumonia - Worsening leukocytosis and fevers. Continue cefepime and flagyl. Will add Vancomycin, PK dosing for broader coverage. 2. EMILY - renally dosed antibiotics 3. Hypernatremia 4. CVA 5. Dementia 6. HTN Recs: - continue cefepime 1g q12h - continue metronidazole 500mg q8h -Start Vancomycin PK dosing -Monitor renal function -Monitor fevers and leukocytosis -CBC ordered for tomorrow Grim prognosis [facility] M: [phone] O:[phone] Subjective Date of service: 01/05/19 Principal diagnosis: acute kidney injury Interval history: Patient seen and examined. Somnolent. Cachexia. Difficult to arouse. Does not follow commands. No family at bedside. Objective - Exam Narrative Exam: Constitutional: Asleep, unable to arouse. Somnolent. Not following commands Head, Ears, Nose: Normocephalic, atraumatic. External ears, nose normal Eyes: unable to assess Neck: Supple, no meningeal signs Oral: unable to assess Cardiovascular: S1, S2 normal. Normal rhythm Respiratory: decreased breath sounds, clear to auscultation bilaterally, 02/2L GI: Soft, non-tender; bowel sounds normal. No peritoneal signs. PEG in place. Musculoskeletal: No pedal edema, Skin: No rash or abscess Hem/Lymphatic: No palpable cervical or supraclavicular nodes. No lymphangitis Psych: somnolent Neurological: L sided hemiplegia, somnolent, not following commands - Constitutional Vitals: Vital Signs Temp Pulse Resp BP Pulse Ox 98.9 F 110 H 20 141/63 96 01/05/19 06:26 01/05/19 06:26 01/05/19 06:26 01/05/19 06:26 01/05/19 07:50 Temperature -Last 24 Hours Temperature 98.9 F Temperature 102.6 F Temperature 100.8 F Temperature 99.6 F - Labs CBC & Chem 7: 01/05/19 06:51 01/05/19 06:51 Labs: Abnormal lab results 01/05/19 01/05/19 01/05/19 Range/Units 00:18 06:51 06:51 WBC 39.1 H (4.5-11.0) K/mm3 RBC 2.70 L (3.65-5.03) M/mm3 Hgb 7.6 L (11.8-15.2) gm/dl Hct 24.5 L (35.5-45.6) % MCHC 31 L (32-34) % RDW 18.0 H (13.2-15.2) % Plt Count 527 H (140-440) K/mm3 PT 15.4 H (12.2-14.9) Sec. INR 1.25 H (0.87-1.13) Sodium (137-145) mmol/L Chloride (98-107) mmol/L Carbon Dioxide (22-30) mmol/L BUN (9-20) mg/dL Creatinine (0.8-1.5) mg/dL Glucose (75-100) mg/dL POC Glucose 129 H (70-105) 01/05/19 01/05/19 Range/Units 06:51 07:05 WBC (4.5-11.0) K/mm3 RBC (3.65-5.03) M/mm3 Hgb (11.8-15.2) gm/dl Hct (35.5-45.6) % MCHC (32-34) % RDW (13.2-15.2) % Plt Count (140-440) K/mm3 PT (12.2-14.9) Sec. INR (0.87-1.13) Sodium 148 H (137-145) mmol/L Chloride 117.3 H (98-107) mmol/L Carbon Dioxide 16 L (22-30) mmol/L BUN 67 H (9-20) mg/dL Creatinine 2.0 H (0.8-1.5) mg/dL Glucose 113 H (75-100) mg/dL POC Glucose 123 H (70-105)
[2019-01-05] MEDS ORDERED: VANCOMYCIN PHARMACY TO DOSE IV SCH (10:00)
--- NOTE | 2019-01-05 10:07 | Progress Note ---
Assessment and Plan - Patient Problems (1) Acute kidney injury Current Visit: Yes Status: Acute Plan to address problem: Acute kidney injury/acute tubular necrosis. Kidney function is a bit worse. Resume Volume repletion with hypotonic saline given the hypernatremia. Follow- up electrolytes and renal function in the morning. (2) Hypernatremia Current Visit: Yes Status: Acute Plan to address problem: Sodium is still high. Increase free water replacement. cont D5 1/2 NS (3) Acute CVA (cerebrovascular accident) Current Visit: Yes Status: Acute Plan to address problem: Continue management by primary attending. (4) Encephalopathy Current Visit: Yes Status: Acute Plan to address problem: Monitor mental status (5) Hyperkalemia Current Visit: Yes Status: Acute Plan to address problem: Potassium was high normal. Follow potassium in the morning (6) HTN (hypertension) Current Visit: Yes Status: Chronic Qualifiers: Hypertension type: essential hypertension Qualified Code(s): I10 - Essential (primary) hypertension Plan to address problem: Blood pressure is low normal. D/C HCTZ. (7) Sepsis Current Visit: Yes Status: Acute Plan to address problem: worsening leukocytosis is concerning. Patient is on cefepime. Follow up cultures Subjective Date of service: 01/05/19 Principal diagnosis: acute kidney injury Interval history: Pt is awake, not communicating verbally Objective - Vital Signs Vital signs: Vital Signs - 12hr 01/04/19 01/05/19 01/05/19 23:47 01:59 02:00 Temperature 102.6 F H Pulse Rate 124 H 116 H Respiratory 24 30 H Rate Respiratory 24 Rate [ Generalized] Blood Pressure 153/60 [Right] O2 Sat by Pulse 100 Oximetry 01/05/19 01/05/19 01/05/19 02:59 04:47 06:00 Temperature Pulse Rate Respiratory 20 20 Rate Respiratory 24 Rate [ Generalized] Blood Pressure [Right] O2 Sat by Pulse 98 Oximetry 01/05/19 01/05/19 01/05/19 06:26 07:45 07:50 Temperature 98.9 F 98.7 F Pulse Rate 110 H 125 H Respiratory 20 18 Rate Respiratory Rate [ Generalized] Blood Pressure 141/63 140/62 [Right] O2 Sat by Pulse 98 97 96 Oximetry - General Appearance General appearance: cachectic, chronically ill, frail EENT: ATNC, PERRL, mucous membranes dry Neck: no JVD Respiratory: Present: Decreased Breath Sounds Cardiology: regular, S1S2 Gastrointestinal: normoactive bowel sounds Integumentary: no rash, other (no edema ) - Lab 01/05/19 06:51 01/05/19 06:51 Most recent lab results Calcium 8.6 mg/dL (8.4-10.2) 01/05/19 06:51 Medications & Allergies - Medications Allergies/Adverse Reactions: Allergies No Known Allergies Allergy (Verified 12/17/18 19:43) Home Medications: Home Medications Medication Instructions Recorded Confirmed Last Taken Type Unobtainable 12/17/18 12/17/18 Unknown History Active Medications: Generic Name Dose Route Start Last Admin Trade Name Freq PRN Reason Stop Dose Admin Acetaminophen 650 mg 12/17/18 19:40 01/05/19 01:59 Tylenol PO 650 mg Q4H PRN Administration Pain, Mild (1-3) Lipase/Protease/Amylase 1 each 01/02/19 07:[address] 10,500 Unit FEEDTUBE PRN PRN For Clogged Feeding Tube Aspirin 325 mg 12/18/18 10:00 01/04/19 10:25 Aspirin PO 325 mg QDAY TRINY Administration Atorvastatin Calcium 40 mg 12/17/18 22:00 01/04/19 21:30 Lipitor PO 40 mg QHS TRINY Administration Bisacodyl 10 mg 12/17/18 19:40 Dulcolax IN QDAY PRN Constipation Dextrose 50 ml 12/26/18 05:14 D50w (25gm) Syringe IV PRN PRN Hypoglycemia Famotidine 10 mg 12/20/18 10:00 01/04/19 21:30 Pepcid PO 10 mg BID TRINY Administration Hydralazine HCl 10 mg 12/18/18 08:46 12/23/18 21:06 Apresoline IV 10 mg Q6H PRN Administration Hypertension Cefepime HCl 1 gm in 100 mls @ 200 mls/hr 01/03/19 11:00 01/04/19 21:30 Maxipime/Ns 1 Gm/100 Ml IV 200 mls/hr Q12HR TRINY Administration Dextrose/Sodium Chloride 1,000 mls @ 75 mls/hr 01/04/19 11:00 01/04/19 21:30 D5ns 0.2% IV 75 mls/hr DIRECT TRINY Administration Metronidazole 500 mg in 100 mls @ 100 mls/hr 01/04/19 18:00 01/05/19 05:48 Flagyl 500 Mg/100 Ml IV 100 mls/hr Q6HR TRINY Administration Protocol Magnesium Hydroxide 30 ml 12/17/18 19:40 Milk Of Magnesia PO Q4H PRN Constipation Metoclopramide HCl 10 mg 12/17/18 19:40 12/31/18 22:26 Reglan PO 10 mg Q6H PRN Administration Nausea And Vomiting Ondansetron HCl 4 mg 12/17/18 19:40 Zofran IV Q8H PRN Nausea And Vomiting Simple Syrup 15 ml 01/02/19 07:56 Simple Syrup FEEDTUBE PRN PRN Hypoglycemia Simple Syrup 30 ml 01/02/19 07:56 Simple Syrup FEEDTUBE PRN PRN Hypoglycemia Sodium Bicarbonate 325 mg 01/02/19 07:56 Sodium Bicarbonate FEEDTUBE PRN PRN For Clogged Feeding Tube Sodium Chloride 10 ml 12/17/18 19:40 01/04/19 21:32 Sodium Chloride Flush Syringe 10 Ml IV 10 ml PRN PRN Administration LINE FLUSH
[2019-01-05] MEDS: MAXIPIME/NS 1 GM/100 ML 1 GM/100 ML BAG IV SCH ×2 (11:03→21:07)
[2019-01-05] MEDS: PEPCID PO SCH ×2 (11:04→21:09)
[2019-01-05] MEDS: ASPIRIN PO SCH (11:04)
--- NOTE | 2019-01-05 12:19 | Progress Note ---
Assessment and Plan Assessment and plan: Patient is a 83 yo man with a history of HTN and Dementia who presented to [facility] ED with AMS and found unresponsive, lying on the floor. He was found to have a acute CVA. He was also found to have Left ventricular heart thrombus. He was started on IV heparin drip followed by Coumadin initiation. He did have nose bleeding on 12/20/18 and heparin IV drip held and repeat CT head done, which did not show a bleed, so heparin iv drip resumed. When I took over care on December 22, Hospice was consulted but nephmuriel decided against Hospice and no other family available. 12/23/18, We met at bedside, along with his daughter Sherlyn, he wants everything done, his goal is to get Mr. Corona back to [facility]. We did discuss the patient risk of Aspiration pneumonia and he agreed for PEG evaluation. Then on 12/24/18, patient became severely tachycardic and hypotensive, which did respond to IVF bolus resuscitations. His fevers, tachycardia and hypotension most likely due to Aspiration pneumonitis which i started on IV zosyn and IV levaqiun and moved him to the ICU on 12/24/18 and he was placed on bipap. GI consulted was cancelled. * MRI head: Large area of ischemia in the right MCA territory, as described ab ove. No signs of hemorrhagic transformation. * CT Head: Normal evolutionary change in large right MCA territorial infarct with no evidence of hemorrhagic transformation. There has been slight increase in the amount of edema, when compared with prior exam. * KUB. No acute findings. * Repeat CT head - Negative for bleed. * 12/17/18 TTE Conclusions: The study quality is technically difficult, global l eft ventricular systolic function is severely decreased, the estimated EF is 20-25%, abnormal LV diastolic function is observed. A thrombus is visulized in the left ventricular apex, no atrial septal defect is demonstrated by agitated saline contrast. * conservative management per cardiology * Risk of continued anticoagulation being re-evaluated in setting of worsening anemia. 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 -Fever. ?central fever- monitor off abx, send culture: negative. STARTED ON CEFEPIME DUE TO WORSENING LEUKOCYTOSIS, OBTAIN REPEAT CULTURES WITH NO GROWTH SO FAR. ID consulted. Flagyl added -Severe tachycardia; consulted In Store Representative, also d/w Dr. Marks regarding past discussion with In Store Representative once LV thrombus was found. Input nted -Sepsis, repeat pCXR can not exclude underlying bibasilar pneumonia: treated with zosyn and iv levaquin, cultures were negative -Severe ANEMIA- ? bleed... hold warfarin. Transfuse. continue PPI -Acute on Chronic Kidney Injury: continue fluids. -Acute hypoxic respiratory failure: already on heparin drip for the LV thrombus, Held due to anemia. Hold in the setting of severe anemia -Supratherapeutic INR with hematoma on left arm: resolved Given Vitamin K and FFP consult Wound care, hold warfarin, -Dysphagia: still with NGT, once stable GI evaluation -Acute Metabolic Encephalopathy Secondary to CVA -Left Ventricular Thrombus, supratherapeutic INR, Resolved, warfarin HELD IN THE SETTING OF SEVERE ANEMIA -HTN (hypertension), now hypotensive resolved -History of Dementia, supportive care, continue current therapy -Nasal Bleed, resolved -Severe Malnutrition suspected, poa, bmi 19, poa, started on NGT feed -Debility, PT consulted -DVT prophylaxis: SCD to BLE while in bed. off iv heparin drip GRIM prognosis, Full code Disposition: continue inpatient care, placement pending but trouble verifying his primary insurance as medicare is secondary. [facility] is looking at patient and has accepted but Medicare is saying that patient has another primary insurance and will not pay. So, I met with Abilio and his daughter Sherlyn at nursing with Janis and they should call Medicare to looking into this. Janis called Medicare and they told her that the name of the primary insurance was called Group insurance and they had no other information regarding that insurance. We are not sure if that is a valid health insurance and Medicare is stalling and don't want to pay, our financial office is trying to find the primary Insurance known a "Group Insurance" Medicare still denies patient, SNF with hospice being discussed with family Fmaily agreeable for palliative care but still discussing about hospice. Placeme nt work up started. Patient was put in restraints/mitten, to prevent the right hand from removing t he lines/ngt History Interval history: Was seen and evaluated this morning, patient is confused and doesn't communicate. He had been spiking fevers overnight Hospitalist Physical - Physical exam Narrative exam: Narrative exam: Gen: awake but not following commands, opens eyes spontaneously HEENT: NCAT, abn EOM, Pupils reactive, Neck: supple, no adenopathy, no thyromegaly, no JVD CVS/Heart: Regular tachy, normal S1S2, pulses present bilaterally Chest/Lungs: coarse bs b, diminished , tachypenia Symmetrical chest expansion, good air entry bilaterally GI/Abdomen: soft, NTND, peg placed. good bowel sounds, no guarding or rebound /Bladder: no suprapubic tenderness, no CVA or paraspinal tenderness Extermity/Skin: no c/c/e, no obvious rash MSK: no movement left Neuro: CN 2-12 grossly intact, + focal deficits with LHP, aphasic Psych: confused - Constitutional Vitals: Temp Pulse Resp BP Pulse Ox 98.7 F 125 H 18 140/62 96 01/05/19 07:45 01/05/19 07:45 01/05/19 07:45 01/05/19 07:45 01/05/19 07:50 General appearance: Present: no acute distress, other (not responsive) Results - Labs CBC & Chem 7: 01/05/19 06:51 01/05/19 06:51 Labs: Laboratory Last Values WBC 39.1 K/mm3 (4.5-11.0) H 01/05/19 06:51 RBC 2.70 M/mm3 (3.65-5.03) L 01/05/19 06:51 Hgb 7.6 gm/dl (11.8-15.2) L 01/05/19 06:51 Hct 24.5 % (35.5-45.6) L 01/05/19 06:51 MCV 91 fl (84-94) 01/05/19 06:51 MCH 28 pg (28-32) 01/05/19 06:51 MCHC 31 % (32-34) L 01/05/19 06:51 RDW 18.0 % (13.2-15.2) H 01/05/19 06:51 Plt Count 527 K/mm3 (140-440) H 01/05/19 06:51 Lymph % (Auto) 15.5 % (13.4-35.0) 12/24/18 05:57 [place] % (Auto) 11.3 % (0.0-7.3) H 12/24/18 05:57 Eos % (Auto) 0.0 % (0.0-4.3) 12/24/18 05:57 Baso % (Auto) 0.6 % (0.0-1.8) 12/24/18 05:57 Lymph # 1.9 K/mm3 (1.2-5.4) 12/24/18 05:57 [place] # 1.4 K/mm3 (0.0-0.8) H 12/24/18 05:57 Eos # 0.0 K/mm3 (0.0-0.4) 12/24/18 05:57 Baso # 0.1 K/mm3 (0.0-0.1) 12/24/18 05:57 Seg Neutrophils % 72.6 % (40.0-70.0) H 12/24/18 05:57 Seg Neutrophils # 8.7 K/mm3 (1.8-7.7) H 12/24/18 05:57 PT 15.4 Sec. (12.2-14.9) H 01/05/19 06:51 INR 1.25 (0.87-1.13) H 01/05/19 06:51 APTT 37.1 Sec. (24.2-36.6) H 12/18/18 15:07 Heparin Anti-Xa Level 1.36 U.I./ml (0.3-0.7) H 12/25/18 23:00 POC ABG pH 7.422 (7.35-7.45) 01/04/19 02:41 POC ABG pO2 97 (80-105) 01/04/19 02:41 POC ABG HCO3 15.8 (22-26 mml/L) 01/04/19 02:41 POC ABG Total CO2 16 (23-27mmol/L) 01/04/19 02:41 POC ABG O2 Sat 98 01/04/19 02:41 POC ABG Base Excess -9 ((-2) - (+3)mmol/L) 01/04/19 02:41 30 % 01/04/19 02:41 Sodium 148 mmol/L (137-145) H 01/05/19 06:51 Potassium 4.7 mmol/L (3.6-5.0) 01/05/19 06:51 Chloride 117.3 mmol/L (98-107) H 01/05/19 06:51 Carbon Dioxide 16 mmol/L (22-30) L 01/05/19 06:51 19 mmol/L 01/05/19 06:51 BUN 67 mg/dL (9-20) H 01/05/19 06:51 2.0 mg/dL (0.8-1.5) H 01/05/19 06:51 Estimated GFR 32 ml/min 01/05/19 06:51 34 % 01/05/19 06:51 Glucose 113 mg/dL (75-100) H 01/05/19 06:51 POC Glucose 131 (70-105) H 01/05/19 11:28 Lactic Acid 1.40 mmol/L (0.7-2.0) 12/24/18 05:57 Calcium 8.6 mg/dL (8.4-10.2) 01/05/19 06:51 0.30 mg/dL (0.1-1.2) 12/23/18 23:59 AST 67 units/L (5-40) H 12/23/18 23:59 ALT 62 units/L (7-56) H 12/23/18 23:59 163 units/L (35-129) H 12/23/18 23:59 0.098 ng/mL (0.00-0.029) H 12/24/18 09:00 7.8 g/dL (6.3-8.2) 12/23/18 23:59 3.2 g/dL (3.9-5) L 12/23/18 23:59 0.7 % 12/23/18 23:59 Yellow (Yellow) 12/24/18 07:05 Clear (Clear) 12/24/18 07:05 6.0 (5.0-7.0) 12/24/18 07:05 Ur Specific [place] 1.015 (1.003-1.030) 12/24/18 07:05 30 mg/dl mg/dL (Negative) 12/24/18 07:05 Neg mg/dL (Negative) 12/24/18 07:05 Neg mg/dL (Negative) 12/24/18 07:05 Neg (Negative) 12/24/18 07:05 Neg (Negative) 12/24/18 07:05 Neg (Negative) 12/24/18 07:05 < 2.0 mg/dL (<2.0) 12/24/18 07:05 Ur Leukocyte Esterase Neg (Negative) 12/24/18 07:05 1.0 /HPF (0.0-6.0) 12/24/18 07:05 2.0 /HPF (0.0-6.0) 12/24/18 07:05 Few /HPF 12/24/18 07:05 Presumptive negative 12/19/18 Unknown Presumptive negative 12/19/18 Unknown Ur Barbiturates Screen Presumptive negative 12/19/18 Unknown Ur Phencyclidine Scrn Presumptive negative 12/19/18 Unknown Ur Amphetamines Screen Presumptive negative 12/19/18 Unknown U Benzodiazepines Scrn Presumptive negative 12/19/18 Unknown Presumptive negative 12/19/18 Unknown U Marijuana (THC) Screen Presumptive negative 12/19/18 Unknown Disclamer 12/19/18 Unknown Blood Type B POSITIVE 01/03/19 10:47 Antibody Screen Negative 01/03/19 10:47 Crossmatch See Detail 01/03/19 10:47 Active Medications - Current Medications Current Medications: Generic Name Dose Route Start Last Admin Trade Name Freq PRN Reason Stop Dose Admin Acetaminophen 650 mg 12/17/18 19:40 01/05/19 01:59 Tylenol PO 650 mg Q4H PRN Administration Pain, Mild (1-3) Lipase/Protease/Amylase 1 each 01/02/19 07:56 Pancreaze 10,500 Unit FEEDTUBE PRN PRN For Clogged Feeding Tube Aspirin 325 mg 12/18/18 10:00 01/05/19 11:04 Aspirin PO 325 mg QDAY TRINY Administration Atorvastatin Calcium 40 mg 12/17/18 22:00 01/04/19 21:30 Lipitor PO 40 mg QHS TRINY Administration Bisacodyl 10 mg 12/17/18 19:40 Dulcolax [place] QDAY PRN Constipation Dextrose 50 ml 12/26/18 05:14 D50w (25gm) Syringe IV PRN PRN Hypoglycemia Famotidine 10 mg 12/20/18 10:00 01/05/19 11:04 Pepcid PO 10 mg BID TRINY Administration Hydralazine HCl 10 mg 12/18/18 08:46 12/23/18 21:06 Apresoline IV 10 mg Q6H PRN Administration Hypertension Cefepime HCl 1 gm in 100 mls @ 200 mls/hr 01/03/19 11:00 01/05/19 11:03 Maxipime/Ns 1 Gm/100 Ml IV 200 mls/hr Q12HR TRINY Administration Dextrose/Sodium Chloride 1,000 mls @ 75 mls/hr 01/04/19 11:00 01/04/19 21:30 D5ns 0.2% IV 75 mls/hr DIRECT TRINY Administration Metronidazole 500 mg in 100 mls @ 100 mls/hr 01/04/19 18:00 01/05/19 11:04 Flagyl 500 Mg/100 Ml IV 100 mls/hr Q6HR TRINY Administration Protocol Magnesium Hydroxide 30 ml 12/17/18 19:40 Milk Of Magnesia PO Q4H PRN Constipation Metoclopramide HCl 10 mg 12/17/18 19:40 12/31/18 22:26 Reglan PO 10 mg Q6H PRN Administration Nausea And Vomiting Ondansetron HCl 4 mg 12/17/18 19:40 Zofran IV Q8H PRN Nausea And Vomiting Simple Syrup 15 ml 01/02/19 07:56 Simple Syrup FEEDTUBE PRN PRN Hypoglycemia Simple Syrup 30 ml 01/02/19 07:56 Simple Syrup FEEDTUBE PRN PRN Hypoglycemia Sodium Bicarbonate 325 mg 01/02/19 07:56 Sodium Bicarbonate FEEDTUBE PRN PRN For Clogged Feeding Tube Sodium Chloride 10 ml 12/17/18 19:40 01/04/19 21:32 Sodium Chloride Flush Syringe 10 Ml IV 10 ml PRN PRN Administration LINE FLUSH Nutrition/Malnutrition Assess - Dietary Evaluation Nutrition/Malnutrition Findings: Nutrition Notes Start: 12/19/18 08:36 Freq: Status: Active Protocol: Document 01/04/19 16:39 RM (Rec: 01/04/19 16:47 RM [id number]) Nutrition Notes Initial or Follow up Reassessment Current Diagnosis Hypertension,Stroke Other Pertinent Diagnosis PEG, Dementia, metabolic encephalopathy, (L) hemiplegia Current Diet Jevity 1.2 at 50ml/hr Labs/Tests Na 152 K 4.9 BUN 70 Cr 2.1 Pertinent Medications Reviewed Height 5 ft 3 in Weight 50.45 kg [place] Body Weight (kg) 56.36 BMI 19.7 Subjective/Other Information Observed Nepro infusing at 20 ml/hr. Per current nurse pt was producing alot of mucus so nurse from yesterday turned off TF. Current nurse restarted TF and plans to advance it to goal. Percent of energy/protein needs met: 57%/65% Burn Absent Trauma Absent #2 Nutrition Diagnosis Malnutrition Diagnosis Progress(for reassessment Continues documentation) Is patient on ventilator? No Is Patient Ambulatory and/or Out of Bed No REE-([place]-confined to bed) 1320.912 Kcal/Kg value to use for calculation 30 Approximate Energy Requirements Using 1514 kcal/Kg Calculation Used for Recommendations Kcal/kg Additional Notes Pro needs 1.2-1.5g/k-76g/ day Fluid needs 1ml/kcal Nutrition Intervention Nutrition Support: Nepro at 35ml/hr Flush with 200ml q4h for hypernatremia and 150ml q4h once resolved Kcal 1,512 Protein (gm) 68 Fluid (mL) 611 Goal #1 TF tolerance Goal #2 Meet at least 75% of calorie and protein needs via TF Goal #3 Wt maintenance and/or gain Anticipated Discharge Needs: TF Follow-Up By: 01/06/19 Additional Comments Follow for TF tolerance, renal labs
[2019-01-05 17:03] LABS: Hematocrit 22.5 % (35.5-45.6); Hemoglobin 7.1 gm/dl (11.8-15.2); Mean Corpuscular HGB Conc 32 % (32-34); Mean Corpuscular Volume 89 fl (84-94); Platelet Count 484 K/mm3 (140-440); Red Blood Count 2.53 M/mm3 (3.65-5.03); Red Cell Distribution Width 17.9 % (13.2-15.2)
[2019-01-05 18:07] LABS: Total Cells Counted 100
[2019-01-05 18:08] LABS: RBC Morphology Normal
[2019-01-05] MEDS: D5NS 0.2% 1,000 ML IV SCH (18:27)
[2019-01-06] MEDS: FLAGYL 500 MG/100 ML 500 MG/100 ML BAG IV SCH ×3 (00:14→11:33)
--- NOTE | 2019-01-06 03:14 | XRay Report ---
CHEST 1 VIEW INDICATION: GIORGI, aspiration pna. COMPARISON: 01/01/2019 FINDINGS: Support devices: None. Heart: Within normal limits. Lungs/Pleura: Mild bilateral central peribronchial thickening could be reactive or associated with ea rly edema. There is also patchy left basilar airspace disease. No effusion. Additional findings: None. IMPRESSION: 1. Pulmonary findings as above. Signer Name: Prateek Lucia MD Signed: 01/06/2019 3:10 AM Workstation Name: [id number]
[2019-01-06] MEDS ORDERED: REGLAN PO PRN (09:00)
--- NOTE | 2019-01-06 09:00 | Progress Note ---
Assessment and Plan Cultures: 12/24 BCx - no growth 12/30 BCx - no growth 01/03 BCx - NGTD 01/04 BCx - NGTD A/P: 83 yo M PMHx HTN, dementia admitted with CVA, now persistently febrile with LLL pneumonia. 1. Sepsis secondary to LLL pneumonia: Improved. Fever curve and leukocytosis trending down. Continue cefepime and flagyl and Vancomycin for now. 2. EMILY - renally dosed antibiotics 3. Hypernatremia 4. CVA 5. Dementia 6. HTN Recs: - continue cefepime 1g q12h, D4 - continue metronidazole 500mg q8h, D3 - continue Vancomycin PK dosing, D4 -Monitor renal function -Monitor fevers and leukocytosis -Anticipate discharge of Doxycycline 100mg BID and Ceftin 500mg BID for 5 days (prescriptions on the chart) Grim prognosis [facility] M: [phone] O:[phone] Subjective Date of service: 01/06/19 Principal diagnosis: acute kidney injury Interval history: Patient seen and examined. Somnolent. Cachexia. On . Increased WOB. Bedside nurse notified. Objective - Exam Narrative Exam: Constitutional: Asleep. difficult to arouse. Mild distress observed. Head, Ears, Nose: Normocephalic, atraumatic. External ears, nose normal Eyes: unable to assess Neck: Supple, no meningeal signs Oral: unable to assess Cardiovascular: S1, S2 normal. Normal rhythm Respiratory: decreased breath sounds, clear to auscultation bilaterally, on O2. Increased WOB GI: Soft, non-tender; bowel sounds normal. No peritoneal signs. PEG in place. Musculoskeletal: No pedal edema, Skin: No rash or abscess Hem/Lymphatic: No palpable cervical or supraclavicular nodes. No lymphangitis Psych: somnolent Neurological: L sided hemiplegia, somnolent, not following commands - Constitutional Vitals: Vital Signs Temp Pulse Resp BP Pulse Ox 99.3 F 117 H 22 97/54 95 01/06/19 07:46 01/06/19 07:46 01/06/19 07:46 01/06/19 07:46 01/06/19 07:46 Temperature -Last 24 Hours Temperature 99.3 F Temperature 98.5 F Temperature 100.0 F Temperature 99.8 F - Labs CBC & Chem 7: 01/06/19 08:51 01/06/19 08:51 Labs: Abnormal lab results 01/05/19 01/05/19 01/05/19 Range/Units 11:28 16:23 18:03 WBC 29.4 H (4.5-11.0) K/mm3 RBC 2.53 L (3.65-5.03) M/mm3 Hgb 7.1 L (11.8-15.2) gm/dl Hct 22.5 L (35.5-45.6) % RDW 17.9 H (13.2-15.2) % Plt Count 484 H (140-440) K/mm3 Seg Neuts % (Manual) 86.0 H (40.0-70.0) % Lymphocytes % (Manual) 8.0 L (13.4-35.0) % Seg Neutrophils # Man 25.3 H (1.8-7.7) K/mm3 Monocytes # (Manual) 1.2 H (0.0-0.8) K/mm3 Basophils # (Manual) 0.3 H (0.0-0.1) K/mm3 POC Glucose 131 H 106 H (70-105) 01/06/19 Range/Units 00:01 WBC (4.5-11.0) K/mm3 RBC (3.65-5.03) M/mm3 Hgb (11.8-15.2) gm/dl Hct (35.5-45.6) % RDW (13.2-15.2) % Plt Count (140-440) K/mm3 Seg Neuts % (Manual) (40.0-70.0) % Lymphocytes % (Manual) (13.4-35.0) % Seg Neutrophils # Man (1.8-7.7) K/mm3 Monocytes # (Manual) (0.0-0.8) K/mm3 Basophils # (Manual) (0.0-0.1) K/mm3 POC Glucose 118 H (70-105)
[2019-01-06 09:04] LABS: Basophils % (Auto) 0.2 % (0.0-1.8); Eosinophils # (Auto) 0.3 K/mm3 (0.0-0.4); Eosinophils % (Auto) 1.6 % (0.0-4.3); Hematocrit 22.9 % (35.5-45.6); Hemoglobin 7.3 gm/dl (11.8-15.2); Lymphocytes # (Auto) 1.2 K/mm3 (1.2-5.4); Mean Corpuscular HGB Conc 32 % (32-34); Mean Corpuscular Volume 89 fl (84-94); Monocytes # (Auto) 0.7 K/mm3 (0.0-0.8); Monocytes % (Auto) 3.7 % (0.0-7.3); Platelet Count 471 K/mm3 (140-440); Red Blood Count 2.57 M/mm3 (3.65-5.03); Red Cell Distribution Width 17.9 % (13.2-15.2)
[2019-01-06 09:14] LABS: Calcium 8.4 mg/dL (8.4-10.2)
--- NOTE | 2019-01-06 10:49 | Progress Note ---
Assessment and Plan - Patient Problems (1) Acute kidney injury Current Visit: Yes Status: Acute Plan to address problem: Acute kidney injury/acute tubular necrosis. Kidney function is improving on IVF, cont. hypotonic saline given the hypernatremia. Follow-up electrolytes and renal function in the morning. (2) Hypernatremia Current Visit: Yes Status: Acute Plan to address problem: Sodium improving on D5 1/2 NS (3) Acute CVA (cerebrovascular accident) Current Visit: Yes Status: Acute Plan to address problem: Continue management by primary attending. (4) Encephalopathy Current Visit: Yes Status: Acute Plan to address problem: Monitor mental status (5) Hyperkalemia Current Visit: Yes Status: Acute Plan to address problem: Potassium is normal. (6) HTN (hypertension) Current Visit: Yes Status: Chronic Qualifiers: Hypertension type: essential hypertension Qualified Code(s): I10 - Essential (primary) hypertension Plan to address problem: Blood pressure is low normal. D/Oscar HCTZ. (7) Sepsis Current Visit: Yes Status: Acute Plan to address problem: worsening leukocytosis is concerning. Patient is on cefepime. Follow up cultures Subjective Date of service: 01/06/19 Principal diagnosis: acute kidney injury Interval history: Pt is awake, not communicating verbally Objective - Vital Signs Vital signs: Vital Signs - 12hr 01/06/19 01/06/19 01/06/19 00:09 01:48 02:44 Temperature 98.5 F Pulse Rate 103 H 104 H Respiratory 22 Rate Respiratory 24 Rate [ Generalized] Blood Pressure 89/48 O2 Sat by Pulse 98 Oximetry 01/06/19 01/06/19 02:51 07:46 Temperature 99.3 F Pulse Rate 102 H 117 H Respiratory 24 22 Rate Respiratory Rate [ Generalized] Blood Pressure 110/59 97/54 O2 Sat by Pulse 97 95 Oximetry - General Appearance General appearance: cachectic, chronically ill, frail EENT: ATNC, PERRL, mucous membranes dry Neck: no JVD Respiratory: Present: Decreased Breath Sounds Cardiology: regular, S1S2 Gastrointestinal: normoactive bowel sounds Integumentary: no rash, other (no edema ) - Lab 01/06/19 08:51 01/06/19 08:51 Most recent lab results Calcium 8.4 mg/dL (8.4-10.2) 01/06/19 08:51 Medications & Allergies - Medications Allergies/Adverse Reactions: Allergies No Known Allergies Allergy (Verified 12/17/18 19:43) Home Medications: Home Medications Medication Instructions Recorded Confirmed Last Taken Type Unobtainable 12/17/18 12/17/18 Unknown History Active Medications: Generic Name Dose Route Start Last Admin Trade Name Freq PRN Reason Stop Dose Admin Acetaminophen 650 mg 12/17/18 19:40 01/05/19 21:09 Tylenol PO 650 mg Q4H PRN Administration Pain, Mild (1-3) Lipase/Protease/Amylase 1 each 01/02/19 07:[address] 10,500 Unit FEEDTUBE PRN PRN For Clogged Feeding Tube Aspirin 325 mg 12/18/18 10:00 01/05/19 11:04 Aspirin PO 325 mg QDAY TRINY Administration Atorvastatin Calcium 40 mg 12/17/18 22:00 01/05/19 21:09 Lipitor PO 40 mg QHS TRINY Administration Bisacodyl 10 mg 12/17/18 19:40 Dulcolax [place] QDAY PRN Constipation Dextrose 50 ml 12/26/18 05:14 D50w (25gm) Syringe IV PRN PRN Hypoglycemia Famotidine 10 mg 12/20/18 10:00 01/05/19 21:09 Pepcid PO 10 mg BID TRINY Administration Hydralazine HCl 10 mg 12/18/18 08:46 12/23/18 21:06 Apresoline IV 10 mg Q6H PRN Administration Hypertension Cefepime HCl 1 gm in 100 mls @ 200 mls/hr 01/03/19 11:00 01/05/19 21:07 Maxipime/Ns 1 Gm/100 Ml IV 200 mls/hr Q12HR TRINY Administration Dextrose/Sodium Chloride 1,000 mls @ 75 mls/hr 01/04/19 11:00 01/05/19 18:27 D5ns 0.2% IV 75 mls/hr DIRECT TRINY Administration Metronidazole 500 mg in 100 mls @ 100 mls/hr 01/04/19 18:00 01/06/19 05:34 Flagyl 500 Mg/100 Ml IV 100 mls/hr Q6HR TRINY Administration Protocol Magnesium Hydroxide 30 ml 12/17/18 19:40 Milk Of Magnesia PO Q4H PRN Constipation Metoclopramide HCl 5 mg 01/06/19 09:00 Reglan PO Q6H PRN Nausea And Vomiting Ondansetron HCl 4 mg 12/17/18 19:40 Zofran IV Q8H PRN Nausea And Vomiting Simple Syrup 15 ml 01/02/19 07:56 Simple Syrup FEEDTUBE PRN PRN Hypoglycemia Simple Syrup 30 ml 01/02/19 07:56 Simple Syrup FEEDTUBE PRN PRN Hypoglycemia Sodium Bicarbonate 325 mg 01/02/19 07:56 Sodium Bicarbonate FEEDTUBE PRN PRN For Clogged Feeding Tube Sodium Chloride 10 ml 12/17/18 19:40 01/04/19 21:32 Sodium Chloride Flush Syringe 10 Ml IV 10 ml PRN PRN Administration LINE FLUSH
[2019-01-06] MEDS: ASPIRIN PO SCH (11:34)
[2019-01-06] MEDS: MAXIPIME/NS 1 GM/100 ML 1 GM/100 ML BAG IV SCH (11:34)
[2019-01-06] MEDS: PEPCID PO SCH (11:34)
[2019-01-06] MEDS ORDERED: VANCOMYCIN 750 MG in NACL 0.9% 250ML 250 ML IV SCH (14:00)
--- NOTE | 2019-01-06 14:22 | Discharge Summary ---
Providers - Providers Date of Admission: 12/17/18 19:40 Attending physician: EDIN DORANTES MD 12/17/18 19:40 Occupational Therapy Evaluate and Treat [CONS] Routine Comment: Reason For Exam: Neuro deficits Physical Therapy Evaluation and Treat [CONS] Routine Comment: Reason For Exam: Neuro deficits 12/17/18 19:41 Consult to Physician [CONS] Routine Comment: Consulting Provider: MELISSA BLUE Physician Instructions: Reason For Exam: cva Speech Therapy Evaluation and Treat [CONS] Routine Reason For Exam: swallow eval 12/17/18 21:25 Consult to Case Management [CONS] Routine Services Needed at Discharge: Nuclear Medicine Medical Director Notified:: LISHA Grayson Physician Instructions: D/C Planning/Placement 12/19/18 08:31 Consult to Dietitian/Nutrition [CONS] Routine Physician Instructions: Reason For Exam: Reason for Consult: Write/Manage Tube Feeding 12/24/18 01:16 Consult to Physician [CONS] Routine Comment: Consulting Provider: NALLELY MOYER Physician Instructions: Reason For Exam: EMILY 12/26/18 09:29 Midline [Consult to PICC Line RN] [CONS] Routine Reason For Exam: Poor venous access Type Line:: Midline 12/27/18 12:16 Consult to Wound/ET Nurse [CONS] Routine Reason For Exam: wound eval, left upper arm 12/30/18 17:55 Consult to Physician [CONS] Routine Comment: Consulting Provider: ALLA RASMUSSEN Physician Instructions: Reason For Exam: peg placement 01/01/19 16:35 Consult to Dietitian/Nutrition [CONS] Routine Physician Instructions: Reason For Exam: Reason for Consult: Write/Manage Tube Feeding 01/04/19 10:56 Consult to Physician [CONS] Routine Comment: spoke to dr. carpenter/ cherelle Consulting Provider: KAELYN BERGMAN Physician Instructions: Reason For Exam: sepsis [facility] Reason for admission: Massive CVA, cardiac thrombus, Penumonia, sepsis Condition: Poor Hospital course: Patient is a 83 yo man with a history of HTN and Dementia who presented to [facility] ED with AMS and found unresponsive, lying on the floor. He was found to have a acute CVA. He was also found to have Left ventricular heart thrombus. He was started on IV heparin drip followed by Coumadin initiation. He did have nose bleeding on 12/20/18 and heparin IV drip held and repeat CT head done, which did not show a bleed. December 22, Hospice was consulted but nephew decided against Hospice and no other family available. 12/23/18, We met at bedside, along with his daughter Sherlyn, he wants everything done, his goal is to get Mr. Corona back to [place]. We did discuss the patient risk of Aspiration pneumonia and he agreed for PEG evaluation. Then on 12/24/18, patient became severely tachycardic and hypotensive, which did respond to IVF bolus resuscitations. His fevers, tachycardia and hypotension most likely due to Aspiration pneumonitis which i started on IV zosyn and IV levaqiun and moved him to the ICU on 12/24/18 and he was placed on bipap. MRI head: Large area of ischemia in the right MCA territory, as described above. No signs of hemorrhagic transformation. CT Head: Normal evolutionary change in large right MCA territorial infarct with no evidence of hemorrhagic transformation. There has been slight increase in the amount of edema, when compared with prior exam. 12/17/18 TTE Conclusions: The study quality is technically difficult, global left ventricular systolic function is severely decreased, the estimated EF is 20- 25%, abnormal LV diastolic function is observed. A thrombus is visulized in the left ventricular apex, no atrial septal defect is demonstrated by agitated saline contrast. conservative management per cardiology. Risk of continued anticoagulation being re-evaluated in setting of worsening anemia. 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 Fever. ?central fever- monitor off abx, send culture: negative. STARTED ON CEFEPIME DUE TO WORSENING LEUKOCYTOSIS, OBTAIN REPEAT CULTURES WITH NO GROWTH SO FAR. ID consulted. Flagyl added. ID discharge the patient with antibiotics to SNF. Severe tachycardia; consulted Document Processing Specialist, also d/w Dr. Marks regarding past discussion with Document Processing Specialist once LV thrombus was found. Input nted Sepsis, repeat pCXR can not exclude underlying bibasilar pneumonia: treated with zosyn and iv levaquin, cultures were negative Severe ANEMIA- ? bleed... hold warfarin. Transfuse. continue PPI Acute on Chronic Kidney Injury: treated with fluids. Acute hypoxic respiratory failure: currently saturating well on room air. Supratherapeutic INR with hematoma on left arm: resolved Given Vitamin K and FFP. Dysphagia: on PEG tube Acute Metabolic Encephalopathy Secondary to CVA Left Ventricular Thrombus, supratherapeutic INR, Resolved, warfarin HELD IN THE SETTING OF SEVERE ANEMIA HTN (hypertension), BP is controlled History of Dementia, supportive care, continue current therapy Nasal Bleed, resolved Severe Malnutrition suspected, poa, bmi 19, poa, started on PEG tube feeding. Debility Patient has poor prognosis and will not make meaningful recovery because of his massive stroke. I discussed with the family the options of hospice care and declined. Patient discharged back to long term. There is nothing much that can be done in the hospital that can't be done in the SNF facility for this patient. Patient condition is poor. Disposition: DC/TX-03 SNF [facility] Time spent for discharge: 32 minutes - Discharge Diagnoses (1) Acute CVA (cerebrovascular accident) Status: Acute (2) Acute renal failure Status: Acute (3) Debility Status: Acute (4) Dementia Status: Acute Qualifiers: Dementia behavioral disturbance: without behavioral disturbance (5) Encephalopathy Status: Acute (6) Hyperkalemia Status: Acute (7) Hypernatremia Status: Acute (8) Sepsis Status: Acute (9) HTN (hypertension) Status: Chronic Qualifiers: Hypertension type: essential hypertension Qualified Code(s): I10 - Essential (primary) hypertension Core Measure Documentation - Palliative Care Palliative Care/ Comfort Measures: Not Applicable - Core Measures Any of the following diagnoses?: stroke - Stroke Discharge Requirements Statin for LDL = or >70 mg/dl on DC: Not Applicable Anticoag for atrial fib/atrial flutter: Not Applicable Antithrombotic for ischemic stroke: No Reason for no antithrombotic on DC: Medical Contraindication Exam - Physical Exam Narrative exam: Narrative exam: Gen: awake but not following commands, opens eyes spontaneously HEENT: NCAT, abn EOM, Pupils reactive, Neck: supple, no adenopathy, no thyromegaly, no JVD CVS/Heart: Regular tachy, normal S1S2, pulses present bilaterally Chest/Lungs: coarse bs b, diminished , tachypenia Symmetrical chest expansion, good air entry bilaterally GI/Abdomen: soft, NTND, peg placed. good bowel sounds, no guarding or rebound /Bladder: no suprapubic tenderness, no CVA or paraspinal tenderness Extermity/Skin: no c/c/e, no obvious rash MSK: no movement left Neuro: CN 2-12 grossly intact, + focal deficits with LHP, aphasic Psych: confused - Constitutional Vitals: Temp Pulse Resp BP Pulse Ox 99.3 F 117 H 22 97/54 95 01/06/19 07:46 01/06/19 07:46 01/06/19 07:46 01/06/19 07:46 01/06/19 07:46 Plan Activity: advance as tolerated Weight Bearing Status: Weight Bear as Tolerated Diet: low cholesterol, low salt Follow [facility]: [facility] BAR[facility] [Primary Care Provider] - 3-5 Days Forms: Warfarin Discharge Instruction Prescriptions: AtorvaSTATin [Lipitor] 40 mg PO QHS #30 tablet Aspirin 325 mg PO QDAY #30 tablet Cefuroxime Axetil [Ceftin] 500 mg PO Q12H 5 Days #100 ml Doxycycline Hyclate [Doxycycline Hyclate TAB] 100 mg PO Q12HR 5 Days #10 tab
[2019-01-06 14:35] VITALS: BP 94/52
== END 2019-01-06 16:25 | DRG 64 ==
LOC: ED 15:20 → 4A 19:40 → IMCU 12-18 21:35 → 2B-ACE 12-23 18:32 → CC1 12-24 20:53 → IMCU 12-26 15:55 → 2B-ACE 01-02 12:57
PROVIDERS: ADMIT Internal Medicine; ATTEND Internal Medicine
PROC: 4A033R1 Measurement of Arterial Saturation, Peripheral, Percutaneous Approach (ICD-10-PCS; 2018-12-24)
PROC: 5A09357 Assistance with Respiratory Ventilation, Less than 24 Consecutive Hours, Continuous Positive Airway Pressure (ICD-10-PCS; 2018-12-24)
PROC: 5A09357 Assistance with Respiratory Ventilation, Less than 24 Consecutive Hours, Continuous Positive Airway Pressure (ICD-10-PCS; 2018-12-25)
PROC: 5A09357 Assistance with Respiratory Ventilation, Less than 24 Consecutive Hours, Continuous Positive Airway Pressure (ICD-10-PCS; 2018-12-29)
PROC: 5A09357 Assistance with Respiratory Ventilation, Less than 24 Consecutive Hours, Continuous Positive Airway Pressure (ICD-10-PCS; 2018-12-30)
PROC: 5A09357 Assistance with Respiratory Ventilation, Less than 24 Consecutive Hours, Continuous Positive Airway Pressure (ICD-10-PCS; 2019-01-01)
PROC: 0DH63UZ Insertion of Feeding Device into Stomach, Percutaneous Approach (ICD-10-PCS; 2019-01-01)
PROC: 5A09357 Assistance with Respiratory Ventilation, Less than 24 Consecutive Hours, Continuous Positive Airway Pressure (ICD-10-PCS; 2019-01-02)
PROC: 30233N1 Transfusion of Nonautologous Red Blood Cells into Peripheral Vein, Percutaneous Approach (ICD-10-PCS; principal; 2019-01-03)
PROC: 5A09357 Assistance with Respiratory Ventilation, Less than 24 Consecutive Hours, Continuous Positive Airway Pressure (ICD-10-PCS; 2019-01-03)
DX: I63.411 Cerebral infarction due to embolism of right middle cerebral artery (principal); G93.41 Metabolic encephalopathy; A41.9 Sepsis, unspecified organism; J96.01 Acute respiratory failure with hypoxia; N17.0 Acute kidney failure with tubular necrosis; E43 Unspecified severe protein-calorie malnutrition; J18.1 Lobar pneumonia, unspecified organism; E87.0 Hyperosmolality and hypernatremia; I24.0 Acute coronary thrombosis not resulting in myocardial infarction; G81.94 Hemiplegia, unspecified affecting left nondominant side; I42.0 Dilated cardiomyopathy; D68.9 Coagulation defect, unspecified; I50.22 Chronic systolic (congestive) heart failure; E87.5 Hyperkalemia; I11.0 Hypertensive heart disease with heart failure; F03.90 Unspecified dementia, unspecified severity, without behavioral disturbance, psychotic disturbance, mood disturbance, and anxiety; R04.0 Epistaxis; Z68.21 Body mass index [BMI] 21.0-21.9, adult; R13.19 Other dysphagia
CPT/HCPCS: 36415; 36600; 70450; 70544; 70551; 71045; 74018; 74176; 76770; 80048; 80053; 80202; 80307; 81001; 82140; 82803; 82962; 84484; 85007; 85014; 85018; 85025; 85027; 85049; 85520; 85610; 85730; 86850; 86900; 86901; 86920; 87040; 93005; 93010; 93306; 93880; 94660; 94760; 96374; G0378; A9270-GY; J0360; J0690; J0692; J0696; J1160; J1644; J1650; J1956; J2060; J2543; J2704; J3010; J3370; J3430; J7030; J7050; P9016

== ENCOUNTER 2019-01-06 17:24 | Inpatient (IN) | payer MEDICARE ==
[2019-01-06] MEDS ORDERED: NACL 0.9% 1000 ML IV ONE (21:13)
[2019-01-06 21:57] LABS: Basophils # (Auto) 0.1 K/mm3 (0.0-0.1); Basophils % (Auto) 0.4 % (0.0-1.8); Eosinophils # (Auto) 0.4 K/mm3 (0.0-0.4); Eosinophils % (Auto) 2.5 % (0.0-4.3); Hemoglobin 7.9 gm/dl (11.8-15.2); Lymphocytes # (Auto) 1.8 K/mm3 (1.2-5.4); Lymphocytes % (Auto) 10.8 % (13.4-35.0); Mean Corpuscular HGB Conc 35 % (32-34); Mean Corpuscular Volume 87 fl (84-94); Monocytes # (Auto) 0.8 K/mm3 (0.0-0.8); Monocytes % (Auto) 4.8 % (0.0-7.3); Platelet Count 468 K/mm3 (140-440); Red Blood Count 2.63 M/mm3 (3.65-5.03); Red Cell Distribution Width 18.1 % (13.2-15.2)
[2019-01-06] MEDS ORDERED: MAXIPIME/NS 2 GM/100 ML 2 GM/100 ML BAG IV SCH (22:00)
[2019-01-06] MEDS ORDERED: MAXIPIME/NS 2 GM/100 ML 2 GM/100 ML BAG IV ONE (22:14)
[2019-01-06 22:15] LABS: Calcium 8.8 mg/dL (8.4-10.2)
[2019-01-06 22:16] LABS: Albumin 1.9 g/dL (3.9-5)
[2019-01-06 23:11] LABS: Bilirubin,Urine NEG (Negative); Blood,Urine LG (Negative); Color,Urine Yellow (Yellow); Mucus,Urine FEW /HPF; RBC,Urine < 1.0 /HPF (0.0-6.0); Urobilinogen,Urine < 2.0 mg/dL (<2.0)
--- NOTE | 2019-01-07 00:29 | XRay Report ---
CHEST 1 VIEW INDICATION: cough. COMPARISON: Yesterday FINDINGS: Support devices: None. Heart: Within normal limits. Lungs/Pleura: Largely unchanged bilateral central peribronchial thickening and patchy left basilar ai rspace disease. No new abnormality. Additional findings: None. IMPRESSION: 1. Largely unchanged exam as above which could be seen with an infectious process possibly with super imposed edema. Signer Name: Prateek Lucia MD Signed: 01/07/2019 12:24 AM Workstation Name: [email or web address]
--- NOTE | 2019-01-07 00:53 | Emergency Department Report ---
ED General Adult HPI - General Chief complaint: Dyspnea/Respdistress Stated complaint: GIORGI Time Seen by Provider: 01/06/19 20:51 Source: EMS, old records reviewed Mode of arrival: Stretcher Limitations: Physical Limitation - History of Present Illness Initial comments: Patient presents to the emergency department via EMS for respiratory distress. The patient was discharged from this facility and was taken to local long term. Upon arrival to the long term the patient was refused due to concerns of his respiratory status. The patient has dementia and recently suffered a stroke and does not answer questions upon taking of history -: unknown Severity scale (0 -10): 0 Improves with: none Worsens with: none Associated Symptoms: denies other symptoms Treatments Prior to Arrival: none - Related Data Previous Rx's Medication Instructions Recorded Last Taken Type Aspirin 325 mg PO QDAY #30 tablet 01/06/19 Unknown Rx AtorvaSTATin [Lipitor] 40 mg PO QHS #30 tablet 01/06/19 Unknown Rx Cefuroxime Axetil [Ceftin] 500 mg PO Q12H 5 Days #100 ml 01/06/19 Unknown Rx Doxycycline Hyclate [Doxycycline 100 mg PO Q12HR 5 Days #10 tab 01/06/19 Unknown Rx Hyclate TAB] Allergies Allergy/AdvReac Type Severity Reaction Status Date / Time No Known Allergies Allergy Verified 12/17/18 19:43 ED Review of Systems ROS: Stated complaint: GIORGI Other details as noted in HPI Comment: Unobtainable due to pts medical conditions (not able to obtain due to the patient's condition) ED Past Medical Hx - Past Medical History Hx Hypertension: Yes Hx Congestive Heart Failure: No Hx Diabetes: No Hx Asthma: No Hx COPD: No Hx Dementia: Yes - Social History Smoking Status: Unknown if ever smoked - Medications Home Medications: Home Medications Medication Instructions Recorded Confirmed Last Taken Type Aspirin 325 mg PO QDAY #30 tablet 01/06/19 Unknown Rx AtorvaSTATin [Lipitor] 40 mg PO QHS #30 tablet 01/06/19 Unknown Rx Cefuroxime Axetil [Ceftin] 500 mg PO Q12H 5 Days #100 ml 01/06/19 Unknown Rx Doxycycline Hyclate [Doxycycline 100 mg PO Q12HR 5 Days #10 tab 01/06/19 Unknown Rx Hyclate TAB] ED Physical Exam - General Limitations: Physical Limitation General appearance: in no apparent distress, obtunded (but easily arousable) - Head Head exam: Present: atraumatic, normocephalic - Eye Eye exam: Present: normal appearance, PERRL, EOMI - ENT ENT exam: Present: mucous membranes moist - Neck Neck exam: Present: normal inspection - Respiratory Respiratory exam: Present: other (diminished breath sounds throughout; patient is tachypneic at 28 breaths per minute). Absent: respiratory distress - Cardiovascular Cardiovascular Exam: Present: normal rhythm, tachycardia. Absent: systolic murmur, diastolic murmur, rubs, gallop - GI/Abdominal GI/Abdominal exam: Present: soft, normal bowel sounds. Absent: distended, tenderness - Rectal Rectal exam: Present: deferred - Extremities Exam Extremities exam: Present: normal inspection - Back Exam Back exam: Present: normal inspection - Neurological Exam Neurological exam: Present: other (not able to assess due to the patient's condition) - Psychiatric Psychiatric exam: Present: other (not able to assess due to the patient's condition) - Skin Skin exam: Present: warm, dry, intact, normal color. Absent: rash ED Course Vital Signs 01/06/19 01/06/19 01/06/19 18:08 19:19 19:20 Temperature 99.2 F Pulse Rate 112 H Respiratory 30 H 21 Rate Blood Pressure 108/67 Blood Pressure [Right] O2 Sat by Pulse 94 Oximetry 01/06/19 01/06/19 01/06/19 19:57 20:53 21:00 Temperature Pulse Rate 117 H 121 H 120 H Respiratory 27 H 20 23 Rate Blood Pressure 121/77 116/73 Blood Pressure 110/71 [Right] O2 Sat by Pulse 100 100 99 Oximetry 01/06/19 01/06/19 01/06/19 21:07 21:15 21:30 Temperature Pulse Rate 120 H 121 H Respiratory 28 H 22 23 Rate Blood Pressure 118/78 122/80 Blood Pressure [Right] O2 Sat by Pulse 98 99 98 Oximetry 01/06/19 01/06/19 01/06/19 21:45 22:00 22:05 Temperature Pulse Rate 120 H 120 H 122 H Respiratory 24 23 28 H Rate Blood Pressure 126/70 123/77 Blood Pressure 129/77 [Right] O2 Sat by Pulse 97 98 98 Oximetry 01/06/19 01/06/19 01/06/19 22:15 22:29 22:30 Temperature Pulse Rate 121 H 120 H 120 H Respiratory 26 H 23 25 H Rate Blood Pressure 110/77 110/77 106/73 Blood Pressure [Right] O2 Sat by Pulse 98 98 98 Oximetry 01/06/19 01/06/19 01/06/19 22:45 23:00 23:15 Temperature Pulse Rate 113 H 119 H 118 H Respiratory 21 26 H 20 Rate Blood Pressure 106/61 117/72 109/79 Blood Pressure [Right] O2 Sat by Pulse 95 97 97 Oximetry 01/06/19 01/06/19 01/07/19 23:30 23:45 00:00 Temperature Pulse Rate 120 H 119 H 118 H Respiratory 28 H 25 H 27 H Rate Blood Pressure 114/75 111/71 100/72 Blood Pressure [Right] O2 Sat by Pulse 97 97 97 Oximetry 01/07/19 01/07/19 00:15 00:30 Temperature Pulse Rate 116 H 116 H Respiratory 26 H 24 Rate Blood Pressure 100/72 102/75 Blood Pressure [Right] O2 Sat by Pulse 96 97 Oximetry ED Medical Decision Making - Lab Data Result diagrams: 01/06/19 21:21 01/06/19 21:21 Lab Results 01/06/19 01/06/19 01/06/19 Range/Units 21:21 21:21 21:21 WBC 16.6 H (4.5-11.0) K/mm3 RBC 2.63 L (3.65-5.03) M/mm3 Hgb 7.9 L (11.8-15.2) gm/dl Hct 23.0 L (35.5-45.6) % MCV 87 (84-94) fl MCH 30 (28-32) pg MCHC 35 H (32-34) % RDW 18.1 H (13.2-15.2) % Plt Count 468 H (140-440) K/mm3 Lymph % (Auto) 10.8 L (13.4-35.0) % [place] % (Auto) 4.8 (0.0-7.3) % Eos % (Auto) 2.5 (0.0-4.3) % Baso % (Auto) 0.4 (0.0-1.8) % Lymph # 1.8 (1.2-5.4) K/mm3 [place] # 0.8 (0.0-0.8) K/mm3 Eos # 0.4 (0.0-0.4) K/mm3 Baso # 0.1 (0.0-0.1) K/mm3 Seg Neutrophils % 81.5 H (40.0-70.0) % Seg Neutrophils # 13.5 H (1.8-7.7) K/mm3 APTT 27.6 (24.2-36.6) Sec. Sodium 146 H (137-145) mmol/L Potassium 4.6 (3.6-5.0) mmol/L Chloride 118.5 H (98-107) mmol/L Carbon Dioxide 12 L (22-30) mmol/L Anion Gap 20 mmol/L BUN 54 H (9-20) mg/dL Creatinine 1.7 H (0.8-1.5) mg/dL Estimated GFR 39 ml/min BUN/Creatinine Ratio 32 % Glucose 84 (75-100) mg/dL Lactic Acid (0.7-2.0) mmol/L Calcium 8.8 (8.4-10.2) mg/dL Total Bilirubin 0.50 (0.1-1.2) mg/dL AST 75 H (5-40) units/L ALT 47 (7-56) units/L Alkaline Phosphatase 123 (35-129) units/L Total Protein 7.4 (6.3-8.2) g/dL Albumin 1.9 L (3.9-5) g/dL Albumin/Globulin Ratio 0.3 % Urine Color (Yellow) Urine Turbidity (Clear) Urine pH (5.0-7.0) Ur Specific [place] (1.003-1.030) Urine Protein (Negative) mg/dL Urine Glucose (UA) (Negative) mg/dL Urine Ketones (Negative) mg/dL Urine Blood (Negative) Urine Nitrite (Negative) Urine Bilirubin (Negative) Urine Urobilinogen (<2.0) mg/dL Ur Leukocyte Esterase (Negative) Urine WBC (Auto) (0.0-6.0) /HPF Urine RBC (Auto) (0.0-6.0) /HPF Urine Mucus /HPF 01/06/19 01/06/19 Range/Units 21:21 22:43 WBC (4.5-11.0) K/mm3 RBC (3.65-5.03) M/mm3 Hgb (11.8-15.2) gm/dl Hct (35.5-45.6) % MCV (84-94) fl MCH (28-32) pg MCHC (32-34) % RDW (13.2-15.2) % Plt Count (140-440) K/mm3 Lymph % (Auto) (13.4-35.0) % [place] % (Auto) (0.0-7.3) % Eos % (Auto) (0.0-4.3) % Baso % (Auto) (0.0-1.8) % Lymph # (1.2-5.4) K/mm3 [place] # (0.0-0.8) K/mm3 Eos # (0.0-0.4) K/mm3 Baso # (0.0-0.1) K/mm3 Seg Neutrophils % (40.0-70.0) % Seg Neutrophils # (1.8-7.7) K/mm3 APTT (24.2-36.6) Sec. Sodium (137-145) mmol/L Potassium (3.6-5.0) mmol/L Chloride (98-107) mmol/L Carbon Dioxide (22-30) mmol/L Anion Gap mmol/L BUN (9-20) mg/dL Creatinine (0.8-1.5) mg/dL Estimated GFR ml/min BUN/Creatinine Ratio % Glucose (75-100) mg/dL Lactic Acid 1.50 (0.7-2.0) mmol/L Calcium (8.4-10.2) mg/dL Total Bilirubin (0.1-1.2) mg/dL AST (5-40) units/L ALT (7-56) units/L Alkaline Phosphatase (35-129) units/L Total Protein (6.3-8.2) g/dL Albumin (3.9-5) g/dL Albumin/Globulin Ratio % Urine Color Yellow (Yellow) Urine Turbidity Clear (Clear) Urine pH 5.0 (5.0-7.0) Ur Specific [place] 1.014 (1.003-1.030) Urine Protein 30 mg/dl (Negative) mg/dL Urine Glucose (UA) Neg (Negative) mg/dL Urine Ketones Neg (Negative) mg/dL Urine Blood Lg (Negative) Urine Nitrite Neg (Negative) Urine Bilirubin Neg (Negative) Urine Urobilinogen < 2.0 (<2.0) mg/dL Ur Leukocyte Esterase Tr (Negative) Urine WBC (Auto) 1.0 (0.0-6.0) /HPF Urine RBC (Auto) < 1.0 (0.0-6.0) /HPF Urine Mucus Few /HPF - EKG Data -: EKG Interpreted by Me EKG shows normal: sinus rhythm Rate: tachycardia - Radiology Data Radiology results: report reviewed Patient given IVF's and IV abx Critical Care Time: Yes Critical care time in (mins) excluding proc time.: 35 Critical care attestation.: If time is entered above; I have spent that time in minutes in the direct care of this critically ill patient, excluding procedure time. ED Disposition Clinical Impression: Sepsis Disposition: 09 OP ADMIT IP TO THIS HOSP Is pt being admited?: Yes Does the pt Need Aspirin: No Condition: Fair Referrals: BRAXTON ROCA MD [Primary Care Provider] - 3-5 Days
--- NOTE | 2019-01-07 01:52 | History and Physical Report ---
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 The patient was discharged on 01/06/19 from our facility and was taken to local fci. Upon arrival to the fci, the patient was refused due to concerns of his respiratory status. A review of medical records shows pt was admitted on 12/17/18 after being found found unresponsive, lying on the floor. He was found to have a acute CVA and Left ventricular heart thrombus. He was started on IV heparin drip followed by Coumadin initiation. He did have nose bleeding on 12/20/18 and heparin IV drip held intermittently and a repeat CT head was done. CT Head did not show any signs of hemorrhage IV heparin was resumed. On 12/24/18, patient became severely tachycardic and hypotensive, and was responsive to fluid bolus resuscitations. His fevers, tachycardia and hypotension most likely due to Aspiration pneumonitis. He was started on IV zosyn and IV levaqiun and moved him to the ICU on 12/24/18 and he was placed on bipap. ID was consulted and he was started on cefepime, Flagyl, vancomycin. On 01/01/19 GI placed PEG Tube. He was discharged to [facility]ci on 01/06/19. Past History Past Medical History: anemia, heart failure (EF 20-25%), hypertension, renal failure (acute kidney injury), stroke (Large area of ischemia in the right MCA territor ), other (12/2018, chronic respiratory failure, dysphasia, fevers, hypotension, severe malnutrition, debility) Past Surgical History: Other (status post PEG placement 01/01/19) Social history: lives with family (lives with nephew, recently discharged on 01/06/19 to [facility]) Family history: no significant family history Medications and Allergies Allergies Allergy/AdvReac Type Severity Reaction Status Date / Time No Known Allergies Allergy Verified 12/17/18 19:43 Home Medications Medication Instructions Recorded Confirmed Last Taken Type Aspirin 325 mg PO QDAY #30 tablet 01/06/19 01/07/19 Unknown Rx AtorvaSTATin [Lipitor] 40 mg PO QHS #30 tablet 01/06/19 01/07/19 Unknown Rx Cefuroxime Axetil [Ceftin] 500 mg PO Q12H 5 Days #100 ml 01/06/19 01/07/19 Unknown Rx Doxycycline Hyclate [Doxycycline 100 mg PO Q12HR 5 Days #10 tab 01/06/19 01/07/19 Unknown Rx Hyclate TAB] Active Meds: Active Medications Aspirin (Aspirin) 325 mg PO QDAY TRINY Atorvastatin Calcium (Lipitor) 40 mg PO QHS TRINY Cefepime HCl (Maxipime/Ns 1 Gm/100 Ml) 1 gm in 100 mls @ 200 mls/hr IV Q12H TRINY; Protocol Metronidazole (Flagyl 500 Mg/100 Ml) 500 mg in 100 mls @ 100 mls/hr IV Q8HR TRINY; Protocol Dextrose/Sodium Chloride (D5/0.45ns) 1,000 mls @ 42 mls/hr IV DIRECT TRINY Review of Systems ROS unobtainable: due to mental status Exam - Constitutional Vitals: Temp Pulse Resp BP Pulse Ox 99.2 F 116 H 24 102/75 97 01/06/19 18:08 01/07/19 00:30 01/07/19 00:30 01/07/19 00:30 01/07/19 00:30 Results - Labs CBC & Chem 7: 01/06/19 21:21 01/06/19 21:21 Labs: Laboratory Last Values WBC 16.6 K/mm3 (4.5-11.0) H 01/06/19 21:21 RBC 2.63 M/mm3 (3.65-5.03) L 01/06/19 21:21 Hgb 7.9 gm/dl (11.8-15.2) L 01/06/19 21:21 Hct 23.0 % (35.5-45.6) L 01/06/19 21:21 MCV 87 fl (84-94) 01/06/19 21:21 MCH 30 pg (28-32) 01/06/19 21:21 MCHC 35 % (32-34) H 01/06/19 21:21 RDW 18.1 % (13.2-15.2) H 01/06/19 21:21 Plt Count 468 K/mm3 (140-440) H 01/06/19 21:21 Lymph % (Auto) 10.8 % (13.4-35.0) L 01/06/19 21:21 [place] % (Auto) 4.8 % (0.0-7.3) 01/06/19 21:21 Eos % (Auto) 2.5 % (0.0-4.3) 01/06/19 21:21 Baso % (Auto) 0.4 % (0.0-1.8) 01/06/19 21:21 Lymph # 1.8 K/mm3 (1.2-5.4) 01/06/19 21:21 [place] # 0.8 K/mm3 (0.0-0.8) 01/06/19 21:21 Eos # 0.4 K/mm3 (0.0-0.4) 01/06/19 21:21 Baso # 0.1 K/mm3 (0.0-0.1) 01/06/19 21:21 Seg Neutrophils % 81.5 % (40.0-70.0) H 01/06/19 21:21 Seg Neutrophils # 13.5 K/mm3 (1.8-7.7) H 01/06/19 21:21 APTT 27.6 Sec. (24.2-36.6) 01/06/19 21:21 Sodium 146 mmol/L (137-145) H 01/06/19 21:21 Potassium 4.6 mmol/L (3.6-5.0) 01/06/19 21:21 Chloride 118.5 mmol/L (98-107) H 01/06/19 21:21 Carbon Dioxide 12 mmol/L (22-30) L 01/06/19 21:21 20 mmol/L 01/06/19 21:21 BUN 54 mg/dL (9-20) H 01/06/19 21:21 1.7 mg/dL (0.8-1.5) H 01/06/19 21:21 Estimated GFR 39 ml/min 01/06/19 21:21 32 % 01/06/19 21:21 Glucose 84 mg/dL (75-100) 01/06/19 21:21 Lactic Acid 1.50 mmol/L (0.7-2.0) 01/07/19 00:27 Calcium 8.8 mg/dL (8.4-10.2) 01/06/19 21:21 0.50 mg/dL (0.1-1.2) 01/06/19 21:21 AST 75 units/L (5-40) H 01/06/19 21:21 ALT 47 units/L (7-56) 01/06/19 21:21 123 units/L (35-129) 01/06/19 21:21 7.4 g/dL (6.3-8.2) 01/06/19 21:21 1.9 g/dL (3.9-5) L 01/06/19 21:21 0.3 % 01/06/19 21:21 Yellow (Yellow) 01/06/19 22:43 Clear (Clear) 01/06/19 22:43 5.0 (5.0-7.0) 01/06/19 22:43 Ur Specific [place] 1.014 (1.003-1.030) 01/06/19 22:43 30 mg/dl mg/dL (Negative) 01/06/19 22:43 Neg mg/dL (Negative) 01/06/19 22:43 Neg mg/dL (Negative) 01/06/19 22:43 Lg (Negative) 01/06/19 22:43 Neg (Negative) 01/06/19 22:43 Neg (Negative) 01/06/19 22:43 < 2.0 mg/dL (<2.0) 01/06/19 22:43 Ur Leukocyte Esterase Tr (Negative) 01/06/19 22:43 1.0 /HPF (0.0-6.0) 01/06/19 22:43 < 1.0 /HPF (0.0-6.0) 01/06/19 22:43 Few /HPF 01/06/19 22:43 - Imaging and Cardiology Chest x-ray: report reviewed (Largely unchanged exam as above which could be seen with an infectious process possibly with superimposed edema), image reviewed Assessment and Plan Assessment and plan: 83 yo man with a history of Respiratory failure, pneumonia, acute kidney injury, hyponatremia, 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 The patient was discharged on 01/06/19 from our facility and was taken to local fci. Upon arrival to the fci, the patient was refused due to concerns of his respiratory status. Acute hypoxic respiratory failure -Currently on supplemental O2 -Albuterol prn -Respiratory treat and assess per protocol -Pulmonary consulted Pneumonia -?? Right lower lobe Sepsis -Leukocytosis at 16.6 K -Tachypneic 26 breaths per minute, and tachycardic 120 bpm -Resume IV cefepime, Flagyl, vancomycin -ID consult EMILY -Creatinine on this admission 1.7 with GFR 39 -Baseline creatinine approx 1.5 -Renal dose all meds -Avoid nephrotoxic agents -Nephrology consult to Mild hypernatremia -Sodium on admission 146 -Only correct sodium with D5 1/2 NS -Nephrology consulted Massive Acute CVA with Left Hemiplegia and semi-comatose state -MRI head (11/2018): Large area of ischemia in the right MCA territory, as described above. No signs of hemorrhagic transformation. -CT Head (11/2018): Normal evolutionary change in large right MCA territorial infarct with no evidence of hemorrhagic transformation. There has been slight increase in the amount of edema, when compared with prior exam. Dilated cardiomyopathy -EF 20-25% seen on Echo (12/17/18) Hx Left Ventricular Thrombus -Diagnosed during pervious admission -was previously on heparin gtt, but it was d/c'd d/t severe anemia Severe debility -Discharge from [facility] on 01/06/19 to SNF Anemia -Hbg on admission 7.9 -Baseline Hgb of 12.6 -Received 1U PRBC during previous admission for Hgb of 6.6 -No active s/s of bleeding -Continue to monitor Hgb, transfuse prn Severe malnutrition -S/P PEG placement 01/01/19 -Albumin 1.9 this admission -Dietitian consulted Hx of HTN -Currently normotensive -Hold all antihypertensive med DVT PPX -On SCD's Advance Directives: No VTE prophylaxis?: Mechanical Plan of care discussed with patient/family: Yes
[2019-01-07] MEDS ORDERED: VANCOMYCIN PHARMACY TO DOSE IV SCH (02:00)
[2019-01-07] MEDS ORDERED: ZOFRAN IV PRN (02:07)
[2019-01-07] MEDS ORDERED: SODIUM CHLORIDE FLUSH SYRINGE 10 ML IV PRN (02:07)
[2019-01-07] MEDS ORDERED: PROVENTIL IH PRN (02:07)
[2019-01-07] MEDS ORDERED: VANCOMYCIN 1,250 MG in NACL 0.9% 250ML 250 ML IV ONE (02:30)
[2019-01-07] MEDS: D5/0.45NS 1,000 ML IV SCH (04:43)
[2019-01-07] MEDS: FLAGYL 500 MG/100 ML 500 MG/100 ML BAG IV SCH ×3 (05:02→21:26)
[2019-01-07] MEDS: ASPIRIN PO SCH (09:33)
[2019-01-07] MEDS: MAXIPIME/NS 1 GM/100 ML 1 GM/100 ML BAG IV SCH ×2 (09:38→21:26)
[2019-01-07] MEDS: SODIUM CHLORIDE FLUSH SYRINGE 10 ML IV SCH ×2 (09:40→21:29)
--- NOTE | 2019-01-07 11:30 | Progress Note ---
Assessment and Plan Cultures: 12/24 BCx - no growth 12/30 BCx - no growth 01/03 BCx - NGTD 01/04 BCx - NGTD A/P: 83 yo M PMHx HTN, dementia admitted with CVA, now persistently febrile with LLL pneumonia. Patient was discharged yesterday for SNF placement. Upon arrival to the care home, patient was refused admission due to concerns about his respiratory status. 1. Leukocytosis : secondary to LLL pneumonia. RPT CXR shows Largely unchanged bilateral central peribronchial thickening and patchy left basilar airspace disease. No new abnormality. Will restart Cefepime, Flagyl and Vancomycin. 2. Acute Hypoxic respiratory failure: Currently on room air 3. EMILY - renally dosed antibiotics 4. Hypernatremia 4. CVA 5. Dementia 6. HTN Recs: - continue cefepime 1g q12h, D4 - continue metronidazole 500mg q8h, D3 - continue Vancomycin PK dosing, D4 -Monitor renal function -Monitor leukocytosis -CBC ordered for tomorrow Grim prognosis Ramonita Mendez NP [facility] M: [id number] O:[phone] Subjective Date of service: 01/07/19 Interval history: Patient seen and examined. Nonverbal. Does not respond to verbal command. Mild acute distress observed. Objective - Exam Narrative Exam: Constitutional: Asleep. not arousable. Mild distress observed. Head, Ears, Nose: Normocephalic, atraumatic. External ears, nose normal Eyes: unable to assess Neck: Supple, no meningeal signs Oral: unable to assess Cardiovascular: S1, S2 normal. Normal rhythm Respiratory: decreased breath sounds, clear to auscultation bilaterally, on O2. Increased WOB GI: Soft, non-tender; bowel sounds normal. No peritoneal signs. PEG in place. Musculoskeletal: No pedal edema, Skin: No rash or abscess Hem/Lymphatic: No palpable cervical or supraclavicular nodes. No lymphangitis Psych: somnolent Neurological: L sided hemiplegia, somnolent, not following commands - Constitutional Vitals: Vital Signs Temp Pulse Resp BP Pulse Ox 98 F 113 H 20 124/77 98 01/07/19 08:00 01/07/19 11:01 01/07/19 11:01 01/07/19 11:01 01/07/19 11:01 Temperature -Last 24 Hours Temperature 98 F Temperature 98 F Temperature 99.2 F - Labs CBC & Chem 7: 01/06/19 21:21 01/06/19 21:21 Labs: Abnormal lab results 01/06/19 01/06/19 Range/Units 21:21 21:21 WBC 16.6 H (4.5-11.0) K/mm3 RBC 2.63 L (3.65-5.03) M/mm3 Hgb 7.9 L (11.8-15.2) gm/dl Hct 23.0 L (35.5-45.6) % MCHC 35 H (32-34) % RDW 18.1 H (13.2-15.2) % Plt Count 468 H (140-440) K/mm3 Lymph % (Auto) 10.8 L (13.4-35.0) % Seg Neutrophils % 81.5 H (40.0-70.0) % Seg Neutrophils # 13.5 H (1.8-7.7) K/mm3 Sodium 146 H (137-145) mmol/L Chloride 118.5 H (98-107) mmol/L Carbon Dioxide 12 L (22-30) mmol/L BUN 54 H (9-20) mg/dL Creatinine 1.7 H (0.8-1.5) mg/dL AST 75 H (5-40) units/L Albumin 1.9 L (3.9-5) g/dL
--- NOTE | 2019-01-07 14:12 | Consultation ---
History of Present Illness Consult date: 01/07/19 Consult reason: other (Cardiomyopathy) History of present illness: This is a frail, 83-year old whom is somnolent. Patient was just discharged from this hospital with acute CVA. Further evaluation with an echocardiogram revealed a severely decreased left ventricular systolic function, EF is 20-25%. There is a thrombus is visualized in the left ventricular apex. No atrial septal defect is demonstrated by agitated saline contrast. The duration of his cardiomyopathy is uncertain. Patient was initiated on warfarin which was later discontinued due to severe anemia and supratherapeutic INR. Patient was discharged from this hospital yesterday to a SNF. Upon arrival to the group home, patient was refused admission secondary to shortness of breath. Patient was brought back to this hospital and admitted for management. Chest x-ray reports largely unchanged bilateral central peribronchial thickening and patchy left basilar airspace disease. An ECG is sinus tachycardia, LVH with repolarization abnormalities. Past History Past Medical History: anemia, heart failure (EF 20-25%), hypertension, renal failure (acute kidney injury), stroke (Large area of ischemia in the right MCA territor ), other (12/2018, chronic respiratory failure, dysphasia, fevers, hypotension, severe malnutrition, debility) Past Surgical History: Other (status post PEG placement 01/01/19) Social history: lives with family (lives with nephew, recently discharged on 01/06/19 to senior care) Family history: no significant family history Medications and Allergies Allergies Allergy/AdvReac Type Severity Reaction Status Date / Time No Known Allergies Allergy Verified 12/17/18 19:43 Home Medications Medication Instructions Recorded Confirmed Last Taken Type Aspirin 325 mg PO QDAY #30 tablet 01/06/19 01/07/19 Unknown Rx AtorvaSTATin [Lipitor] 40 mg PO QHS #30 tablet 01/06/19 01/07/19 Unknown Rx Cefuroxime Axetil [Ceftin] 500 mg PO Q12H 5 Days #100 ml 01/06/19 01/07/19 Unknown Rx Doxycycline Hyclate [Doxycycline 100 mg PO Q12HR 5 Days #10 tab 01/06/19 0 01/07/19 Unknown Rx Hyclate TAB] Active Meds: Active Medications Acetaminophen (Tylenol) 650 mg FEEDTUBE Q4H PRN PRN Reason: Pain MILD(1-3)/Fever >100.5/COE Albuterol (Proventil) 2.5 mg IH Q3HRT PRN PRN Reason: Shortness Of Breath Aspirin (Aspirin) 325 mg PO QDAY [facility] Last Admin: 01/07/19 09:33 Dose: 325 mg Documented by: Atorvastatin Calcium (Lipitor) 40 mg PO QHS TRINY Cefepime HCl (Maxipime/Ns 1 Gm/100 Ml) 1 gm in 100 mls @ 200 mls/hr IV Q12HR TRINY; Protocol Last Admin: 01/07/19 09:38 Dose: 200 mls/hr Documented by: Metronidazole (Flagyl 500 Mg/100 Ml) 500 mg in 100 mls @ 100 mls/hr IV Q8HR TRINY; Protocol Last Admin: 01/07/19 13:31 Dose: 100 mls/hr Documented by: Dextrose/Sodium Chloride (D5/0.45ns) 1,000 mls @ 42 mls/hr IV DIRECT TRINY Last Admin: 01/07/19 04:43 Dose: 42 mls/hr Documented by: Vancomycin HCl 750 mg/ Sodium (Chloride) 265 mls @ 166.667 mls/hr IV Q24H TRINY Ondansetron HCl (Zofran) 4 mg IV Q8H PRN PRN Reason: Nausea And Vomiting Sodium Chloride (Sodium Chloride Flush Syringe 10 Ml) 10 ml IV BID [facility] Last Admin: 01/07/19 09:40 Dose: 10 ml Documented by: Sodium Chloride (Sodium Chloride Flush Syringe 10 Ml) 10 ml IV PRN PRN PRN Reason: LINE FLUSH Physical Examination Vital Signs Temp Pulse BP 99.2 F 112 H 108/67 01/06/19 18:08 01/06/19 18:08 01/06/19 18:08 General appearance: no acute distress Cardiac: Positive: Tachycardia Results 01/06/19 21:21 01/06/19 21:21 Cardiac Enzymes 01/06/19 Range/Units 21:21 AST 75 H (5-40) units/L Coagulation 01/06/19 Range/Units 21:21 APTT 27.6 (24.2-36.6) Sec. CBC 01/06/19 Range/Units 21:21 WBC 16.6 H (4.5-11.0) K/mm3 RBC 2.63 L (3.65-5.03) M/mm3 Hgb 7.9 L (11.8-15.2) gm/dl Hct 23.0 L (35.5-45.6) % Plt Count 468 H (140-440) K/mm3 Lymph # 1.8 (1.2-5.4) K/mm3 [place] # 0.8 (0.0-0.8) K/mm3 Eos # 0.4 (0.0-0.4) K/mm3 Baso # 0.1 (0.0-0.1) K/mm3 Comprehensive Metabolic Panel 01/06/19 Range/Units 21:21 Sodium 146 H (137-145) mmol/L Potassium 4.6 (3.6-5.0) mmol/L Chloride 118.5 H (98-107) mmol/L Carbon Dioxide 12 L (22-30) mmol/L BUN 54 H (9-20) mg/dL Creatinine 1.7 H (0.8-1.5) mg/dL Glucose 84 (75-100) mg/dL Calcium 8.8 (8.4-10.2) mg/dL AST 75 H (5-40) units/L ALT 47 (7-56) units/L Alkaline Phosphatase 123 (35-129) units/L Total Protein 7.4 (6.3-8.2) g/dL Albumin 1.9 L (3.9-5) g/dL Assessment and Plan Acute CVA warfarin discontinue due to supra-therapeutic INR and severe anemia Severe coagulopathy Hypertension Dementia LV thrombus Dilated cardiomyopathy, uncertain duration echocardiogram revealed a severely decreased left ventricular systolic function, EF is 20-25%. Acute renal failure Sepsis Reflex sinus tachycardia Medical management for dilated cardiomyopathy as his blood pressure will allow. Otherwise, conservative cardiac management.
--- NOTE | 2019-01-07 14:29 | Progress Note ---
Assessment and Plan Assessment and plan: Patient is a 83 yo man with a history of HTN and Dementia who presented to [facility] ED with AMS and found unresponsive, lying on the floor. He was found to have a acute CVA. He was also found to have Left ventricular heart thrombus. He was started on IV heparin drip followed by Coumadin initiation. He did have nose bleeding on 12/20/18 and heparin IV drip held and repeat CT head done, which did not show a bleed, so heparin iv drip resumed. When I took over care on December 22, Hospice was consulted but nephmuriel decided against Hospice and no other family available. 12/23/18, We met at bedside, along with his daughter Sherlyn, he wants everything done, his goal is to get Mr. Corona back to [place]. We did discuss the patient risk of Aspiration pneumonia and he agreed for PEG evaluation. Then on 12/24/18, patient became severely tachycardic and hypotensive, which did respond to IVF bolus resuscitations. His fevers, tachycardia and hypotension most likely due to Aspiration pneumonitis which i started on IV zosyn and IV levaqiun and moved him to the ICU on 12/24/18 and he was placed on bipap. GI consulted was cancelled. MRI head: Large area of ischemia in the right MCA territory, as described ab ove. No signs of hemorrhagic transformation. CT Head: Normal evolutionary change in large right MCA territorial infarct with no evidence of hemorrhagic transformation. There has been slight increase in the amount of edema, when compared with prior exam. KUB. No acute findings. Repeat CT head - Negative for bleed. 12/17/18 TTE Conclusions: The study quality is technically difficult, global l eft ventricular systolic function is severely decreased, the estimated EF is 20- 25%, abnormal LV diastolic function is observed. A thrombus is visulized in the left ventricular apex, no atrial septal defect is demonstrated by agitated saline contrast. conservative management per cardiology Risk of continued anticoagulation being re-evaluated in setting of worsening anemia. 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 -Fever. ?central fever- monitor off abx, send culture: negative. STARTED ON CEFEPIME DUE TO WORSENING LEUKOCYTOSIS, OBTAIN REPEAT CULTURES WITH NO GROWTH SO FAR. ID consulted. Flagyl added -Severe tachycardia; consulted Plycor Operator, also d/w Dr. Marks regarding past discussion with Plycor Operator once LV thrombus was found. Input nted -Sepsis, repeat pCXR can not exclude underlying bibasilar pneumonia: treated with zosyn and iv levaquin, cultures were negative -Severe ANEMIA- ? bleed... hold warfarin. Transfuse. continue PPI -Acute on Chronic Kidney Injury: continue fluids. -Acute hypoxic respiratory failure: already on heparin drip for the LV thrombus, Held due to anemia. Hold in the setting of severe anemia -Supratherapeutic INR with hematoma on left arm: resolved Given Vitamin K and FFP consult Wound care, hold warfarin, -Dysphagia: still with NGT, once stable GI evaluation -Acute Metabolic Encephalopathy Secondary to CVA -Left Ventricular Thrombus, supratherapeutic INR, Resolved, warfarin HELD IN THE SETTING OF SEVERE ANEMIA -HTN (hypertension), now hypotensive resolved -History of Dementia, supportive care, continue current therapy -Nasal Bleed, resolved -Severe Malnutrition suspected, poa, bmi 19, poa, started on NGT feed -Debility, PT consulted -DVT prophylaxis: SCD to BLE while in bed. off iv heparin drip GRIM prognosis, Full code Disposition: continue inpatient care, placement pending but trouble verifying his primary insurance as medicare is secondary. [facility] is looking at patient and has accepted but Medicare is saying that patient has another primary insurance and will not pay. So, I met with Abilio and his daughter Sherlyn at nursing with Janis and they should call Medicare to looking into this. Janis called Medicare and they told her that the name of the primary insurance was called Group insurance and they had no other information regarding that insurance. We are not sure if that is a valid health insurance and Medicare is stalling and don't want to pay, our financial office is trying to find the primary Insurance known a "Group Insurance" Medicare still denies patient, SNF with hospice being discussed with family Fmaily agreeable for palliative care but still discussing about hospice. Placement work up started. Patient was put in restraints/mitten, to prevent the right hand from removing the lines/ngt Patient discharged to SNF yesterday and transferred back to the hospital. Patient's family don't want hospice and palliative care. Will discuss the family. History Interval history: Patient was seen and evaluated this morning. patient is aphasic. Hospitalist Physical - Physical exam Narrative exam: Patient is on [place] oxygen. The patient appeared well nourished and normally developed. Vital signs as documented. Head exam is unremarkable. No scleral icterus . Neck is without jugular venous distension, thyromegaly, or carotid bruits. Lungs are clear to auscultation. Cardiac exam reveals regular rate and Rhythm. Abdominal exam reveals normal bowel sounds, no masses, no organomegaly and no aortic enlargement. Extremities are nonedematous. SPOOLER OPERATOR: semicomatose, Leftsided hemiplegia - Constitutional Vitals: Temp Pulse Resp BP Pulse Ox 98.2 F 116 H 23 115/69 100 01/07/19 12:00 01/07/19 14:01 01/07/19 14:01 01/07/19 14:01 01/07/19 14:01 Results - Labs CBC & Chem 7: 01/06/19 21:21 01/06/19 21:21 Labs: Laboratory Last Values WBC 16.6 K/mm3 (4.5-11.0) H 01/06/19 21:21 RBC 2.63 M/mm3 (3.65-5.03) L 01/06/19 21:21 Hgb 7.9 gm/dl (11.8-15.2) L 01/06/19 21:21 Hct 23.0 % (35.5-45.6) L 01/06/19 21:21 MCV 87 fl (84-94) 01/06/19 21:21 MCH 30 pg (28-32) 01/06/19 21:21 MCHC 35 % (32-34) H 01/06/19 21:21 RDW 18.1 % (13.2-15.2) H 01/06/19 21:21 Plt Count 468 K/mm3 (140-440) H 01/06/19 21:21 Lymph % (Auto) 10.8 % (13.4-35.0) L 01/06/19 21:21 Wagoner % (Auto) 4.8 % (0.0-7.3) 01/06/19 21:21 Eos % (Auto) 2.5 % (0.0-4.3) 01/06/19 21:21 Baso % (Auto) 0.4 % (0.0-1.8) 01/06/19 21:21 Lymph # 1.8 K/mm3 (1.2-5.4) 01/06/19 21:21 Wagoner # 0.8 K/mm3 (0.0-0.8) 01/06/19 21:21 Eos # 0.4 K/mm3 (0.0-0.4) 01/06/19 21:21 Baso # 0.1 K/mm3 (0.0-0.1) 01/06/19 21:21 Seg Neutrophils % 81.5 % (40.0-70.0) H 01/06/19 21:21 Seg Neutrophils # 13.5 K/mm3 (1.8-7.7) H 01/06/19 21:21 APTT 27.6 Sec. (24.2-36.6) 01/06/19 21:21 Sodium 146 mmol/L (137-145) H 01/06/19 21:21 Potassium 4.6 mmol/L (3.6-5.0) 01/06/19 21:21 Chloride 118.5 mmol/L (98-107) H 01/06/19 21:21 Carbon Dioxide 12 mmol/L (22-30) L 01/06/19 21:21 20 mmol/L 01/06/19 21:21 BUN 54 mg/dL (9-20) H 01/06/19 21:21 1.7 mg/dL (0.8-1.5) H 01/06/19 21:21 Estimated GFR 39 ml/min 01/06/19 21:21 32 % 01/06/19 21:21 Glucose 84 mg/dL (75-100) 01/06/19 21:21 Lactic Acid 1.50 mmol/L (0.7-2.0) 01/07/19 00:27 Calcium 8.8 mg/dL (8.4-10.2) 01/06/19 21:21 0.50 mg/dL (0.1-1.2) 01/06/19 21:21 AST 75 units/L (5-40) H 01/06/19 21:21 ALT 47 units/L (7-56) 01/06/19 21:21 123 units/L (35-129) 01/06/19 21:21 7.4 g/dL (6.3-8.2) 01/06/19 21:21 1.9 g/dL (3.9-5) L 01/06/19 21:21 0.3 % 01/06/19 21:21 Yellow (Yellow) 01/06/19 22:43 Clear (Clear) 01/06/19 22:43 5.0 (5.0-7.0) 01/06/19 22:43 Ur Specific [place] 1.014 (1.003-1.030) 01/06/19 22:43 30 mg/dl mg/dL (Negative) 01/06/19 22:43 Neg mg/dL (Negative) 01/06/19 22:43 Neg mg/dL (Negative) 01/06/19 22:43 Lg (Negative) 01/06/19 22:43 Neg (Negative) 01/06/19 22:43 Neg (Negative) 01/06/19 22:43 < 2.0 mg/dL (<2.0) 01/06/19 22:43 Ur Leukocyte Esterase Tr (Negative) 01/06/19 22:43 1.0 /HPF (0.0-6.0) 01/06/19 22:43 < 1.0 /HPF (0.0-6.0) 01/06/19 22:43 Few /HPF 01/06/19 22:43 Active Medications - Current Medications Current Medications: Generic Name Dose Route Start Last Admin Trade Name Freq PRN Reason Stop Dose Admin Acetaminophen 650 mg 01/07/19 02:07 Tylenol FEEDTUBE Q4H PRN Pain MILD(1-3)/Fever >100.5/COE Albuterol 2.5 mg 01/07/19 02:07 Proventil IH Q3HRT PRN Shortness Of Breath Aspirin 325 mg 01/07/19 10:00 01/07/19 09:33 Aspirin PO 325 mg QDAY TRINY Administration Atorvastatin Calcium 40 mg 01/07/19 22:00 Lipitor PO QHS TRINY Cefepime HCl 1 gm in 100 mls @ 200 mls/hr 01/07/19 10:00 01/07/19 09:38 Maxipime/Ns 1 Gm/100 Ml IV 200 mls/hr Q12HR TRINY Administration Protocol Metronidazole 500 mg in 100 mls @ 100 mls/hr 01/07/19 06:00 01/07/19 13:31 Flagyl 500 Mg/100 Ml IV 100 mls/hr Q8HR TRINY Administration Protocol Dextrose/Sodium Chloride 1,000 mls @ 42 mls/hr 01/07/19 02:00 01/07/19 04:43 D5/0.45ns IV 42 mls/hr DIRECT TRINY Administration Vancomycin HCl 750 mg/ Sodium 265 mls @ 166.667 mls/hr 01/08/19 06:00 Chloride IV Q24H TRINY Ondansetron HCl 4 mg 01/07/19 02:07 Zofran IV Q8H PRN Nausea And Vomiting Sodium Chloride 10 ml 01/07/19 10:00 01/07/19 09:40 Sodium Chloride Flush Syringe 10 Ml IV 10 ml BID TRINY Administration Sodium Chloride 10 ml 01/07/19 02:07 Sodium Chloride Flush Syringe 10 Ml IV PRN PRN LINE FLUSH
--- NOTE | 2019-01-07 14:39 | Event Note ---
Date: 01/07/19 Consulted ordered for respiratory distress. Patient is currently on room air and satting 100%. At this time, nothing to offer from a pulmonary standpoint. Will cancel consult.
[2019-01-07] MEDS ORDERED: SODIUM BICARBONATE FEEDTUBE PRN (14:51)
[2019-01-07] MEDS ORDERED: SIMPLE SYRUP FEEDTUBE PRN ×2 (14:51)
[2019-01-07] MEDS ORDERED: PANCREAZE DR 10,500 UNIT FEEDTUBE PRN (14:51)
--- NOTE | 2019-01-07 19:40 | Consultation ---
History of Present Illness - Reason for Consult Consult date: 01/07/19 acute renal failure - History of Present Illness This is a 83-year-old Sinhala male frail, elderly, who was hospitalized from 12/17 to 01/06/19 after he was found unresponsive in the setting of a large right sided cerebrovascular accident. Patient was also found to have a large left ventricular thrombus and was started on heparin drip. during last admission Pt developed EMLIY with Cr rising up to 2.1mg/dl along with hypernatremia for which our group was consulted. Renal function and Na improved with hypotonic IV flui ds. Pt was discharged to [facility] on 01/06/19 however was sent back to hospital after pt developed acute respiratory distress. Upon arrival to the alf, patient was refused admission secondary to shortness of breath. Chest x-ray showed largely unchanged bilateral central peribronchial thickening and patchy left basilar airspace disease. labs showed elevated BUN/Cr at 54/1.7mg/dl and Na 146, for which renal consult was requested. He remained essentially unresponsive and semicomatose. No family at bedside for further history. History was obtained from review of the charts. No previous documented history of renal disease. Past History Past Medical History: anemia, heart failure (EF 20-25%), hypertension, renal failure (acute kidney injury), stroke (Large area of ischemia in the right MCA territor ), other (12/2018, chronic respiratory failure, dysphasia, fevers, hypotension, severe malnutrition, debility) Past Surgical History: Other (status post PEG placement 01/01/19) Social history: lives with family (lives with nephew, recently discharged on 01/06/19 to long term) Family history: no significant family history Medications and Allergies Allergies Allergy/AdvReac Type Severity Reaction Status Date / Time No Known Allergies Allergy Verified 12/17/18 19:43 Home Medications Medication Instructions Recorded Confirmed Last Taken Type Aspirin 325 mg PO QDAY #30 tablet 01/06/19 01/07/19 Unknown Rx AtorvaSTATin [Lipitor] 40 mg PO QHS #30 tablet 01/06/19 01/07/19 Unknown Rx Cefuroxime Axetil [Ceftin] 500 mg PO Q12H 5 Days #100 ml 01/06/19 01/07/19 Unknown Rx Doxycycline Hyclate [Doxycycline 100 mg PO Q12HR 5 Days #10 tab 01/06/19 01/07/19 Unknown Rx Hyclate TAB] Active Meds: Active Medications Acetaminophen (Tylenol) 650 mg FEEDTUBE Q4H PRN PRN Reason: Pain MILD(1-3)/Fever >100.5/COE Albuterol (Proventil) 2.5 mg IH Q3HRT PRN PRN Reason: Shortness Of Breath Lipase/Protease/Amylase (Pancreaze Dr 10,500 Unit) 1 each FEEDTUBE PRN PRN PRN Reason: For Clogged Feeding Tube Aspirin (Aspirin) 325 mg PO QDAY [facility] Last Admin: 01/07/19 09:33 Dose: 325 mg Documented by: Atorvastatin Calcium (Lipitor) 40 mg PO QHS TRINY Cefepime HCl (Maxipime/Ns 1 Gm/100 Ml) 1 gm in 100 mls @ 200 mls/hr IV Q12HR [facility]; Protocol Last Admin: 01/07/19 09:38 Dose: 200 mls/hr Documented by: Metronidazole (Flagyl 500 Mg/100 Ml) 500 mg in 100 mls @ 100 mls/hr IV Q8HR TRINY; Protocol Last Admin: 01/07/19 13:31 Dose: 100 mls/hr Documented by: Dextrose/Sodium Chloride (D5/0.45ns) 1,000 mls @ 42 mls/hr IV DIRECT [facility] Last Admin: 01/07/19 04:43 Dose: 42 mls/hr Documented by: Vancomycin HCl 750 mg/ Sodium (Chloride) 265 mls @ 166.667 mls/hr IV Q24H TRINY Ondansetron HCl (Zofran) 4 mg IV Q8H PRN PRN Reason: Nausea And Vomiting Simple Syrup (Simple Syrup) 15 ml FEEDTUBE PRN PRN PRN Reason: Hypoglycemia Simple Syrup (Simple Syrup) 30 ml FEEDTUBE PRN PRN PRN Reason: Hypoglycemia Sodium Bicarbonate (Sodium Bicarbonate) 325 mg FEEDTUBE PRN PRN PRN Reason: For Clogged Feeding Tube Sodium Chloride (Sodium Chloride Flush Syringe 10 Ml) 10 ml IV BID [facility] Last Admin: 01/07/19 09:40 Dose: 10 ml Documented by: Sodium Chloride (Sodium Chloride Flush Syringe 10 Ml) 10 ml IV PRN PRN PRN Reason: LINE FLUSH Review of Systems ROS unobtainable: due to mental status Exam - Vital Signs Vital signs: Vital Signs Temp Pulse BP 99.2 F 112 H 108/67 01/06/19 18:08 01/06/19 18:08 01/06/19 18:08 - General Appearance General appearance: cachectic, chronically ill, frail EENT: ATNC, PERRL, mucous membranes dry Neck: Present: neck supple Respiratory: Decreased Breath Sounds Heart: regular, S1S2 Gastrointestinal: Present: normoactive bowel sounds Integumentary: no rash, other (no edema ) Neurologic: other (comatose ) Results - Lab Results 01/06/19 21:21 01/06/19 21:21 Most recent lab results Calcium 8.8 mg/dL (8.4-10.2) 01/06/19 21:21 Assessment and Plan - Patient Problems (1) Acute kidney injury Current Visit: No Status: Acute Plan to address problem: Acute kidney injury/acute tubular necrosis. Kidney function is improving compared to previous admission, cont hypotonic saline given the hypernatremia. Follow-up electrolytes and renal function in the morning. avoid nephrotoxins, NSAIDs, IV contrast (2) Hypernatremia Current Visit: No Status: Acute Plan to address problem: Sodium improving, cont D5 1/2 NS (3) Acute CVA (cerebrovascular accident) Current Visit: No Status: Acute Plan to address problem: Continue management by neurology/primary attending. (4) Encephalopathy Current Visit: No Status: Acute (5) Pneumonia Current Visit: Yes Status: Acute Plan to address problem: cont ABXs as per ID recommendations, dose for current eGFR ~30mls/min (6) Anemia in chronic illness Current Visit: Yes Status: Acute Plan to address problem: monitor Hb and transfuse with 1PRBC for Hb < 7. check iron stores/ferritin
[2019-01-07] MEDS: TYLENOL FEEDTUBE PRN (21:25)
[2019-01-07] MEDS ORDERED: VANCOMYCIN/NS 1 GM/250 ML 1 GM/250 ML BAG IV SCH (22:00)
[2019-01-08] MEDS: FLAGYL 500 MG/100 ML 500 MG/100 ML BAG IV SCH ×3 (05:04→21:59)
[2019-01-08] MEDS: TYLENOL FEEDTUBE PRN ×3 (05:13→22:04)
[2019-01-08 05:29] LABS: Basophils # (Auto) 0.1 K/mm3 (0.0-0.1); Basophils % (Auto) 0.5 % (0.0-1.8); Eosinophils # (Auto) 0.4 K/mm3 (0.0-0.4); Eosinophils % (Auto) 2.9 % (0.0-4.3); Hematocrit 25.5 % (35.5-45.6); Hemoglobin 8.1 gm/dl (11.8-15.2); Lymphocytes # (Auto) 1.6 K/mm3 (1.2-5.4); Lymphocytes % (Auto) 12.4 % (13.4-35.0); Mean Corpuscular HGB Conc 32 % (32-34); Mean Corpuscular Volume 88 fl (84-94); Monocytes # (Auto) 0.9 K/mm3 (0.0-0.8); Monocytes % (Auto) 7.3 % (0.0-7.3); Platelet Count 498 K/mm3 (140-440); Red Blood Count 2.89 M/mm3 (3.65-5.03)
[2019-01-08 05:51] LABS: Calcium 8.5 mg/dL (8.4-10.2)
[2019-01-08] MEDS ORDERED: VANCOMYCIN 750 MG in NACL 0.9% 250ML 250 ML IV SCH (06:00)
--- NOTE | 2019-01-08 09:24 | Progress Note ---
Assessment and Plan Cultures: 12/24 BCx - no growth 12/30 BCx - no growth 01/03 BCx - NGTD 01/04 BCx - NGTD 01/06 BCx - CoNS 1/4 bottles A/P: 83 yo M PMHx HTN, dementia admitted with CVA, now persistently febrile with LLL pneumonia. Patient was discharged yesterday for SNF placement. Upon arrival to the skilled nursing, patient was refused admission due to concerns about his respiratory status. 1. Leukocytosis : Trending down. secondary to LLL pneumonia. RPT CXR shows Largely unchanged bilateral central peribronchial thickening and patchy left basilar airspace disease. No new abnormality. Continue Cefepime, Flagyl and Vancomycin. 2. CoNs Bacteremia: /4 bottles. Likely a contaminant. 2. Acute Hypoxic respiratory failure: Improved . Currently on room air 3. EMILY - renally dosed antibiotics 4. Hypernatremia 4. CVA 5. Dementia 6. HTN Recs: - continue cefepime 1g q12h, D6 - continue metronidazole 500mg q8h, D5 -discontinue Vancomycin -continue to monitor renal function -When clinically improved can discharge home on Ceftin 500mg P0 BID and Doxycycline 100mg BID for 3 days. Grim prognosis, consider hospice Dr. Lucas is chief cardiopulmonary technologist this weekend, . Please call for questions. Ramonita Mendez NP [facility] M: [phone] O:[phone] Subjective Date of service: 01/08/19 Interval history: Patient seen and examined. Nonverbal. Does not respond to verbal commands. No fevers. No family at bedside. Objective - Exam Narrative Exam: Constitutional: Asleep. not arousable. no acute distress. Head, Ears, Nose: Normocephalic, atraumatic. External ears, nose normal Eyes: unable to assess Neck: Supple, no meningeal signs Oral: unable to assess Cardiovascular: S1, S2 normal. Normal rhythm Respiratory: decreased breath sounds, clear to auscultation bilaterally, room air. GI: Soft, non-tender; bowel sounds normal. No peritoneal signs. PEG in place. Musculoskeletal: No pedal edema, Skin: No rash or abscess Hem/Lymphatic: No palpable cervical or supraclavicular nodes. No lymphangitis Psych: somnolent Neurological: L sided hemiplegia, somnolent, not following commands - Constitutional Vitals: Vital Signs Temp Pulse Resp BP Pulse Ox 97.6 F 113 H 28 H 104/59 97 01/08/19 03:24 01/08/19 08:00 01/08/19 08:00 01/08/19 08:00 01/08/19 08:00 Temperature -Last 24 Hours Temperature 97.6 F Temperature 98.7 F Temperature 98.6 F Temperature 98 F Temperature 98.2 F - Labs CBC & Chem 7: 01/08/19 05:24 01/08/19 05:24 Labs: Abnormal lab results 01/08/19 01/08/19 Range/Units 05:24 05:24 WBC 12.5 H (4.5-11.0) K/mm3 RBC 2.89 L (3.65-5.03) M/mm3 Hgb 8.1 L (11.8-15.2) gm/dl Hct 25.5 L (35.5-45.6) % RDW 18.0 H (13.2-15.2) % Plt Count 498 H (140-440) K/mm3 Lymph % (Auto) 12.4 L (13.4-35.0) % Parke # 0.9 H (0.0-0.8) K/mm3 Seg Neutrophils % 76.9 H (40.0-70.0) % Seg Neutrophils # 9.6 H (1.8-7.7) K/mm3 Sodium 150 H (137-145) mmol/L Chloride 125.3 H (98-107) mmol/L Carbon Dioxide 12 L (22-30) mmol/L BUN 46 H (9-20) mg/dL Glucose 114 H (75-100) mg/dL
[2019-01-08] MEDS: ASPIRIN PO SCH (09:34)
[2019-01-08] MEDS: SODIUM CHLORIDE FLUSH SYRINGE 10 ML IV SCH ×2 (09:34→21:41)
[2019-01-08] MEDS: MAXIPIME/NS 1 GM/100 ML 1 GM/100 ML BAG IV SCH ×2 (09:34→21:37)
[2019-01-08] MEDS: D5/0.45NS 1,000 ML IV SCH ×2 (09:43→19:48)
--- NOTE | 2019-01-08 13:19 | Discharge Summary ---
Providers - Providers Date of Admission: 01/07/19 02:07 Date of discharge: 01/08/19 Attending physician: EDIN DORANTES MD 01/07/19 01:36 Consult to Physician [CONS] Routine Comment: Consulting Provider: KAELYN BERGMAN Physician Instructions: Reason For Exam: WBC 16.6, d/c 01/06/19 tx RLL PNA c fever 01/07/19 01:39 Consult to Physician [CONS] Routine Comment: Consulting Provider: JHOAN FRAZIER Physician Instructions: Reason For Exam: EMILY, recently d/c 01/06/19 01/07/19 02:02 Consult to Dietitian/Nutrition [CONS] Routine Physician Instructions: tube feeds and malnutrition Reason For Exam: Reason for Consult: Write/Manage Tube Feeding 01/07/19 08:23 Consult to Wound/ET Nurse [CONS] Routine Reason For Exam: wound eval [facility]: [facility] Disposition: [facility] ([facility]) Time spent for discharge: 32 minutes - Discharge Diagnoses (1) Anemia in chronic illness Status: Acute (2) Pneumonia Status: Acute (3) Sepsis Status: Acute (4) Acute CVA (cerebrovascular accident) Status: Acute (5) Acute kidney injury Status: Acute (6) Acute renal failure Status: Acute (7) Debility Status: Acute (8) Dementia Status: Acute Qualifiers: Dementia behavioral disturbance: without behavioral disturbance (9) Encephalopathy Status: Acute (10) Hyperkalemia Status: Acute (11) Hypernatremia Status: Acute (12) HTN (hypertension) Status: Chronic Qualifiers: Hypertension type: essential hypertension Qualified Code(s): I10 - Essential (primary) hypertension Core Measure Documentation - Palliative Care Palliative Care/ Comfort Measures: Not Applicable - Core Measures Any of the following diagnoses?: none Exam - Physical Exam Narrative exam: Patient is on [place] oxygen. The patient appeared well nourished and normally developed. Vital signs as documented. Head exam is unremarkable. No scleral icterus . Neck is without jugular venous distension, thyromegaly, or carotid bruits. Lungs are clear to auscultation. Cardiac exam reveals regular rate and Rhythm. Abdominal exam reveals normal bowel sounds, no masses, no organomegaly and no aortic enlargement. Extremities are nonedematous. MANAGER CUSTOMER: semicomatose, Leftsided hemiplegia - Constitutional Vitals: Temp Pulse Resp BP Pulse Ox 97.5 F L 108 H 23 141/63 96 01/08/19 08:00 01/08/19 11:00 01/08/19 11:00 01/08/19 11:00 01/08/19 11:00 Plan Activity: other (bed bound) Diet: advance as tolerated Follow up with: BRAXTON ROCA MD [Primary Care Provider] - 3-5 Days
--- NOTE | 2019-01-08 14:07 | Progress Note ---
Assessment and Plan Assessment and plan: Patient is a 83 yo man with a history of HTN and Dementia who presented to [facility] ED with AMS and found unresponsive, lying on the floor. He was found to have a acute CVA. He was also found to have Left ventricular heart thrombus. He was started on IV heparin drip followed by Coumadin initiation. He did have nose bleeding on 12/20/18 and heparin IV drip held and repeat CT head done, which did not show a bleed, so heparin iv drip resumed. When I took over care on December 22, Hospice was consulted but nephmuriel decided against Hospice and no other family available. 12/23/18, We met at bedside, along with his daughter Sherlyn, he wants everything done, his goal is to get Mr. Corona back to [place]. We did discuss the patient risk of Aspiration pneumonia and he agreed for PEG evaluation. Then on 12/24/18, patient became severely tachycardic and hypotensive, which did respond to IVF bolus resuscitations. His fevers, tachycardia and hypotension most likely due to Aspiration pneumonitis which i started on IV zosyn and IV levaqiun and moved him to the ICU on 12/24/18 and he was placed on bipap. GI consulted was cancelled. MRI head: Large area of ischemia in the right MCA territory, as described ab ove. No signs of hemorrhagic transformation. CT Head: Normal evolutionary change in large right MCA territorial infarct with no evidence of hemorrhagic transformation. There has been slight increase in the amount of edema, when compared with prior exam. KUB. No acute findings. Repeat CT head - Negative for bleed. 12/17/18 TTE Conclusions: The study quality is technically difficult, global l eft ventricular systolic function is severely decreased, the estimated EF is 20- 25%, abnormal LV diastolic function is observed. A thrombus is visulized in the left ventricular apex, no atrial septal defect is demonstrated by agitated saline contrast. conservative management per cardiology Risk of continued anticoagulation being re-evaluated in setting of worsening anemia. 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 -Fever. ?central fever- monitor off abx, send culture: negative. STARTED ON CEFEPIME DUE TO WORSENING LEUKOCYTOSIS, OBTAIN REPEAT CULTURES WITH NO GROWTH SO FAR. ID consulted. Flagyl added -Severe tachycardia; consulted Scada Technician, also d/w Dr. Marks regarding past discussion with Scada Technician once LV thrombus was found. Input nted -Sepsis, repeat pCXR can not exclude underlying bibasilar pneumonia: treated with zosyn and iv levaquin, cultures were negative -Severe ANEMIA- ? bleed... hold warfarin. Transfuse. continue PPI -Acute on Chronic Kidney Injury: continue fluids. -Acute hypoxic respiratory failure: already on heparin drip for the LV thrombus, Held due to anemia. Hold in the setting of severe anemia -Supratherapeutic INR with hematoma on left arm: resolved Given Vitamin K and FFP consult Wound care, hold warfarin, -Dysphagia: still with NGT, once stable GI evaluation -Acute Metabolic Encephalopathy Secondary to CVA -Left Ventricular Thrombus, supratherapeutic INR, Resolved, warfarin HELD IN THE SETTING OF SEVERE ANEMIA -HTN (hypertension), now hypotensive resolved -History of Dementia, supportive care, continue current therapy -Nasal Bleed, resolved -Severe Malnutrition suspected, poa, bmi 19, poa, started on NGT feed -Debility, PT consulted -DVT prophylaxis: SCD to BLE while in bed. off iv heparin drip GRIM prognosis, Full code Disposition: continue inpatient care, placement pending but trouble verifying his primary insurance as medicare is secondary. [facility] is looking at patient and has accepted but Medicare is saying that patient has another primary insurance and will not pay. So, I met with Abilio and his daughter Sherlyn at nursing with Janis and they should call Medicare to looking into this. Janis called Medicare and they told her that the name of the primary insurance was called Group insurance and they had no other information regarding that insurance. We are not sure if that is a valid health insurance and Medicare is stalling and don't want to pay, our financial office is trying to find the primary Insurance known a "Group Insurance" Medicare still denies patient, SNF with hospice being discussed with family Fmaily agreeable for palliative care but still discussing about hospice. Placement work up started. Patient was put in restraints/mitten, to prevent the right hand from removing the lines/ngt Patient discharged to SNF on 01/06/19 and transferred back to the hospital. patient's family wants to made him AND and hospice after discussing with Dr Marks. DISPOSITION; pending inpatient hospice acceptance. - Patient Problems (1) Anemia in chronic illness Current Visit: Yes Status: Acute (2) Pneumonia Current Visit: Yes Status: Acute (3) Sepsis Current Visit: Yes Status: Acute (4) Acute CVA (cerebrovascular accident) Current Visit: No Status: Acute (5) Acute kidney injury Current Visit: No Status: Acute (6) Acute renal failure Current Visit: No Status: Acute (7) Debility Current Visit: No Status: Acute (8) Dementia Current Visit: No Status: Acute Qualifiers: Dementia behavioral disturbance: without behavioral disturbance (9) Encephalopathy Current Visit: No Status: Acute (10) Hyperkalemia Current Visit: No Status: Acute (11) Hypernatremia Current Visit: No Status: Acute (12) HTN (hypertension) Current Visit: No Status: Chronic Qualifiers: Hypertension type: essential hypertension Qualified Code(s): I10 - Essential (primary) hypertension History Interval history: Patient was seen and evaluated this morning. patient is aphasic. Hospitalist Physical - Physical exam Narrative exam: Patient is on [place] oxygen. The patient appeared well nourished and normally developed. Vital signs as documented. Head exam is unremarkable. No scleral icterus . Neck is without jugular venous distension, thyromegaly, or carotid bruits. Lungs are clear to auscultation. Cardiac exam reveals regular rate and Rhythm. Abdominal exam reveals normal bowel sounds, no masses, no organomegaly and no aortic enlargement. Extremities are nonedematous. ASPHALT WORKER: semicomatose, Leftsided hemiplegia - Constitutional Vitals: Temp Pulse Resp BP Pulse Ox 97.5 F L 108 H 23 141/63 96 01/08/19 08:00 01/08/19 11:00 01/08/19 11:00 01/08/19 11:00 01/08/19 11:00 General appearance: Present: no acute distress Results - Labs CBC & Chem 7: 01/08/19 05:24 01/08/19 05:24 Labs: Laboratory Last Values WBC 12.5 K/mm3 (4.5-11.0) H 01/08/19 05:24 RBC 2.89 M/mm3 (3.65-5.03) L 01/08/19 05:24 Hgb 8.1 gm/dl (11.8-15.2) L 01/08/19 05:24 Hct 25.5 % (35.5-45.6) L 01/08/19 05:24 MCV 88 fl (84-94) 01/08/19 05:24 MCH 28 pg (28-32) 01/08/19 05:24 MCHC 32 % (32-34) 01/08/19 05:24 RDW 18.0 % (13.2-15.2) H 01/08/19 05:24 Plt Count 498 K/mm3 (140-440) H 01/08/19 05:24 Lymph % (Auto) 12.4 % (13.4-35.0) L 01/08/19 05:24 [place] % (Auto) 7.3 % (0.0-7.3) 01/08/19 05:24 Eos % (Auto) 2.9 % (0.0-4.3) 01/08/19 05:24 Baso % (Auto) 0.5 % (0.0-1.8) 01/08/19 05:24 Lymph # 1.6 K/mm3 (1.2-5.4) 01/08/19 05:24 [place] # 0.9 K/mm3 (0.0-0.8) H 01/08/19 05:24 Eos # 0.4 K/mm3 (0.0-0.4) 01/08/19 05:24 Baso # 0.1 K/mm3 (0.0-0.1) 01/08/19 05:24 Seg Neutrophils % 76.9 % (40.0-70.0) H 01/08/19 05:24 Seg Neutrophils # 9.6 K/mm3 (1.8-7.7) H 01/08/19 05:24 APTT 27.6 Sec. (24.2-36.6) 01/06/19 21:21 Sodium 150 mmol/L (137-145) H 01/08/19 05:24 Potassium 3.8 mmol/L (3.6-5.0) 01/08/19 05:24 Chloride 125.3 mmol/L (98-107) H 01/08/19 05:24 Carbon Dioxide 12 mmol/L (22-30) L 01/08/19 05:24 17 mmol/L 01/08/19 05:24 BUN 46 mg/dL (9-20) H 01/08/19 05:24 1.5 mg/dL (0.8-1.5) 01/08/19 05:24 Estimated GFR 45 ml/min 01/08/19 05:24 31 % 01/08/19 05:24 Glucose 114 mg/dL (75-100) H 01/08/19 05:24 POC Glucose 134 (70-105) H 01/08/19 11:40 Lactic Acid 1.50 mmol/L (0.7-2.0) 01/07/19 00:27 Calcium 8.5 mg/dL (8.4-10.2) 01/08/19 05:24 0.50 mg/dL (0.1-1.2) 01/06/19 21:21 AST 75 units/L (5-40) H 01/06/19 21:21 ALT 47 units/L (7-56) 01/06/19 21:21 123 units/L (35-129) 01/06/19 21:21 7.4 g/dL (6.3-8.2) 01/06/19 21:21 1.9 g/dL (3.9-5) L 01/06/19 21:21 0.3 % 01/06/19 21:21 Yellow (Yellow) 01/06/19 22:43 Clear (Clear) 01/06/19 22:43 5.0 (5.0-7.0) 01/06/19 22:43 Ur Specific [place] 1.014 (1.003-1.030) 01/06/19 22:43 30 mg/dl mg/dL (Negative) 01/06/19 22:43 Neg mg/dL (Negative) 01/06/19 22:43 Neg mg/dL (Negative) 01/06/19 22:43 Lg (Negative) 01/06/19 22:43 Neg (Negative) 01/06/19 22:43 Neg (Negative) 01/06/19 22:43 < 2.0 mg/dL (<2.0) 01/06/19 22:43 Ur Leukocyte Esterase Tr (Negative) 01/06/19 22:43 1.0 /HPF (0.0-6.0) 01/06/19 22:43 < 1.0 /HPF (0.0-6.0) 01/06/19 22:43 Few /HPF 01/06/19 22:43 Active Medications - Current Medications Current Medications: Generic Name Dose Route Start Last Admin Trade Name Freq PRN Reason Stop Dose Admin Acetaminophen 650 mg 01/07/19 02:07 01/08/19 14:00 Tylenol FEEDTUBE 650 mg Q4H PRN Administration Pain MILD(1-3)/Fever >100.5/COE Albuterol 2.5 mg 01/07/19 02:07 Proventil IH Q3HRT PRN Shortness Of Breath Lipase/Protease/Amylase 1 each 01/07/19 14:51 Pancreazmeghna Benitez 10,500 Unit FEEDTUBE PRN PRN For Clogged Feeding Tube Aspirin 325 mg 01/07/19 10:00 01/08/19 09:34 Aspirin PO 325 mg QDAY TRINY Administration Atorvastatin Calcium 40 mg 01/07/19 22:00 01/07/19 21:25 Lipitor PO 40 mg QHS TRINY Administration Cefepime HCl 1 gm in 100 mls @ 200 mls/hr 01/07/19 10:00 01/08/19 09:34 Maxipime/Ns 1 Gm/100 Ml IV 200 mls/hr Q12HR TRINY Administration Protocol Metronidazole 500 mg in 100 mls @ 100 mls/hr 01/07/19 06:00 01/08/19 14:00 Flagyl 500 Mg/100 Ml IV 100 mls/hr Q8HR TRINY Administration Protocol Dextrose/Sodium Chloride 1,000 mls @ 100 mls/hr 01/07/19 02:00 01/08/19 09:43 D5/0.45ns IV 100 mls/hr DIRECT TRINY Administration Metoprolol Tartrate 5 mg 01/08/19 14:02 Lopressor IV Q6HR PRN HR >120 Ondansetron HCl 4 mg 01/07/19 02:07 Zofran IV Q8H PRN Nausea And Vomiting Simple Syrup 15 ml 01/07/19 14:51 Simple Syrup FEEDTUBE PRN PRN Hypoglycemia Simple Syrup 30 ml 01/07/19 14:51 Simple Syrup FEEDTUBE PRN PRN Hypoglycemia Sodium Bicarbonate 325 mg 01/07/19 14:51 Sodium Bicarbonate FEEDTUBE PRN PRN For Clogged Feeding Tube Sodium Chloride 10 ml 01/07/19 10:00 01/08/19 09:34 Sodium Chloride Flush Syringe 10 Ml IV 10 ml BID TRINY Administration Sodium Chloride 10 ml 01/07/19 02:07 Sodium Chloride Flush Syringe 10 Ml IV PRN PRN LINE FLUSH Nutrition/Malnutrition Assess - Dietary Evaluation Nutrition/Malnutrition Findings: Nutrition Notes Start: 01/07/19 14:42 Freq: Status: Active Protocol: Document 01/07/19 14:42 RM (Rec: 01/07/19 14:51 RM [id number]) Nutrition Notes Need for Assessment generated from: MD Order Initial or Follow up Assessment Current Diagnosis Acute Kidney Injury,Sepsis, Hypertension,Stroke Other Pertinent Diagnosis Pneu,Sacral wound, Facial wound Current Diet NPO Labs/Tests Reviewed Pertinent Medications Reviewed Height 5 ft 3 in Weight 58.9 kg [place] Body Weight (kg) 56.36 BMI 23.0 Subjective/Other Information Consulted for TF recommendation. Screened for chewing difficulty. Burn Absent Trauma Absent #1 Nutrition Diagnosis Inadequate oral intake Etiology CVA As Evidenced by Signs and Symptoms NPO status Is patient on ventilator? No Is Patient Ambulatory and/or Out of Bed No REE-([facility]-confined to bed) 1422.216 Calculation Used for Recommendations [facility] Additional Notes Protein Needs: 71-88g (1.2-1. 5g/kg) Fluid Needs: 1 ml/kcal Nutrition Intervention Nutrition Support: Osmolite 1.5 at 40 ml/hr Water flush of 120 mls q 4 hrs Kcal 1,440 Protein (gm) 60 Fluid (mL) 732 Goal #1 TF tolerance Goal #2 Meet at least 75% of calorie and protein needs via TF Anticipated Discharge Needs: Unable to determine at this time Follow-Up By: 01/11/19 Additional Comments Follow for new TF
[2019-01-08] MEDS: LOPRESSOR IV PRN ×2 (14:12→19:46)
--- NOTE | 2019-01-08 14:14 | Progress Note ---
Assessment and Plan - Patient Problems (1) Acute kidney injury Current Visit: No Status: Acute Plan to address problem: Acute kidney injury/acute tubular necrosis. Kidney function is improving compared to previous admission, cont hypotonic saline given the hypernatremia, increased d5 1/2NS to 100ml/hr given worsening hypernatremia. Follow-up elect rolytes and renal function in the morning. avoid nephrotoxins, NSAIDs, IV contrast. Overall poor prognosis (2) Hypernatremia Current Visit: No Status: Acute Plan to address problem: increased d5 1/2NS to 100ml/hr given worsening hypernatremia (3) Acute CVA (cerebrovascular accident) Current Visit: No Status: Acute Plan to address problem: Continue management by neurology/primary attending. (4) Encephalopathy Current Visit: No Status: Acute (5) Pneumonia Current Visit: Yes Status: Acute Plan to address problem: cont ABXs as per ID recommendations, dose for current eGFR ~30mls/min (6) Anemia in chronic illness Current Visit: Yes Status: Acute Plan to address problem: monitor Hb and transfuse with 1PRBC for Hb < 7. check iron stores/ferritin Subjective Date of service: 01/08/19 Principal diagnosis: EMILY Interval history: Pt remains non-verbal, not following commands. Objective - Vital Signs Vital signs: Vital Signs - 12hr 01/08/19 01/08/19 01/08/19 02:21 02:31 02:41 Temperature Pulse Rate 109 H 112 H 112 H Pulse Rate [ From Monitor] Respiratory 21 25 H 24 Rate Blood Pressure 131/70 131/70 131/70 O2 Sat by Pulse 97 97 97 Oximetry 01/08/19 01/08/19 01/08/19 02:51 03:00 03:11 Temperature Pulse Rate 110 H 114 H 112 H Pulse Rate [ From Monitor] Respiratory 21 26 H 22 Rate Blood Pressure 131/70 135/71 135/71 O2 Sat by Pulse 97 97 96 Oximetry 01/08/19 01/08/19 01/08/19 03:21 03:24 03:31 Temperature 97.6 F Pulse Rate 117 H 118 H Pulse Rate [ From Monitor] Respiratory 21 28 H Rate Blood Pressure 135/71 135/71 O2 Sat by Pulse 97 96 Oximetry 01/08/19 01/08/19 01/08/19 03:41 03:51 04:00 Temperature Pulse Rate 112 H 117 H 117 H Pulse Rate [ 118 H From Monitor] Respiratory 21 25 H 25 H Rate Blood Pressure 135/71 135/71 134/72 O2 Sat by Pulse 96 96 96 Oximetry 01/08/19 01/08/19 01/08/19 04:11 04:21 04:31 Temperature Pulse Rate 116 H 119 H 119 H Pulse Rate [ From Monitor] Respiratory 23 28 H 25 H Rate Blood Pressure 134/72 134/72 134/72 O2 Sat by Pulse 96 96 96 Oximetry 01/08/19 01/08/19 01/08/19 04:41 04:51 05:00 Temperature Pulse Rate 118 H 120 H 118 H Pulse Rate [ From Monitor] Respiratory 26 H 25 H 22 Rate Blood Pressure 134/72 134/72 127/66 O2 Sat by Pulse 96 96 96 Oximetry 01/08/19 01/08/19 01/08/19 05:11 05:21 05:31 Temperature Pulse Rate 129 H 125 H 124 H Pulse Rate [ From Monitor] Respiratory 28 H 27 H 29 H Rate Blood Pressure 127/66 127/66 127/66 O2 Sat by Pulse 96 96 96 Oximetry 01/08/19 01/08/19 01/08/19 05:41 05:51 06:01 Temperature Pulse Rate 127 H 126 H 127 H Pulse Rate [ From Monitor] Respiratory 31 H 29 H 29 H Rate Blood Pressure 127/66 127/66 127/66 O2 Sat by Pulse 96 96 95 Oximetry 01/08/19 01/08/19 01/08/19 07:00 08:00 09:01 Temperature 97.5 F L Pulse Rate 114 H 123 H 109 H Pulse Rate [ From Monitor] Respiratory 22 28 H 23 Rate Blood Pressure 112/61 104/59 121/71 O2 Sat by Pulse 95 97 97 Oximetry 01/08/19 01/08/19 10:00 11:00 Temperature Pulse Rate 115 H 108 H Pulse Rate [ From Monitor] Respiratory 30 H 23 Rate Blood Pressure 149/65 141/63 O2 Sat by Pulse 97 96 Oximetry - General Appearance General appearance: cachectic, chronically ill, frail EENT: ATNC, PERRL, mucous membranes dry Neck: no JVD Respiratory: Present: Decreased Breath Sounds Cardiology: regular, S1S2 Gastrointestinal: normoactive bowel sounds Integumentary: no rash, other (no edema ) - Lab 01/08/19 05:24 01/08/19 05:24 Most recent lab results Calcium 8.5 mg/dL (8.4-10.2) 01/08/19 05:24 Medications & Allergies - Medications Allergies/Adverse Reactions: Allergies No Known Allergies Allergy (Verified 12/17/18 19:43) Home Medications: Home Medications Medication Instructions Recorded Confirmed Last Taken Type Aspirin 325 mg PO QDAY #30 tablet 01/06/19 01/07/19 Unknown Rx AtorvaSTATin [Lipitor] 40 mg PO QHS #30 tablet 01/06/19 01/07/19 Unknown Rx Cefuroxime Axetil [Ceftin] 500 mg PO Q12H 5 Days #100 ml 01/06/19 01/07/19 Unknown Rx Doxycycline Hyclate [Doxycycline 100 mg PO Q12HR 5 Days #10 tab 01/06/1912/24 Unknown Rx Hyclate TAB] Active Medications: Generic Name Dose Route Start Last Admin Trade Name Freq PRN Reason Stop Dose Admin Acetaminophen 650 mg 01/07/19 02:07 01/08/19 14:00 Tylenol FEEDTUBE 650 mg Q4H PRN Administration Pain MILD(1-3)/Fever >100.5/COE Albuterol 2.5 mg 01/07/19 02:07 Proventil IH Q3HRT PRN Shortness Of Breath Lipase/Protease/Amylase 1 each 01/07/19 14:51 Pancreaze 10,500 Unit FEEDTUBE PRN PRN For Clogged Feeding Tube Aspirin 325 mg 01/07/19 10:00 01/08/19 09:34 Aspirin PO 325 mg QDAY TRINY Administration Atorvastatin Calcium 40 mg 01/07/19 22:00 01/07/19 21:25 Lipitor PO 40 mg QHS TRINY Administration Cefepime HCl 1 gm in 100 mls @ 200 mls/hr 01/07/19 10:00 01/08/19 09:34 Maxipime/Ns 1 Gm/100 Ml IV 200 mls/hr Q12HR TRINY Administration Protocol Metronidazole 500 mg in 100 mls @ 100 mls/hr 01/07/19 06:00 01/08/19 14:00 Flagyl 500 Mg/100 Ml IV 100 mls/hr Q8HR TRINY Administration Protocol Dextrose/Sodium Chloride 1,000 mls @ 100 mls/hr 01/07/19 02:00 01/08/19 09:43 D5/0.45ns IV 100 mls/hr DIRECT TRINY Administration Metoprolol Tartrate 5 mg 01/08/19 14:02 Lopressor IV Q6HR PRN HR >120 Ondansetron HCl 4 mg 01/07/19 02:07 Zofran IV Q8H PRN Nausea And Vomiting Simple Syrup 15 ml 01/07/19 14:51 Simple Syrup FEEDTUBE PRN PRN Hypoglycemia Simple Syrup 30 ml 01/07/19 14:51 Simple Syrup FEEDTUBE PRN PRN Hypoglycemia Sodium Bicarbonate 325 mg 01/07/19 14:51 Sodium Bicarbonate FEEDTUBE PRN PRN For Clogged Feeding Tube Sodium Chloride 10 ml 01/07/19 10:00 01/08/19 09:34 Sodium Chloride Flush Syringe 10 Ml IV 10 ml BID TRINY Administration Sodium Chloride 10 ml 01/07/19 02:07 Sodium Chloride Flush Syringe 10 Ml IV PRN PRN LINE FLUSH
[2019-01-08] MEDS ORDERED: ADRENALIN ONE (23:00)
[2019-01-09] MEDS ORDERED: VASELINE LIP THERAPY TP PRN (02:59)
[2019-01-09] MEDS ORDERED: ARTIFICIAL TEARS OPHTH OINT OU PRN (02:59)
--- NOTE | 2019-01-09 03:01 | Event Note ---
Date: 01/09/19 CRISTA IRIZARRY CALLED ON PATIENT NOTED TO BE BRADYING DOWN. PATIENT WAS BEING BAGGED AND 1 DOSE OF ALREADY GIVEN. EXAMINATION OF PATIENT REVEALED NO PULSE AND CPR WAS STARTED AND PATIENT WAS INTUBATED AND I.V EPINEPHRINE GIVEN AND PATIENT'S PULSE REGAINED AFTER ABOUT 3 MINUTES AND BLOOD PRESSURE OF ABOUT 157/50 NOTED ON THE MORNITOR. PATIENT'S FAMILY MENMBER (CHEN HUGO) NOTIFIED ABOUT PATIENTS CONDITION. PLAN; 1. CRITICAL CARE PHYSICIAN TO BE RECONSULTED 2. LABS;CBC,CMP,CARDIAC ENZYMES. 3. 12 LEAD EKG. 4. RESPIRATORY THERAPY TO MANAGE THE VENTILATOR
--- NOTE | 2019-01-09 03:21 | XRay Report ---
CHEST 1 VIEW 2:42 AM INDICATION / CLINICAL INFORMATION: ETT placement. COMPARISON: 01/07/2019. FINDINGS: SUPPORT DEVICES: There is a new endotracheal tube with the tip approximately 10 cm above the rossi. HEART / MEDIASTINUM: Unchanged. LUNGS / PLEURA: There is patchy parenchymal disease in both lungs, most prominent in the perihilar re gions on the current study. No pneumothorax. ADDITIONAL FINDINGS: No significant additional findings. IMPRESSION: 1. High endotracheal tube position with the tip 10 cm above the rossi. 2. Parenchymal disease in both perihilar regions is nonspecific and may be related to edema or pneumo shireen. Signer Name: Arnoldo Hopson MD Signed: 01/09/2019 3:16 AM Workstation Name: [id number]
[2019-01-09 04:14] LABS: Hematocrit 23.7 % (35.5-45.6); Hemoglobin 7.3 gm/dl (11.8-15.2); Mean Corpuscular HGB Conc 31 % (32-34); Mean Corpuscular Volume 91 fl (84-94); Platelet Count 484 K/mm3 (140-440); Red Blood Count 2.59 M/mm3 (3.65-5.03); Red Cell Distribution Width 18.8 % (13.2-15.2)
[2019-01-09 04:26] LABS: Calcium 8.5 mg/dL (8.4-10.2)
[2019-01-09 05:18] LABS: Chol/HDL Ratio 2.56 %
[2019-01-09] MEDS: FLAGYL 500 MG/100 ML 500 MG/100 ML BAG IV SCH ×3 (05:23→22:21)
[2019-01-09 07:26] LABS: Eosinophils % (Manual) 0 % (0.0-4.3); Total Cells Counted 100
[2019-01-09 07:27] LABS: Anisocytosis 1+
[2019-01-09 07:28] LABS: Platelet Estimate Consistent w Auto
[2019-01-09 07:52] LABS: Creatine Kinase MB 18.7 ng/mL (0.0-4.0)
--- NOTE | 2019-01-09 10:16 | Consultation ---
History of Present Illness Reason for consult: other (acute resp failure sp code blue) History of present illness: This a patient initially admitted with respiratory failure . He was recently admitted w cva complicated by aspiration. He was transfer to ID and transfered back to ER. He did well but last night had episode of bradycardia and PEA. He was coded and placed on vent Past History Past Medical History: anemia, heart failure (EF 20-25%), hypertension, renal failure (acute kidney injury), stroke (Large area of ischemia in the right MCA territor ), other (12/2018, chronic respiratory failure, dysphasia, fevers, hypotension, severe malnutrition, debility) Past Surgical History: Other (status post PEG placement 01/01/19) Social history: lives with family (lives with nephew, recently discharged on 01/06/19 to prison) Family history: no significant family history Medications and Allergies Allergies Allergy/AdvReac Type Severity Reaction Status Date / Time No Known Allergies Allergy Verified 12/17/18 19:43 Home Medications Medication Instructions Recorded Confirmed Last Taken Type Aspirin 325 mg PO QDAY #30 tablet 01/06/19 01/07/19 Unknown Rx AtorvaSTATin [Lipitor] 40 mg PO QHS #30 tablet 01/06/19 01/07/19 Unknown Rx Cefuroxime Axetil [Ceftin] 500 mg PO Q12H 5 Days #100 ml 01/06/19 01/07/19 Unknown Rx Doxycycline Hyclate [Doxycycline 100 mg PO Q12HR 5 Days #10 tab 01/06/19 01/07/19 Unknown Rx Hyclate TAB] Active Meds: Active Medications Acetaminophen (Tylenol) 650 mg FEEDTUBE Q4H PRN PRN Reason: Pain MILD(1-3)/Fever >100.5/COE Last Admin: 01/08/19 22:04 Dose: 650 mg Documented by: Albuterol (Proventil) 2.5 mg IH Q3HRT PRN PRN Reason: Shortness Of Breath Lipase/Protease/Amylase (José Miguel Benitez 10,500 Unit) 1 each FEEDTUBE PRN PRN PRN Reason: For Clogged Feeding Tube Aspirin (Aspirin) 325 mg PO QDAY [facility] Last Admin: 01/08/19 09:34 Dose: 325 mg Documented by: Atorvastatin Calcium (Lipitor) 40 mg PO QHS [facility] Last Admin: 01/08/19 21:41 Dose: 40 mg Documented by: Hydrophilic Ointment (Vaseline Lip Therapy) 1 applic TP Q2HR PRN PRN Reason: Dry Lips Cefepime HCl (Maxipime/Ns 1 Gm/100 Ml) 1 gm in 100 mls @ 200 mls/hr IV Q12HR S ; Protocol Last Admin: 01/08/19 21:37 Dose: 200 mls/hr Documented by: Metronidazole (Flagyl 500 Mg/100 Ml) 500 mg in 100 mls @ 100 mls/hr IV Q8HR [facility]; Protocol Last Admin: 01/09/19 05:23 Dose: 100 mls/hr Documented by: Dextrose/Sodium Chloride (D5/0.45ns) 1,000 mls @ 100 mls/hr IV DIRECT [facility] Last Admin: 01/08/19 19:48 Dose: 100 mls/hr Documented by: Metoprolol Tartrate (Lopressor) 5 mg IV Q6HR PRN PRN Reason: HR >120 Last Admin: 01/08/19 19:46 Dose: 5 mg Documented by: Multi-Ingred Cream/Lotion/Oil/Oint (Artificial Tears Ophth Oint) 1 applic OU Q4HR PRN PRN Reason: Dry Eye(s) Ondansetron HCl (Zofran) 4 mg IV Q8H PRN PRN Reason: Nausea And Vomiting Simple Syrup (Simple Syrup) 15 ml FEEDTUBE PRN PRN PRN Reason: Hypoglycemia Simple Syrup (Simple Syrup) 30 ml FEEDTUBE PRN PRN PRN Reason: Hypoglycemia Sodium Bicarbonate (Sodium Bicarbonate) 325 mg FEEDTUBE PRN PRN PRN Reason: For Clogged Feeding Tube Sodium Chloride (Sodium Chloride Flush Syringe 10 Ml) 10 ml IV BID [facility] Last Admin: 01/08/19 21:41 Dose: 10 ml Documented by: Sodium Chloride (Sodium Chloride Flush Syringe 10 Ml) 10 ml IV PRN PRN PRN Reason: LINE FLUSH Review of Systems ROS unobtainable: due to endotracheal tube Physical Examination Vital signs: Vital Signs Temp Pulse BP 99.2 F 112 H 108/67 01/06/19 18:08 01/06/19 18:08 01/06/19 18:08 General appearance: no acute distress, other (orally intubated) ENT: oropharynx moist Neck: supple Effort: normal Ascultation: Bilateral: diminished breath sounds Cardiovascular: regular rate and rhythm Gastrointestinal: normoactive bowel sounds, non-distended Extremities: no cyanosis Musculoskeletal: no deformities unable to assess, other Results - Laboratory Findings CBC and BMP: 01/09/19 03:58 01/09/19 03:58 ABG POC ABG pH 7.397 (7.35-7.45) 01/09/19 06:25 POC ABG pO2 147 (80-105) H 01/09/19 06:25 POC ABG HCO3 13.5 (22-26 mml/L) 01/09/19 06:25 POC ABG Total CO2 14 (23-27mmol/L) 01/09/19 06:25 POC ABG O2 Sat 99 01/09/19 06:25 Abnormal lab findings: Abnormal Labs 01/06/19 01/06/19 01/08/19 21:21 21:21 05:24 WBC 16.6 H 12.5 H RBC 2.63 L 2.89 L Hgb 7.9 L 8.1 L Hct 23.0 L 25.5 L MCHC 35 H RDW 18.1 H 18.0 H Plt Count 468 H 498 H Lymph % (Auto) 10.8 L 12.4 L [place] # 0.9 H Seg Neutrophils % 81.5 H 76.9 H Seg Neuts % (Manual) Lymphocytes % (Manual) Seg Neutrophils # 13.5 H 9.6 H Seg Neutrophils # Man Basophils # (Manual) POC ABG pH POC ABG pO2 Sodium 146 H Chloride 118.5 H Carbon Dioxide 12 L BUN 54 H Creatinine 1.7 H Glucose POC Glucose AST 75 H Total Creatine Kinase CK-MB (CK-2) Troponin T Albumin 1.9 L Cholesterol LDL Cholesterol Direct HDL Cholesterol 01/08/19 01/08/19 01/08/19 05:24 11:40 18:28 WBC RBC Hgb Hct MCHC RDW Plt Count Lymph % (Auto) [place] # Seg Neutrophils % Seg Neuts % (Manual) Lymphocytes % (Manual) Seg Neutrophils # Seg Neutrophils # Man Basophils # (Manual) POC ABG pH POC ABG pO2 Sodium 150 H Chloride 125.3 H Carbon Dioxide 12 L BUN 46 H Creatinine Glucose 114 H POC Glucose 134 H 160 H AST Total Creatine Kinase CK-MB (CK-2) Troponin T Albumin Cholesterol LDL Cholesterol Direct HDL Cholesterol 01/08/19 01/09/19 01/09/19 23:43 03:58 03:58 WBC 15.7 H RBC 2.59 L Hgb 7.3 L Hct 23.7 L MCHC 31 L RDW 18.8 H Plt Count 484 H Lymph % (Auto) [place] # Seg Neutrophils % Seg Neuts % (Manual) 84.0 H Lymphocytes % (Manual) 12.0 L Seg Neutrophils # Seg Neutrophils # Man 13.2 H Basophils # (Manual) 0.2 H POC ABG pH POC ABG pO2 Sodium Chloride 119.9 H Carbon Dioxide 10 L BUN 50 H Creatinine 1.9 H Glucose 216 H POC Glucose 153 H AST 82 H Total Creatine Kinase 1173 H CK-MB (CK-2) 16.0 H Troponin T 0.856 H* Albumin 2.0 L Cholesterol 41 L LDL Cholesterol Direct 5 L HDL Cholesterol 16 L 01/09/19 01/09/19 01/09/19 04:21 06:08 06:25 WBC RBC Hgb Hct MCHC RDW Plt Count Lymph % (Auto) [place] # Seg Neutrophils % Seg Neuts % (Manual) Lymphocytes % (Manual) Seg Neutrophils # Seg Neutrophils # Man Basophils # (Manual) POC ABG pH 7.179 L POC ABG pO2 126 H 147 H Sodium Chloride Carbon Dioxide BUN Creatinine Glucose POC Glucose AST Total Creatine Kinase 1262 H CK-MB (CK-2) 18.7 H Troponin T 0.970 H* Albumin Cholesterol LDL Cholesterol Direct HDL Cholesterol - Diagnostic Findings Chest x-ray: report reviewed, image reviewed Assessment and Plan - Patient Problems (1) Acute respiratory failure Current Visit: Yes Status: Acute Qualifiers: Respiratory failure complication: hypoxia Qualified Code(s): J96.01 - Acute respiratory failure with hypoxia (2) Pneumonia Current Visit: Yes Status: Acute (3) Sepsis Current Visit: Yes Status: Acute (4) Dementia Current Visit: No Status: Acute Qualifiers: Dementia behavioral disturbance: without behavioral disturbance (5) Encephalopathy Current Visit: No Status: Acute
[2019-01-09] MEDS: MAXIPIME/NS 1 GM/100 ML 1 GM/100 ML BAG IV SCH (10:38)
[2019-01-09] MEDS: D5/0.45NS 1,000 ML IV SCH ×2 (10:38→17:55)
[2019-01-09] MEDS: SODIUM CHLORIDE FLUSH SYRINGE 10 ML IV SCH (10:39)
[2019-01-09] MEDS: ASPIRIN PO SCH (10:39)
[2019-01-09] MEDS ORDERED: LOVENOX SUB-Q SCH (11:00)
[2019-01-09] MEDS: LOVENOX SUB-Q SCH (11:36)
[2019-01-09] MEDS: PEPCID IV SCH (11:36)
--- NOTE | 2019-01-09 11:45 | Progress Note ---
Assessment and Plan - Patient Problems (1) Acute kidney injury Current Visit: No Status: Acute Plan to address problem: Acute kidney injury/acute tubular necrosis in the setting of code blue. Follow-up electrolytes and renal function in the morning. avoid nephrotoxins, NSAIDs, IV contrast. Overall poor prognosis. pt's family requested hospice. will sign off. (2) Hypernatremia Current Visit: No Status: Acute Plan to address problem: improved with d5 1/2NS to 100ml/hr (3) Acute CVA (cerebrovascular accident) Current Visit: No Status: Acute Plan to address problem: Continue management by neurology/primary attending. (4) Encephalopathy Current Visit: No Status: Acute (5) Pneumonia Current Visit: Yes Status: Acute Plan to address problem: cont ABXs as per ID recommendations, dose for current eGFR (6) Anemia in chronic illness Current Visit: Yes Status: Acute Plan to address problem: monitor Hb and transfuse with 1PRBC for Hb < 7. check iron stores/ferritin Subjective Date of service: 01/09/19 Principal diagnosis: EMILY Interval history: s/p code blue last night for bradycardia and PEA arrest. pt is now intubated. Objective - Vital Signs Vital signs: Vital Signs - 12hr 01/09/19 01/09/19 01/09/19 00:00 01:00 02:00 Temperature Pulse Rate 118 H 118 H 105 H Pulse Rate [ Apical] Respiratory 23 36 H 26 H Rate Blood Pressure 135/62 135/62 129/63 O2 Sat by Pulse 94 95 96 Oximetry 01/09/19 01/09/19 01/09/19 02:30 03:00 04:00 Temperature 98.9 F Pulse Rate 110 H 122 H 124 H Pulse Rate [ 124 H Apical] Respiratory 22 26 H Rate Blood Pressure 116/42 117/48 O2 Sat by Pulse 100 100 100 Oximetry 01/09/19 01/09/19 01/09/19 04:23 05:00 06:00 Temperature Pulse Rate 122 H 127 H 128 H Pulse Rate [ Apical] Respiratory 29 H 26 H Rate Blood Pressure 117/48 155/53 O2 Sat by Pulse 100 100 100 Oximetry 01/09/19 01/09/19 01/09/19 06:18 07:00 07:40 Temperature Pulse Rate 122 H 119 H 117 H Pulse Rate [ Apical] Respiratory 21 7 L Rate Blood Pressure 114/40 114/40 O2 Sat by Pulse 100 100 100 Oximetry 01/09/19 01/09/19 01/09/19 08:00 09:00 10:00 Temperature 98.3 F Pulse Rate 111 H 113 H 107 H Pulse Rate [ 111 H Apical] Respiratory 26 H 23 25 H Rate Blood Pressure 125/41 104/48 114/49 O2 Sat by Pulse 99 98 100 Oximetry 01/09/19 11:00 Temperature Pulse Rate 118 H Pulse Rate [ Apical] Respiratory 23 Rate Blood Pressure 132/67 O2 Sat by Pulse 100 Oximetry - General Appearance General appearance: appears stated age, chronically ill, intubated, frail EENT: ATNC, mucous membranes dry Neck: no JVD Respiratory: Present: Decreased Breath Sounds Cardiology: regular, S1S2 Gastrointestinal: normoactive bowel sounds Integumentary: no rash, other (no edema ) Neurologic: no focal deficit, other (intubated ) - Lab 01/09/19 03:58 01/09/19 03:58 Most recent lab results Calcium 8.5 mg/dL (8.4-10.2) 01/09/19 03:58 Medications & Allergies - Medications Allergies/Adverse Reactions: Allergies No Known Allergies Allergy (Verified 12/17/18 19:43) Home Medications: Home Medications Medication Instructions Recorded Confirmed Last Taken Type Aspirin 325 mg PO QDAY #30 tablet 01/06/19 01/07/19 Unknown Rx AtorvaSTATin [Lipitor] 40 mg PO QHS #30 tablet 01/06/19 01/07/19 Unknown Rx Cefuroxime Axetil [Ceftin] 500 mg PO Q12H 5 Days #100 ml 01/06/19 01/07/19 Unknown Rx Doxycycline Hyclate [Doxycycline 100 mg PO Q12HR 5 Days #10 tab 01/06/19 01/07/19 Unknown Rx Hyclate TAB] Active Medications: Generic Name Dose Route Start Last Admin Trade Name Freq PRN Reason Stop Dose Admin Acetaminophen 650 mg 01/07/19 02:07 01/08/19 22:04 Tylenol FEEDTUBE 650 mg Q4H PRN Administration Pain MILD(1-3)/Fever >100.5/COE Albuterol 2.5 mg 01/07/19 02:07 Proventil IH Q3HRT PRN Shortness Of Breath Lipase/Protease/Amylase 1 each 01/07/19 14:51 Pancreblack Benitez 10,500 Unit FEEDTUBE PRN PRN For Clogged Feeding Tube Aspirin 325 mg 01/07/19 10:00 01/09/19 10:39 Aspirin PO 325 mg QDAY [facility] Administration Atorvastatin Calcium 40 mg 01/07/19 22:00 01/08/19 21:41 Lipitor PO 40 mg QHS [facility] Administration Enoxaparin Sodium 30 mg 01/09/19 12:00 01/09/19 11:36 Lovenox SUB-Q 30 mg DAILY [facility] Administration Famotidine 20 mg 01/09/19 11:00 01/09/19 11:36 Pepcid IV 20 mg QDAY [facility] Administration Hydrophilic Ointment 1 applic 01/09/19 02:59 Vaseline Lip Therapy TP Q2HR PRN Dry Lips Metronidazole 500 mg in 100 mls @ 100 mls/hr 01/07/19 06:00 01/09/19 05:23 Flagyl 500 Mg/100 Ml IV 100 mls/hr Q8HR [facility] Administration Protocol Dextrose/Sodium Chloride 1,000 mls @ 100 mls/hr 01/07/19 02:00 01/09/19 10:38 D5/0.45ns IV 100 mls/hr DIRECT [facility] Administration Cefepime HCl 1 gm in 100 mls @ 200 mls/hr 01/10/19 10:00 Maxipime/Ns 1 Gm/100 Ml IV Q24HR [facility] Protocol Metoprolol Tartrate 5 mg 01/08/19 14:02 01/08/19 19:46 Lopressor IV 5 mg Q6HR PRN Administration HR >120 Multi-Ingred Cream/Lotion/Oil/Oint 1 applic 01/09/19 02:59 Artificial Tears Ophth Oint OU Q4HR PRN Dry Eye(s) Ondansetron HCl 4 mg 01/07/19 02:07 Zofran IV Q8H PRN Nausea And Vomiting Simple Syrup 15 ml 01/07/19 14:51 Simple Syrup FEEDTUBE PRN PRN Hypoglycemia Simple Syrup 30 ml 01/07/19 14:51 Simple Syrup FEEDTUBE PRN PRN Hypoglycemia Sodium Bicarbonate 325 mg 01/07/19 14:51 Sodium Bicarbonate FEEDTUBE PRN PRN For Clogged Feeding Tube Sodium Chloride 10 ml 01/07/19 10:00 01/09/19 10:39 Sodium Chloride Flush Syringe 10 Ml IV 10 ml BID [facility] Administration Sodium Chloride 10 ml 01/07/19 02:07 Sodium Chloride Flush Syringe 10 Ml IV PRN PRN LINE FLUSH
[2019-01-09] MEDS ORDERED: NACL 0.9% 250ML 250 ML IV ONE (12:12)
--- NOTE | 2019-01-09 14:07 | Progress Note ---
Assessment and Plan Assessment and plan: Patient is a 83 yo man with a history of HTN and Dementia who presented to [facility] with AMS and found unresponsive, lying on the floor. He was found to have a acute CVA. He was also found to have Left ventricular heart thrombus. He was started on IV heparin drip followed by Coumadin initiation. He did have nose bleeding on 12/20/18 and heparin IV drip held and repeat CT head done, which did not show a bleed, so heparin iv drip resumed. When I took over care on December 22, Hospice was consulted but nephmuriel decided against Hospice and no other family available. 12/23/18, We met at bedside, along with his daughter Sherlyn, he wants everything done, his goal is to get Mr. Corona back to [facility]. We did discuss the patient risk of Aspiration pneumonia and he agreed for PEG evaluation. Then on 12/24/18, patient became severely tachycardic and hypotensive, which did respond to IVF bolus resuscitations. His fevers, tachycardia and hypotension most likely due to Aspiration pneumonitis which i started on IV zosyn and IV levaqiun and moved him to the ICU on 12/24/18 and he was placed on bipap. GI consulted was cancelled. Status post cardiac arrest on 01/09/19 - Patient was coded according to ACLS protocol - Patient is DNR now MRI head: Large area of ischemia in the right MCA territory, as described above. No signs of hemorrhagic transformation. CT Head: Normal evolutionary change in large right MCA territorial infarct with no evidence of hemorrhagic transformation. There has been slight increase in the amount of edema, when compared with prior exam. KUB. No acute findings. Repeat CT head - Negative for bleed. 12/17/18 TTE Conclusions: The study quality is technically difficult, global left ventricular systolic function is severely decreased, the estimated EF is 20-25%, abnormal LV diastolic function is observed. A thrombus is visulized in the left ventricular apex, no atrial septal defect is demonstrated by agitated saline contrast. conservative management per cardiology Risk of continued anticoagulation being re-evaluated in setting of worsening anemia. 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 -Fever. ?central fever- monitor off abx, send culture: negative. STARTED ON CEFEPIME DUE TO WORSENING LEUKOCYTOSIS, OBTAIN REPEAT CULTURES WITH NO GROWTH SO FAR. ID consulted. Lauren added -Severe tachycardia; consulted Ultrasonic Seaming Machine Operator, also d/w Dr. Marks regarding past discussion with Ultrasonic Seaming Machine Operator once LV thrombus was found. Input nted -Sepsis, repeat pCXR can not exclude underlying bibasilar pneumonia: treated w ith zosyn and iv levaquin, cultures were negative -Severe ANEMIA- ? bleed... hold warfarin. Transfuse. continue PPI -Acute on Chronic Kidney Injury: continue fluids. -Acute hypoxic respiratory failure: Intubated on MV -Supratherapeutic INR with hematoma on left arm: resolved Given Vitamin K and FFP consult Wound care, hold warfarin, -Dysphagia: still with NGT, once stable GI evaluation -Acute Metabolic Encephalopathy Secondary to CVA -Left Ventricular Thrombus, supratherapeutic INR, Resolved, warfarin HELD IN THE SETTING OF SEVERE ANEMIA -HTN (hypertension), now hypotensive resolved -History of Dementia, supportive care, continue current therapy -Nasal Bleed, resolved -Severe Malnutrition suspected, poa, bmi 19, poa, started on NGT feed -Debility, PT consulted -DVT prophylaxis: SCD to BLE while in bed. off iv heparin drip Poor prognosis AND Patient was coded overnight. long discussion with the people who said acting like family but in reality they are friends. They made him DNR and they will decide to withdraw the care after they called his families in [place]. Patient need palliative care. - Patient Problems (1) Anemia in chronic illness Current Visit: Yes Status: Acute (2) Pneumonia Current Visit: Yes Status: Acute (3) Sepsis Current Visit: Yes Status: Acute (4) Acute CVA (cerebrovascular accident) Current Visit: No Status: Acute (5) Acute kidney injury Current Visit: No Status: Acute (6) Acute renal failure Current Visit: No Status: Acute (7) Debility Current Visit: No Status: Acute (8) Dementia Current Visit: No Status: Acute Qualifiers: Dementia behavioral disturbance: without behavioral disturbance (9) Encephalopathy Current Visit: No Status: Acute (10) Hyperkalemia Current Visit: No Status: Acute (11) Hypernatremia Current Visit: No Status: Acute (12) HTN (hypertension) Current Visit: No Status: Chronic Qualifiers: Hypertension type: essential hypertension Qualified Code(s): I10 - Essential (primary) hypertension History Interval history: Patient was seen and evaluated this morning. patient is aphasic. Patient is intubated and mechanical ventilation. Patient was coded overnight. Hospitalist Physical - Physical exam Narrative exam: Patient is intubated The patient appeared well nourished and normally developed. Vital signs as documented. Head exam is unremarkable. No scleral icterus . Neck is without jugular venous distension, thyromegaly, or carotid bruits. Lungs are clear to auscultation. Cardiac exam reveals regular rate and Rhythm. Abdominal exam reveals normal bowel sounds, no masses, no organomegaly and no aortic enlargement. Extremities are nonedematous. THERMODYNAMICIST:comatose, Leftsided hemiplegia - Constitutional Vitals: Temp Pulse Resp BP Pulse Ox 98.3 F 96 H 23 111/57 100 01/09/19 12:00 01/09/19 13:00 01/09/19 13:00 01/09/19 13:00 01/09/19 13:00 General appearance: Present: no acute distress Results - Labs CBC & Chem 7: 01/09/19 03:58 01/09/19 03:58 Labs: Laboratory Last Values WBC 15.7 K/mm3 (4.5-11.0) H 01/09/19 03:58 RBC 2.59 M/mm3 (3.65-5.03) L 01/09/19 03:58 Hgb 7.3 gm/dl (11.8-15.2) L 01/09/19 03:58 Hct 23.7 % (35.5-45.6) L 01/09/19 03:58 MCV 91 fl (84-94) 01/09/19 03:58 MCH 28 pg (28-32) 01/09/19 03:58 MCHC 31 % (32-34) L 01/09/19 03:58 RDW 18.8 % (13.2-15.2) H 01/09/19 03:58 Plt Count 484 K/mm3 (140-440) H 01/09/19 03:58 Lymph % (Auto) 12.4 % (13.4-35.0) L 01/08/19 05:24 Allen % (Auto) 7.3 % (0.0-7.3) 01/08/19 05:24 Eos % (Auto) 2.9 % (0.0-4.3) 01/08/19 05:24 Baso % (Auto) 0.5 % (0.0-1.8) 01/08/19 05:24 Lymph # 1.6 K/mm3 (1.2-5.4) 01/08/19 05:24 Allen # 0.9 K/mm3 (0.0-0.8) H 01/08/19 05:24 Eos # 0.4 K/mm3 (0.0-0.4) 01/08/19 05:24 Baso # 0.1 K/mm3 (0.0-0.1) 01/08/19 05:24 Add Manual Diff Complete 01/09/19 03:58 Total Counted 100 01/09/19 03:58 Seg Neutrophils % 76.9 % (40.0-70.0) H 01/08/19 05:24 Seg Neuts % (Manual) 84.0 % (40.0-70.0) H 01/09/19 03:58 0 % 01/09/19 03:58 12.0 % (13.4-35.0) L 01/09/19 03:58 Reactive Lymphs % (Man) 0 % 01/09/19 03:58 2.0 % (0.0-7.3) 01/09/19 03:58 0 % (0.0-4.3) 01/09/19 03:58 1.0 % (0.0-1.8) 01/09/19 03:58 1.0 % 01/09/19 03:58 0 % 01/09/19 03:58 0 % 01/09/19 03:58 0 % 01/09/19 03:58 Nucleated RBC % Not Reportable 01/09/19 03:58 Seg Neutrophils # 9.6 K/mm3 (1.8-7.7) H 01/08/19 05:24 Seg Neutrophils # Man 13.2 K/mm3 (1.8-7.7) H 01/09/19 03:58 Band Neutrophils # 0.0 K/mm3 01/09/19 03:58 1.9 K/mm3 (1.2-5.4) 01/09/19 03:58 Abs React Lymphs (Man) 0.0 K/mm3 01/09/19 03:58 0.3 K/mm3 (0.0-0.8) 01/09/19 03:58 0.0 K/mm3 (0.0-0.4) 01/09/19 03:58 0.2 K/mm3 (0.0-0.1) H 01/09/19 03:58 0.2 K/mm3 01/09/19 03:58 0.0 K/mm3 01/09/19 03:58 0.0 K/mm3 01/09/19 03:58 Blast Cells # 0.0 K/mm3 01/09/19 03:58 WBC Morphology Not Reportable 01/09/19 03:58 Hypersegmented Neuts Not Reportable 01/09/19 03:58 Hyposegmented Neuts Not Reportable 01/09/19 03:58 Hypogranular Neuts Not Reportable 01/09/19 03:58 Not Reportable 01/09/19 03:58 Not Reportable 01/09/19 03:58 Not Reportable 01/09/19 03:58 Not Reportable 01/09/19 03:58 Not Reportable 01/09/19 03:58 Not Reportable 01/09/19 03:58 Consistent w auto 01/09/19 03:58 Not Reportable 01/09/19 03:58 Plt Clumps, EDTA Not Reportable 01/09/19 03:58 Not Reportable 01/09/19 03:58 Not Reportable 01/09/19 03:58 Not Reportable 01/09/19 03:58 Plt Morphology Comment Not Reportable 01/09/19 03:58 RBC Morphology Not Reportable 01/09/19 03:58 Dimorphic RBCs Not Reportable 01/09/19 03:58 Rare 01/09/19 03:58 Not Reportable 01/09/19 03:58 Not Reportable 01/09/19 03:58 1+ 01/09/19 03:58 Not Reportable 01/09/19 03:58 Not Reportable 01/09/19 03:58 Not Reportable 01/09/19 03:58 Not Reportable 01/09/19 03:58 Not Reportable 01/09/19 03:58 Not Reportable 01/09/19 03:58 Not Reportable 01/09/19 03:58 Not Reportable 01/09/19 03:58 Not Reportable 01/09/19 03:58 Not Reportable 01/09/19 03:58 Not Reportable 01/09/19 03:58 Not Reportable 01/09/19 03:58 Not Reportable 01/09/19 03:58 Not Reportable 01/09/19 03:58 Not Reportable 01/09/19 03:58 Acanthocytes (Spur) Not Reportable 01/09/19 03:58 Rouleaux Not Reportable 01/09/19 03:58 Not Reportable 01/09/19 03:58 Not Reportable 01/09/19 03:58 Not Reportable 01/09/19 03:58 Not Reportable 01/09/19 03:58 Hem Pathologist Commnt No 01/09/19 03:58 APTT 27.6 Sec. (24.2-36.6) 01/06/19 21:21 POC ABG pH 7.397 (7.35-7.45) 01/09/19 06:25 POC ABG pO2 147 (80-105) H 01/09/19 06:25 POC ABG HCO3 13.5 (22-26 mml/L) 01/09/19 06:25 POC ABG Total CO2 14 (23-27mmol/L) 01/09/19 06:25 POC ABG O2 Sat 99 01/09/19 06:25 POC ABG Base Excess -11 ((-2) - (+3)mmol/L) 01/09/19 06:25 50 % 01/09/19 06:25 Sodium 145 mmol/L (137-145) 01/09/19 03:58 Potassium 4.1 mmol/L (3.6-5.0) 01/09/19 03:58 Chloride 119.9 mmol/L (98-107) H 01/09/19 03:58 Carbon Dioxide 10 mmol/L (22-30) L 01/09/19 03:58 19 mmol/L 01/09/19 03:58 BUN 50 mg/dL (9-20) H 01/09/19 03:58 1.9 mg/dL (0.8-1.5) H 01/09/19 03:58 Estimated GFR 34 ml/min 01/09/19 03:58 26 % 01/09/19 03:58 Glucose 216 mg/dL (75-100) H 01/09/19 03:58 POC Glucose 132 (70-105) H 01/09/19 12:49 Lactic Acid 1.50 mmol/L (0.7-2.0) 01/07/19 00:27 Calcium 8.5 mg/dL (8.4-10.2) 01/09/19 03:58 0.40 mg/dL (0.1-1.2) 01/09/19 03:58 AST 82 units/L (5-40) H 01/09/19 03:58 ALT 43 units/L (7-56) 01/09/19 03:58 100 units/L (35-129) 01/09/19 03:58 1262 units/L (55-170) H 01/09/19 06:08 CK-MB (CK-2) 18.7 ng/mL (0.0-4.0) H 01/09/19 06:08 CK-MB (CK-2) Rel Index 1.4 (0-4) 01/09/19 06:08 0.970 ng/mL (0.00-0.029) H* 01/09/19 06:08 6.7 g/dL (6.3-8.2) 01/09/19 03:58 2.0 g/dL (3.9-5) L 01/09/19 03:58 0.4 % 01/09/19 03:58 Triglycerides 102 mg/dL (2-149) 01/09/19 03:58 Cholesterol 41 mg/dL (50-199) L 01/09/19 03:58 5 mg/dL (50-130) L 01/09/19 03:58 16 mg/dL (40-59) L 01/09/19 03:58 2.56 % 01/09/19 03:58 Yellow (Yellow) 01/06/19 22:43 Clear (Clear) 01/06/19 22:43 5.0 (5.0-7.0) 01/06/19 22:43 Ur Specific Kuna 1.014 (1.003-1.030) 01/06/19 22:43 30 mg/dl mg/dL (Negative) 01/06/19 22:43 Neg mg/dL (Negative) 01/06/19 22:43 Neg mg/dL (Negative) 01/06/19 22:43 Lg (Negative) 01/06/19 22:43 Neg (Negative) 01/06/19 22:43 Neg (Negative) 01/06/19 22:43 < 2.0 mg/dL (<2.0) 01/06/19 22:43 Ur Leukocyte Esterase Tr (Negative) 01/06/19 22:43 1.0 /HPF (0.0-6.0) 01/06/19 22:43 < 1.0 /HPF (0.0-6.0) 01/06/19 22:43 Few /HPF 01/06/19 22:43 Active Medications - Current Medications Current Medications: Generic Name Dose Route Start Last Admin Trade Name Freq PRN Reason Stop Dose Admin Acetaminophen 650 mg 01/07/19 02:07 01/08/19 22:04 Tylenol FEEDTUBE 650 mg Q4H PRN Administration Pain MILD(1-3)/Fever >100.5/COE Albuterol 2.5 mg 01/07/19 02:07 Proventil IH Q3HRT PRN Shortness Of Breath Lipase/Protease/Amylase 1 each 01/07/19 14:[address] 10,500 Unit FEEDTUBE PRN PRN For Clogged Feeding Tube Aspirin 325 mg 01/07/19 10:00 01/09/19 10:39 Aspirin PO 325 mg QDAY TRINY Administration Atorvastatin Calcium 40 mg 01/07/19 22:00 01/08/19 21:41 Lipitor PO 40 mg QHS TRINY Administration Enoxaparin Sodium 30 mg 01/09/19 12:00 01/09/19 11:36 Lovenox SUB-Q 30 mg DAILY TRINY Administration Famotidine 20 mg 01/09/19 11:00 01/09/19 11:36 Pepcid IV 20 mg QDAY TRINY Administration Hydrophilic Ointment 1 applic 01/09/19 02:59 Vaseline Lip Therapy TP Q2HR PRN Dry Lips Metronidazole 500 mg in 100 mls @ 100 mls/hr 01/07/19 06:00 01/09/19 14:01 Flagyl 500 Mg/100 Ml IV 100 mls/hr Q8HR TRINY Administration Protocol Dextrose/Sodium Chloride 1,000 mls @ 100 mls/hr 01/07/19 02:00 01/09/19 10:38 D5/0.45ns IV 100 mls/hr DIRECT TRINY Administration Cefepime HCl 1 gm in 100 mls @ 200 mls/hr 01/10/19 10:00 Maxipime/Ns 1 Gm/100 Ml IV Q24HR TRINY Protocol Metoprolol Tartrate 5 mg 01/08/19 14:02 01/08/19 19:46 Lopressor IV 5 mg Q6HR PRN Administration HR >120 Multi-Ingred Cream/Lotion/Oil/Oint 1 applic 01/09/19 02:59 Artificial Tears Ophth Oint OU Q4HR PRN Dry Eye(s) Ondansetron HCl 4 mg 01/07/19 02:07 Zofran IV Q8H PRN Nausea And Vomiting Simple Syrup 15 ml 01/07/19 14:51 Simple Syrup FEEDTUBE PRN PRN Hypoglycemia Simple Syrup 30 ml 01/07/19 14:51 Simple Syrup FEEDTUBE PRN PRN Hypoglycemia Sodium Bicarbonate 325 mg 01/07/19 14:51 Sodium Bicarbonate FEEDTUBE PRN PRN For Clogged Feeding Tube Sodium Chloride 10 ml 01/07/19 10:00 01/09/19 10:39 Sodium Chloride Flush Syringe 10 Ml IV 10 ml BID TRINY Administration Sodium Chloride 10 ml 01/07/19 02:07 Sodium Chloride Flush Syringe 10 Ml IV PRN PRN LINE FLUSH Nutrition/Malnutrition Assess - Dietary Evaluation Nutrition/Malnutrition Findings: Nutrition Notes Start: 01/07/19 14:42 Freq: Status: Active Protocol: Document 01/09/19 10:07 BRYAN (Rec: 01/09/19 10:14 BRYAN [email or web address]) Nutrition Notes Need for Assessment generated from: MD Order Initial or Follow up Reassessment Current Diagnosis Acute Kidney Injury, Hypertension,Stroke Other Pertinent Diagnosis Dysphagia, Pneu, Debility, Dementia Current Diet TF - Osmolite 1.5 at 40ml/hr Labs/Tests BUN 50 Cr 1.9 BG 216 CO2 - 10 Pertinent Medications D5 1/2NS at 100ml/hr Height 5 ft 3 in Weight 58.9 kg [place] Body Weight (kg) 56.36 BMI 23.0 Subjective/Other Information RD consulted to evaluate nutritional intake. Pt currently receives EN support. Pt is s/p code Blue this am; intubated and transferred to CCU. Percent of energy/protein needs met: 100% energy 85% pro Burn Absent Trauma Absent #1 Nutrition Diagnosis Inadequate oral intake Diagnosis Progress(for reassessment Continues documentation) Is patient on ventilator? Yes Is Patient Ambulatory and/or Out of Bed No REE-([facility]-confined to bed) 1422.216 Calculation Used for Recommendations [facility] Additional Notes Pro needs 1.2-2g/k-118g/ day Fluid needs 1ml/kcal Nutrition Intervention Nutrition Support: Continue Osmolite 1.5 at 40 ml /hr Water flush of 120 mls q 4 hrs Kcal 1,440 Protein (gm) 60 Fluid (mL) 732 Goal #1 TF tolerance Goal #2 Meet at least 75% of calorie and protein needs via TF Follow-Up By: 01/11/19 Additional Comments F/U: new TF, BG labs, vent status
--- NOTE | 2019-01-09 14:58 | Progress Note ---
Assessment and Plan Cultures: 12/24 BCx - no growth 12/30 BCx - no growth 01/03 BCx - NGTD 01/04 BCx - NGTD 01/06 BCx - CoNS / bottles A/P: 83 yo M PMHx HTN, dementia admitted with CVA, now persistently febrile with LLL pneumonia. Patient was discharged yesterday for SNF placement. Upon arrival to the senior living, patient was refused admission due to concerns about his respiratory status. 1. Leukocytosis : Trending up due to code blue and CPR. No new concerns for infection at this time. Initially was secondary to LLL pneumonia. RPT CXR shows Largely unchanged bilateral central peribronchial thickening and patchy left basilar airspace disease. No new abnormality. Continue Cefepime, Flagyl and Vancomycin. 2. CoNs Bacteremia: 05/29 bottles. Likely a contaminant. 2. Acute Hypoxic respiratory failure: re-intubated due to code blue. 3. EMILY - renally dosed antibiotics 4. Hypernatremia 4. CVA 5. Dementia 6. HTN Recs: - continue cefepime 1g q12h, D7 - continue metronidazole 500mg q8h, D6 -discontinue Vancomycin -continue to monitor renal function -When clinically improved can discharge home on Ceftin 500mg P0 BID and Doxycycline 100mg BID for 2 days. Grim prognosis, consider hospice G. Apurva Lucas MD [facility] M: [phone] O: [phone] F: [phone] Subjective Date of service: 01/09/19 Principal diagnosis: EMILY Interval history: Coded last night, received CPR and was intubated. Objective - Exam Narrative Exam: Constitutional: intubated Head, Ears, Nose: Normocephalic, atraumatic. External ears, nose normal Eyes: unable to assess Neck: Supple, no meningeal signs Oral: unable to assess Cardiovascular: S1, S2 normal. Normal rhythm Respiratory: decreased breath sounds, clear to auscultation bilaterally, room air. GI: Soft, non-tender; bowel sounds normal. No peritoneal signs. PEG in place. Musculoskeletal: No pedal edema, Skin: No rash or abscess Hem/Lymphatic: No palpable cervical or supraclavicular nodes. No lymphangitis Psych: somnolent Neurological: L sided hemiplegia, somnolent, not following commands - Constitutional Vitals: Vital Signs Temp Pulse Resp BP Pulse Ox 98.3 F 96 H 23 111/57 100 01/09/19 12:00 01/09/19 13:00 01/09/19 13:00 01/09/19 13:00 01/09/19 13:00 Temperature -Last 24 Hours Temperature 98.3 F Temperature 98.3 F Temperature 98.9 F Temperature 98.9 F Temperature 98.3 F Temperature 99.5 F - Labs CBC & Chem 7: 01/09/19 03:58 01/09/19 03:58 Labs: Abnormal lab results 01/08/19 01/08/19 01/09/19 Range/Units 18:28 23:43 03:58 WBC 15.7 H (4.5-11.0) K/mm3 RBC 2.59 L (3.65-5.03) M/mm3 Hgb 7.3 L (11.8-15.2) gm/dl Hct 23.7 L (35.5-45.6) % MCHC 31 L (32-34) % RDW 18.8 H (13.2-15.2) % Plt Count 484 H (140-440) K/mm3 Seg Neuts % (Manual) 84.0 H (40.0-70.0) % Lymphocytes % (Manual) 12.0 L (13.4-35.0) % Seg Neutrophils # Man 13.2 H (1.8-7.7) K/mm3 Basophils # (Manual) 0.2 H (0.0-0.1) K/mm3 POC ABG pH (7.35-7.45) POC ABG pO2 (80-105) Chloride (98-107) mmol/L Carbon Dioxide (22-30) mmol/L BUN (9-20) mg/dL Creatinine (0.8-1.5) mg/dL Glucose (75-100) mg/dL POC Glucose 160 H 153 H (70-105) AST (5-40) units/L Total Creatine Kinase (55-170) units/L CK-MB (CK-2) (0.0-4.0) ng/mL Troponin T (0.00-0.029) ng/mL Albumin (3.9-5) g/dL Cholesterol (50-199) mg/dL LDL Cholesterol Direct (50-130) mg/dL HDL Cholesterol (40-59) mg/dL 01/09/19 01/09/19 01/09/19 Range/Units 03:58 04:21 06:08 WBC (4.5-11.0) K/mm3 RBC (3.65-5.03) M/mm3 Hgb (11.8-15.2) gm/dl Hct (35.5-45.6) % MCHC (32-34) % RDW (13.2-15.2) % Plt Count (140-440) K/mm3 Seg Neuts % (Manual) (40.0-70.0) % Lymphocytes % (Manual) (13.4-35.0) % Seg Neutrophils # Man (1.8-7.7) K/mm3 Basophils # (Manual) (0.0-0.1) K/mm3 POC ABG pH 7.179 L (7.35-7.45) POC ABG pO2 126 H (80-105) Chloride 119.9 H (98-107) mmol/L Carbon Dioxide 10 L (22-30) mmol/L BUN 50 H (9-20) mg/dL Creatinine 1.9 H (0.8-1.5) mg/dL Glucose 216 H (75-100) mg/dL POC Glucose (70-105) AST 82 H (5-40) units/L Total Creatine Kinase 1173 H 1262 H (55-170) units/L CK-MB (CK-2) 16.0 H 18.7 H (0.0-4.0) ng/mL Troponin T 0.856 H* 0.970 H* (0.00-0.029) ng/mL Albumin 2.0 L (3.9-5) g/dL Cholesterol 41 L (50-199) mg/dL LDL Cholesterol Direct 5 L (50-130) mg/dL HDL Cholesterol 16 L (40-59) mg/dL 01/09/19 01/09/19 Range/Units 06:25 12:49 WBC (4.5-11.0) K/mm3 RBC (3.65-5.03) M/mm3 Hgb (11.8-15.2) gm/dl Hct (35.5-45.6) % MCHC (32-34) % RDW (13.2-15.2) % Plt Count (140-440) K/mm3 Seg Neuts % (Manual) (40.0-70.0) % Lymphocytes % (Manual) (13.4-35.0) % Seg Neutrophils # Man (1.8-7.7) K/mm3 Basophils # (Manual) (0.0-0.1) K/mm3 POC ABG pH (7.35-7.45) POC ABG pO2 147 H (80-105) Chloride (98-107) mmol/L Carbon Dioxide (22-30) mmol/L BUN (9-20) mg/dL Creatinine (0.8-1.5) mg/dL Glucose (75-100) mg/dL POC Glucose 132 H (70-105) AST (5-40) units/L Total Creatine Kinase (55-170) units/L CK-MB (CK-2) (0.0-4.0) ng/mL Troponin T (0.00-0.029) ng/mL Albumin (3.9-5) g/dL Cholesterol (50-199) mg/dL LDL Cholesterol Direct (50-130) mg/dL HDL Cholesterol (40-59) mg/dL
--- NOTE | 2019-01-10 03:02 | XRay Report ---
CHEST 1 VIEW 2:17 AM INDICATION / CLINICAL INFORMATION: Follow up respiratory failure. COMPARISON: Yesterday. FINDINGS: SUPPORT DEVICES: The tip of the endotracheal tube is 6 cm above the rossi. HEART / MEDIASTINUM: Unchanged. LUNGS / PLEURA: There is patchy parenchymal disease in both perihilar regions and central lung zones, right greater than left. Minimal overall change is seen. No pneumothorax. ADDITIONAL FINDINGS: No significant additional findings. IMPRESSION: 1. Minimal change in patchy parenchymal disease bilaterally since yesterday. 2. The tip of the endotracheal tube is 6 cm above the rossi. Signer Name: Arnoldo Hopson MD Signed: 01/10/2019 2:57 AM Workstation Name: [id number]
[2019-01-10 04:19] LABS: ABG Base Excess -11.4 mmol/L (-2.0-3.0); ABG HCO3 12.5 mmol/L (20.0-26.0); ABG Methemoglobin 0.7 % (0.0-1.5); ABG Oxygen Saturation 97.1 % (95.0-99.0); ABG PCO2 21.4 mm Hg; ABG PH 7.384 pH Units (7.350-7.450); ABG PO2 83.2 mm Hg (80.0-90.0)
[2019-01-10] MEDS: D5/0.45NS 1,000 ML IV SCH (05:56)
[2019-01-10] MEDS: FLAGYL 500 MG/100 ML 500 MG/100 ML BAG IV SCH ×3 (05:56→22:25)
[2019-01-10] MEDS: SODIUM CHLORIDE FLUSH SYRINGE 10 ML IV SCH ×3 (10:08→22:26)
[2019-01-10] MEDS: LOVENOX SUB-Q SCH (10:08)
[2019-01-10] MEDS: PEPCID IV SCH (10:08)
[2019-01-10] MEDS: MAXIPIME/NS 1 GM/100 ML 1 GM/100 ML BAG IV SCH (10:26)
[2019-01-10] MEDS: ASPIRIN PO SCH (10:26)
--- NOTE | 2019-01-10 11:48 | Progress Note ---
Assessment and Plan - Patient Problems (1) Acute respiratory failure Current Visit: Yes Status: Acute Qualifiers: Respiratory failure complication: hypoxia Qualified Code(s): J96.01 - Acute respiratory failure with hypoxia (2) Pneumonia Current Visit: Yes Status: Acute (3) Sepsis Current Visit: Yes Status: Acute (4) Dementia Current Visit: No Status: Chronic Qualifiers: Dementia behavioral disturbance: without behavioral disturbance (5) Encephalopathy Current Visit: No Status: Acute (6) Acute kidney injury Current Visit: No Status: Acute (7) Acute renal failure Current Visit: No Status: Acute Subjective Principal diagnosis: EMILY Interval history: on vent Objective Vital Signs - 12hr 01/10/19 01/10/19 01/10/19 00:00 00:45 01:00 Temperature 100.9 F H Pulse Rate 118 H 119 H 119 H Pulse Rate [ 118 H Apical] Respiratory 25 H 26 H Rate Blood Pressure 101/56 125/57 130/56 O2 Sat by Pulse 100 100 100 Oximetry 01/10/19 01/10/19 01/10/19 02:00 03:00 03:30 Temperature 102.4 F H Pulse Rate 123 H 130 H Pulse Rate [ Apical] Respiratory 26 H 26 H Rate Blood Pressure 129/62 137/65 O2 Sat by Pulse 100 100 Oximetry 01/10/19 01/10/19 01/10/19 04:00 05:00 06:00 Temperature Pulse Rate 130 H 123 H 119 H Pulse Rate [ 132 H Apical] Respiratory 30 H 27 H 27 H Rate Blood Pressure 157/63 132/64 130/53 O2 Sat by Pulse 100 100 100 Oximetry 01/10/19 01/10/19 01/10/19 07:00 07:36 08:00 Temperature 97.9 F Pulse Rate 120 H 125 H 122 H Pulse Rate [ 115 H Apical] Respiratory 21 24 Rate Blood Pressure 133/64 124/60 124/62 O2 Sat by Pulse 100 100 100 Oximetry 01/10/19 01/10/19 01/10/19 09:00 10:00 11:00 Temperature Pulse Rate 113 H 114 H 111 H Pulse Rate [ Apical] Respiratory 20 20 19 Rate Blood Pressure 120/59 128/63 140/63 O2 Sat by Pulse 100 100 100 Oximetry Constitutional: no acute distress, other (orally intubated on vent critically ill) ENT: oropharynx moist Neck: supple Effort: normal Ascultation: Bilateral: diminished breath sounds Cardiovascular: regular rate and rhythm Gastrointestinal: normoactive bowel sounds, soft, non-distended Extremities: no cyanosis Neurologic: unable to assess, other CBC and BMP: 01/09/19 03:58 01/09/19 03:58 ABG, PT/INR, D-dimer: ABG POC ABG pH 7.397 (7.35-7.45) 01/09/19 06:25 ABG pH 7.384 pH Units (7.350-7.450) 01/10/19 03:35 ABG pCO2 21.4 mm Hg 01/10/19 03:35 POC ABG pO2 147 (80-105) H 01/09/19 06:25 ABG pO2 83.2 mm Hg (80.0-90.0) 01/10/19 03:35 POC ABG HCO3 13.5 (22-26 mml/L) 01/09/19 06:25 POC ABG Total CO2 14 (23-27mmol/L) 01/09/19 06:25 POC ABG O2 Sat 99 01/09/19 06:25 ABG O2 Saturation 97.1 % (95.0-99.0) 01/10/19 03:35 Abnormal lab findings: Abnormal Labs 01/06/19 01/06/19 01/08/19 21:21 21:21 05:24 WBC 16.6 H 12.5 H RBC 2.63 L 2.89 L Hgb 7.9 L 8.1 L Hct 23.0 L 25.5 L MCHC 35 H RDW 18.1 H 18.0 H Plt Count 468 H 498 H Lymph % (Auto) 10.8 L 12.4 L Ritchie # 0.9 H Seg Neutrophils % 81.5 H 76.9 H Seg Neuts % (Manual) Lymphocytes % (Manual) Seg Neutrophils # 13.5 H 9.6 H Seg Neutrophils # Man Basophils # (Manual) POC ABG pH POC ABG pO2 ABG HCO3 ABG Base Excess ABG Hemoglobin Oxyhemoglobin Sodium 146 H Chloride 118.5 H Carbon Dioxide 12 L BUN 54 H Creatinine 1.7 H Glucose POC Glucose AST 75 H Total Creatine Kinase CK-MB (CK-2) Troponin T Albumin 1.9 L Cholesterol LDL Cholesterol Direct HDL Cholesterol 01/08/19 01/08/19 01/08/19 05:24 11:40 18:28 WBC RBC Hgb Hct MCHC RDW Plt Count Lymph % (Auto) Ritchie # Seg Neutrophils % Seg Neuts % (Manual) Lymphocytes % (Manual) Seg Neutrophils # Seg Neutrophils # Man Basophils # (Manual) POC ABG pH POC ABG pO2 ABG HCO3 ABG Base Excess ABG Hemoglobin Oxyhemoglobin Sodium 150 H Chloride 125.3 H Carbon Dioxide 12 L BUN 46 H Creatinine Glucose 114 H POC Glucose 134 H 160 H AST Total Creatine Kinase CK-MB (CK-2) Troponin T Albumin Cholesterol LDL Cholesterol Direct HDL Cholesterol 01/08/19 01/09/19 01/09/19 23:43 03:58 03:58 WBC 15.7 H RBC 2.59 L Hgb 7.3 L Hct 23.7 L MCHC 31 L RDW 18.8 H Plt Count 484 H Lymph % (Auto) Ritchie # Seg Neutrophils % Seg Neuts % (Manual) 84.0 H Lymphocytes % (Manual) 12.0 L Seg Neutrophils # Seg Neutrophils # Man 13.2 H Basophils # (Manual) 0.2 H POC ABG pH POC ABG pO2 ABG HCO3 ABG Base Excess ABG Hemoglobin Oxyhemoglobin Sodium Chloride 119.9 H Carbon Dioxide 10 L BUN 50 H Creatinine 1.9 H Glucose 216 H POC Glucose 153 H AST 82 H Total Creatine Kinase 1173 H CK-MB (CK-2) 16.0 H Troponin T 0.856 H* Albumin 2.0 L Cholesterol 41 L LDL Cholesterol Direct 5 L HDL Cholesterol 16 L 01/09/19 01/09/19 01/09/19 04:21 06:08 06:25 WBC RBC Hgb Hct MCHC RDW Plt Count Lymph % (Auto) Ritchie # Seg Neutrophils % Seg Neuts % (Manual) Lymphocytes % (Manual) Seg Neutrophils # Seg Neutrophils # Man Basophils # (Manual) POC ABG pH 7.179 L POC ABG pO2 126 H 147 H ABG HCO3 ABG Base Excess ABG Hemoglobin Oxyhemoglobin Sodium Chloride Carbon Dioxide BUN Creatinine Glucose POC Glucose AST Total Creatine Kinase 1262 H CK-MB (CK-2) 18.7 H Troponin T 0.970 H* Albumin Cholesterol LDL Cholesterol Direct HDL Cholesterol 01/09/19 01/09/19 01/09/19 12:49 17:28 23:35 WBC RBC Hgb Hct MCHC RDW Plt Count Lymph % (Auto) Ritchie # Seg Neutrophils % Seg Neuts % (Manual) Lymphocytes % (Manual) Seg Neutrophils # Seg Neutrophils # Man Basophils # (Manual) POC ABG pH POC ABG pO2 ABG HCO3 ABG Base Excess ABG Hemoglobin Oxyhemoglobin Sodium Chloride Carbon Dioxide BUN Creatinine Glucose POC Glucose 132 H 136 H 110 H AST Total Creatine Kinase CK-MB (CK-2) Troponin T Albumin Cholesterol LDL Cholesterol Direct HDL Cholesterol 01/10/19 01/10/19 03:35 05:29 WBC RBC Hgb Hct MCHC RDW Plt Count Lymph % (Auto) Ritchie # Seg Neutrophils % Seg Neuts % (Manual) Lymphocytes % (Manual) Seg Neutrophils # Seg Neutrophils # Man Basophils # (Manual) POC ABG pH POC ABG pO2 ABG HCO3 12.5 L ABG Base Excess -11.4 L ABG Hemoglobin 6.8 L Oxyhemoglobin 94.8 L Sodium Chloride Carbon Dioxide BUN Creatinine Glucose POC Glucose 138 H AST Total Creatine Kinase CK-MB (CK-2) Troponin T Albumin Cholesterol LDL Cholesterol Direct HDL Cholesterol Chest x-ray: report reviewed, image reviewed
--- NOTE | 2019-01-10 14:57 | Progress Note ---
Assessment and Plan Assessment and plan: Patient is a 83 yo man with a history of HTN and Dementia who presented to [facility] ED with AMS and found unresponsive, lying on the floor. He was found to have a acute CVA. He was also found to have Left ventricular heart thrombus. He was started on IV heparin drip followed by Coumadin initiation. He did have nose bleeding on 12/20/18 and heparin IV drip held and repeat CT head done, which did not show a bleed, so heparin iv drip resumed. When I took over care on December 22, Hospice was consulted but nephmuriel decided against Hospice and no other family available. 12/23/18, We met at bedside, along with his daughter Sherlyn, he wants everything done, his goal is to get Mr. Corona back to [facility]. We did discuss the patient risk of Aspiration pneumonia and he agreed for PEG evaluation. Then on 12/24/18, patient became severely tachycardic and hypotensive, which did respond to IVF bolus resuscitations. His fevers, tachycardia and hypotension most likely due to Aspiration pneumonitis which i started on IV zosyn and IV levaqiun and moved him to the ICU on 12/24/18 and he was placed on bipap. GI consulted was cancelled. Status post cardiac arrest on 01/09/19 - Patient was coded according to ACLS protocol - Patient is DNR now MRI head: Large area of ischemia in the right MCA territory, as described above. No signs of hemorrhagic transformation. CT Head: Normal evolutionary change in large right MCA territorial infarct with no evidence of hemorrhagic transformation. There has been slight increase in the amount of edema, when compared with prior exam. KUB. No acute findings. Repeat CT head - Negative for bleed. 12/17/18 TTE Conclusions: The study quality is technically difficult, global left ventricular systolic function is severely decreased, the estimated EF is 20-25%, abnormal LV diastolic function is observed. A thrombus is visulized in the left ventricular apex, no atrial septal defect is demonstrated by agitated saline contrast. conservative management per cardiology Risk of continued anticoagulation being re-evaluated in setting of worsening anemia. 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 -Fever. ?central fever- monitor off abx, send culture: negative. STARTED ON CEFEPIME DUE TO WORSENING LEUKOCYTOSIS, OBTAIN REPEAT CULTURES WITH NO GROWTH SO FAR. ID consulted. Lauren added -Severe tachycardia; consulted Alternative Financing Specialist, also d/w Dr. Marks regarding past discussion with Alternative Financing Specialist once LV thrombus was found. Input nted -Sepsis, repeat pCXR can not exclude underlying bibasilar pneumonia: treated w ith zosyn and iv levaquin, cultures were negative -Severe ANEMIA- ? bleed... hold warfarin. Transfuse. continue PPI -Acute on Chronic Kidney Injury: continue fluids. -Acute hypoxic respiratory failure: Intubated on MV -Supratherapeutic INR with hematoma on left arm: resolved Given Vitamin K and FFP consult Wound care, hold warfarin, -Dysphagia: still with NGT, once stable GI evaluation -Acute Metabolic Encephalopathy Secondary to CVA -Left Ventricular Thrombus, supratherapeutic INR, Resolved, warfarin HELD IN THE SETTING OF SEVERE ANEMIA -HTN (hypertension), now hypotensive resolved -History of Dementia, supportive care, continue current therapy -Nasal Bleed, resolved -Severe Malnutrition suspected, poa, bmi 19, poa, started on NGT feed -Debility, PT consulted -DVT prophylaxis: SCD to BLE while in bed. off iv heparin drip Poor prognosis AND Patient was coded overnight. long discussion with the people who said acting like family but in reality they are friends. They made him DNR and they will decide to withdraw the care after they called his families in [place]. Patient need palliative care. Hospitalist Physical - Constitutional Vitals: Temp Pulse Resp BP Pulse Ox 100.2 F H 120 H 22 134/72 100 01/10/19 12:00 01/10/19 14:41 01/10/19 12:00 01/10/19 14:41 01/10/19 14:41 General appearance: Present: no acute distress Results - Labs CBC & Chem 7: 01/09/19 03:58 01/09/19 03:58 Labs: Laboratory Last Values WBC 15.7 K/mm3 (4.5-11.0) H 01/09/19 03:58 RBC 2.59 M/mm3 (3.65-5.03) L 01/09/19 03:58 Hgb 7.3 gm/dl (11.8-15.2) L 01/09/19 03:58 Hct 23.7 % (35.5-45.6) L 01/09/19 03:58 MCV 91 fl (84-94) 01/09/19 03:58 MCH 28 pg (28-32) 01/09/19 03:58 MCHC 31 % (32-34) L 01/09/19 03:58 RDW 18.8 % (13.2-15.2) H 01/09/19 03:58 Plt Count 484 K/mm3 (140-440) H 01/09/19 03:58 Lymph % (Auto) 12.4 % (13.4-35.0) L 01/08/19 05:24 [place] % (Auto) 7.3 % (0.0-7.3) 01/08/19 05:24 Eos % (Auto) 2.9 % (0.0-4.3) 01/08/19 05:24 Baso % (Auto) 0.5 % (0.0-1.8) 01/08/19 05:24 Lymph # 1.6 K/mm3 (1.2-5.4) 01/08/19 05:24 [place] # 0.9 K/mm3 (0.0-0.8) H 01/08/19 05:24 Eos # 0.4 K/mm3 (0.0-0.4) 01/08/19 05:24 Baso # 0.1 K/mm3 (0.0-0.1) 01/08/19 05:24 Add Manual Diff Complete 01/09/19 03:58 Total Counted 100 01/09/19 03:58 Seg Neutrophils % 76.9 % (40.0-70.0) H 01/08/19 05:24 Seg Neuts % (Manual) 84.0 % (40.0-70.0) H 01/09/19 03:58 0 % 01/09/19 03:58 12.0 % (13.4-35.0) L 01/09/19 03:58 Reactive Lymphs % (Man) 0 % 01/09/19 03:58 2.0 % (0.0-7.3) 01/09/19 03:58 0 % (0.0-4.3) 01/09/19 03:58 1.0 % (0.0-1.8) 01/09/19 03:58 1.0 % 01/09/19 03:58 0 % 01/09/19 03:58 0 % 01/09/19 03:58 0 % 01/09/19 03:58 Nucleated RBC % Not Reportable 01/09/19 03:58 Seg Neutrophils # 9.6 K/mm3 (1.8-7.7) H 01/08/19 05:24 Seg Neutrophils # Man 13.2 K/mm3 (1.8-7.7) H 01/09/19 03:58 Band Neutrophils # 0.0 K/mm3 01/09/19 03:58 1.9 K/mm3 (1.2-5.4) 01/09/19 03:58 Abs React Lymphs (Man) 0.0 K/mm3 01/09/19 03:58 0.3 K/mm3 (0.0-0.8) 01/09/19 03:58 0.0 K/mm3 (0.0-0.4) 01/09/19 03:58 0.2 K/mm3 (0.0-0.1) H 01/09/19 03:58 0.2 K/mm3 01/09/19 03:58 0.0 K/mm3 01/09/19 03:58 0.0 K/mm3 01/09/19 03:58 Blast Cells # 0.0 K/mm3 01/09/19 03:58 WBC Morphology Not Reportable 01/09/19 03:58 Hypersegmented Neuts Not Reportable 01/09/19 03:58 Hyposegmented Neuts Not Reportable 01/09/19 03:58 Hypogranular Neuts Not Reportable 01/09/19 03:58 Not Reportable 01/09/19 03:58 Not Reportable 01/09/19 03:58 Not Reportable 01/09/19 03:58 Not Reportable 01/09/19 03:58 Not Reportable 01/09/19 03:58 Not Reportable 01/09/19 03:58 Consistent w auto 01/09/19 03:58 Not Reportable 01/09/19 03:58 Plt Clumps, EDTA Not Reportable 01/09/19 03:58 Not Reportable 01/09/19 03:58 Not Reportable 01/09/19 03:58 Not Reportable 01/09/19 03:58 Plt Morphology Comment Not Reportable 01/09/19 03:58 RBC Morphology Not Reportable 01/09/19 03:58 Dimorphic RBCs Not Reportable 01/09/19 03:58 Rare 01/09/19 03:58 Not Reportable 01/09/19 03:58 Not Reportable 01/09/19 03:58 1+ 01/09/19 03:58 Not Reportable 01/09/19 03:58 Not Reportable 01/09/19 03:58 Not Reportable 01/09/19 03:58 Not Reportable 01/09/19 03:58 Not Reportable 01/09/19 03:58 Not Reportable 01/09/19 03:58 Not Reportable 01/09/19 03:58 Not Reportable 01/09/19 03:58 Not Reportable 01/09/19 03:58 Not Reportable 01/09/19 03:58 Not Reportable 01/09/19 03:58 Not Reportable 01/09/19 03:58 Not Reportable 01/09/19 03:58 Not Reportable 01/09/19 03:58 Not Reportable 01/09/19 03:58 Acanthocytes (Spur) Not Reportable 01/09/19 03:58 Rouleaux Not Reportable 01/09/19 03:58 Not Reportable 01/09/19 03:58 Not Reportable 01/09/19 03:58 Not Reportable 01/09/19 03:58 Not Reportable 01/09/19 03:58 Hem Pathologist Commnt No 01/09/19 03:58 APTT 27.6 Sec. (24.2-36.6) 01/06/19 21:21 POC ABG pH 7.397 (7.35-7.45) 01/09/19 06:25 ABG pH 7.384 pH Units (7.350-7.450) 01/10/19 03:35 ABG pCO2 21.4 mm Hg 01/10/19 03:35 POC ABG pO2 147 (80-105) H 01/09/19 06:25 ABG pO2 83.2 mm Hg (80.0-90.0) 01/10/19 03:35 POC ABG HCO3 13.5 (22-26 mml/L) 01/09/19 06:25 ABG HCO3 12.5 mmol/L (20.0-26.0) L 01/10/19 03:35 POC ABG Total CO2 14 (23-27mmol/L) 01/09/19 06:25 POC ABG O2 Sat 99 01/09/19 06:25 ABG O2 Saturation 97.1 % (95.0-99.0) 01/10/19 03:35 ABG O2 Content 9.3 (0.0-44) 01/10/19 03:35 POC ABG Base Excess -11 ((-2) - (+3)mmol/L) 01/09/19 06:25 ABG Base Excess -11.4 mmol/L (-2.0-3.0) L 01/10/19 03:35 ABG Hemoglobin 6.8 gm/dl (14.0-18.0) L 01/10/19 03:35 ABG Carboxyhemoglobin 1.6 % (0.0-5.0) 01/10/19 03:35 ABG Methemoglobin 0.7 % (0.0-1.5) 01/10/19 03:35 94.8 % (95.0-99.0) L 01/10/19 03:35 30 % 01/10/19 03:35 Sodium 145 mmol/L (137-145) 01/09/19 03:58 Potassium 4.1 mmol/L (3.6-5.0) 01/09/19 03:58 Chloride 119.9 mmol/L (98-107) H 01/09/19 03:58 Carbon Dioxide 10 mmol/L (22-30) L 01/09/19 03:58 19 mmol/L 01/09/19 03:58 BUN 50 mg/dL (9-20) H 01/09/19 03:58 1.9 mg/dL (0.8-1.5) H 01/09/19 03:58 Estimated GFR 34 ml/min 01/09/19 03:58 26 % 01/09/19 03:58 Glucose 216 mg/dL (75-100) H 01/09/19 03:58 POC Glucose 138 (70-105) H 01/10/19 05:29 Lactic Acid 1.50 mmol/L (0.7-2.0) 01/07/19 00:27 Calcium 8.5 mg/dL (8.4-10.2) 01/09/19 03:58 0.40 mg/dL (0.1-1.2) 01/09/19 03:58 AST 82 units/L (5-40) H 01/09/19 03:58 ALT 43 units/L (7-56) 01/09/19 03:58 100 units/L (35-129) 01/09/19 03:58 1262 units/L (55-170) H 01/09/19 06:08 CK-MB (CK-2) 18.7 ng/mL (0.0-4.0) H 01/09/19 06:08 CK-MB (CK-2) Rel Index 1.4 (0-4) 01/09/19 06:08 0.970 ng/mL (0.00-0.029) H* 01/09/19 06:08 6.7 g/dL (6.3-8.2) 01/09/19 03:58 2.0 g/dL (3.9-5) L 01/09/19 03:58 0.4 % 01/09/19 03:58 Triglycerides 102 mg/dL (2-149) 01/09/19 03:58 Cholesterol 41 mg/dL (50-199) L 01/09/19 03:58 5 mg/dL (50-130) L 01/09/19 03:58 16 mg/dL (40-59) L 01/09/19 03:58 2.56 % 01/09/19 03:58 Yellow (Yellow) 01/06/19 22:43 Clear (Clear) 01/06/19 22:43 5.0 (5.0-7.0) 01/06/19 22:43 Ur Specific [place] 1.014 (1.003-1.030) 01/06/19 22:43 30 mg/dl mg/dL (Negative) 01/06/19 22:43 Neg mg/dL (Negative) 01/06/19 22:43 Neg mg/dL (Negative) 01/06/19 22:43 Lg (Negative) 01/06/19 22:43 Neg (Negative) 01/06/19 22:43 Neg (Negative) 01/06/19 22:43 < 2.0 mg/dL (<2.0) 01/06/19 22:43 Ur Leukocyte Esterase Tr (Negative) 01/06/19 22:43 1.0 /HPF (0.0-6.0) 01/06/19 22:43 < 1.0 /HPF (0.0-6.0) 01/06/19 22:43 Few /HPF 01/06/19 22:43 Active Medications - Current Medications Current Medications: Generic Name Dose Route Start Last Admin Trade Name Freq PRN Reason Stop Dose Admin Acetaminophen 650 mg 01/07/19 02:07 01/08/19 22:04 Tylenol FEEDTUBE 650 mg Q4H PRN Administration Pain MILD(1-3)/Fever >100.5/COE Albuterol 2.5 mg 01/07/19 02:07 Proventil IH Q3HRT PRN Shortness Of Breath Lipase/Protease/Amylase 1 each 01/07/19 14:[address] 10,500 Unit FEEDTUBE PRN PRN For Clogged Feeding Tube Aspirin 325 mg 01/07/19 10:00 01/10/19 10:26 Aspirin PO 325 mg QDAY TRINY Administration Atorvastatin Calcium 40 mg 01/07/19 22:00 01/09/19 22:21 Lipitor PO 40 mg QHS TRINY Administration Enoxaparin Sodium 30 mg 01/09/19 12:00 01/10/19 10:08 Lovenox SUB-Q 30 mg DAILY TRINY Administration Famotidine 20 mg 01/09/19 11:00 01/10/19 10:08 Pepcid IV 20 mg QDAY TRINY Administration Hydrophilic Ointment 1 applic 01/09/19 02:59 Vaseline Lip Therapy TP Q2HR PRN Dry Lips Metronidazole 500 mg in 100 mls @ 100 mls/hr 01/07/19 06:00 01/10/19 14:23 Flagyl 500 Mg/100 Ml IV 100 mls/hr Q8HR TRINY Administration Protocol Dextrose/Sodium Chloride 1,000 mls @ 50 mls/hr 01/07/19 02:00 01/10/19 10:27 D5/0.45ns IV 50 mls/hr DIRECT TRINY Infusion Cefepime HCl 1 gm in 100 mls @ 200 mls/hr 01/10/19 10:00 01/10/19 10:26 Maxipime/Ns 1 Gm/100 Ml IV 200 mls/hr Q24HR TRINY Administration Protocol Metoprolol Tartrate 5 mg 01/08/19 14:02 01/08/19 19:46 Lopressor IV 5 mg Q6HR PRN Administration HR >120 Multi-Ingred Cream/Lotion/Oil/Oint 1 applic 01/09/19 02:59 Artificial Tears Ophth Oint OU Q4HR PRN Dry Eye(s) Ondansetron HCl 4 mg 01/07/19 02:07 Zofran IV Q8H PRN Nausea And Vomiting Simple Syrup 15 ml 01/07/19 14:51 Simple Syrup FEEDTUBE PRN PRN Hypoglycemia Simple Syrup 30 ml 01/07/19 14:51 Simple Syrup FEEDTUBE PRN PRN Hypoglycemia Sodium Bicarbonate 325 mg 01/07/19 14:51 Sodium Bicarbonate FEEDTUBE PRN PRN For Clogged Feeding Tube Sodium Chloride 10 ml 01/07/19 10:00 01/10/19 10:08 Sodium Chloride Flush Syringe 10 Ml IV 10 ml BID TRINY Administration Sodium Chloride 10 ml 01/07/19 02:07 Sodium Chloride Flush Syringe 10 Ml IV PRN PRN LINE FLUSH Nutrition/Malnutrition Assess - Dietary Evaluation Nutrition/Malnutrition Findings: Nutrition Notes Start: 01/07/19 14:42 Freq: Status: Active Protocol: Document 01/09/19 10:07 BRYAN (Rec: 01/09/19 10:14 BRYAN [email or web address]) Nutrition Notes Need for Assessment generated from: MD Order Initial or Follow up Reassessment Current Diagnosis Acute Kidney Injury, Hypertension,Stroke Other Pertinent Diagnosis Dysphagia, Pneu, Debility, Dementia Current Diet TF - Osmolite 1.5 at 40ml/hr Labs/Tests BUN 50 Cr 1.9 BG 216 CO2 - 10 Pertinent Medications D5 1/2NS at 100ml/hr Height 5 ft 3 in Weight 58.9 kg [place] Body Weight (kg) 56.36 BMI 23.0 Subjective/Other Information RD consulted to evaluate nutritional intake. Pt currently receives EN support. Pt is s/p code Blue this am; intubated and transferred to CCU. Percent of energy/protein needs met: 100% energy 85% pro Burn Absent Trauma Absent #1 Nutrition Diagnosis Inadequate oral intake Diagnosis Progress(for reassessment Continues documentation) Is patient on ventilator? Yes Is Patient Ambulatory and/or Out of Bed No REE-([facility]-confined to bed) 1422.216 Calculation Used for Recommendations [facility] Additional Notes Pro needs 1.2-2g/k-118g/ day Fluid needs 1ml/kcal Nutrition Intervention Nutrition Support: Continue Osmolite 1.5 at 40 ml /hr Water flush of 120 mls q 4 hrs Kcal 1,440 Protein (gm) 60 Fluid (mL) 732 Goal #1 TF tolerance Goal #2 Meet at least 75% of calorie and protein needs via TF Follow-Up By: 01/11/19 Additional Comments F/U: new TF, BG labs, vent status
[2019-01-10 16:54] LABS: Albumin 1.5 g/dL (3.9-5); Calcium 7.8 mg/dL (8.4-10.2)
--- NOTE | 2019-01-10 17:46 | Progress Note ---
Assessment and Plan Cultures: 12/24 BCx - no growth 12/30 BCx - no growth 01/03 BCx - NGTD 01/04 BCx - NGTD 01/06 BCx - CoNS 05/29 bottles A/P: 83 yo M PMHx HTN, dementia admitted with CVA, now persistently febrile with LLL pneumonia. Patient was discharged yesterday for SNF placement. Upon arrival to the skilled nursing, patient was refused admission due to concerns about his respiratory status. 1. Leukocytosis : Trending up due to code blue and CPR. No new concerns for infection at this time. Initially was secondary to LLL pneumonia. RPT CXR shows Largely unchanged bilateral central peribronchial thickening and patchy left basilar airspace disease. No new abnormality. Continue Cefepime, Flagyl 2. CoNs Bacteremia: 05/29 bottles. Likely a contaminant. 2. Acute Hypoxic respiratory failure: re-intubated due to code blue. 3. EMILY - renally dosed antibiotics 4. Hypernatremia 4. CVA 5. Dementia 6. HTN Recs: - continue cefepime 1g q12h, D8 - continue metronidazole 500mg q8h, D7 -continue to monitor renal function -When clinically improved can discharge home on Ceftin 500mg P0 BID and Doxycycline 100mg BID for 1 day. Grim prognosis, consider hospice G. Apurva Lucas MD [facility] M: [phone] O: [phone] F: [phone] Subjective Date of service: 01/10/19 Principal diagnosis: EMILY Interval history: Remains intubated and sedated Objective - Exam Narrative Exam: Constitutional: intubated Head, Ears, Nose: Normocephalic, atraumatic. External ears, nose normal Eyes: unable to assess Neck: Supple, no meningeal signs Oral: unable to assess Cardiovascular: S1, S2 normal. Normal rhythm Respiratory: decreased breath sounds, clear to auscultation bilaterally, room air. GI: Soft, non-tender; bowel sounds normal. No peritoneal signs. PEG in place. Musculoskeletal: No pedal edema, Skin: No rash or abscess Hem/Lymphatic: No palpable cervical or supraclavicular nodes. No lymphangitis Psych: somnolent Neurological: L sided hemiplegia, somnolent, not following commands - Constitutional Vitals: Vital Signs Temp Pulse Resp BP Pulse Ox 100.2 F H 121 H 22 149/76 100 01/10/19 12:00 01/10/19 16:52 01/10/19 12:00 01/10/19 16:52 01/10/19 16:52 Temperature -Last 24 Hours Temperature 100.2 F Temperature 97.9 F Temperature 102.4 F Temperature 100.9 F Temperature 97.2 F - Labs CBC & Chem 7: 01/09/19 03:58 01/10/19 16:00 Labs: Abnormal lab results 01/09/19 01/10/19 01/10/19 Range/Units 23:35 03:35 05:29 ABG HCO3 12.5 L (20.0-26.0) mmol/L ABG Base Excess -11.4 L (-2.0-3.0) mmol/L ABG Hemoglobin 6.8 L (14.0-18.0) gm/dl Oxyhemoglobin 94.8 L (95.0-99.0) % Sodium (137-145) mmol/L Chloride (98-107) mmol/L Carbon Dioxide (22-30) mmol/L BUN (9-20) mg/dL Creatinine (0.8-1.5) mg/dL Glucose (75-100) mg/dL POC Glucose 110 H 138 H (70-105) Calcium (8.4-10.2) mg/dL AST (5-40) units/L Total Protein (6.3-8.2) g/dL Albumin (3.9-5) g/dL 01/10/19 01/10/19 Range/Units 15:18 16:00 ABG HCO3 (20.0-26.0) mmol/L ABG Base Excess (-2.0-3.0) mmol/L ABG Hemoglobin (14.0-18.0) gm/dl Oxyhemoglobin (95.0-99.0) % Sodium 146 H (137-145) mmol/L Chloride 122.9 H (98-107) mmol/L Carbon Dioxide 11 L (22-30) mmol/L BUN 59 H (9-20) mg/dL Creatinine 2.5 H (0.8-1.5) mg/dL Glucose 109 H (75-100) mg/dL POC Glucose 119 H (70-105) Calcium 7.8 L (8.4-10.2) mg/dL AST 81 H (5-40) units/L Total Protein 5.9 L (6.3-8.2) g/dL Albumin 1.5 L (3.9-5) g/dL
[2019-01-10] MEDS: LOPRESSOR IV PRN (18:03)
[2019-01-10] MEDS: TYLENOL FEEDTUBE PRN (18:11)
[2019-01-10] MEDS ORDERED: APRESOLINE IV PRN (19:28)
[2019-01-10 20:24] LABS: Hemoglobin 6.6 gm/dl (11.8-15.2); Mean Corpuscular HGB Conc 32 % (32-34); Mean Corpuscular Volume 88 fl (84-94); Platelet Count 394 K/mm3 (140-440); Red Blood Count 2.39 M/mm3 (3.65-5.03); Red Cell Distribution Width 18.8 % (13.2-15.2)
[2019-01-11] MEDS: D5/0.45NS 1,000 ML IV SCH (00:53)
--- NOTE | 2019-01-11 03:06 | XRay Report ---
CHEST 1 VIEW 2:34 AM INDICATION / CLINICAL INFORMATION: Follow up respiratory failure. COMPARISON: Yesterday. FINDINGS: SUPPORT DEVICES: The position of the endotracheal tube has not changed. HEART / MEDIASTINUM: Unchanged. LUNGS / PLEURA: Left lower lobe consolidation/atelectasis has increased significantly. Patchy parench ymal disease in the right lung has improved. Mild diffuse interstitial disease is stable. No pneumoth orax. ADDITIONAL FINDINGS: No significant additional findings. IMPRESSION: 1. Increasing left lower lobe atelectasis or pneumonia. 2. Patchy parenchymal disease in the right perihilar region/central lung has improved. Signer Name: Arnoldo Hopson MD Signed: 01/11/2019 3:01 AM Workstation Name: [id number]
[2019-01-11] MEDS: LOPRESSOR IV PRN (04:49)
[2019-01-11 05:16] LABS: Hematocrit 25.3 % (35.5-45.6); Hemoglobin 7.7 gm/dl (11.8-15.2); Mean Corpuscular HGB Conc 30 % (32-34); Mean Corpuscular Volume 94 fl (84-94); Platelet Count 446 K/mm3 (140-440); Red Cell Distribution Width 19.9 % (13.2-15.2)
[2019-01-11 05:29] LABS: Calcium 7.7 mg/dL (8.4-10.2)
[2019-01-11] MEDS: FLAGYL 500 MG/100 ML 500 MG/100 ML BAG IV SCH ×2 (06:11→13:55)
[2019-01-11 06:12] LABS: Anisocytosis 1+; Basophils % (Manual) 0 % (0.0-1.8); Platelet Estimate Consistent w Auto; Total Cells Counted 100
[2019-01-11] MEDS: LOVENOX SUB-Q SCH (09:18)
[2019-01-11] MEDS: ASPIRIN PO SCH (09:18)
[2019-01-11] MEDS: MAXIPIME/NS 1 GM/100 ML 1 GM/100 ML BAG IV SCH (09:18)
[2019-01-11] MEDS: SODIUM CHLORIDE FLUSH SYRINGE 10 ML IV SCH (09:19)
[2019-01-11] MEDS ORDERED: PEPCID PO SCH (10:00)
--- NOTE | 2019-01-11 12:30 | Progress Note ---
Assessment and Plan Cultures: 12/24 BCx - no growth 12/30 BCx - no growth 01/03 BCx - NGTD 01/04 BCx - NGTD 01/06 BCx - CoNS 1/4 bottles A/P: 83 yo M PMHx HTN, dementia admitted with CVA, now persistently febrile with LLL pneumonia. Patient was discharged yesterday for SNF placement. Upon arrival to the intermediate, patient was refused admission due to concerns about his respiratory status. 1. Leukocytosis : Trended up due to code blue and CPR. No new concerns for infection at this time. Initially was secondary to LLL pneumonia. RPT CXR shows Largely unchanged bilateral central peribronchial thickening and patchy left basilar airspace disease. No new abnormality. Continue Cefepime, Flagyl, plan to stop tomorrow. 2. CoNs Bacteremia: /4 bottles. Likely a contaminant. 3. Acute Hypoxic respiratory failure: re-intubated due to code blue. 4. EMILY - renally dosed antibiotics 5. CVA and dementia 6. HTN Recs: - continue cefepime 1g q12h, metronidazole 500mg q8h, plan to stop abx tomorrow - overall poor prognosis, hospice / palliative care would be appropriate Madonna Carver MD, FACP [facility] ([facility] M: [phone] O: [phone] F: [phone] Subjective Date of service: 01/11/19 Principal diagnosis: EMILY Interval history: Low grade fevers. Intubated. On vent. Objective - Exam Narrative Exam: Constitutional: intubated Head, Ears, Nose: Normocephalic, atraumatic. External ears, nose normal Eyes: unable to assess Neck: intubated Oral: intubated, unable to assess Cardiovascular: S1, S2 normal. Normal rhythm Respiratory: decreased breath sounds in bases, otherwise clear bilaterally GI: Soft, non-tender; bowel sounds normal. No peritoneal signs. PEG in place. Musculoskeletal: No pedal edema Skin: No rash or abscess Hem/Lymphatic: No palpable cervical or supraclavicular nodes. No lymphangitis Psych: no agitation, on vent Neurological: comatose, on vent. - Constitutional Vitals: Vital Signs Temp Pulse Resp BP Pulse Ox 99.1 F 112 H 21 132/64 100 01/11/19 08:00 01/11/19 09:00 01/11/19 09:00 01/11/19 09:00 01/11/19 09:00 Temperature -Last 24 Hours Temperature 99.1 F Temperature 99.1 F Temperature 99.1 F Temperature 97.8 F Temperature 99.1 F Temperature 100.5 F - Labs CBC & Chem 7: 01/11/19 04:55 01/11/19 04:55 Labs: Abnormal lab results 01/10/19 01/10/19 01/10/19 Range/Units 15:18 16:00 18:02 WBC (4.5-11.0) K/mm3 RBC (3.65-5.03) M/mm3 Hgb (11.8-15.2) gm/dl Hct (35.5-45.6) % MCHC (32-34) % RDW (13.2-15.2) % Plt Count (140-440) K/mm3 Seg Neuts % (Manual) (40.0-70.0) % Eosinophils % (Manual) (0.0-4.3) % Seg Neutrophils # Man (1.8-7.7) K/mm3 Eosinophils # (Manual) (0.0-0.4) K/mm3 Sodium 146 H (137-145) mmol/L Chloride 122.9 H (98-107) mmol/L Carbon Dioxide 11 L (22-30) mmol/L BUN 59 H (9-20) mg/dL Creatinine 2.5 H (0.8-1.5) mg/dL Glucose 109 H (75-100) mg/dL POC Glucose 119 H 134 H (70-105) Calcium 7.8 L (8.4-10.2) mg/dL AST 81 H (5-40) units/L Total Protein 5.9 L (6.3-8.2) g/dL Albumin 1.5 L (3.9-5) g/dL 01/10/19 01/10/19 01/11/19 Range/Units 20:10 23:21 04:55 WBC 14.5 H 14.6 H (4.5-11.0) K/mm3 RBC 2.39 L 2.70 L (3.65-5.03) M/mm3 Hgb 6.6 L 7.7 L (11.8-15.2) gm/dl Hct 21.0 L 25.3 L (35.5-45.6) % MCHC 30 L (32-34) % RDW 18.8 H 19.9 H (13.2-15.2) % Plt Count 446 H (140-440) K/mm3 Seg Neuts % (Manual) 72.0 H (40.0-70.0) % Eosinophils % (Manual) 6.0 H (0.0-4.3) % Seg Neutrophils # Man 10.5 H (1.8-7.7) K/mm3 Eosinophils # (Manual) 0.9 H (0.0-0.4) K/mm3 Sodium (137-145) mmol/L Chloride (98-107) mmol/L Carbon Dioxide (22-30) mmol/L BUN (9-20) mg/dL Creatinine (0.8-1.5) mg/dL Glucose (75-100) mg/dL POC Glucose 117 H (70-105) Calcium (8.4-10.2) mg/dL AST (5-40) units/L Total Protein (6.3-8.2) g/dL Albumin (3.9-5) g/dL 01/11/19 01/11/19 01/11/19 Range/Units 04:55 05:45 12:03 WBC (4.5-11.0) K/mm3 RBC (3.65-5.03) M/mm3 Hgb (11.8-15.2) gm/dl Hct (35.5-45.6) % MCHC (32-34) % RDW (13.2-15.2) % Plt Count (140-440) K/mm3 Seg Neuts % (Manual) (40.0-70.0) % Eosinophils % (Manual) (0.0-4.3) % Seg Neutrophils # Man (1.8-7.7) K/mm3 Eosinophils # (Manual) (0.0-0.4) K/mm3 Sodium (137-145) mmol/L Chloride 118.5 H (98-107) mmol/L Carbon Dioxide 12 L (22-30) mmol/L BUN 56 H (9-20) mg/dL Creatinine 2.7 H (0.8-1.5) mg/dL Glucose 122 H (75-100) mg/dL POC Glucose 139 H 141 H (70-105) Calcium 7.7 L (8.4-10.2) mg/dL AST (5-40) units/L Total Protein (6.3-8.2) g/dL Albumin (3.9-5) g/dL - Imaging and cardiology Chest x-ray: report reviewed, image reviewed (few bilateral infiltates, L>R)
--- NOTE | 2019-01-11 12:38 | Discharge Summary ---
Providers - Providers Date of Admission: 01/07/19 02:07 Attending physician: SOFIA SANCHEZ MD 01/07/19 01:36 Consult to Physician [CONS] Routine Comment: Consulting Provider: KAELYN BERGMAN Physician Instructions: Reason For Exam: WBC 16.6, d/c 01/06/19 tx RLL PNA c fever 01/07/19 01:39 Consult to Physician [CONS] Routine Comment: Consulting Provider: JHOAN FRAZIER Physician Instructions: Reason For Exam: EMILY, recently d/c 01/06/19 01/07/19 02:02 Consult to Dietitian/Nutrition [CONS] Routine Physician Instructions: tube feeds and malnutrition Reason For Exam: Reason for Consult: Write/Manage Tube Feeding 01/07/19 08:23 Consult to Wound/ET Nurse [CONS] Routine Reason For Exam: wound eval 01/09/19 02:59 Consult to Dietitian/Nutrition [CONS] Routine Physician Instructions: Reason For Exam: Reason for Consult: Evaluate nutritional intake Consult to Physician [CONS] Routine Comment: Consulting Provider: SANA OSEI Physician Instructions: Reason For Exam: ICU admission on vent, s/p cardiac arrest [facility] Hospitalization Condition: Critical Disposition: [id number] HOSPICE (MED FACILITY) Exam - Constitutional Vitals: Temp Pulse Resp BP Pulse Ox 99.1 F 112 H 21 132/64 100 01/11/19 08:00 01/11/19 09:00 01/11/19 09:00 01/11/19 09:00 01/11/19 09:00 Plan Follow up with: WENCESLAO ZHANGBROOKLYN MD BARON [Primary Care Provider] - 3-5 Days Prescriptions: Triazolam [Halcion] 0.25 mg PO Q4H PRN #20 tablet PRN Reason: Agitation Oxycodone HCl [oxyCODONE 20 MG/ML ORAL LIQ] 10 mg PO Q4H PRN #1 ml PRN Reason: Pain, Moderate (4-6)
--- NOTE | 2019-01-11 12:52 | Progress Note ---
Assessment and Plan Impression: Status post cardiorespiratory arrest Acute respiratory failure on mechanical ventilator Bilateral infiltrate on chest x-ray possible pneumonia and possible aspiration. Plan: Family had decided withdrawal of care Patient will be transferred to hospice care either Total critical care time 31 minute Subjective Date of service: 01/11/19 Principal diagnosis: EMILY Interval history: Patient unresponsive on mechanical ventilator. Patient is orally intubated. Patient has no CODE STATUS however it was not known and patient was coded and now mechanical ventilator since admission. Objective Vital Signs - 12hr 01/11/19 01/11/19 01/11/19 00:56 01:00 02:00 Temperature Pulse Rate 108 H 105 H 112 H Pulse Rate [ Apical] Respiratory 20 22 Rate Blood Pressure 138/70 128/74 146/74 O2 Sat by Pulse 100 100 100 Oximetry 01/11/19 01/11/19 01/11/19 03:00 03:54 04:00 Temperature 99.1 F 99.1 F Pulse Rate 114 H 113 H Pulse Rate [ 136 H Apical] Respiratory 22 21 Rate Blood Pressure 147/76 134/85 O2 Sat by Pulse 100 100 Oximetry 01/11/19 01/11/19 01/11/19 04:49 05:00 05:39 Temperature Pulse Rate 136 H 112 H 103 H Pulse Rate [ Apical] Respiratory 21 Rate Blood Pressure 163/73 122/60 120/64 O2 Sat by Pulse 100 100 Oximetry 01/11/19 01/11/19 01/11/19 06:00 07:00 07:54 Temperature Pulse Rate 109 H 108 H 110 H Pulse Rate [ Apical] Respiratory 26 H 20 Rate Blood Pressure 115/60 129/64 127/69 O2 Sat by Pulse 99 100 100 Oximetry 01/11/19 01/11/19 01/11/19 08:00 09:00 10:00 Temperature 99.1 F Pulse Rate 110 H 112 H 109 H Pulse Rate [ 111 H Apical] Respiratory 19 21 20 Rate Blood Pressure 142/67 132/64 131/67 O2 Sat by Pulse 100 100 100 Oximetry 01/11/19 01/11/19 11:00 12:00 Temperature 98.9 F Pulse Rate 103 H 103 H Pulse Rate [ 105 H Apical] Respiratory 19 18 Rate Blood Pressure 132/60 128/61 O2 Sat by Pulse 100 100 Oximetry Constitutional: no acute distress, other (orally intubated on vent critically ill) ENT: oropharynx moist Neck: supple Effort: normal Ascultation: Bilateral: diminished breath sounds Cardiovascular: regular rate and rhythm Gastrointestinal: normoactive bowel sounds, soft, non-distended Extremities: no cyanosis Neurologic: unable to assess, other CBC and BMP: 01/11/19 04:55 01/11/19 04:55 ABG, PT/INR, D-dimer: ABG POC ABG pH 7.397 (7.35-7.45) 01/09/19 06:25 ABG pH 7.384 pH Units (7.350-7.450) 01/10/19 03:35 ABG pCO2 21.4 mm Hg 01/10/19 03:35 POC ABG pO2 147 (80-105) H 01/09/19 06:25 ABG pO2 83.2 mm Hg (80.0-90.0) 01/10/19 03:35 POC ABG HCO3 13.5 (22-26 mml/L) 01/09/19 06:25 POC ABG Total CO2 14 (23-27mmol/L) 01/09/19 06:25 POC ABG O2 Sat 99 01/09/19 06:25 ABG O2 Saturation 97.1 % (95.0-99.0) 01/10/19 03:35 Abnormal lab findings: Abnormal Labs 01/06/19 01/06/19 01/08/19 21:21 21:21 05:24 WBC 16.6 H 12.5 H RBC 2.63 L 2.89 L Hgb 7.9 L 8.1 L Hct 23.0 L 25.5 L MCHC 35 H RDW 18.1 H 18.0 H Plt Count 468 H 498 H Lymph % (Auto) 10.8 L 12.4 L [place] # 0.9 H Seg Neutrophils % 81.5 H 76.9 H Seg Neuts % (Manual) Lymphocytes % (Manual) Eosinophils % (Manual) Seg Neutrophils # 13.5 H 9.6 H Seg Neutrophils # Man Eosinophils # (Manual) Basophils # (Manual) POC ABG pH POC ABG pO2 ABG HCO3 ABG Base Excess ABG Hemoglobin Oxyhemoglobin Sodium 146 H Chloride 118.5 H Carbon Dioxide 12 L BUN 54 H Creatinine 1.7 H Glucose POC Glucose Calcium AST 75 H Total Creatine Kinase CK-MB (CK-2) Troponin T Total Protein Albumin 1.9 L Cholesterol LDL Cholesterol Direct HDL Cholesterol 01/08/19 01/08/19 01/08/19 05:24 11:40 18:28 WBC RBC Hgb Hct MCHC RDW Plt Count Lymph % (Auto) [place] # Seg Neutrophils % Seg Neuts % (Manual) Lymphocytes % (Manual) Eosinophils % (Manual) Seg Neutrophils # Seg Neutrophils # Man Eosinophils # (Manual) Basophils # (Manual) POC ABG pH POC ABG pO2 ABG HCO3 ABG Base Excess ABG Hemoglobin Oxyhemoglobin Sodium 150 H Chloride 125.3 H Carbon Dioxide 12 L BUN 46 H Creatinine Glucose 114 H POC Glucose 134 H 160 H Calcium AST Total Creatine Kinase CK-MB (CK-2) Troponin T Total Protein Albumin Cholesterol LDL Cholesterol Direct HDL Cholesterol 01/08/19 01/09/19 01/09/19 23:43 03:58 03:58 WBC 15.7 H RBC 2.59 L Hgb 7.3 L Hct 23.7 L MCHC 31 L RDW 18.8 H Plt Count 484 H Lymph % (Auto) [place] # Seg Neutrophils % Seg Neuts % (Manual) 84.0 H Lymphocytes % (Manual) 12.0 L Eosinophils % (Manual) Seg Neutrophils # Seg Neutrophils # Man 13.2 H Eosinophils # (Manual) Basophils # (Manual) 0.2 H POC ABG pH POC ABG pO2 ABG HCO3 ABG Base Excess ABG Hemoglobin Oxyhemoglobin Sodium Chloride 119.9 H Carbon Dioxide 10 L BUN 50 H Creatinine 1.9 H Glucose 216 H POC Glucose 153 H Calcium AST 82 H Total Creatine Kinase 1173 H CK-MB (CK-2) 16.0 H Troponin T 0.856 H* Total Protein Albumin 2.0 L Cholesterol 41 L LDL Cholesterol Direct 5 L HDL Cholesterol 16 L 01/09/19 01/09/19 01/09/19 04:21 06:08 06:25 WBC RBC Hgb Hct MCHC RDW Plt Count Lymph % (Auto) [place] # Seg Neutrophils % Seg Neuts % (Manual) Lymphocytes % (Manual) Eosinophils % (Manual) Seg Neutrophils # Seg Neutrophils # Man Eosinophils # (Manual) Basophils # (Manual) POC ABG pH 7.179 L POC ABG pO2 126 H 147 H ABG HCO3 ABG Base Excess ABG Hemoglobin Oxyhemoglobin Sodium Chloride Carbon Dioxide BUN Creatinine Glucose POC Glucose Calcium AST Total Creatine Kinase 1262 H CK-MB (CK-2) 18.7 H Troponin T 0.970 H* Total Protein Albumin Cholesterol LDL Cholesterol Direct HDL Cholesterol 01/09/19 01/09/19 01/09/19 12:49 17:28 23:35 WBC RBC Hgb Hct MCHC RDW Plt Count Lymph % (Auto) [place] # Seg Neutrophils % Seg Neuts % (Manual) Lymphocytes % (Manual) Eosinophils % (Manual) Seg Neutrophils # Seg Neutrophils # Man Eosinophils # (Manual) Basophils # (Manual) POC ABG pH POC ABG pO2 ABG HCO3 ABG Base Excess ABG Hemoglobin Oxyhemoglobin Sodium Chloride Carbon Dioxide BUN Creatinine Glucose POC Glucose 132 H 136 H 110 H Calcium AST Total Creatine Kinase CK-MB (CK-2) Troponin T Total Protein Albumin Cholesterol LDL Cholesterol Direct HDL Cholesterol 01/10/19 01/10/19 01/10/19 03:35 05:29 15:18 WBC RBC Hgb Hct MCHC RDW Plt Count Lymph % (Auto) [place] # Seg Neutrophils % Seg Neuts % (Manual) Lymphocytes % (Manual) Eosinophils % (Manual) Seg Neutrophils # Seg Neutrophils # Man Eosinophils # (Manual) Basophils # (Manual) POC ABG pH POC ABG pO2 ABG HCO3 12.5 L ABG Base Excess -11.4 L ABG Hemoglobin 6.8 L Oxyhemoglobin 94.8 L Sodium Chloride Carbon Dioxide BUN Creatinine Glucose POC Glucose 138 H 119 H Calcium AST Total Creatine Kinase CK-MB (CK-2) Troponin T Total Protein Albumin Cholesterol LDL Cholesterol Direct HDL Cholesterol 01/10/19 01/10/19 01/10/19 16:00 18:02 20:10 WBC 14.5 H RBC 2.39 L Hgb 6.6 L Hct 21.0 L MCHC RDW 18.8 H Plt Count Lymph % (Auto) [place] # Seg Neutrophils % Seg Neuts % (Manual) Lymphocytes % (Manual) Eosinophils % (Manual) Seg Neutrophils # Seg Neutrophils # Man Eosinophils # (Manual) Basophils # (Manual) POC ABG pH POC ABG pO2 ABG HCO3 ABG Base Excess ABG Hemoglobin Oxyhemoglobin Sodium 146 H Chloride 122.9 H Carbon Dioxide 11 L BUN 59 H Creatinine 2.5 H Glucose 109 H POC Glucose 134 H Calcium 7.8 L AST 81 H Total Creatine Kinase CK-MB (CK-2) Troponin T Total Protein 5.9 L Albumin 1.5 L Cholesterol LDL Cholesterol Direct HDL Cholesterol 08/18/19 08/19/19 08/19/19 23:21 04:55 04:55 WBC 14.6 H RBC 2.70 L Hgb 7.7 L Hct 25.3 L MCHC 30 L RDW 19.9 H Plt Count 446 H Lymph % (Auto) [place] # Seg Neutrophils % Seg Neuts % (Manual) 72.0 H Lymphocytes % (Manual) Eosinophils % (Manual) 6.0 H Seg Neutrophils # Seg Neutrophils # Man 10.5 H Eosinophils # (Manual) 0.9 H Basophils # (Manual) POC ABG pH POC ABG pO2 ABG HCO3 ABG Base Excess ABG Hemoglobin Oxyhemoglobin Sodium Chloride 118.5 H Carbon Dioxide 12 L BUN 56 H Creatinine 2.7 H Glucose 122 H POC Glucose 117 H Calcium 7.7 L AST Total Creatine Kinase CK-MB (CK-2) Troponin T Total Protein Albumin Cholesterol LDL Cholesterol Direct HDL Cholesterol 01/11/19 01/11/19 05:45 12:03 WBC RBC Hgb Hct MCHC RDW Plt Count Lymph % (Auto) [place] # Seg Neutrophils % Seg Neuts % (Manual) Lymphocytes % (Manual) Eosinophils % (Manual) Seg Neutrophils # Seg Neutrophils # Man Eosinophils # (Manual) Basophils # (Manual) POC ABG pH POC ABG pO2 ABG HCO3 ABG Base Excess ABG Hemoglobin Oxyhemoglobin Sodium Chloride Carbon Dioxide BUN Creatinine Glucose POC Glucose 139 H 141 H Calcium AST Total Creatine Kinase CK-MB (CK-2) Troponin T Total Protein Albumin Cholesterol LDL Cholesterol Direct HDL Cholesterol
[2019-01-11 16:09] VITALS: BP 142/74
== END 2019-01-11 19:00 | disposition hospice, inpatient (51) | DRG 871 ==
LOC: ED 17:24 → IMCU 01-07 02:07 → CC1 01-09 03:33
PROVIDERS: ADMIT Internal Medicine; ATTEND Internal Medicine
PROC: 5A1945Z Respiratory Ventilation, 24-96 Consecutive Hours (ICD-10-PCS; 2019-01-09)
PROC: 0BH17EZ Insertion of Endotracheal Airway into Trachea, Via Natural or Artificial Opening (ICD-10-PCS; 2019-01-09)
PROC: 4A033R1 Measurement of Arterial Saturation, Peripheral, Percutaneous Approach (ICD-10-PCS; principal; 2019-01-11)
DX: A41.9 Sepsis, unspecified organism (principal); I63.9 Cerebral infarction, unspecified; E43 Unspecified severe protein-calorie malnutrition; R40.20 Unspecified coma; N17.0 Acute kidney failure with tubular necrosis; J96.21 Acute and chronic respiratory failure with hypoxia; J18.1 Lobar pneumonia, unspecified organism; G93.41 Metabolic encephalopathy; E87.0 Hyperosmolality and hypernatremia; G81.94 Hemiplegia, unspecified affecting left nondominant side; I24.0 Acute coronary thrombosis not resulting in myocardial infarction; I42.0 Dilated cardiomyopathy; D68.9 Coagulation defect, unspecified; I13.0 Hypertensive heart and chronic kidney disease with heart failure and stage 1 through stage 4 chronic kidney disease, or unspecified chronic kidney disease; R53.81 Other malaise; F03.90 Unspecified dementia, unspecified severity, without behavioral disturbance, psychotic disturbance, mood disturbance, and anxiety; R13.10 Dysphagia, unspecified; I50.9 Heart failure, unspecified; D63.8 Anemia in other chronic diseases classified elsewhere; N18.9 Chronic kidney disease, unspecified; R04.0 Epistaxis; E87.5 Hyperkalemia; Z93.1 Gastrostomy status; Z79.82 Long term (current) use of aspirin; Z79.899 Other long term (current) drug therapy; Z86.74 Personal history of sudden cardiac arrest
CPT/HCPCS: 31500; 36415; 36600; 71045; 80048; 80053; 80061; 81001; 82140; 82550; 82553; 82803; 82962; 84484; 85007; 85025; 85027; 85730; 87040; 87070; 87205; 93005; 93010; 94002; 94003; 96374; 99291; G0378; A9270-GY; J0171; J0692; J1650; J3370; J7030; J7050